=== PATIENT | male | born 1940 | race Caucasian/White ===

== ENCOUNTER 2019-04-29 21:20 | Emergency (ER) | payer OTHER, MEDICARE, SELFPAY ==
[2019-04-29] VITALS (7 sets, daily range): BP systolic 116–152; BP diastolic 62–80; PULSE 55–97; RESP 16–24; TEMP 36.6; O2SAT 93–97; BMI 26.4
--- NOTE | 2019-04-29 21:48 | ED_ITS ---
Entered by Eveline Ivy, acting as scribe for Giulia Jo Apr 29, 2019 21:20 HPI - SOB/Dyspnea General: Chief Complaint: Shortness of Breath/Dyspnea Stated Complaint: difficulty breathing Time Seen by Provider: 04/29/19 21:48 Source: patient Mode of arrival: ambulatory History of Present Illness: HPI Narrative: 78 y/o male presents to the ED with complaint of SOB. Pt states he has hx of bronchitis and he thinks he has it again. He was COPD and states he was on home O2 up until about a year ago. His states he is probably going to need to have it again. Yesterday he noticed his sputum was yellow and he has chest discomfort from coughing. MD elicited complaint: shortness of breath Pertinent past history: COPD Onset (ago): day(s) Timing: progressively worsening Severity: similar to previous episodes Known history of: COPD Associated symptoms: Reports cough; Deny abdominal pain, diaphoresis, dizziness, extremity pain, fever(s), nausea, palpitations, polydipsia, syncope or vomiting Review of Systems General: Reports: other (negative unless marked) Const: Denies: fever, chills, body aches, fatigue, malaise or diaphoresis Eyes: Denies: change in vision or blurry vision ENMT: Denies: throat pain, painful swallowing, hoarseness, ear pain, ear discharge, Change in hearing or nasal discharge Card: Denies: palpitations, irregular heart rhythm, syncope or pre-syncope GI: Denies: abdominal pain, nausea, vomiting, vomiting blood, coffee grounds in vomit, diarrhea, constipation, cramping, blood in stool or black tarry stool : Denies: flank pain, difficulty urinating, painful urination, urinary frequency, urinary urgency, decreased urine ouput, urinary incontinence or blood in urine Musc: Denies: neck pain, back pain, extremity pain, extremity swelling, joint pain, joint swelling, joint warmth or joint stiffness Skin/Breast: Denies: rash, skin tenderness or yellow skin Neuro: Denies: headache, numbness in extremities, weakness in extremities, changes in sensation, lack of coordination, difficulty walking, dizziness, vertigo or confusion Endo: Denies: excessive thirst, tired all the time, cold intolerance, excessive sweating, flushing or hot flashes Fito/Lymph: Denies: easy bruising, easy bleeding, petechiae or enlarged lymph nodes All/Imm: Denies: hives, throat swelling, tongue swelling, facial swelling or acute wheezing PFSH ED PFSH: Social History (Updated 04/21/19 @ 13:56 by SHAKILA Mcginnis) Smoking and tobacco status: former smoker Quit status (tobacco): has quit using tobacco Year quit tobacco: 1986 - 2PPD x 37 Years Second hand smoke exposure: No Alcohol intake: never Lives independently: Yes Household members: spouse Marital status: service: Yes Current occupational status: retired History of recent travel: No Current gender identity: Male Physical Exam Const: COMMON NORMALS: no apparent distress, oriented x3, no limitations, healthy appearing and well nourished EXAM LIMITATIONS: no altered mental status GENERAL APPEARANCE: cooperative, well kempt and well developed ORIENTATION/CONSCIOUSNESS: Yes awake HENMT: COMMON NORMALS: normocephalic, head/scalp atraumatic, hearing grossly normal bilaterally, external ears normal, EAC's normal, external nose normal and moist oral mucous membranes HEAD & SCALP: normal to inspection, normocephalic and atraumatic FACE & SINUS: normal facial exam and face symmetric NOSE: external nose normal and nares normal EXTERNAL EAR: Yes external ears normal EXTERNAL AUDITORY CANAL: EAC's normal MOUTH: oral and palatal mucosa normal and tongue normal Eye: COMMON NORMALS: PERRL, EOMs intact bilaterally, conjunctivae normal and no scleral icterus GENERAL EYE: normal appearance of both eyes and normal li ght reflex CONJUNCTIVA: Yes conjunctivae normal SCLERA: sclerae normal CORNEA: Yes corneas normal PUPIL: Yes PERRL DIRECT OPHTHALMOSCOPY: Yes normal light reflex Neck/C-Spine: COMMON NORMALS: full ROM, no lymphadenopathy, supple, no meningeal signs and no JVD GENERAL: Yes normal visual inspection and Yes trachea midline CERVICAL SPINE: Yes cervical ROM normal Chest: COMMONS NORMALS: inspection of chest normal and palpation of chest normal Resp: EFFORT & INSPECTION: Yes able to speak in complete sentences AUSCULTATION: no crackles, no rales, rhonchi and no wheezes Cardio: COMMON NORMALS: no JVD, regular rate, regular rhythm, S1 normal heart sound, S2 normal heart sound, no gallops, no clicks, no murmurs and no rub JUGULAR VENOUS DISTENTION: no JVD RATE: regular rate RHYTHM: regular rhythm HEART SOUNDS: S1 normal and S2 normal GI: COMMON NORMALS: soft to palpation, non-tender, no hepatosplenomegaly and no masses INSPECTION: Yes normal to inspection PALPATION: Yes soft and Yes no hepatosplenomegaly : COMMON NORMALS: Yes no CVA tenderness BLADDER/KIDNEY EXAM: Yes no CVA tenderness Back/Pelvis: COMMON NORMALS: no CVA tenderness, thoracic and lumbar spine normal to inspection, no thoracic nor lumbar tenderness and thoraco-lumbar ROM normal Extremity: COMMON NORMALS: normal to inspection, full ROM, normal capillary refill, no joint enlargement, no clubbing, cyanosis or edema and no calf tenderness Neuro: COMMON NORMALS: oriented x3, CN's II-XII intact bilaterally, moves all extremities, no focal motor deficits and no sensory deficits noted MENINGEAL SIGNS: Yes no meningeal signs Psych: COMMON NORMALS: mental status grossly normal, thought process normal, cooperative, affect normal, speech normal and activity/motor behavior normal APPEARANCE: Yes well kempt SPEECH: Yes normal speech THOUGHT PROCESS: normal thought process Skin: COMMON NORMALS: no rashes or lesions noted, skin turgor normal, no jaundice, no petechiae and no mottling GENERAL SKIN EXAM: no rashes or lesions noted and turgor normal Course Vital Signs: Vital signs: Vital Signs Temperature 97.8 F 04/29/19 21:26 Pulse Rate 62 04/30/19 00:36 Respiratory Rate 18 04/30/19 00:36 Blood Pressure 152/80 04/30/19 00:36 Pulse Oximetry 98 04/30/19 00:36 MDM - SOB/Dyspnea MDM Narrative: Medical decision making narrative: The patient does not demonstrate any sign of respiratory distress. His chest x-ray reveals a right lower lobe infiltrate. He has no chest pain. His EKG and cardiac markers are unremarkable. His cough productive of yellow sputum. I believe all the symptoms are consistent with pneumonia. I will go and discharge him home with a plan to follow-up with his doctor or return here if needed. The patient was initially going to be discharged with Levaquin but with his borderline renal function he was discharged with Omnicef and doxycycline. The patient agrees to follow-up with his doctor regarding his renal function but he did receive 2 L normal saline here and was able to urinate. He was given instructions to keep himself hydrated at home and he understands this. He agrees to return should his symptoms change or worsen. Lab Data: Attestation: I reviewed the patient's lab results. Labs: Lab Results 04/29/19 04/29/19 04/29/19 Range/Units 22:00 22:00 22:00 WBC 5.7 (4.0-10.0) 10^3/ uL RBC 4.39 (4.1-5.3) 10^6/u L Hgb 13.5 (11.7-16.6) g/dL Hct 40.6 L (42.0-52.0) % MCV 92.5 (80-94) fL MCH 30.8 (28.0-34.0) pg MCHC 33.3 (30.0-36.0) g/dL RDW 12.8 (12.1-15.1) % Plt Count 164 (130-400) 10^3/c mm MPV 10.8 H (7.4-10.4) fL Neut % (Auto) 52.6 % Lymph % (Auto) 31.0 % [place] % (Auto) 8.0 % Eos % (Auto) 7.5 % Baso % (Auto) 0.7 % Neut # (Auto) 3.0 (1.8-7.7) 10^3/u L Lymph # (Auto) 1.8 (0.8-4.8) 10^3/u L [place] # (Auto) 0.5 (0.2-0.9) 10^3/u L Eos # (Auto) 0.4 (0.0-0.8) 10^3/u L Baso # (Auto) 0.0 (0.0-0.1) 10^3/u L Nucleated RBC % (a uto) 0 % Nucleated RBCs # 0.0 /100WBC Specimen Type Sample Site ABG pH (7.35-7.45) ABG pCO2 (35-45) mmHg ABG pO2 (80.0-100.0) mmH g ABG HCO3 (22-26) mmol/L ABG Base Excess (-2.0-2.0) mmol/ L Catracho Test Hematocrit (42-52) % O2 Delivery Device Diamond Driller Helper ID Sodium 142 (136-145) mmol/L Potassium 3.9 (3.5-5.1) mmol/L Chloride 105 (98-107) mmol/L Carbon Dioxide 23 (22-29) mmol/L Anion Gap 17.9 (5-19) BUN 29 H (8-23) mg/dL Creatinine 1.7 H (0.7-1.2) mg/dL Glucose 121 H (65-115) mg/dL Lactic Acid (0.5-2.2) mmol/L Calcium 9.1 (8.5-10.5) mg/dL Magnesium 2.1 (1.7-2.3) mg/dL Total Bilirubin 0.3 (0.15-1.2) mg/dL AST 19 (0-40) U/L ALT 14 (0-41) U/L Alkaline Phosphata se 55 (40-130) IU/L Troponin T Baselin e 11 (0-15) ng/mL NT-Pro-B Natriuret Pep 322 (0-450) pg/mL Total Protein 6.6 (6.6-8.7) g/dL Albumin 4.0 (3.5-5.2) g/dL Globulin 2.6 (1.3-4.6) g/dL Influenza Type A A g (Negative) POC Influenza B Ag (Negative) 04/29/19 04/29/19 04/29/19 Range/Units 22:00 22:20 22:36 WBC (4.0-10.0) 10^3/ uL RBC (4.1-5.3) 10^6/u L Hgb (11.7-16.6) g/dL Hct (42.0-52.0) % MCV (80-94) fL MCH (28.0-34.0) pg MCHC (30.0-36.0) g/dL RDW (12.1-15.1) % Plt Count (130-400) 10^3/c mm MPV (7.4-10.4) fL Neut % (Auto) % Lymph % (Auto) % [place] % (Auto) % Eos % (Auto) % Baso % (Auto) % Neut # (Auto) (1.8-7.7) 10^3/u L Lymph # (Auto) (0.8-4.8) 10^3/u L [place] # (Auto) (0.2-0.9) 10^3/u L Eos # (Auto) (0.0-0.8) 10^3/u L Baso # (Auto) (0.0-0.1) 10^3/u L Nucleated RBC % (a uto) % Nucleated RBCs # /100WBC Specimen Type Arterial Sample Site Brachial, right ABG pH 7.43 (7.35-7.45) ABG pCO2 41.4 (35-45) mmHg ABG pO2 75.3 L (80.0-100.0) mmH g ABG HCO3 27.3 H (22-26) mmol/L ABG Base Excess 2.6 H (-2.0-2.0) mmol/ L Catracho Test Pos Hematocrit 42.3 (42-52) % O2 Delivery Device Room air Diamond Driller Helper ID [email or web address] Sodium (136-145) mmol/L Potassium (3.5-5.1) mmol/L Chloride (98-107) mmol/L Carbon Dioxide (22-29) mmol/L Anion Gap (5-19) BUN (8-23) mg/dL Creatinine (0.7-1.2) mg/dL Glucose (65-115) mg/dL Lactic Acid 1.9 (0.5-2.2) mmol/L Calcium (8.5-10.5) mg/dL Magnesium (1.7-2.3) mg/dL Total Bilirubin (0.15-1.2) mg/dL AST (0-40) U/L ALT (0-41) U/L Alkaline Phosphata se (40-130) IU/L Troponin T Baselin e (0-15) ng/mL NT-Pro-B Natriuret Pep (0-450) pg/mL Total Protein (6.6-8.7) g/dL Albumin (3.5-5.2) g/dL Globulin (1.3-4.6) g/dL Influenza Type A A g Negative (Negative) POC Influenza B Ag Negative (Negative) Imaging Data^: CXR: My impression: Right lower lobe infiltrate. EKG Data^: EKG 1: Attestation: I personally reviewed and interpreted this EKG as follows: EKG Interpretation Date: 04/29/19 EKG interpretation time: 23:01 Interpretation: Sinus bradycardia 53 beats a minute, interventricular conduction delay, nonspecific ST-T wave changes, similar to previous. Discharge Plan Discharge Patient Disposition: Home, Self-Care Clinical Impression: Pneumonia Qualifiers: Pneumonia type: due to unspecified organism Laterality: right Lung location: lower lobe of lung Qualified Code(s): J18.9 - Pneumonia, unspecified organism Condition: Stable Prescriptions: New prednisone 10 mg tablets,dose pack See Rx Instructions .ROUTE .COMPLEX Qty: 21 RF: 0 Levaquin 750 mg tablet 750 mg PO DAILY 7 Days RF: 0 albuterol sulfate 90 mcg/actuation HFA aerosol inhaler 2 inh INHALATION Q4H PRN (Reason: shortness of breath or wheezing) Qty: 6.7 RF: 0 doxycycline hyclate 100 mg capsule 100 mg PO BID 10 Days Qty: 20 RF: 0 cefdinir 300 mg capsule 300 mg PO Q12H 10 Days Qty: 20 RF: 0 No Action Eliquis 2.5 mg tablet 2.5 mg PO BID RF: 0 simvastatin [Zocor] 10 mg tablet 5 mg PO ONCE RF: 0 latanoprost 0.005 % drops 1 drop ophthalmic (eye) ONCE RF: 0 brimonidine 0.2 % drops 1 drop ophthalmic (eye) BID RF: 0 ketoconazole 1 % shampoo 1 applic TOPICAL Q3D RF: 0 citalopram 40 mg tablet 20 mg PO ONCE RF: 0 meloxicam 15 mg tablet 15 mg PO ONCE RF: 0 fluoride (sodium) 1.1 % cream 1 applic DENTAL ONCE RF: 0 fluticasone propionate [Flonase Allergy Relief] 50 mcg/actuation spray,suspension 2 spray INTRANASAL BID Qty: 54.6 RF: 3 albuterol sulfate [ProAir HFA] 90 mcg/actuation HFA aerosol inhaler 2 puff INHALATION Q6H PRN (Reason: shortness of breath or wheezing) Qty: 18 RF: 3 Stiolto Respimat 2.5-2.5 mcg/actuation mist 2 puff INHALATION DAILY Qty: 4 RF: 3 Discharge Orders: Discharge Order (Routine); Ordered 04/29/19 Ordered By: Giulia Jo Referrals: Javi Aguilera MD [Primary Care Provider] - Federica Vieira, RESIDENTIAL GAS HEAT TECHNICIAN-C [Family Provider] - 1-3 days Discharge Diet: Advance as tolerated Discharge Activity: Increase activity as tolerated Patient Instructions: Pneumonia (ED) Activity Restrictions/Additional Instructions: Please return to the ER immediately for any of the signs or symptoms listed on your discharge instruction sheets, worsening/changing of your symptoms, you are not getting better as quickly as expected, or for ANY other cause or concerns. Discharge Date/Time: 04/30/19 00:37 Coding Level of Care Code ED Sider Mechanic for Chg Fwd Exam Comprehensive The documentation recorded by the Biju sevilla Ashley, accurately reflects the service I personally performed and the decisions made by Deysi wilkinson Eli N Apr 29, 2019 21:20
--- NOTE | 2019-04-29 21:59 | XR_ITS ---
WS: [id number] XR chest 1V portable [id number] REASON FOR EXAM: cough FINDINGS: Today's exam was compared to December 29, 2018. There is again noted emphysematous changes w ith interstitial thickening in the lower lung crouch with subsegmental atelectasis in the right lung base. There is no definite pneumonia seen. There is no congestive heart failure, mass effect, or pleural effusion. The hilum and apices are normal. 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
--- NOTE | 2019-04-29 22:00 | ECG_ITS ---
Measurements Intervals [place] Rate: 53 P: 76 ND: 186 QRS: 86 QRSD: 145 T: 61 QT: 470 QTc: 442 SINUS BRADYCARDIA INTRAVENTRICULAR CONDUCTION DELAY [130+ ms QRS DURATION] Compared to ECG 12/29/2018 18:31:56 Intraventricular conduction delay now present Sinus rhythm no longer present Right bundle-branch block no longer present Electronically Signed On 04-30-2019 19:03:20 GASOLINE TRUCK OPERATOR by Juarez Bashir M.D. [email or web address]
[2019-04-29 22:18] LABS: Basophils % 0.7 %; Eosinophils # 0.4 10^3/uL (0.0-0.8); Eosinophils % 7.5 %; Hematocrit 40.6 % (42.0-52.0); Hemoglobin 13.5 g/dL (11.7-16.6); Lymphocytes # 1.8 10^3/uL (0.8-4.8); Mean Corpuscular HGB Conc 33.3 g/dL (30.0-36.0); Mean Corpuscular Hemoglobin 30.8 pg (28.0-34.0); Mean Corpuscular Volume 92.5 fL (80-94); Mean Platelet Volume 10.8 fL (7.4-10.4); Monocytes # 0.5 10^3/uL (0.2-0.9); Neutrophils % 52.6 %; Nucleated Red Blood Cells % 0 %; Platelet Count 164 10^3/cmm (130-400); Red Blood Count 4.39 10^6/uL (4.1-5.3); Red Cell Distribution Width 12.8 % (12.1-15.1); White Blood Count 5.7 10^3/uL (4.0-10.0)
[2019-04-29 22:36] LABS: Troponin(5th) Baseline 11 ng/mL (0-15)
[2019-04-29 22:43] LABS: Lactic Sepsis W/Reflex 1.9 mmol/L (0.5-2.2)
[2019-04-29] MEDS: ondansetron 2 mg/ML SDV 2 mL 4 MG IVP (22:44)
[2019-04-29] MEDS: sodium chloride 0.9% 1,000 ML 100 ML IV (22:44)
[2019-04-29 22:45] LABS: Alanine Aminotransferase 14 U/L (0-41); Alkaline Phosphatase 55 IU/L (40-130); Anion Gap 17.9 (5-19); Aspartate Amino Transferase 19 U/L (0-40); Blood Urea Nitrogen 29 mg/dL (8-23); Calcium 9.1 mg/dL (8.5-10.5); Carbon Dioxide 23 mmol/L (22-29); Chloride 105 mmol/L (98-107); Globulin 2.6 g/dL (1.3-4.6); Glucose 121 mg/dL (65-115); Magnesium 2.1 mg/dL (1.7-2.3); NT Pro B Type Natriuretic Pept 322 pg/mL (0-450); Potassium 3.9 mmol/L (3.5-5.1); Sodium 142 mmol/L (136-145); Total Bilirubin 0.3 mg/dL (0.15-1.2); Total Protein 6.6 g/dL (6.6-8.7)
[2019-04-29 22:47] LABS: ABG PCO2 41.4 mmHg (35-45); ABG PH Result 7.43 (7.35-7.45); Arterial Blood Gas Hematocrit 42.3 % (42-52); Base Excess ABG 2.6 mmol/L (-2.0-2.0); Blood Gas Allen Test Pos; Blood Gas Sample Site Brachial, right; Blood Gas Sample Type Arterial; HCO3 ABG 27.3 mmol/L (22-26); Oxygen Device ROOM AIR; PO2 ABG 75.3 mmHg (80.0-100.0)
[2019-04-29 23:05] LABS: Influenza A by IFA Negative (Negative); Influenza B by IFA Negative (Negative)
[2019-04-29] MEDS: levoFLOXacin 750 mg Tablet PO (23:49)
[2019-04-29] MEDS: predniSONE 20 mg Tablet 60 MG PO (23:49)
[2019-04-29] MEDS: albuterol 8 gm MDI 2 PUFF INHALATION (23:55)
[2019-04-29] MEDS: sodium chloride 0.9% 1,000 ML 999 ML IV (23:55)
[2019-04-30] VITALS: BP 152/80; PULSE 65; RESP 14
[2019-04-30 00:04] VITALS: PULSE 78
[2019-04-30 00:36] VITALS: BP 152/80; PULSE 62; RESP 18; O2SAT 98
== END 2019-04-30 00:37 | disposition home or self-care (01) ==
PROVIDERS: Emergency Provider Emergency Medicine; Family Provider Nurse Practitioner; PCP Internal Medicine
DX: J18.9 Pneumonia, unspecified organism (principal); J44.9 Chronic obstructive pulmonary disease, unspecified; Z87.891 Personal history of nicotine dependence; Z79.51 Long term (current) use of inhaled steroids
CPT/HCPCS: 36415; 36600; 71045; 80053; 82803; 83605; 83735; 83880; 84484; 85025; 87804; 93005; 94640; 96361; 96374; 96375; 99283; 99284; J2405; J2930; J3535; J7030; J7512

== ENCOUNTER 2019-05-07 12:46 | Outpatient (RCR) | payer OTHER, MEDICARE, SELFPAY | END 2019-05-09 23:59 | disposition home or self-care (01) | LOC: PULRHB 12:46 | PROVIDERS: Family Provider Nurse Practitioner; PCP Internal Medicine; Visit Provider Internal Medicine Critical Care Medicine | DX: J44.9 Chronic obstructive pulmonary disease, unspecified (principal) | CPT/HCPCS: 94618 ==

== ENCOUNTER 2019-05-10 06:00 | Outpatient (RCR) | payer OTHER, MEDICARE, SELFPAY | END 2019-06-09 23:59 | disposition home or self-care (01) | LOC: PULRHB 06:00 | PROVIDERS: Family Provider Nurse Practitioner; PCP Internal Medicine; Visit Provider Internal Medicine Critical Care Medicine | DX: J44.9 Chronic obstructive pulmonary disease, unspecified (principal) | CPT/HCPCS: G0424 ==

== ENCOUNTER 2019-07-05 20:50 | Emergency (ER) | payer OTHER, SELFPAY ==
[2019-07-05] VITALS (9 sets, daily range): BP systolic 96–164; BP diastolic 64–88; PULSE 81–96; RESP 15–25; TEMP 36.6; O2SAT 90–97; BMI 27.1
--- NOTE | 2019-07-05 20:58 | XR_ITS ---
WS: [id number] PORTABLE CHEST HISTORY: sob COMPARISON: 04/29/2019 Hyperexpanded lungs. Benign granuloma at the LEFT lung base. No pneumonia. The vasculature remains no rmal. No pleural effusion. Chronic appearing atelectatic changes at the lung bases. No pleural effusi on or pneumothorax. Cardiac size: Normal. Mediastinum/Aorta: Mild atherosclerosis aorta. Degenerative changes at the RIGHT shoulder. XR/XR chest 1V portable [id number] IMPRESSION: Chronic emphysema with no acute cardiopulmonary disease.
--- NOTE | 2019-07-05 20:58 | ECG_ITS ---
Measurements Intervals [place] Rate: 84 P: 82 CT: 168 QRS: 97 QRSD: 133 T: 26 QT: 391 QTc: 464 SINUS RHYTHM RIGHT BUNDLE BRANCH BLOCK [120+ ms QRS DURATION, UPRIGHT V1, 40+ ms S IN I/ I/aVL/V4/V5/V6] Compared to ECG 04/29/2019 23:01:01 Right bundle-branch block now present Sinus bradycardia no longer present Intraventricular conduction delay no longer present Electronically Signed On 07-06-2019 15:54:32 CDT by Padmaja Abdalla M.D. [id number]
--- NOTE | 2019-07-05 21:01 | PC.NURSE ---
Patient states that he has been having shortness of breath for about two months. Patient states the last four nights it has been really bad. Patient is audibly wheezing in ED. Patient states that he can't walk from one room to another without being out of breath. Patient states that he has been on the ZPACK medication.
--- NOTE | 2019-07-05 21:01 | W.ED.SOB ---
HPI - SOB/Dyspnea General: Chief Complaint: Shortness of Breath/Dyspnea Stated Complaint: SOB Time Seen by Provider: 07/05/19 20:57 Source: patient Mode of arrival: ambulatory Limitations: no limitations History of Present Illness: HPI Narrative: 78-year-old male has a history of COPD states has had difficulty breathing over the last 1 to 2 hours. Patient is quite short of breath and only able speak in 2-3 sentences he does have wheezing. He denies cough or fever. Denies any chest pain. MD elicited complaint: shortness of breath Pertinent past history: COPD Onset (ago): hour(s) Severity: moderate Exacerbating factors: nothing Relieving factors: nothing Known history of: COPD Associated symptoms: Deny abdominal pain, chest pain, fever(s), nausea or vomiting Review of Systems Const: Denies: fever, chills, body aches or change in appetite Eyes: Denies: blurry vision or eye discomfort ENMT: Denies: throat pain or dental pain Card: Denies: chest pain Resp: Reports: shortness of breath and wheezing GI: Denies: abdominal pain, nausea, vomiting or diarrhea : Denies: painful urination Musc: Denies: neck pain or back pain Skin/Breast: Denies: rash Neuro: Denies: headache Psych: Denies: depression Fito/Lymph: Denies: easy bruising All/Imm: Denies: hives PFSH ED PFSH: Medical History Anxiety disorder, unspecified Basal cell carcinoma of skin, unspecified COPD (chronic obstructive pulmonary disease) Dyspnea Hyperlipidemia, unspecified Leg fracture, right Major depressive disorder, recurrent, mild Pain in left shoulder Pain in unspecified hip Personal history of pulmonary embolism Vitamin deficiency, unspecified Surgical History H/O rotator cuff surgery Family History Father CAD (coronary artery disease) Mother CAD (coronary artery disease) Sister Cancer Lymphoma Social History Smoking and tobacco status: former smoker Quit status (tobacco): has quit using tobacco Year quit tobacco: 1986PD x 37 Years Second hand smoke exposure: No Alcohol intake: never Lives independently: Yes Household members: spouse Marital status: service: Yes Current occupational status: retired History of recent travel: No Current gender identity: Male Physical Exam Const: COMMON NORMALS: oriented x3 and healthy appearing GENERAL APPEARANCE: in distress HENMT: COMMON NORMALS: normocephalic and head/scalp atraumatic HEAD & SCALP: normocephalic and atraumatic Eye: COMMON NORMALS: PERRL and EOMs intact bilaterally PUPIL: Yes PERRL Neck/C-Spine: COMMON NORMALS: full ROM and supple Chest: COMMONS NORMALS: inspection of chest normal and palpation of chest normal Resp: EFFORT & INSPECTION: Yes tachypneic, Yes respiratory distress and Yes audible wheezes Cardio: COMMON NORMALS: regular rate, regular rhythm and no murmurs RATE: regular rate RHYTHM: regular rhythm GI: COMMON NORMALS: normal to inspection, nondistended, normoactive bowel sounds, soft to palpation, non-tender and no masses PALPATION: Yes soft Extremity: COMMON NORMALS: normal to inspection and full ROM Neuro: COMMON NORMALS: oriented x3, moves all extremities and no focal motor deficits Psych: COMMON NORMALS: mental status grossly normal, thought process normal and cooperative THOUGHT PROCESS: normal thought process Skin: COMMON NORMALS: no rashes or lesions noted and no wounds GENERAL SKIN EXAM: no rashes or lesions noted Course Vital Signs: Vital signs: Vital Signs Temperature 97.8 F 07/05/19 20:55 Pulse Rate 84 07/05/19 22:25 Respiratory Rate 16 07/05/19 22:25 Blood Pressure 164/88 07/05/19 22:25 Pulse Oximetry 95 07/05/19 22:25 MDM - SOB/Dyspnea MDM Narrative: Medical decision making narrative: Patient presents here with COPD exacerbation. He is much improved here after breathing treatment and has no wheezing at this time. Patient has had normal saturations while he is been here. He is to use his albuterol at home as needed. We will place him on 5 days of steroids. He is to follow-up with his PCP in 3 to 5 days and return if worsening. No signs of cardiac cause or pulmonary embolism. Lab Data: Labs: Lab Results 07/05/19 07/05/19 07/05/19 Range/Units 21:05 21:05 21:29 WBC 8.2 (4.0-10.0) 10^3/ uL RBC 4.89 (4.1-5.3) 10^6/u L Hgb 15.4 (11.7-16.6) g/dL Hct 46.5 (42.0-52.0) % MCV 95.1 H (80-94) fL MCH 31.5 (28.0-34.0) pg MCHC 33.1 (30.0-36.0) g/dL RDW 13.4 (12.1-15.1) % Plt Count 195 (130-400) 10^3/c mm MPV 10.1 (7.4-10.4) fL Neut % (Auto) 55.5 % Lymph % (Auto) 26.6 % [place] % (Auto) 8.3 % Eos % (Auto) 8.8 % Baso % (Auto) 0.6 % Neut # (Auto) 4.5 (1.8-7.7) 10^3/u L Lymph # (Auto) 2.2 (0.8-4.8) 10^3/u L [place] # (Auto) 0.7 (0.2-0.9) 10^3/u L Eos # (Auto) 0.7 (0.0-0.8) 10^3/u L Baso # (Auto) 0.1 (0.0-0.1) 10^3/u L Nucleated RBC % (a uto) 0 % Nucleated RBCs # 0.0 /100WBC Specimen Type Arterial Sample Site Radial, left ABG pH 7.44 (7.35-7.45) ABG pCO2 38.7 (35-45) mmHg ABG pO2 72.6 L (80.0-100.0) mmH g ABG HCO3 26.1 H (22-26) mmol/L ABG Base Excess 1.9 (-2.0-2.0) mmol/ L Catracho Test Pos Hematocrit 46.9 (42-52) % Hgb O2 Saturation 95.3 (95-100) % Carboxyhemoglobin 0.7 (0.4-20.1) %THgb Methemoglobin 0.8 (0.4-1.5) % Total Hemoglobin 15.3 (14-18) g/dL O2 Delivery Device Room air Audience Development Manager ID [email or web address] Sodium 144 (136-145) mmol/L Potassium 4.5 (3.5-5.1) mmol/L Chloride 104 (98-107) mmol/L Carbon Dioxide 26 (22-29) mmol/L Anion Gap 18.5 (5-19) BUN 23 (8-23) mg/dL Creatinine 1.5 H (0.7-1.2) mg/dL Glucose 88 (65-115) mg/dL Calculated Osmolal ity 294 (285-295) mOsm/k g Calcium 9.9 (8.5-10.5) mg/dL Total Bilirubin 0.4 (0.15-1.2) mg/dL AST 20 (0-40) U/L ALT 20 (0-41) U/L Alkaline Phosphata se 54 (40-130) IU/L NT-Pro-B Natriuret Pep 364 (0-450) pg/mL Total Protein 7.7 (6.6-8.7) g/dL Albumin 4.4 (3.5-5.2) g/dL Globulin 3.3 (1.3-4.6) g/dL Imaging Data^: CXR: Attestation: I personally reviewed and interpreted this imaging study as follows: My impression: no acute abnormality EKG Data^: EKG 1: Attestation: I personally reviewed and interpreted this EKG as follows: EKG Interpretation Date: 07/05/19 EKG interpretation time: 21:13 Interpretation: nsr hr [address] or t wave abnormalities qrs 133 qtc 432 Discharge Plan Discharge Patient Disposition: Home, Self-Care Clinical Impression: COPD (chronic obstructive pulmonary disease) Qualifiers: COPD type: chronic bronchitis Chronic bronchitis type: unspecified Qualified Code(s): J42 - Unspecified chronic bronchitis Condition: Stable Prescriptions: New prednisone 50 mg tablet 50 mg PO DAILY Qty: 5 RF: 0 No Action Eliquis 2.5 mg tablet 5 mg PO BID RF: 0 simvastatin [Zocor] 10 mg tablet 5 mg PO ONCE RF: 0 latanoprost 0.005 % drops 1 drop ophthalmic (eye) ONCE RF: 0 brimonidine 0.2 % drops 1 drop ophthalmic (eye) BID RF: 0 ketoconazole 1 % shampoo 1 applic TOPICAL Q3D RF: 0 citalopram 40 mg tablet 20 mg PO ONCE RF: 0 meloxicam 15 mg tablet 15 mg PO ONCE RF: 0 fluoride (sodium) 1.1 % cream 1 applic DENTAL ONCE RF: 0 fluticasone propionate [Flonase Allergy Relief] 50 mcg/actuation spray,suspension 2 spray INTRANASAL BID Qty: 54.6 RF: 3 Stiolto Respimat 2.5-2.5 mcg/actuation mist 2 puff INHALATION DAILY Qty: 4 RF: 3 albuterol sulfate [ProAir HFA] 90 mcg/actuation HFA aerosol inhaler 2 puff INHALATION Q6H PRN (Reason: shortness of breath or wheezing) Qty: 18 RF: 3 Discharge Orders: Discharge Order (Routine); Ordered 07/05/19 Ordered By: Renetta Medina Referrals: Javi Aguilera MD [Primary Care Provider] - 1-3 days Federica Vieira FNP-C [Family Provider] - Discharge Diet: Advance as tolerated Discharge Activity: Resume usual activity Patient Instructions: Chronic Obstructive Pulmonary Disease (ED) Coding Level of Care Code ED Coin Wrapping Machine Operator for Chg Fwd Exam Comprehensive
[2019-07-05 21:10] LABS: Basophils # 0.1 10^3/uL (0.0-0.1); Basophils % 0.6 %; Eosinophils # 0.7 10^3/uL (0.0-0.8); Eosinophils % 8.8 %; Hematocrit 46.5 % (42.0-52.0); Hemoglobin 15.4 g/dL (11.7-16.6); Lymphocytes # 2.2 10^3/uL (0.8-4.8); Lymphocytes % 26.6 %; Mean Corpuscular HGB Conc 33.1 g/dL (30.0-36.0); Mean Corpuscular Hemoglobin 31.5 pg (28.0-34.0); Mean Corpuscular Volume 95.1 fL (80-94); Mean Platelet Volume 10.1 fL (7.4-10.4); Monocytes # 0.7 10^3/uL (0.2-0.9); Monocytes % 8.3 %; Neutrophils # 4.5 10^3/uL (1.8-7.7); Neutrophils % 55.5 %; Nucleated Red Blood Cells % 0 %; Platelet Count 195 10^3/cmm (130-400); Red Blood Count 4.89 10^6/uL (4.1-5.3); Red Cell Distribution Width 13.4 % (12.1-15.1); White Blood Count 8.2 10^3/uL (4.0-10.0)
--- NOTE | 2019-07-05 21:19 | PC.NURSE ---
RT in room
[2019-07-05 21:40] LABS: ABG PCO2 38.7 mmHg (35-45); ABG PH Result 7.44 (7.35-7.45); Arterial Blood Gas Hematocrit 46.9 % (42-52); Base Excess ABG 1.9 mmol/L (-2.0-2.0); Blood Gas Allen Test Pos; Blood Gas Sample Site Radial, left; Blood Gas Sample Type Arterial; Carboxyhemoglobin 0.7 %THgb (0.4-20.1); HCO3 ABG 26.1 mmol/L (22-26); HGB O2 Sat 95.3 % (95-100); Methemoglobin 0.8 % (0.4-1.5); Oxygen Device ROOM AIR; PO2 ABG 72.6 mmHg (80.0-100.0); Total Hemoglobin 15.3 g/dL (14-18)
[2019-07-05 21:45] LABS: Alanine Aminotransferase 20 U/L (0-41); Albumin Level 4.4 g/dL (3.5-5.2); Alkaline Phosphatase 54 IU/L (40-130); Anion Gap 18.5 (5-19); Aspartate Amino Transferase 20 U/L (0-40); Blood Urea Nitrogen 23 mg/dL (8-23); Calcium 9.9 mg/dL (8.5-10.5); Carbon Dioxide 26 mmol/L (22-29); Chloride 104 mmol/L (98-107); Globulin 3.3 g/dL (1.3-4.6); Glucose 88 mg/dL (65-115); NT Pro B Type Natriuretic Pept 364 pg/mL (0-450); Osmolality Calculated 294 mOsm/kg (285-295); Potassium 4.5 mmol/L (3.5-5.1); Sodium 144 mmol/L (136-145); Total Bilirubin 0.4 mg/dL (0.15-1.2); Total Protein 7.7 g/dL (6.6-8.7)
[2019-07-05] MEDS: ipratropium-albuterol 3 mL Neb INHALATION (21:48)
== END 2019-07-05 22:35 | disposition home or self-care (01) ==
PROVIDERS: Emergency Provider Emergency Medicine; Family Provider Nurse Practitioner; PCP Internal Medicine
DX: J42 Unspecified chronic bronchitis (principal); Z79.01 Long term (current) use of anticoagulants; Z85.828 Personal history of other malignant neoplasm of skin; E78.5 Hyperlipidemia, unspecified; Z87.891 Personal history of nicotine dependence
CPT/HCPCS: 12345; 36600; 71045; 80053; 82805; 83880; 85025; 93005; 94640; 99282; 99283; 99284; J7611

== ENCOUNTER → 2020-04-19 14:02 | Outpatient (BNVA) | payer MEDICARE, OTHER, SELFPAY | PROVIDERS: PCP Internal Medicine; Visit Provider Internal Medicine | DX: G47.62 Sleep related leg cramps (principal); J44.1 Chronic obstructive pulmonary disease with (acute) exacerbation; Z79.899 Other long term (current) drug therapy | CPT/HCPCS: 80053; 83550; 84443; 85025 ==

== ENCOUNTER 2020-08-30 16:39 | Observation (INO) | payer OTHER, MEDICARE, SELFPAY ==
[2020-08-30] VITALS (10 sets, daily range): BP systolic 121–173; BP diastolic 54–89; PULSE 46–64; RESP 15–17; TEMP 36.6–36.7; O2SAT 94–98; BMI 27.2
--- NOTE | 2020-08-30 16:50 | ECG_ITS ---
[facility] Test Date: 2020-08-30 Pat Name: Rm Batista Department: Room: Gender: Male Radiological Metallurgist: : 1940 Requested By: Maik Walker Order Number: [id number] MD: ANNAMARIE BRYANT Measurements Intervals [place] Rate: 48 P: 11 WV: 180 QRS: 103 QRSD: 142 T: 46 QT: 467 QTc: 417 Interpretive Statements SINUS BRADYCARDIA MARKED RIGHT AXIS DEVIATION [QRS AXIS > 100] INTRAVENTRICULAR CONDUCTION DELAY [130+ ms QRS DURATION] Compared to ECG 07/05/2019 21:13:09 Right-axis deviation now present Intraventricular conduction delay now present Sinus rhythm no longer present Right bundle-branch block no longer present Electronically Signed On 08-30-2020 18:39:11 CDT by ANNAMARIE BRYANT [email or web address]
--- NOTE | 2020-08-30 17:11 | W.ED.DIZZY ---
Documented by User: Maik George DO 08/31/20 05:44 HPI - Dizziness General: Chief Complaint: Dizziness Stated Complaint: Dizziness Time Seen by Provider: 08/30/20 16:46 History of Present Illness: HPI Narrative: 79-year-old male presents emergency room complaining of intermittent dizziness. Soft and worse when he first stands up he said intermittently for the last couple of months last several days seem to gotten worse at times he will suddenly get very dizzy even when he is sitting like today when he was sitting in the car. He will have difficult time walking or standing exacerbates it if he sits and waits for all eventually will pass. When he had the episode today his checked his blood pressure reported via 90/40 range. He denied any chest pain he states he just does not feel right when he gets these episodes his vision gets blurry he never completely lost consciousness. No vomiting no diarrhea no hematochezia melena hematemesis or coffee-ground emesis. 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 MD elicited complaint: dizziness, lightheadedness and near syncope Onset (ago): month(s) (2) Timing: intermittent and episodic Severity: moderate Context: change in body position Exacerbating factors: change in body position and standing Associated symptoms: Reports weakness; Denies change in hearing, chest pain, chills, cough, diaphoresis, ear discharge, ear pressure, fevers/chills, headache(s), malaise, nausea, nasal congestion, palpitations, rash, short of breath, syncope, tinnitus or vomiting Associated neuro symptoms: Deny confusion, difficulty speaking, dysphagia, diplopia, extremity weakness, facial numbness, facial weakness, gait changes, numbness in extremities or visual changes Review of Systems Const: Denies: chills, malaise or diaphoresis ENMT: Denies: ear discharge, change in hearing, tinnitus or nasal congestion Card: Denies: chest pain, palpitations or syncope Resp: Denies: dyspnea, productive cough or non-productive cough GI: Denies: nausea, vomiting or dysphagia : Denies: flank pain, dysuria, urinary frequency or urinary urgency Skin/Breast: Denies: rash or pruritus Neuro: Denies: headache(s), numbness in extremities or confusion FORMERLY [facility], [facility]–1983 ED FORMERLY [facility], [facility]: Medical History (Updated 08/30/20 @ 21:22 by Juarez Worthington MD) Anxiety disorder, unspecified Basal cell carcinoma of skin, unspecified COPD (chronic obstructive pulmonary disease) Dyspnea Hyperlipidemia, unspecified Leg fracture, right Major depressive disorder, recurrent, mild Pain in left shoulder Pain in unspecified hip Personal history of pulmonary embolism Vitamin deficiency, unspecified Surgical History H/O rotator cuff surgery Family History Father CAD (coronary artery disease) Mother CAD (coronary artery disease) Sister Cancer Lymphoma Social History Smoking and tobacco status: former smoker Quit status (tobacco): has quit using tobacco Year quit tobacco: 1986 - 2PPD x 37 Years Second hand smoke exposure: No Alcohol intake: never Lives independently: Yes Household members: spouse Marital status: service: Yes Current occupational status: retired History of recent travel: No Current gender identity: Male Physical Exam Const: COMMON NORMALS: no acute distress GENERAL APPEARANCE: cooperative and comfortable ORIENTATION/CONSCIOUSNESS: Yes awake, Yes oriented to person, Yes oriented to place and Yes oriented to time HENMT: COMMON NORMALS: normocephalic, atraumatic, hearing grossly normal bilaterally, external ears normal, EAC's normal, TM's normal bilaterally, Normal nasal mucous membranes and turbinates present, moist oral mucous membranes and oropharynx normal HEAD & SCALP: normocephalic and atraumatic NOSE: Normal nasal mucous membranes and turbinates present EXTERNAL EAR: Yes external ears normal EXTERNAL AUDITORY CANAL: EAC's normal TYMPANIC MEMBRANE: TM's normal bilaterally Eye: COMMON NORMALS: Equal, round and reactive pupils present, EOMs intact bilaterally, conjunctivae normal and no scleral icterus CONJUNCTIVA: Yes conjunctivae normal PUPIL: Yes Equal, round and reactive pupils present Neck/C-Spine: COMMON NORMALS: no JVD Resp: COMMON NORMALS: normal respiratory effort, No retractions, No use of accessory muscles and clear to auscultation bilaterally AUSCULTATION: clear to auscultation bilaterally Cardio: COMMON NORMALS: no JVD, regular rate, regular rhythm and No murmurs present (Cardio) RATE: regular rate RHYTHM: regular rhythm GI: COMMON NORMALS: Soft to palpation and No hepatosplenomegaly present AUSCULTATION: Yes normoactive bowel sounds PALPATION: Yes Soft to palpation, No Tenderness to palpation present (GI), No Guarding due to palpation present (GI) and Yes No hepatosplenomegaly present Extremity: COMMON NORMALS: normal to inspection, capillary refill normal, no clubbing, cyanosis or edema, no calf tenderness and no pedal edema Neuro: SENSORIUM/ORIENTATION: Yes oriented to person, Yes oriented to place and Yes oriented to time Skin: COMMON NORMALS: no rashes or lesions noted GENERAL SKIN EXAM: no rashes or lesions noted Course Vital Signs: Vital signs: Vital Signs Temperature 97.8 F 08/30/20 23:39 Pulse Rate 43 L 08/31/20 03:54 Respiratory Rate 18 08/31/20 03:00 Blood Pressure 116/52 08/31/20 03:00 Pulse Oximetry 97 08/31/20 03:00 MDM - Dizziness MDM Narrative: Medical decision making narrative: Patient seen initially and work-up and started. Care turned over to Dr. Medina at change of shift see his notes for final diagnosis and disposition Lab Data: Labs: Lab Results 08/30/20 08/30/20 08/30/20 Range/Units 17:42 17:42 17:42 WBC 6.5 (4.0-10.0) 10^3/ uL RBC 4.55 (4.1-5.3) 10^6/u L Hgb 14.4 (11.7-16.6) g/dL Hct 43.6 (42.0-52.0) % MCV 95.8 H (80-94) fL MCH 31.6 (28.0-34.0) pg MCHC 33.0 (30.0-36.0) g/dL RDW 13.4 (12.1-15.1) % Plt Count 173 (130-400) 10^3/c mm MPV 10.2 (7.4-10.4) fL Neut % (Auto) 60.2 % Lymph % (Auto) 27.5 % Millard % (Auto) 9.2 % Eos % (Auto) 2.3 % Baso % (Auto) 0.5 % Neut # (Auto) 3.93 (1.8-7.7) 10^3/u L Lymph # (Auto) 1.8 (0.8-4.8) 10^3/u L Millard # (Auto) 0.6 (0.2-0.9) 10^3/u L Eos # (Auto) 0.2 (0.0-0.8) 10^3/u L Baso # (Auto) 0.0 (0.0-0.1) 10^3/u L Nucleated RBC % (a uto) 0 % Nucleated RBCs # 0.0 /100WBC Sodium 140 (136-145) mmol/L Potassium 4.5 (3.5-5.1) mmol/L Chloride 106 (98-107) mmol/L Carbon Dioxide 26 (22-29) mmol/L Anion Gap 12.5 (5-19) BUN 28 H (8-23) mg/dL Creatinine 1.3 H (0.7-1.2) mg/dL GFR Calculation Not Reportable Glucose 89 (65-115) mg/dL Calculated Osmolal ity 295 (285-295) mOsm/k g Calcium 8.4 L (8.5-10.5) mg/dL Magnesium (1.7-2.3) mg/dL Total Bilirubin 0.4 (0.15-1.2) mg/dL AST 19 (0-40) U/L ALT 16 (0-41) U/L Alkaline Phosphata se 57 (40-130) IU/L Troponin T Baselin e 10 (0-15) ng/L Troponin T 120 Min minnie (0-15) ng/L Delta Troponin T (0-10) ABS# Total Protein 6.1 L (6.6-8.7) g/dL Albumin 4.1 (3.5-5.2) g/dL Globulin 2.0 (1.3-4.6) g/dL TSH (0.27-4.20) uIU/ mL 08/30/20 08/30/20 08/30/20 Range/Units 19:58 19:58 19:58 WBC (4.0-10.0) 10^3/ uL RBC (4.1-5.3) 10^6/u L Hgb (11.7-16.6) g/dL Hct (42.0-52.0) % MCV (80-94) fL MCH (28.0-34.0) pg MCHC (30.0-36.0) g/dL RDW (12.1-15.1) % Plt Count (130-400) 10^3/c mm MPV (7.4-10.4) fL Neut % (Auto) % Lymph % (Auto) % Millard % (Auto) % Eos % (Auto) % Baso % (Auto) % Neut # (Auto) (1.8-7.7) 10^3/u L Lymph # (Auto) (0.8-4.8) 10^3/u L Millard # (Auto) (0.2-0.9) 10^3/u L Eos # (Auto) (0.0-0.8) 10^3/u L Baso # (Auto) (0.0-0.1) 10^3/u L Nucleated RBC % (a uto) % Nucleated RBCs # /100WBC Sodium (136-145) mmol/L Potassium (3.5-5.1) mmol/L Chloride (98-107) mmol/L Carbon Dioxide (22-29) mmol/L Anion Gap (5-19) BUN (8-23) mg/dL Creatinine (0.7-1.2) mg/dL GFR Calculation Glucose (65-115) mg/dL Calculated Osmolal ity (285-295) mOsm/k g Calcium (8.5-10.5) mg/dL Magnesium 2.1 (1.7-2.3) mg/dL Total Bilirubin (0.15-1.2) mg/dL AST (0-40) U/L ALT (0-41) U/L Alkaline Phosphata se (40-130) IU/L Troponin T Baselin e (0-15) ng/L Troponin T 120 Min minnie 9.11 (0-15) ng/L Delta Troponin T -0.89 L (0-10) ABS# Total Protein (6.6-8.7) g/dL Albumin (3.5-5.2) g/dL Globulin (1.3-4.6) g/dL TSH 1.96 (0.27-4.20) uIU/ mL Discharge Plan Discharge Patient Disposition: Admitted As Inpatient Admit Provider: Juarez Worthington Clinical Impression: Near syncope, Bradycardia Condition: Stable Coding Level of Care Code ED Ext Js Developer for Chg Fwd Exam Comprehensive Documented by User: Renetta Medina MD 08/30/20 21:21 HPI - Dizziness General: Chief Complaint: Dizziness Stated Complaint: Dizziness Time Seen by Provider: 08/30/20 16:46 FORMERLY [facility], [facility]–1983 ED PFSH: Medical History (Updated 08/30/20 @ 21:22 by Juarez Worthington MD) Anxiety disorder, unspecified Basal cell carcinoma of skin, unspecified COPD (chronic obstructive pulmonary disease) Dyspnea Hyperlipidemia, unspecified Leg fracture, right Major depressive disorder, recurrent, mild Pain in left shoulder Pain in unspecified hip Personal history of pulmonary embolism Vitamin deficiency, unspecified Surgical History H/O rotator cuff surgery Family History Father CAD (coronary artery disease) Mother CAD (coronary artery disease) Sister Cancer Lymphoma Social History Smoking and tobacco status: former smoker Quit status (tobacco): has quit using tobacco Year quit tobacco: 1986 - 2PPD x 37 Years Second hand smoke exposure: No Alcohol intake: never Lives independently: Yes Household members: spouse Marital status: service: Yes Current occupational status: retired History of recent travel: No Current gender identity: Male Course Vital Signs: Vital signs: Vital Signs Temperature 97.8 F 08/30/20 23:39 Pulse Rate 43 L 08/31/20 03:54 Respiratory Rate 18 08/31/20 03:00 Blood Pressure 116/52 08/31/20 03:00 Pulse Oximetry 97 08/31/20 03:00 MDM - Dizziness MDM Narrative: Medical decision making narrative: Patient presents here with near syncopal events and is found to be bradycardic here. His sinus bradycardia could be causing this. Patient's blood work here is all normal. Spoke to hospitalist will admit for observation for his bradycardia. Lab Data: Labs: Lab Results 08/30/20 08/30/20 08/30/20 Range/Units 17:42 17:42 17:42 WBC 6.5 (4.0-10.0) 10^3/ uL RBC 4.55 (4.1-5.3) 10^6/u L Hgb 14.4 (11.7-16.6) g/dL Hct 43.6 (42.0-52.0) % MCV 95.8 H (80-94) fL MCH 31.6 (28.0-34.0) pg MCHC 33.0 (30.0-36.0) g/dL RDW 13.4 (12.1-15.1) % Plt Count 173 (130-400) 10^3/c mm MPV 10.2 (7.4-10.4) fL Neut % (Auto) 60.2 % Lymph % (Auto) 27.5 % Millard % (Auto) 9.2 % Eos % (Auto) 2.3 % Baso % (Auto) 0.5 % Neut # (Auto) 3.93 (1.8-7.7) 10^3/u L Lymph # (Auto) 1.8 (0.8-4.8) 10^3/u L Millard # (Auto) 0.6 (0.2-0.9) 10^3/u L Eos # (Auto) 0.2 (0.0-0.8) 10^3/u L Baso # (Auto) 0.0 (0.0-0.1) 10^3/u L Nucleated RBC % (a uto) 0 % Nucleated RBCs # 0.0 /100WBC Sodium 140 (136-145) mmol/L Potassium 4.5 (3.5-5.1) mmol/L Chloride 106 (98-107) mmol/L Carbon Dioxide 26 (22-29) mmol/L Anion Gap 12.5 (5-19) BUN 28 H (8-23) mg/dL Creatinine 1.3 H (0.7-1.2) mg/dL GFR Calculation Not Reportable Glucose 89 (65-115) mg/dL Calculated Osmolal ity 295 (285-295) mOsm/k g Calcium 8.4 L (8.5-10.5) mg/dL Magnesium (1.7-2.3) mg/dL Total Bilirubin 0.4 (0.15-1.2) mg/dL AST 19 (0-40) U/L ALT 16 (0-41) U/L Alkaline Phosphata se 57 (40-130) IU/L Troponin T Baselin e 10 (0-15) ng/L Troponin T 120 Min minnie (0-15) ng/L Delta Troponin T (0-10) ABS# Total Protein 6.1 L (6.6-8.7) g/dL Albumin 4.1 (3.5-5.2) g/dL Globulin 2.0 (1.3-4.6) g/dL TSH (0.27-4.20) uIU/ mL 08/30/20 08/30/20 08/30/20 Range/Units 19:58 19:58 19:58 WBC (4.0-10.0) 10^3/ uL RBC (4.1-5.3) 10^6/u L Hgb (11.7-16.6) g/dL Hct (42.0-52.0) % MCV (80-94) fL MCH (28.0-34.0) pg MCHC (30.0-36.0) g/dL RDW (12.1-15.1) % Plt Count (130-400) 10^3/c mm MPV (7.4-10.4) fL Neut % (Auto) % Lymph % (Auto) % Millard % (Auto) % Eos % (Auto) % Baso % (Auto) % Neut # (Auto) (1.8-7.7) 10^3/u L Lymph # (Auto) (0.8-4.8) 10^3/u L Millard # (Auto) (0.2-0.9) 10^3/u L Eos # (Auto) (0.0-0.8) 10^3/u L Baso # (Auto) (0.0-0.1) 10^3/u L Nucleated RBC % (a uto) % Nucleated RBCs # /100WBC Sodium (136-145) mmol/L Potassium (3.5-5.1) mmol/L Chloride (98-107) mmol/L Carbon Dioxide (22-29) mmol/L Anion Gap (5-19) BUN (8-23) mg/dL Creatinine (0.7-1.2) mg/dL GFR Calculation Glucose (65-115) mg/dL Calculated Osmolal ity (285-295) mOsm/k g Calcium (8.5-10.5) mg/dL Magnesium 2.1 (1.7-2.3) mg/dL Total Bilirubin (0.15-1.2) mg/dL AST (0-40) U/L ALT (0-41) U/L Alkaline Phosphata se (40-130) IU/L Troponin T Baselin e (0-15) ng/L Troponin T 120 Min minnie 9.11 (0-15) ng/L Delta Troponin T -0.89 L (0-10) ABS# Total Protein (6.6-8.7) g/dL Albumin (3.5-5.2) g/dL Globulin (1.3-4.6) g/dL TSH 1.96 (0.27-4.20) uIU/ mL EKG Data^: EKG 1: Attestation: I personally reviewed and interpreted this EKG as follows: EKG interpretation date: 08/30/20 EKG interpretation time: 19:30 Interpretation: sinus tucker hr [address] or t wave abnormalities qrs 141 qtc 429 Discharge Plan Discharge Patient Disposition: Admitted As Inpatient Admit Provider: Juarez Worthington Clinical Impression: Near syncope, Bradycardia Condition: Stable Coding Level of Care Code ED Ext Js Developer for g Fwd Exam Comprehensive
--- NOTE | 2020-08-30 17:49 | CTR_ITS ---
PROCEDURE INFORMATION: Exam: CT Head Without Contrast Exam date and time: 08/30/2020 5:49 PM Age: 79 years old Clinical indication: Dizziness and visual disturbance; Additional info: Near syncope TECHNIQUE: Imaging protocol: Computed tomography of the head without contrast. Radiation optimization: All CT scans at this facility use at least one of these dose optimization techniques: automated exposure control; mA and/or kV adjustment per patient size (includes targeted exams where dose is matched to clinical indication); or iterative reconstruction. COMPARISON: [facility] for Foreign Body* [id number] 05/11/2016 1:23 PM RADIATION DOSE METRICS: Total DLP (mGy-cm): 967.34 FINDINGS: Brain: Moderate diffuse white matter disease likely reflecting chronic microvascular ischemic changes. Cerebral ventricles: No ventriculomegaly. Paranasal sinuses: Visualized sinuses are unremarkable. No fluid levels. Mastoid air cells: Visualized mastoid air cells are well aerated. Bones/joints: Unremarkable. No acute fracture. Soft tissues: Unremarkable. CT/CT head wo con* [id number] IMPRESSION: Negative for intracranial hemorrhage or mass effect Radiation Dose CTDIVOL = (mGy): DLP = 967.34 (mGy-cm)
[2020-08-30 17:50] LABS: Basophils % 0.5 %; Eosinophils # 0.2 10^3/uL (0.0-0.8); Eosinophils % 2.3 %; Hematocrit 43.6 % (42.0-52.0); Hemoglobin 14.4 g/dL (11.7-16.6); Lymphocytes # 1.8 10^3/uL (0.8-4.8); Lymphocytes % 27.5 %; Mean Corpuscular Hemoglobin 31.6 pg (28.0-34.0); Mean Corpuscular Volume 95.8 fL (80-94); Mean Platelet Volume 10.2 fL (7.4-10.4); Monocytes # 0.6 10^3/uL (0.2-0.9); Monocytes % 9.2 %; Neutrophils # 3.93 10^3/uL (1.8-7.7); Neutrophils % 60.2 %; Nucleated Red Blood Cells % 0 %; Platelet Count 173 10^3/cmm (130-400); Red Blood Count 4.55 10^6/uL (4.1-5.3); Red Cell Distribution Width 13.4 % (12.1-15.1); White Blood Count 6.5 10^3/uL (4.0-10.0)
[2020-08-30 18:45] LABS: Troponin(5th) Baseline 10 ng/L (0-15)
[2020-08-30 18:50] LABS: Alanine Aminotransferase 16 U/L (0-41); Albumin Level 4.1 g/dL (3.5-5.2); Alkaline Phosphatase 57 IU/L (40-130); Anion Gap 12.5 (5-19); Aspartate Amino Transferase 19 U/L (0-40); Blood Urea Nitrogen 28 mg/dL (8-23); Calcium 8.4 mg/dL (8.5-10.5); Carbon Dioxide 26 mmol/L (22-29); Chloride 106 mmol/L (98-107); Glucose 89 mg/dL (65-115); Osmolality Calculated 295 mOsm/kg (285-295); Potassium 4.5 mmol/L (3.5-5.1); Sodium 140 mmol/L (136-145); Total Bilirubin 0.4 mg/dL (0.15-1.2); Total Protein 6.1 g/dL (6.6-8.7)
--- NOTE | 2020-08-30 19:50 | ECG_ITS ---
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 Measurements Intervals [place] Rate: 45 P: -21 MO: 168 QRS: 100 QRSD: 141 T: 36 QT: 474 QTc: 413 Interpretive Statements SINUS BRADYCARDIA BORDERLINE RIGHT AXIS DEVIATION [QRS AXIS > 90] INTRAVENTRICULAR CONDUCTION DELAY [130+ ms QRS DURATION] Compared to ECG 08/30/2020 16:54:56 No significant changes Electronically Signed On 08-31-2020 20:08:08 CDT by Padmaja Abdalla M.D. [id number]
[2020-08-30 20:33] LABS: Troponin 5 2HR 9.11 ng/L (0-15)
--- NOTE | 2020-08-30 20:37 | PM.HP ---
Providers/Chief Complaint Admitting Physician: Juarez Worthington MD Primary Care Provider: Javi Aguilera MD Chief Complaint: Dizziness History of Present Illness Rm Batista is a 79 year old male who does carry history of bradycardia, presented today after a presyncopal event. Patient is stating that today he was shopping for a Omnigy when he suddenly started experiencing dizziness which he is describing as lightheadedness, he experienced diaphoresis however no chest pain, nausea or vomiting, he immediately sat down which resolved his symptoms. He has been experiencing dizziness for last few months, denies syncopal event or falls, no confusion spells. He does not take any AV wilberto blocking agent. Follows up with Dr. Gomez. He considers himself fairly active for his age but gets short of breath with mild activity, he can only walk up to 15-20 feet without getting short of breath these days. Diagnostics in the ER revealed first-degree sinus bradycardia AV block, incomplete right bundle branch block, QTC normal, no signs of ACS, I have requested TSH, patient was perfusing well systolic blood pressure 170, he was awake and alert, troponin with negative delta, head CT unremarkable, creatinine at baseline Review of Systems Const: Reports: body aches, fatigue and malaise Eyes: Denies: change in vision ENMT: Denies: throat pain Card: Reports: lightheadedness, pre-syncope and dyspnea on exertion; Denies: chest pain Resp: Reports: dyspnea GI: Denies: abdominal pain : Denies: flank pain Musc: Denies: neck pain Skin/Breast: Denies: rash Neuro: Denies: headache(s) Psych: Denies: anxiety Endo: Denies: polyuria Fito/Lymph: Denies: easy bruising All/Imm: Denies: urticaria Medications/Allergies Home Medications Medication Instructions Recorded Confirmed Last Taken Type fluoride (sodium) 1.1 % dental 1 applic DENTAL ONCE 03/09/19 04/19/20 07/05/19 History cream apixaban 2.5 mg tablet 5 mg PO BID 03/16/19 04/19/20 07/05/19 History brimonidine 0.2 % eye drops 1 drop OPHTHALMIC (EYE) BID ml 03/16/19 04/19/20 07/05/19 History ketoconazole 1 % shampoo 1 applic TOPICAL Q3D 03/16/19 04/19/20 07/05/19 History latanoprost 0.005 % eye drops 1 drop OPHTHALMIC (EYE) ONCE 03/16/19 04/19/20 07/05/19 History simvastatin 10 mg tablet 5 mg PO ONCE tab 03/16/19 04/19/20 07/05/19 History fluticasone propionate 50 2 spray INTRANASAL BID #54.6 ml 04/14/19 04/19/20 07/05/19 Rx mcg/actuation nasal spray,suspension albuterol sulfate 90 mcg/actuation 2 puff INHALATION Q6H PRN #18 gm 06/08/19 04/19/20 07/05/19 Rx aerosol inhaler prednisone 50 mg PO DAILY #5 tab 07/05/19 04/19/20 Unknown Rx ipratropium 0.5 mg-albuterol 3 mg 3 ml INHALATION Q6H PRN 90 Days 07/06/19 04/19/20 Unknown Rx (2.5 mg base)/3 mL nebulization #180 ml soln nebulizers #1 each 07/06/19 04/19/20 Unknown Rx fluticasone fur. 100 mcg-umeclid 1 inh INHALATION Q24H 90 Days #60 07/31/19 04/19/20 Unknown Rx 62.5 mcg-vilant 25 mcg each inhalat.powder cephalexin 500 mg capsule 500 mg PO BID 10 Days #20 cap 08/21/19 04/19/20 Unknown Rx meloxicam 15 mg tablet 15 mg PO DAILY #90 tab 11/06/19 04/19/20 Unknown Rx cholecalciferol (vitamin D3) 25 25 mcg PO DAILY 04/19/20 04/19/20 Unknown History mcg (1,000 unit) capsule finasteride 5 mg tablet 5 mg PO DAILY 04/19/20 04/19/20 Unknown History citalopram 20 mg tablet 20 mg PO DAILY #90 tab 05/24/20 Unknown Rx Allergies Allergy/AdvReac Type Severity Reaction Status Date / Time No Known Allergies Allergy Verified 04/19/20 11:17 PFSH Acute PFSH: Medical History (Updated 08/30/20 @ 21:22 by Juarez Worthington MD) Anxiety disorder, unspecified Basal cell carcinoma of skin, unspecified COPD (chronic obstructive pulmonary disease) Dyspnea Hyperlipidemia, unspecified Leg fracture, right Major depressive disorder, recurrent, mild Pain in left shoulder Pain in unspecified hip Personal history of pulmonary embolism Vitamin deficiency, unspecified Surgical History H/O rotator cuff surgery Family History Father CAD (coronary artery disease) Mother CAD (coronary artery disease) Sister Cancer Lymphoma Social History Smoking and tobacco status: former smoker Quit status (tobacco): has quit using tobacco Year quit tobacco: 1986 - 2PPD x 37 Years Second hand smoke exposure: No Alcohol intake: never Lives independently: Yes Household members: spouse Marital status: service: Yes Current occupational status: retired History of recent travel: No Current gender identity: Male Vitals/I&O/Wt Last Vital Signs Temp 98.0 F 08/30/20 16:45 Pulse 64 08/30/20 17:32 Resp 16 08/30/20 17:32 BP 134/75 08/30/20 17:32 Pulse Ox 97 08/30/20 17:32 Weight last 48 hrs Weight 86.183 kg Physical Exam Narrative: EXAM NARRATIVE: Elderly male pleasant and very cooperative during my evaluation at the bedside S1, S2 sinus bradycardia no murmur appreciated no signs of heart failure Abdomen soft nontender bowel sound present Lower extremity no edema gangrene ulcer Bilateral breath sounds diminished however no active wheezing or crackles EOMI, PERRLA No neurological deficits Patient is awake alert oriented x3 Appropriate mood and affect No joint swelling no cellulitis Data : 08/30/20 17:42 08/30/20 17:42 A&P Assessment and plan (1) Symptomatic bradycardia: Status: Acute (2) Near syncope: Status: Acute Additional A&P Information Symptomatic bradycardia EKG shows first-degree AV block incomplete right bundle branch block QTC normal No signs of ACS, requested TSH, no severe electrolyte abnormality His symptoms include presyncope, dizziness, shortness of breath Currently perfusing well systolic blood pressure 170 mmHg Monitor on telemetry floor Avoid AV wilberto blocking agent Consider cardiac consult in the morning Patient takes Eliquis for his previous history of PE Patient is asymptomatic at the time of my evaluation Repeat echo in the morning Chronic kidney disease without acute exacerbation Cardiac diet DVT prophylaxis not indicated Full code Attestations Medical Necessity Statement*: Anticipating discharge within 48 hours overnight monitoring needed for symptomatic bradycardia Time Spent in Patient Care: (>than 50% of time spent in counselling and/or direct pt care on unit). 35mins Coding Level of Care Code Acute [employer] for [employer] Brambila Diagnoses Symptomatic bradycardia R00.1 Near syncope R55
[2020-08-30 20:42] LABS: Troponin 5 2HR Delta -0.89 ABS# (0-10)
[2020-08-30 20:57] LABS: Magnesium 2.1 mg/dL (1.7-2.3)
[2020-08-30 21:08] LABS: Thyroid Stimulating Hormone 1.96 uIU/mL (0.27-4.20)
[2020-08-30] MEDS: atorvastatin 40 mg Tablet 10 MG PO (22:46)
--- NOTE | 2020-08-30 22:50 | PC.NURSE ---
Patient arrived to the floor from the ED after report was received via phone. Patient is alert and oriented. Patient educated to not get up without assistance due to c/o dizziness earlier. Patient educated on how to use call light and verbalized understanding. Patient has no complaints at this time. Will monitor.
--- NOTE | 2020-08-30 23:50 | ECG_ITS ---
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 Measurements Intervals [place] Rate: 52 P: 65 UT: 186 QRS: 101 QRSD: 145 T: 48 QT: 458 QTc: 427 Interpretive Statements SINUS BRADYCARDIA MARKED RIGHT AXIS DEVIATION [QRS AXIS > 100] RIGHT BUNDLE BRANCH BLOCK [120+ ms QRS DURATION, UPRIGHT V1, 40+ ms S IN I/aVL/V4/V5/V6] Compared to ECG 08/30/2020 19:30:04 Right bundle-branch block now present Intraventricular conduction delay no longer present Electronically Signed On 09-02-2020 14:27:19 CDT by Arianne Gomez M.D. [id number] f
[2020-08-31] VITALS (14 sets, daily range): BP systolic 106–136; BP diastolic 52–73; PULSE 43–71; RESP 13–19; TEMP 36.4–37.1; O2SAT 93–99
--- NOTE | 2020-08-31 03:20 | PC.NURSE ---
Patient had written list of home medications. Patient stated that not all of his home medications were on that list. He was able to list some verbally. He states there is a medication he takes to sleep, but he doesn't know what it is called. Pharmacy and/or PCP will need to be contacted in AM to get name of this medication.
--- NOTE | 2020-08-31 05:31 | PC.NURSE ---
Patient ambulated to bathroom with standby assist from nurse. Patient tolerated well and did not have any dizziness. Patient's oxygen saturation on continuous pulse ox throughout night has been 90s on room air.
--- NOTE | 2020-08-31 06:00 | USCV_ITS ---
Rm Batista Age: 79 Gender: M : 1940 Exam Date: 08/31/2020 06:12 Ordering Phys: Juarez Worthington MD Technologist: Ariela Galdamez Exam Location: [facility] [place] Indication: BRADYCARDIA BP: 116 / 52 HR: 42 Rhythm: Sinus Technical Quality: Technically difficult study MEASUREMENTS (Male / Female) Normal Values 2D ECHO LV Diastolic Diameter PLAX 4.7 cm 4.2 - 5.9 / 3.9 - 5.3 cm LV Systolic Diameter PLAX 2.9 cm IVS Diastolic Thickness 1.4 cm 0.6 - 1.0 / 0.6 - 0.9 cm IVS Systolic Thickness 2.1 cm LVPW Diastolic Thickness 1.6 cm 0.6 - 1.0 / 0.6 - 0.9 cm LVPW Systolic Thickness 1.7 cm RV Chamber Size 4.4 cm LVOT Diameter 2.0 cm LV Ejection Fraction 2D Teich 68.6 % LV Ejection Fraction MOD 2C 60.6 % LV Ejection Fraction 2C AL 59.9 % LA Diameter 2.4 cm LA Width 2.4 cm LA Height 4.6 cm RA Width 3.4 cm RA Height 4.0 cm Aorta at Sinotubular Diameter 2.7 cm M-MODE Aortic Annulus Diameter 2.9 cm LA Ao Ratio MM 0.9 MV E Point Septal Separation 0.9 cm DOPPLER AV Peak Velocity 111.0 cm/s LVOT Peak Velocity 107.0 cm/s AV Area Cont Eq vti 2.9 cm squared AV Area Cont Eq pk 3.1 cm squared MV E' Velocity 9.0 cm/s TR Peak Velocity 163.0 cm/s TR Peak Gradient 10.6 mmHg TV Peak E Velocity 182.3 cm/s Right Atrial Pressure 3.0 mmHg Pulmonary Artery Systolic Pressu 13.6 mmHg PV Peak Velocity 78.0 cm/s RV Acceleration Time 0.1 s RV Ejection Time 0.3 s RV AcT/ET 0.2 FINDINGS Left Ventricle Normal left ventricular cavity size. Grossly normal left ventricular systolic function. Left ventricular ejection fraction is estimated at 60 %. Although no diagnostic abnormality could be identified this possibility cannot be completely excluded based on the study. Abnormal septal motion consistent with conduction abnormality. Right Ventricle Normal right ventricular size and systolic function. RVSP could not be calculated due to incomplete tricuspid regurgitation velocity profile. Right Atrium Right atrial pressure estimated at 3 mmHg. Left Atrium Normal left atrial size. Mitral Valve Thickened mitral valve. No mitral valve stenosis. Trace mitral valve regurgitation. Aortic Valve Structurally normal trileaflet aortic valve. No aortic valve stenosis. Trace aortic valve regurgitation. Tricuspid Valve Structurally normal tricuspid valve. Pulmonic Valve Pulmonic valve not well visualized. Pericardium No pericardial effusion. Aorta Normal-sized inferior vena cava with normal respiratory variation. CONCLUSIONS 1. This is a technically difficult study. 2. Normal left ventricular cavity size. Grossly normal left ventricular systolic function. Left ventricular ejection fraction is estimated at 60 %. Although no diagnostic abnormality could be identified this possibility cannot be completely excluded based on the study. Abnormal septal motion consistent with conduction abnormality. 3. Normal right ventricular size and systolic function. 4. No significant change when compared to echocardiogram dated 02/27/2019. Arianne Gomez MD (Electronically Signed) Final Date: 31 August 2020 14:27 S
[2020-08-31] MEDS: brimonidine 0.2% Op Soln 5 mL Btl 1 DROP EYE-BOTH ×2 (08:20→16:34)
[2020-08-31] MEDS: apixaban 5 mg Tablet PO ×2 (08:20→17:52)
--- NOTE | 2020-08-31 09:56 | PC.CHAP ---
Pastoral Care Encounter/Spiritual Assessment Type of Contact [] Declined senior systems software engineer visit [] Patient/Family/Request visit [] Outpatient visit [] Follow-up visit [] Physician referral [] Code/Alert [x] Routine visit [] Staff referral [] Actively dying [] Patient sleeping [] Family support [] [] Out of room [] Palliative care [] [] Receiving care in room [] Pre-surgical visit [] Trauma [] Long length of stay [] ICU visit [] Other: Relational/Emotional Strength [] Patient feels connected with others/family/visitors/staff [] Distress [] Loneliness/isolation [] Abandonment Spirituality of Patient [] Person of Olya [] Attends Orthodox of their Olya [] Believes in Prayer [] Reads Bible or Taoism materials [] There are Spiritual issues to be addressed Consultant Education Interventions [] Prayer [] Active listening [] Non-anxious presence [] Spiritual/emotional support [] Crisis/trauma care [] Spiritual counseling [] Bereavement support [] Provided bereavement packet [] Provided Bible/devotional materials [] Provided toy/stuffed animal, coloring book to patient or family member [] Provided Communion [] Anointing/[place] [] Salvation [x] Completed spiritual assessment [] Other: Impact on Illness or Injury [] Angry [] Fearful [] Anxious [] Often cries [] Exhaustion [] Unable to work [] Unable to attend presybeterian [] Unable to walk/stand [] Unable to read [] Unable to drive [] Unable to eat/drink [] Unable to sleep [] Unable to be with family [] Patient intubated [] Other: Summary patient feeling much better... didn't want prayer.. of another olya Time spent with patient 5 min
--- NOTE | 2020-08-31 10:55 | PM.PN ---
Subjective Subjective: Interval history: Patient was seen and examined this morning, currently he denies any similar episode. Denies any chest pain, nausea or vomiting, dizziness. Vitals/I&O/Wt Last Vital Signs Temp 98.7 F 08/31/20 08:00 Pulse 51 L 08/31/20 10:30 Resp 16 08/31/20 10:30 BP 130/70 08/31/20 09:32 Pulse Ox 96 08/31/20 10:32 08/30/20 08/31/20 08/31/20 22:59 06:59 14:59 Intake Total 100 / 100 200 / 200 Balance 100 / 100 200 / 200 Weight last 48 hrs Weight 86.183 kg Physical Exam Const: COMMON NORMALS: patient oriented x3 HENMT: COMMON NORMALS: normocephalic and atraumatic HEAD & SCALP: normocephalic and atraumatic Chest: CHEST: Yes Symmetrical chest wall rise Resp: COMMON NORMALS: clear to auscultation bilaterally EFFORT & INSPECTION: Yes symmetric chest movement AUSCULTATION: clear to auscultation bilaterally Cardio: COMMON NORMALS: regular rate, regular rhythm, S1 normal heart sound present, S2 normal heart sound present, No gallops present (Cardio), No murmurs present (Cardio), No rub (Cardio) and Peripheral pulses 2+ throughout RATE: regular rate RHYTHM: regular rhythm HEART SOUNDS: S1 normal heart sound present and S2 normal heart sound present PERIPHERAL PULSES: Peripheral pulses 2+ throughout GI: COMMON NORMALS: Normal to inspection, nondistended, normoactive bowel sounds present, Soft to palpation, non-tender, No hepatosplenomegaly present and no masses AUSCULTATION: Yes normoactive bowel sounds PALPATION: Yes Soft to palpation and Yes No hepatosplenomegaly present RECTAL EXAM: Yes deferred Extremity: COMMON NORMALS: no clubbing, cyanosis or edema and no pedal edema Neuro: COMMON NORMALS: patient oriented x3 Data : 08/30/20 17:42 08/30/20 17:42 A&P Assessment and plan (1) Symptomatic bradycardia: Chronic sinus bradycardia: TSH : 1.96 Troponin trend is normal EKG: Sinus bradycardia with right bundle branch block. 2D echo:Normal left ventricular cavity size. Grossly normal left ventricular systolic function. Left ventricular ejection fraction is estimated at 60 %. Abnormal septal motion consistent with conduction abnormality. Normal right ventricular size and systolic function. Telemetry: Sinus bradycardia: Lowest recorded heart rate 46. Current plan is to continue to monitor patient on telemetry, and possible event monitor as an outpatient. Cardiology follow-up as an outpatient. Status: Acute (2) Near syncope: Near syncope likely secondary to symptomatic bradycardia.Patient denies any vertigo. Orthostatic vital signs have been negative. No similar event in the hospital. Status: Acute (3) COPD (chronic obstructive pulmonary disease): Status: Acute Qualifiers: COPD type: chronic bronchitis Chronic bronchitis type: unspecified Qualified Code(s): J42 - Unspecified chronic bronchitis (4) CKD (chronic kidney disease) stage 3, GFR 30-59 ml/min: Status: Acute (5) Personal history of pulmonary embolism: Status: Acute Additional A&P Information Symptomatic bradycardia EKG shows first-degree AV block incomplete right bundle branch block QTC normal No signs of ACS, requested TSH, no severe electrolyte abnormality His symptoms include presyncope, dizziness, shortness of breath Currently perfusing well systolic blood pressure 170 mmHg Monitor on telemetry floor Avoid AV wilberto blocking agent Consider cardiac consult in the morning Patient takes Eliquis for his previous history of PE Patient is asymptomatic at the time of my evaluation Repeat echo in the morning Chronic kidney disease without acute exacerbation Cardiac diet DVT prophylaxis not indicated Full code Attestations Medical Necessity Statement*: Patient needs to be in hospital for management of severe symptomatic bradycardia. Coding Level of Care Code Acute System Validation Engineer for Cheyenne Brambila Diagnoses Symptomatic bradycardia R00.1 Near syncope R55 COPD (chronic obstructive pulmonary disease) J42 COPD type: chronic bronchitis Chronic bronchitis type: unspecified CKD (chronic kidney disease) stage 3, GFR 30-59 ml/min N18.30 Personal history of pulmonary embolism Z86.711
[2020-08-31] MEDS: citalopram 20 mg Tablet PO (18:18)
[2020-08-31] MEDS: fluticasone nasal spray 16gm Btl 2 SPRAY INTRANASAL (18:18)
[2020-08-31] MEDS: mirtazapine 30 mg Tablet 15 MG PO (20:07)
--- NOTE | 2020-08-31 23:56 | PC.NURSE ---
Patient is currently laying in bed with eyes closed. Will monitor.
--- NOTE | 2020-09-01 02:05 | PC.NURSE ---
Patient in currently resting with eyes closed. Will monitor.
[2020-09-01 03:56] VITALS: BP 105/62; PULSE 49; RESP 17; O2SAT 95
[2020-09-01 04:16] VITALS: PULSE 43
--- NOTE | 2020-09-01 04:18 | PC.NURSE ---
Patient has no complaints at this time. Will monitor.
[2020-09-01 07:42] VITALS: PULSE 60; RESP 18; O2SAT 95
[2020-09-01] MEDS: finasteride 5 mg Tablet PO (08:19)
[2020-09-01] MEDS: cholecalciferol (vitamin D3) 1,000 unit Tablet 1000 UNIT PO (08:19)
[2020-09-01] MEDS: fluticasone nasal spray 16gm Btl 2 SPRAY INTRANASAL (08:20)
[2020-09-01] MEDS: citalopram 20 mg Tablet PO (08:20)
[2020-09-01] MEDS: apixaban 5 mg Tablet PO (08:20)
[2020-09-01] MEDS: brimonidine 0.2% Op Soln 5 mL Btl 1 DROP EYE-BOTH (08:20)
[2020-09-01 08:22] VITALS: BP 132/68; PULSE 55; RESP 16; TEMP 36.7; O2SAT 96
--- NOTE | 2020-09-01 10:58 | P.DS_ITS ---
Discharge Providers Date of Admission: 08/30/20 20:06 Date of Discharge: September 01, 2020 Attending Provider at Admission: Juarez Worthington MD Attending Provider at Discharge: Tommie Womack MD Primary Care Provider: Javi Aguilera MD Diagnoses at Discharge Discharge Diagnosis (1) Symptomatic bradycardia: Status: Chronic (2) Near syncope: Status: Resolved (3) COPD (chronic obstructive pulmonary disease): Status: Chronic Qualifiers: COPD type: chronic bronchitis Chronic bronchitis type: unspecified Qualified Code(s): J42 - Unspecified chronic bronchitis (4) CKD (chronic kidney disease) stage 3, GFR 30-59 ml/min: Status: Chronic (5) Personal history of pulmonary embolism: Status: Chronic Reason for Visit Reason for Visit: Dizziness Hospital Course Hospital Course 79-year-old male with past medical history of COPD, chronic bradycardia, PE on eliquis , basal cell carcinoma of the skin,presented after a presyncopal event.Patient is stating that today he was shopping for a [employer] grill when he suddenly started experiencing dizziness which he is describing as lightheadedness, he experienced diaphoresis however no chest pain, nausea or vomiting, he immediately sat down which resolved his symptoms.He is having such similar presentation for the last couple of months but this time it was more severe. Upon arrival in the ER he was found to for above-mentioned complaint, EKG ; sinus bradycardia with incomplete right bundle branch block, troponin trends were negative without any significant delta, orthostatic vital signs were negative, CT head without contrast failed to show any acute intracranial pathology, TSH was normal, no major electrolyte abnormalities, he has baseline CKD stage III, serum creatinine was at its baseline.2D echo done during the hospital stay: Normal left ventricular cavity size. Grossly normal left ventricular systolic function. Left ventricular ejection fraction is estimated at 60 %.Abnormal septal motion consistent with conduction abnormality. Normal right ventricular size and systolic function. No significant change when compared to echocardiogram dated. Trace mitral valve regurgitation.Trace aortic valve regurgitation.Structurally normal tricuspid valve. Patient was kept on telemetry; continue to be in sinus bradycardia.No similar event during the hospital stay. patient was discharged on 2 weeks event monitor, patient will also follow cardiology as an outpatient. Physical Exam Const: COMMON NORMALS: patient oriented x3 HENMT: COMMON NORMALS: normocephalic and atraumatic HEAD & SCALP: normocephalic and atraumatic Chest: CHEST: Yes Symmetrical chest wall rise Resp: COMMON NORMALS: clear to auscultation bilaterally EFFORT & INSPECTION: Yes symmetric chest movement AUSCULTATION: clear to auscultation bilaterally Cardio: COMMON NORMALS: regular rate, regular rhythm, S1 normal heart sound present, S2 normal heart sound present, No gallops present (Cardio), No murmurs present (Cardio), No rub (Cardio) and Peripheral pulses 2+ throughout RATE: regular rate RHYTHM: regular rhythm HEART SOUNDS: S1 normal heart sound present and S2 normal heart sound present PERIPHERAL PULSES: Peripheral pulses 2+ throughout GI: COMMON NORMALS: Normal to inspection, nondistended, normoactive bowel sounds present, Soft to palpation, non-tender, No hepatosplenomegaly present and no masses AUSCULTATION: Yes normoactive bowel sounds PALPATION: Yes Soft to palpation and Yes No hepatosplenomegaly present RECTAL EXAM: Yes deferred Extremity: COMMON NORMALS: no clubbing, cyanosis or edema and no pedal edema Neuro: COMMON NORMALS: patient oriented x3 Discharge Data Data Completed and Pending: Completed Studies During Hospitalization Category Date Time Status CT head wo con* 7 0450 Stat Cat Scan 08/30/20 17:49 Completed CV echo complete* [id number] Routine Ultrasound 08/31/20 06:00 Completed Vitals: Last Vital Signs Temp 98.0 F 09/01/20 08:22 Pulse 55 L 09/01/20 08:22 Resp 16 09/01/20 08:22 BP 132/68 09/01/20 08:22 Pulse Ox 96 09/01/20 08:22 Discharge Plan Discharge Patient Disposition: Home Condition: Stable Prescriptions: Continued Eliquis 2.5 mg tablet 2.5 mg PO BID RF: 0 simvastatin [Zocor] 10 mg tablet 5 mg PO DAILY RF: 0 latanoprost 0.005 % drops 1 drop ophthalmic (eye) DAILY RF: 0 brimonidine 0.2 % drops 1 drop ophthalmic (eye) BID RF: 0 ketoconazole 1 % shampoo 1 applic TOPICAL Q3D RF: 0 (DME) Altera Nebulizer System Misc See Rx Instructions .ROUTE .MEDSUPPLY Qty: 1 RF: 0 finasteride 5 mg tablet 5 mg PO DAILY RF: 0 cholecalciferol (vitamin D3) 25 mcg (1,000 unit) capsule 25 mcg PO DAILY RF: 0 fluticasone propionate [Flonase Allergy Relief] 50 mcg/actuation spray, suspension 2 spray INTRANASAL BID Qty: 54.6 RF: 3 albuterol sulfate [ProAir HFA] 90 mcg/actuation HFA aerosol inhaler 2 puff INHALATION Q6H PRN (Reason: shortness of breath or wheezing) Qty: 18 RF: 3 ipratropium-albuterol 0.5 mg-3 mg(2.5 mg base)/3 mL solution for nebulization 3 ml INHALATION Q6H PRN (Reason: wheezing) 90 Days Qty: 180 RF: 3 Trelegy Ellipta 100-62.5-25 mcg blister with device 1 inh INHALATION Q24H 90 Days Qty: 60 RF: 3 meloxicam 15 mg tablet 15 mg PO DAILY Qty: 90 RF: 3 citalopram 20 mg tablet 20 mg PO DAILY Qty: 90 RF: 3 mirtazapine 30 mg Tablet 15 mg PO BEDTIME RF: 0 Discharge Orders: Discharge Order (Routine); Ordered 09/01/20 Ordered By: Tommie Womack Other Ambulatory Orders: [place] cardiac event monitor (Routine) Timeframe: 2 Weeks Facility: [facility] - Location: Cardiac Diagnostic Laboratory Ordered By: Tommie Womack Referrals: Javi Aguilera MD [Primary Care Provider] - 09/29/20 10:30 am (You have a hospital followup with Dr. Aguilera at [facility] on September 29 at 10:30am) Arianne Gomez MD [Physician] - 09/27/20 1:00 pm (You have a cardiology followup with Dr. Gomez at [facility] September 27 at 1:00pm) Discharge Diet: Regular Discharge Activity: Resume usual activity Patient Instructions: Syncope, Bradycardia (DC), Dizziness (GEN), Opioid Safety Activity Restrictions/Additional Instructions: You have an appointment at [facility] on September 06 at 1:00pm to be fitted with an Event Monitor. Thank you Discharge Attestations Time Spent in Discharge Care*: less than 30 min Specific Discharge Activities: educating patient, educating and/or supporting family/caregiver, discussing with pcp/other providers, discussing with bilingual patient support caseworker/social workers/dc planners, documenting/other paperwork and evaluating patient/reviewing data Status at Discharge: Cognitive status at discharge: cognitively intact , Behavioral status at discharge: cooperative , Functional status at discharge: independent ambulation Overall status at discharge: patient is back to baseline Quality Metrics Clinical Quality Measures During this hospital stay, did patient experience: None Coding Level of Care Code Acute g FW DC note Exam Detailed Diagnoses Symptomatic bradycardia R00.1 Near syncope R55 COPD (chronic obstructive pulmonary disease) J42 COPD type: chronic bronchitis Chronic bronchitis type: unspecified CKD (chronic kidney disease) stage 3, GFR 30-59 ml/min N18.30 Personal history of pulmonary embolism Z86.165
[2020-09-01 11:22] VITALS: BP 132/68; PULSE 55; RESP 16; TEMP 36.7; O2SAT 96
--- NOTE | 2020-09-01 12:00 | PC.RESP ---
PULMONARY REHAB INFORMATION SENT TO PATIENT.
== END 2020-09-01 11:45 | disposition home or self-care (01) ==
LOC: ER 19:19 → CSU 20:20
PROVIDERS: Family Medicine; Admitting Provider Internal Medicine; Emergency Provider Emergency Medicine; PCP Internal Medicine; Visit Provider Internal Medicine
DX: R00.1 Bradycardia, unspecified (principal); R55 Syncope and collapse; N18.30 Chronic kidney disease, stage 3 unspecified; Z86.711 Personal history of pulmonary embolism; Z79.01 Long term (current) use of anticoagulants; F41.9 Anxiety disorder, unspecified; J44.9 Chronic obstructive pulmonary disease, unspecified; E78.5 Hyperlipidemia, unspecified; Z82.49 Family history of ischemic heart disease and other diseases of the circulatory system; Z87.891 Personal history of nicotine dependence
CPT/HCPCS: 70450; 80053; 83735; 84443; 84484; 85025; 93005; 93306; 99285; G0378

== ENCOUNTER 2020-12-03 15:34 | Emergency (ER) | payer OTHER, MEDICARE, SELFPAY ==
[2020-12-03 15:43] VITALS: BP 149/76; PULSE 60; RESP 18; TEMP 36.4; O2SAT 96; BMI 27.2
--- NOTE | 2020-12-03 15:51 | XRR_ITS ---
PROCEDURE INFORMATION: Exam: XR Left Finger(s) Exam date and time: 12/03/2020 3:51 PM Age: 80 years old Clinical indication: Injury or trauma; Other: Cut 2nd finger; Laceration; Left; Index finger; Additional info: Injury/index TECHNIQUE: Imaging protocol: XR Left fingers. Views: Minimum 2 views. COMPARISON: No relevant prior studies available. FINDINGS: Bones/joints: 1 mm density in the soft tissues of the distal phalanx on the palmar aspect which may represent a small foreign body. Soft tissues: Soft tissue edema of the distal 2nd finger. No acute fracture. XR/XR finger LT min 2V [id number] IMPRESSION: No acute fracture. Density measuring 1 mm in the soft tissues of the distal phalanx on the palmar aspect which may represent a small foreign body.
--- NOTE | 2020-12-03 18:10 | W.ED.WOUNDLC ---
HPI - Wound/Laceration General: Chief Complaint: Wound/Laceration Stated Complaint: lac to L index finger - thinks maybe glass there Time Seen by Provider: 12/03/20 17:57 History of Present Illness: HPI narrative: Patient cut left index finger today while changing a light bulb. Patient is on blood thinners. Dressing was applied and bleeding controlled. Onset (ago): hour(s) Extremity Location: Left: hand Place: home Patient tetanus UTD: Yes Context: accidental Associated symptoms: Reports no associated symptoms; Denies chills or fever(s) Review of Systems Const: Denies: fever(s) or chills Musc: Denies: extremity pain Skin/Breast: Reports: other (Laceration left index finger from cutting on a light bulb today) PFSH ED PFSH: Medical History Anxiety disorder, unspecified Basal cell carcinoma of skin, unspecified Bradycardia CKD (chronic kidney disease) stage 3, GFR 30-59 ml/min COPD (chronic obstructive pulmonary disease) Dyspnea Hyperlipidemia, unspecified Leg fracture, right Major depressive disorder, recurrent, mild Near syncope Pain in left shoulder Pain in unspecified hip Personal history of pulmonary embolism PVC (premature ventricular contraction) Symptomatic bradycardia Vitamin deficiency, unspecified Surgical History H/O rotator cuff surgery Family History Father CAD (coronary artery disease) Mother CAD (coronary artery disease) Sister Cancer Lymphoma Social History Quit status (tobacco): has quit using tobacco Year quit tobacco: 1986 - PD x 37 Years Second hand smoke exposure: No Alcohol intake: never Lives independently: Yes Household members: spouse Marital status: service: Yes Current occupational status: retired History of recent travel: No Current gender identity: Male Physical Exam Const: COMMON NORMALS: no acute distress GENERAL APPEARANCE: cooperative Extremity: OTHER: Full range of motion of left index finger Psych: COMMON NORMALS: mental status grossly normal Skin: OTHER: Skin adhesive applied to 1.5 cm laceration left index finger there was no bleeding. Procedures Laceration Laceration 1: Site: hand Side (If applicable): left Size (cm): 1.5 Description: linear Depth: simple, single layer Skin layer closed with: other (Skin adhesive) Course Vital Signs: Vital signs: Vital Signs Temperature 97.5 F L 12/03/20 15:43 Pulse Rate 68 12/03/20 18:16 Respiratory Rate 18 12/03/20 18:16 Blood Pressure 138/72 12/03/20 18:16 Pulse Oximetry 97 12/03/20 18:16 MDM - Wound/Laceration MDM Narrative: Medical decision making narrative: Lidocaine was not used so there should not be a charge for that. Discharge Plan Discharge Patient Disposition: Home Clinical Impression: Laceration Condition: Stable Prescriptions: No Action Eliquis 2.5 mg tablet 2.5 mg PO BID RF: 0 simvastatin [Zocor] 10 mg tablet 5 mg PO DAILY RF: 0 latanoprost 0.005 % drops 1 drop ophthalmic (eye) DAILY RF: 0 brimonidine 0.2 % drops 1 drop ophthalmic (eye) BID RF: 0 ketoconazole 1 % shampoo 1 applic TOPICAL Q3D RF: 0 (DME) Altera Nebulizer System Misc See Rx Instructions .ROUTE .MEDSUPPLY Qty: 1 RF: 0 finasteride 5 mg tablet 5 mg PO DAILY RF: 0 cholecalciferol (vitamin D3) 25 mcg (1,000 unit) capsule 25 mcg PO DAILY RF: 0 albuterol sulfate [ProAir HFA] 90 mcg/actuation HFA aerosol inhaler 2 puff INHALATION Q6H PRN (Reason: shortness of breath or wheezing) Qty: 18 RF: 3 ipratropium-albuterol 0.5 mg-3 mg(2.5 mg base)/3 mL solution for nebulization 3 ml INHALATION Q6H PRN (Reason: wheezing) 90 Days Qty: 180 RF: 3 meloxicam 15 mg tablet 15 mg PO DAILY Qty: 90 RF: 3 citalopram 20 mg tablet 20 mg PO DAILY Qty: 90 RF: 3 Trelegy Ellipta 100-62.5-25 mcg blister with device 1 inh INHALATION Q24H 90 Days Qty: 60 RF: 3 mirtazapine 30 mg Tablet 15 mg PO BEDTIME RF: 0 Discharge Orders: Discharge ED (Routine); Ordered 12/03/20 Ordered By: Steve Lorenz Referrals: Javi Aguilera MD [Primary Care Provider] - Discharge Diet: Usual diet Discharge Activity: Resume usual activity Patient Instructions: Skin Adhesive Care (ED) Activity Restrictions/Additional Instructions: Keep laceration wrapped for 2 days. Understand that there might be glass come out that wound at some point in time but most likely not. Watch for signs and symptoms of infection. Follow-up your primary care provider if necessary. 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
[2020-12-03 18:16] VITALS: BP 138/72; PULSE 68; RESP 18; O2SAT 97
== END 2020-12-03 18:22 | disposition home or self-care (01) ==
PROVIDERS: Emergency Provider Nurse Practitioner Family; PCP Internal Medicine
DX: S61.211A Laceration without foreign body of left index finger without damage to nail, initial encounter (principal); Z79.01 Long term (current) use of anticoagulants; N18.30 Chronic kidney disease, stage 3 unspecified; J44.9 Chronic obstructive pulmonary disease, unspecified; E78.5 Hyperlipidemia, unspecified; Z86.711 Personal history of pulmonary embolism; Z87.891 Personal history of nicotine dependence; W25.XXXA Contact with sharp glass, initial encounter
CPT/HCPCS: 12001; 73140; 99282

== ENCOUNTER 2021-04-06 12:32 | Emergency (ER) | payer MEDICARE, OTHER, SELFPAY ==
[2021-04-06 12:40] VITALS: BP 119/61; PULSE 68; RESP 16; TEMP 36.9; O2SAT 95; BMI 26.5
--- NOTE | 2021-04-06 12:45 | XRR_ITS ---
PROCEDURE INFORMATION: Exam: XR Chest Exam date and time: 04/06/2021 12:45 PM Age: 80 years old Clinical indication: Pain. Chest pain. Angina pectoris. TECHNIQUE: Imaging protocol: XR of the chest. Views: 1 view. COMPARISON: CR XR chest 1V portable [id number] 07/05/2019 9:31 PM FINDINGS: Lungs: Calcified granuloma at the left base. Mild scarring at the left base. There are hazy opacities within the peripheral aspect of the mid and lower right chest suspicious for pneumonia (including COVID 19 pneumonia). Pleural spaces: No pleural effusion. No pneumothorax. Heart/Mediastinum: The cardiac silhouette is unchanged. No gross evidence of pneumomediastinum. Bones/joints: No gross fracture. XR/XR chest 1V portable [id number] IMPRESSION: There are hazy opacities within the peripheral aspect of the mid and lower right chest suspicious for pneumonia (including COVID 19 pneumonia).
[2021-04-06 17:27] LABS: Basophils % 0.4 %; Eosinophils # 0.2 10^3/uL (0.0-0.8); Eosinophils % 2.9 %; Hematocrit 44.7 % (42.0-52.0); Hemoglobin 14.8 g/dL (11.7-16.6); Lymphocytes % 11.9 %; Mean Corpuscular HGB Conc 33.1 g/dL (30.0-36.0); Mean Corpuscular Hemoglobin 31.8 pg (28.0-34.0); Mean Corpuscular Volume 96.1 fl (80-94); Mean Platelet Volume 9.9 fL (7.4-10.4); Monocytes # 0.8 10^3/uL (0.2-0.9); Monocytes % 9.4 %; Neutrophils # 6.27 10^3/uL (1.8-7.7); Neutrophils % 74.9 %; Nucleated Red Blood Cells % 0 %; Platelet Count 174 10^3/cmm (130-400); Red Blood Count 4.65 10^6/uL (4.1-5.3); Red Cell Distribution Width 13.1 % (12.1-15.1); White Blood Count 8.4 10^3/uL (4.0-10.0)
[2021-04-06 17:53] LABS: Alanine Aminotransferase 16 U/L (0-41); Albumin Level 3.9 g/dL (3.5-5.2); Alkaline Phosphatase 62 IU/L (40-130); Anion Gap 19.1 (5-19); Aspartate Amino Transferase 17 U/L (0-40); Blood Urea Nitrogen 20 mg/dL (8-23); Calcium 8.9 mg/dL (8.5-10.5); Carbon Dioxide 19 mmol/L (22-29); Chloride 98 mmol/L (98-107); Globulin 2.2 g/dL (1.3-4.6); Glucose 102 mg/dL (65-115); Osmolality Calculated 277 mOsm/kg (285-295); Potassium 4.1 mmol/L (3.5-5.1); Sodium 132 mmol/L (136-145); Total Bilirubin 0.9 mg/dL (0.15-1.2); Total Protein 6.1 g/dL (6.6-8.7); Troponin(5th) Baseline 12 ng/L (0-15)
--- NOTE | 2021-04-06 18:25 | ED_ITS ---
HPI - COVID General: Chief Complaint: COVID symptoms Stated Complaint: how hr, low o2 Time Seen by Provider: 04/06/21 18:25 Triage information: No fever, cough or shortness of breath . Exposure to COVID + person last 14 days History of Present Illness: 80-year-old male patient comes in today for complaints of shortness of breath, body aches, and headache for the last 3 days. Patient was seen at the medical office in [facility] this morning and they noted that his pulse oxygen seemed low and his heart rate was low. Patient has a history of COPD. Patient recently had a bout of pharyngitis which she was on prednisone for. Patient appears mildly unwell but not toxic. Patient appears in no pain. COVID 19 common symptoms: positive chills, dyspnea, body aches and headache(s) COVID Results: SARS-CoV-2 (PCR) Pending 04/06/21 11:22 04/06/21 Coronavirus Type 229E (PCR) Pending 04/06/21 11:22 04/06/21 Review of Systems Const: Reports: chills and body aches Resp: Reports: dyspnea Neuro: Reports: headache(s) PFS ED PFSH: Medical History Anxiety disorder, unspecified Basal cell carcinoma of skin, unspecified Bradycardia CKD (chronic kidney disease) stage 3, GFR 30-59 ml/min COPD (chronic obstructive pulmonary disease) Dyspnea Hoarseness Hyperlipidemia, unspecified Leg fracture, right Major depressive disorder, recurrent, mild Near syncope Pain in left shoulder Pain in unspecified hip Personal history of pulmonary embolism PVC (premature ventricular contraction) Symptomatic bradycardia Vitamin deficiency, unspecified Surgical History H/O rotator cuff surgery Family History Father CAD (coronary artery disease) Mother CAD (coronary artery disease) Sister Cancer Lymphoma Social History Smoking and tobacco status: former smoker Quit status (tobacco): has quit using tobacco Year quit tobacco: 1986 - PD x 37 Years Second hand smoke exposure: No Alcohol intake: never Lives independently: Yes Household members: spouse Marital status: service: Yes Current occupational status: retired History of recent travel: No Current gender identity: Male Physical Exam Const: COMMON NORMALS: alert HENMT: NOSE: Nasal discharge present THROAT: posterior oropharynx normal Neck/C-Spine: COMMON NORMALS: full ROM and no meningeal signs Resp: COMMON NORMALS: normal respiratory effort AUSCULTATION: diminished lung sounds Cardio: COMMON NORMALS: regular rate and regular rhythm RATE: regular rate RHYTHM: regular rhythm Extremity: COMMON NORMALS: normal to inspection Neuro: SENSORIUM/ORIENTATION: Yes alert MENINGEAL SIGNS: Yes no meningeal signs Skin: COMMON NORMALS: no rashes or lesions noted GENERAL SKIN EXAM: no rashes or lesions noted Course Vital Signs: Vital signs: Vital Signs Temperature 98.5 F 04/06/21 12:40 Pulse Rate 68 04/06/21 12:40 Respiratory Rate 16 04/06/21 12:40 Blood Pressure 119/61 04/06/21 12:40 Pulse Oximetry 95 04/06/21 12:40 [facility] - COVID Medical Decision Making 80-year-old male patient comes in today for complaints of body aches, cough, headache, and shortness of breath. Patient reports symptoms for the last 3 days. On exam patient has decreased lung sounds. Skin is warm and dry. Vital signs are normal. Differential diagnosis includes viral syndrome, COVID-19, pneumonia. Chest x-ray noted some patchy infiltrate suggestive of COVID-19 pneumonia. Pulse oxygen was normal. Reviewed exam with patient with recommendations for treatment with dexamethasone for his shortness of breath and cough. I encourage plenty of fluids and use of Tylenol for aches and pains and fever. Recommended follow-up with primary care for further instruction. Recommend return to the ER for worsening symptoms or new concerns. I reviewed this patient with Dr. Gurrola who agreed with plan. Lab Data : 04/06/21 16:55 04/06/21 16:55 Radiology Impressions Chest X-Ray 04/06/21 12:45 IMPRESSION: There are hazy opacities within the peripheral aspect of the mid and lower right chest suspicious for pneumonia (including COVID 19 pneumonia). Laboratory Results WBC 8.4 10^3/uL (4.0-10.0) 04/06/21 16:55 RBC 4.65 10^6/uL (4.1-5.3) 04/06/21 16:55 Hgb 14.8 g/dL (11.7-16.6) 04/06/21 16:55 Hct 44.7 % (42.0-52.0) 04/06/21 16:55 MCV 96.1 fl (80-94) H 04/06/21 16:55 MCH 31.8 pg (28.0-34.0) 04/06/21 16:55 MCHC 33.1 g/dL (30.0-36.0) 04/06/21 16:55 RDW 13.1 % (12.1-15.1) 04/06/21 16:55 Plt Count 174 10^3/cmm (130-400) 04/06/21 16:55 MPV 9.9 fL (7.4-10.4) 04/06/21 16:55 Neut % (Auto) 74.9 % 04/06/21 16:55 Lymph % (Auto) 11.9 % 04/06/21 16:55 [place] % (Auto) 9.4 % 04/06/21 16:55 Eos % (Auto) 2.9 % 04/06/21 16:55 Baso % (Auto) 0.4 % 04/06/21 16:55 Neut # (Auto) 6.27 10^3/uL (1.8-7.7) 04/06/21 16:55 Lymph # (Auto) 1.0 10^3/uL (0.8-4.8) 04/06/21 16:55 [place] # (Auto) 0.8 10^3/uL (0.2-0.9) 04/06/21 16:55 Eos # (Auto) 0.2 10^3/uL (0.0-0.8) 04/06/21 16:55 Baso # (Auto) 0.0 10^3/uL (0.0-0.1) 04/06/21 16:55 Nucleated RBC % (auto) 0 % 04/06/21 16:55 Nucleated RBCs # 0.0 /100WBC 04/06/21 16:55 Sodium 132 mmol/L (136-145) L 04/06/21 16:55 Potassium 4.1 mmol/L (3.5-5.1) 04/06/21 16:55 Chloride 98 mmol/L (98-107) 04/06/21 16:55 Carbon Dioxide 19 mmol/L (22-29) L 04/06/21 16:55 Anion Gap 19.1 (5-19) H 04/06/21 16:55 BUN 20 mg/dL (8-23) 04/06/21 16:55 Creatinine 1.2 mg/dL (0.7-1.2) 04/06/21 16:55 GFR Calculation Not Reportable 04/06/21 16:55 Glucose 102 mg/dL (65-115) 04/06/21 16:55 Calculated Osmolality 277 mOsm/kg (285-295) L 04/06/21 16:55 Calcium 8.9 mg/dL (8.5-10.5) 04/06/21 16:55 Total Bilirubin 0.9 mg/dL (0.15-1.2) 04/06/21 16:55 AST 17 U/L (0-40) 04/06/21 16:55 ALT 16 U/L (0-41) 04/06/21 16:55 Alkaline Phosphatase 62 IU/L (40-130) 04/06/21 16:55 Troponin T Baseline 12 ng/L (0-15) 04/06/21 16:55 Total Protein 6.1 g/dL (6.6-8.7) L 04/06/21 16:55 Albumin 3.9 g/dL (3.5-5.2) 04/06/21 16:55 Globulin 2.2 g/dL (1.3-4.6) 04/06/21 16:55 SARS-CoV-2 (PCR) Pending 04/06/21 11:22 04/06/21 Coronavirus Type 229E (PCR) Pending 04/06/21 11:22 04/06/21 Discharge Plan Discharge Patient Disposition: Home Clinical Impression: Pneumonia due to 2019-nCoV Condition: Stable Prescriptions: New dexamethasone 4 mg tablet 4 mg PO BID Qty: 14 0RF Discontinued prednisone 10 mg tablet See Rx Instructions .Route .COMPLEX Qty: 1 0RF Rx Instructions: Begin at 40 mg daily and reduce by 10 every three days till gone Dispense QS; No Action Eliquis 2.5 mg tablet 2.5 mg PO BID 0RF Rx Instructions: Half in am half in pm simvastatin [Zocor] 10 mg tablet 5 mg PO DAILY 0RF latanoprost 0.005 % drops 1 drop ophthalmic (eye) DAILY 0RF Rx Instructions: (both eyes) brimonidine 0.2 % drops 1 drop ophthalmic (eye) BID 0RF Rx Instructions: Right Eye ketoconazole 1 % shampoo 1 applic TOPICAL Q3D 0RF (DME) Altera Nebulizer System Misc See Rx Instructions .ROUTE .MEDSUPPLY Qty: 1 0RF Rx Instructions: As directed citalopram 20 mg tablet 20 mg PO DAILY Qty: 90 3RF finasteride 5 mg tablet 5 mg PO DAILY 0RF cholecalciferol (vitamin D3) 25 mcg (1,000 unit) capsule 25 mcg PO DAILY 0RF albuterol sulfate [ProAir HFA] 90 mcg/actuation HFA aerosol inhaler 2 puff INHALATION Q6H PRN (Reason: shortness of breath or wheezing) Qty: 18 3RF ipratropium-albuterol 0.5 mg-3 mg(2.5 mg base)/3 mL solution for nebulization 3 ml INHALATION Q6H PRN (Reason: wheezing) 90 Days Qty: 180 3RF Trelegy Ellipta 100-62.5-25 mcg blister with device 1 inh INHALATION Q24H 90 Days Qty: 60 3RF meloxicam 15 mg tablet 15 mg PO DAILY Qty: 90 3RF mirtazapine 30 mg Tablet 15 mg PO BEDTIME 0RF Discharge Orders: Discharge ED (Routine); Ordered 04/06/21 Ordered By: Kingsley Benavides Referrals: Javi Aguilera MD [Primary Care Provider] - Discharge Diet: Usual diet Discharge Activity: Increase activity as tolerated Patient Instructions: Viral Pneumonia (ED) Activity Restrictions/Additional Instructions: Continue with routine care. Use dexamethasone 1 tablet twice a day for the next 7 days. Drink plenty of water with medication. Continue with inhaler as needed for shortness of breath or wheezing. Follow-up with primary care as needed. Return to ER for worsening symptoms. Coding Level of Care Code ED Rn Private Duty for Chg Fwd History Problem Focused Exam Expanded Problem Focused Medical Decision Making Moderate Complexity Time Spent (min) 30
--- NOTE | 2021-04-06 18:45 | ECG_ITS ---
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 Measurements Intervals [place] Rate: 64 P: 71 ID: [id number] QRS: 96 QRSD: 146 T: 7 QT: 428 QTc: 444 Interpretive Statements SINUS RHYTHM BORDERLINE RIGHT AXIS DEVIATION [QRS AXIS > 90] INTRAVENTRICULAR CONDUCTION DELAY [130+ ms QRS DURATION] Compared to ECG 08/31/2020 00:05:19 Intraventricular conduction delay now present Sinus bradycardia no longer present Right bundle-branch block no longer present Electronically Signed On 04-06-2021 22:08:02 [employer] LOC[employer] by Arianne Gomez M.D. [id number]
[2021-04-06] MEDS: dexamethasone 4 mg Tablet 8 MG PO (18:54)
[2021-04-06] MEDS: acetaminophen 500 mg Tablet 1000 MG PO (18:57)
== END 2021-04-06 18:59 | disposition home or self-care (01) ==
PROVIDERS: Physician Assistant; Emergency Provider Nurse Practitioner Family; PCP Internal Medicine
DX: U07.1 COVID-19 (principal); J12.82 Pneumonia due to coronavirus disease 2019; Z79.01 Long term (current) use of anticoagulants; N18.30 Chronic kidney disease, stage 3 unspecified; J44.9 Chronic obstructive pulmonary disease, unspecified; E78.5 Hyperlipidemia, unspecified; Z87.891 Personal history of nicotine dependence
CPT/HCPCS: 71045; 80053; 84484; 85025; 87635; 93005; 99283; J8540

== ENCOUNTER 2021-04-18 10:52 | Emergency (ER) | payer OTHER, MEDICARE, SELFPAY ==
[2021-04-18] VITALS (10 sets, daily range): BP systolic 116–130; BP diastolic 56–74; PULSE 62–88; RESP 17–24; TEMP 36.6–37; O2SAT 87–98; BMI 25.8
--- NOTE | 2021-04-18 11:25 | XR_ITS ---
WS: [id number] PORTABLE CHEST HISTORY: dyspnea COMPARISON: 04/06/2021 Hyperexpanded lungs with changes of emphysema. Mild reticular thickening at the lung bases. Mild prog ression since the prior study. No pleural effusion or pneumothorax. Cardiac size: Normal. Mediastinum/Aorta: Mild atherosclerosis aorta. No osseous abnormality seen. XR/XR chest 1V portable [id number] IMPRESSION: 1. Chronic emphysema. 2. Mild increase in the reticular opacification at the lung bases. May be due to developing pneumonitis. 3. No effusion or pneumothorax.
--- NOTE | 2021-04-18 11:28 | CT_ITS ---
WS: [id number] CT CHEST ANGIOGRAPHY WITH REFORMATS HISTORY: Short of breath, sternal pain. TECHNIQUE: Contiguous axial images are obtained through the chest during arterial injection of intrav enous contrast. Images are reconstructed to evaluate the pulmonary arteries. MIP imaging also reviewe d. All CT scans at [facility] use at least one of these dose optimization techniques: automat ed exposure control; mA and/or kV adjustment per patient size (includes targeted exams where dose is matched to clinical indication); or iterative reconstruction. CONTRAST: Visipaque 320; 95 mL IV. DLP: 637.67 mGy.cm COMPARISON: Chest CT 04/24/2005 Good opacification of the pulmonary arteries. Centrally there is no pulmonary embolism. Beginning in the lobar branches there is significant occlusive pulmonary emboli. Extensive emboli extend into the segmental branches distally predominantly in the lower lobes. Occlusive emboli in the upper lobes sri aterally. Normal size pulmonary artery. Thoracic aorta is normal caliber. There is enlargement of the RIGHT heart chambers and mild RIGHT heart strain. No pericardial or pleural effusion. Chronic emphysematous changes are present bilaterally. There are bulla and blebs present are dominant in the upper lung crouch. Areas of increasing consolidation and a wedge-shaped manner in the RIGHT l ower lobe probably due to infarcts from the emboli. There are additional smaller areas of interstitia l thickening in the periphery. Small amount of fluid along the superior RIGHT major fissure. Mediasti nal and hilar reactive lymphadenopathy. Lymph nodes measure up to 12 mm in diameter. No adrenal mass. Visualized upper abdomen is negative. Increase in thoracic kyphosis. Mild anterior w edging of T3 and T4. CT/CT angio chest PE protcl [id number] IMPRESSION: 1. Extensive bilateral pulmonary emboli. Emboli begin within the lobar branche s. Occlusive and nonocclusive emboli into the upper and lower lobe pulmonary ar teries. 2. RIGHT lower lobe airspace disease probably due to infarcts from the emboli. 3. Mild RIGHT heart strain. 4. Nasogastric emphysema. 5. Mild reactive lymphadenopathy. Notified Krys Parker MD at 04/18/2021 1:22 PM.
[2021-04-18] MEDS: dexamethasone 10 mg/mL INJ 6 MG IVP (11:45)
[2021-04-18] MEDS: sodium chloride 0.9% 1,000 ML 999 ML IV (11:45)
--- NOTE | 2021-04-18 11:47 | W.ED.GENADLT ---
HPI - General Adult General: Chief complaint: Seizure Stated complaint: SOB, Weakness Time Seen by Provider: 04/18/21 11:22 History of Present Illness: Patient is a 80-year-old male with a history of COPD, prior VTE not on AC presenting emergency room evaluation on for dyspnea and cough. At that point, patient had a negative Covid test. Since then, patient has report persistence of productive cough, increasing fatigue and generalized weakness. Patient tells me that earlier today he was walking with his and he nearly passed out. Patient went to see his primary care provider and was noted to have an oxygen in the 80% on room air. Patient was then told to go to the emergency room. On arrival, patient denies any nausea/vomiting, diarrhea, melena hematochezia. Patient reports significant abdominal bloating and flatus. Denies any active chest pain but reports significant shortness of breath and chills. Patient has a hx of PE in the past and was previously anticoagulated up until 2 months ago. Onset: 2 weeks ago Duration:ongoing Location:home Severity:severe Associated symptoms: Reports dyspnea and malaise; Deny chest pain, nausea, rash, palpitations or vomiting Review of Systems Const: Reports: chills, body aches, fatigue, malaise and other (+generalized weakness); Denies: fever(s) Eyes: Denies: change in vision ENMT: Denies: mouth pain Card: Denies: chest pain or palpitations Resp: Reports: dyspnea and other (productive cough) GI: Denies: abdominal pain, nausea, vomiting or diarrhea : Denies: dysuria Musc: Denies: extremity pain Skin/Breast: Denies: rash or new lesions Neuro: Denies: weakness in extremities Psych: Reports: other (Normal mood) Fito/Lymph: Denies: easy bruising PFS ED PFSH: Medical History Anxiety disorder, unspecified Basal cell carcinoma of skin, unspecified Bradycardia CKD (chronic kidney disease) stage 3, GFR 30-59 ml/min COPD (chronic obstructive pulmonary disease) Dyspnea Hoarseness Hyperlipidemia, unspecified Leg fracture, right Major depressive disorder, recurrent, mild Near syncope Pain in left shoulder Pain in unspecified hip Personal history of pulmonary embolism PVC (premature ventricular contraction) Symptomatic bradycardia Vitamin deficiency, unspecified Surgical History H/O rotator cuff surgery Family History Father CAD (coronary artery disease) Mother CAD (coronary artery disease) Sister Cancer Lymphoma Social History Smoking and tobacco status: former smoker Quit status (tobacco): has quit using tobacco Year quit tobacco: 1986 - 2PPD x 37 Years Second hand smoke exposure: No Alcohol intake: never Lives independently: Yes Household members: spouse Marital status: service: Yes Current occupational status: retired History of recent travel: No Current gender identity: Male Physical Exam Const: COMMON NORMALS: alert HENMT: COMMON NORMALS: atraumatic HEAD & SCALP: atraumatic MOUTH: moist mucous membranes not abnormal Eye: COMMON NORMALS: EOMs intact bilaterally and conjunctivae normal CONJUNCTIVA: Yes conjunctivae normal Neck/C-Spine: COMMON NORMALS: full ROM and supple Resp: OTHER: +Coarse breath sounds b/l Cardio: COMMON NORMALS: regular rate RATE: regular rate GI: COMMON NORMALS: Soft to palpation and non-tender PALPATION: Yes Soft to palpation Extremity: COMMON NORMALS: full ROM Neuro: SENSORIUM/ORIENTATION: Yes alert MOTOR EXAM: No Abnormal motor strength present and Other motor observations present (no focal motor deficits) Psych: COMMON NORMALS: speech normal SPEECH: Yes normal speech MOOD & AFFECT: Yes euthymic mood Course Vital Signs: Vital signs: Vital Signs Temperature 97.8 F 04/18/21 20:06 Pulse Rate 88 04/18/21 21:50 Respiratory Rate 18 04/18/21 21:50 Blood Pressure 116/64 04/18/21 21:50 Pulse Oximetry 96 04/18/21 21:50 MDM - General Adult Medical Decision Making 80-year-old male with history of COPD, prior VTE not on AC presented to emergency room with 2 weeks worsening dyspnea, active cough, and generalized weakness. On arrival, patient was noted to be satting at 85% on room air that improved to 95% on 6 L. Patient has coarse breath sounds in the lung crouch bilaterally. CTA showed multiple pulmonary emboli with lung infarction. Patient received Lovenox. Continue to be satting at 92 to 94% on 6 L of oxygen. Patient will be admitted to the hospital hypoxic respiratory failure and multiple pulmonary embolisms. COVID negative. Disposition: admission Lab Data : 04/18/21 11:45 04/18/21 12:36 Radiology Impressions Chest X-Ray 04/18/21 11:25 IMPRESSION: 1. Chronic emphysema. 2. Mild increase in the reticular opacification at the lung bases. May be due to developing pneumonitis. 3. No effusion or pneumothorax. Chest CTA 04/18/21 11:28 IMPRESSION: 1. Extensive bilateral pulmonary emboli. Emboli begin within the lobar branches. Occlusive and nonocclusive emboli into the upper and lower lobe pulmonary arteries. 2. RIGHT lower lobe airspace disease probably due to infarcts from the emboli. 3. Mild RIGHT heart strain. 4. Nasogastric emphysema. 5. Mild reactive lymphadenopathy. Notified Krys Parker MD at 04/18/2021 1:22 PM. Laboratory Results WBC 9.9 10^3/uL (4.0-10.0) 04/18/21 11:45 RBC 4.67 10^6/uL (4.1-5.3) 04/18/21 11:45 Hgb 14.6 g/dL (11.7-16.6) 04/18/21 11:45 Hct 43.8 % (42.0-52.0) 04/18/21 11:45 MCV 93.8 fl (80-94) 04/18/21 11:45 MCH 31.3 pg (28.0-34.0) 04/18/21 11:45 MCHC 33.3 g/dL (30.0-36.0) 04/18/21 11:45 RDW 13.3 % (12.1-15.1) 04/18/21 11:45 Plt Count 200 10^3/cmm (130-400) 04/18/21 11:45 MPV 9.8 fL (7.4-10.4) 04/18/21 11:45 Neut % (Auto) 81.1 % 04/18/21 11:45 Lymph % (Auto) 7.2 % 04/18/21 11:45 [place] % (Auto) 9.6 % 04/18/21 11:45 Eos % (Auto) 1.5 % 04/18/21 11:45 Baso % (Auto) 0.2 % 04/18/21 11:45 Neut # (Auto) 8.03 10^3/uL (1.8-7.7) H 04/18/21 11:45 Lymph # (Auto) 0.7 10^3/uL (0.8-4.8) L 04/18/21 11:45 [place] # (Auto) 1.0 10^3/uL (0.2-0.9) H 04/18/21 11:45 Eos # (Auto) 0.2 10^3/uL (0.0-0.8) 04/18/21 11:45 Baso # (Auto) 0.0 10^3/uL (0.0-0.1) 04/18/21 11:45 Nucleated RBC % (auto) 0 % 04/18/21 11:45 Nucleated RBCs # 0.0 /100WBC 04/18/21 11:45 Specimen Type Arterial 04/18/21 11:51 Sample Site Radial, left 04/18/21 11:51 ABG pH 7.52 (7.35-7.45) H 04/18/21 11:51 ABG pCO2 31.1 mmHg (35-45) L 04/18/21 11:51 ABG pO2 86.8 mmHg (80.0-100.0) 04/18/21 11:51 ABG HCO3 25.2 mmol/L (22-26) 04/18/21 11:51 ABG O2 Saturation 98.2 04/18/21 11:51 ABG Base Excess 2.9 mmol/L (-2.0-2.0) H 04/18/21 11:51 [place] Test Pos 04/18/21 11:51 A-a O2 Gradient 22.5 mmHg (5-10) H 04/18/21 11:51 Hematocrit 42.9 % (42-52) 04/18/21 11:51 Hgb O2 Saturation 96.4 % (95-100) 04/18/21 11:51 Carboxyhemoglobin 1.2 %THgb (0.4-20.1) 04/18/21 11:51 Methemoglobin 0.7 % (0.4-1.5) 04/18/21 11:51 Total Hemoglobin 14.0 g/dL (14-18) 04/18/21 11:51 Sodium 135.0 mmol/L (131-143) 04/18/21 11:51 Potassium 4.0 mmol/L (3.5-5.0) 04/18/21 11:51 Glucose 94.0 mg/dL (70-115) 04/18/21 11:51 Ionized Calcium 1.1 mmol/L (1.1-1.4) 04/18/21 11:51 O2 Delivery Device Nc 04/18/21 11:51 O2 Liters/Min 5.5 % 04/18/21 11:51 FiO2 42.0 % 04/18/21 11:51 Decorative Cutting Machine Tender ID [place] 04/18/21 11:51 Sodium 130 mmol/L (136-145) L 04/18/21 12:36 Potassium 4.7 mmol/L (3.5-5.1) 04/18/21 12:36 Chloride 102 mmol/L (98-107) 04/18/21 12:36 Carbon Dioxide 15 mmol/L (22-29) L 04/18/21 12:36 Anion Gap 17.7 (5-19) 04/18/21 12:36 BUN 20 mg/dL (8-23) 04/18/21 12:36 Creatinine 1.0 mg/dL (0.7-1.2) 04/18/21 12:36 GFR Calculation Not Reportable 04/18/21 12:36 Glucose 95 mg/dL (65-115) 04/18/21 12:36 Calculated Osmolality 272 mOsm/kg (285-295) L 04/18/21 12:36 Calcium 8.4 mg/dL (8.5-10.5) L 04/18/21 12:36 Magnesium 1.8 mg/dL (1.7-2.3) 04/18/21 12:36 Troponin T Baseline 19 ng/L (0-15) H 04/18/21 12:36 Troponin T 120 Minute 17.40 ng/L (0-15) H 04/18/21 13:36 Delta Troponin T -1.60 ABS# (0-10) L 04/18/21 13:36 Troponin T Hi Sens 6Hr 15.96 ng/L (0-15) H 04/18/21 17:36 Troponin T Hi Sens 6Hr Delta -3.04 ng/L (0-12) L 04/18/21 17:36 C-Reactive Protein 149.5 mg/L (0.0-4.9) H 04/18/21 12:36 NT-Pro-B Natriuret Pep 365 pg/mL (0-450) 04/18/21 12:36 Procalcitonin 0.13 ng/mL (0-0.5) 04/18/21 12:36 Coronavirus 229E (PCR) Not detected (NOT DETECT) 04/18/21 11:45 SARS-CoV-2 (PCR) Not detected (NOT DETECT) 04/18/21 11:45 Imaging Data Other Imaging: Radiologist's impression: [address] [address] [address] Scan Report Signed Patient: Rm Batista Unit #: [id number] : 1940 Age/Sex: 80 / M ADM Date: 04/18/21 Loc: ER Room/Bed: Attending Dr: Ordering Provider/Ordering MD: Krys Parker MD Date of Service: 04/18/21 Procedure(s): CT angio chest PE protcl [id number] Accession Number(s): [id number] Report Number: [id number] WS: [id number] CT CHEST ANGIOGRAPHY WITH REFORMATS HISTORY: Short of breath, sternal pain. TECHNIQUE: Contiguous axial images are obtained through the chest during arterial injection of intravenous contrast. Images are reconstructed to evaluate the pulmonary arteries. MIP imaging also reviewed.? All CT scans at [facility] use at least one of these dose optimization techniques: automated exposure control; mA and/or kV adjustment per patient size (includes targeted exams where dose is matched to clinical indication); or iterative reconstruction. CONTRAST: Visipaque 320; 95 mL IV. DLP: 637.67 mGy.cm COMPARISON: Chest CT 04/24/2005 Good opacification of the pulmonary arteries. Centrally there is no pulmonary embolism. Beginning in the lobar branches there is significant occlusive pulmonary emboli. Extensive emboli extend into the segmental branches distally predominantly in the lower lobes. Occlusive emboli in the upper lobes bilaterally. Normal size pulmonary artery. Thoracic aorta is normal caliber. There is enlargement of the RIGHT heart chambers and mild RIGHT heart strain. No pericardial or pleural effusion. Chronic emphysematous changes are present bilaterally. There are bulla and blebs present are dominant in the upper lung crouch. Areas of increasing consolidation and a wedge-shaped manner in the RIGHT lower lobe probably due to infarcts from the emboli. There are additional smaller areas of interstitial thickening in the periphery. Small amount of fluid along the superior RIGHT major fissure. Mediastinal and hilar reactive lymphadenopathy. Lymph nodes measure up to 12 mm in diameter. No adrenal mass. Visualized upper abdomen is negative. Increase in thoracic kyphosis. Mild anterior wedging of T3 and T4. CT/CT angio chest PE protcl [id number] IMPRESSION: ? 1.? Extensive bilateral pulmonary emboli. Emboli begin within the lobar branches. Occlusive and nonocclusive emboli into the upper and lower lobe pulmonary arteries. 2.? RIGHT lower lobe airspace disease probably due to infarcts from the emboli. 3.? Mild RIGHT heart strain. 4.? Nasogastric emphysema. 5.? Mild reactive lymphadenopathy. ? Notified Krys Parker MD at 04/18/2021 1:22 PM. ? Dictated By: Liza Schmidt DO Signed By: Liza Schmidt DO Signed Date/Time: 04/18/21 1323 DD/ [address] [address] XRay Report Signed Patient: Rm Batista Unit #: [id number] : 1940 Age/Sex: 80 / M ADM Date: 04/18/21 Loc: ER Room/Bed: Attending Dr: Ordering Provider/Ordering MD: Krys Parker MD Date of Service: 04/18/21 Procedure(s): XR chest 1V portable [id number] Accession Number(s): [id number] Report Number: [id number] WS: [id number] PORTABLE CHEST HISTORY: dyspnea COMPARISON: 04/06/2021 Hyperexpanded lungs with changes of emphysema. Mild reticular thickening at the lung bases. Mild progression since the prior study. No pleural effusion or pneumothorax. Cardiac size: Normal. Mediastinum/Aorta: Mild atherosclerosis aorta. No osseous abnormality seen. XR/XR chest 1V portable [id number] IMPRESSION: ? 1.? Chronic emphysema. 2.? Mild increase in the reticular opacification at the lung bases. May be due to developing pneumonitis. 3.? No effusion or pneumothorax. ? ? ? Dictated By: Liza Schmidt DO Signed By: Liza Schmidt DO Signed Date/Time: 04/18/21 1148 DD/ 1146 Discharge Plan Discharge Patient Disposition: Admitted As Inpatient Clinical Impression: Acute dyspnea, Generalized weakness, Cough, Acute respiratory failure with hypoxemia, Pulmonary emboli Condition: Stable Coding Level of Care Code ED Manager Critical Care for Chg Fwd Exam Comprehensive
[2021-04-18] MEDS: ipratropium-albuterol 3 mL Neb INHALATION ×3 (11:53→11:59)
[2021-04-18 12:01] LABS: Basophils % 0.2 %; Eosinophils # 0.2 10^3/uL (0.0-0.8); Eosinophils % 1.5 %; Hematocrit 43.8 % (42.0-52.0); Hemoglobin 14.6 g/dL (11.7-16.6); Lymphocytes # 0.7 10^3/uL (0.8-4.8); Lymphocytes % 7.2 %; Mean Corpuscular HGB Conc 33.3 g/dL (30.0-36.0); Mean Corpuscular Hemoglobin 31.3 pg (28.0-34.0); Mean Corpuscular Volume 93.8 fl (80-94); Mean Platelet Volume 9.8 fL (7.4-10.4); Monocytes % 9.6 %; Neutrophils # 8.03 10^3/uL (1.8-7.7); Neutrophils % 81.1 %; Nucleated Red Blood Cells % 0 %; Platelet Count 200 10^3/cmm (130-400); Red Blood Count 4.67 10^6/uL (4.1-5.3); Red Cell Distribution Width 13.3 % (12.1-15.1); White Blood Count 9.9 10^3/uL (4.0-10.0)
[2021-04-18 12:03] LABS: ABG PCO2 31.1 mmHg (35-45); ABG PH Result 7.52 (7.35-7.45); Alveolar-Arterial Oxygen Gradi 22.5 mmHg (5-10); Arterial Blood Gas Hematocrit 42.9 % (42-52); Base Excess ABG 2.9 mmol/L (-2.0-2.0); Blood Gas Allen Test Pos; Blood Gas LPM 5.5 %; Blood Gas Operator Identificat MONRO; Blood Gas Sample Site Radial, left; Blood Gas Sample Type Arterial; Carboxyhemoglobin 1.2 %THgb (0.4-20.1); HCO3 ABG 25.2 mmol/L (22-26); HGB O2 Sat 96.4 % (95-100); Ionized Calcium Level - ABG 1.1 mmol/L (1.1-1.4); Methemoglobin 0.7 % (0.4-1.5); Oxygen Device NC; Oxygen Saturation ABG 98.2; PO2 ABG 86.8 mmHg (80.0-100.0)
[2021-04-18] MEDS: iodixanol 320 mg/mL 100mL Btl IV (13:05)
[2021-04-18 13:20] LABS: Troponin(5th) Baseline 19 ng/L (0-15)
--- NOTE | 2021-04-18 13:25 | ECG_ITS ---
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 Measurements Intervals [place] Rate: 70 P: 75 TX: 154 QRS: 95 QRSD: 144 T: 52 QT: 413 QTc: 448 Interpretive Statements SINUS RHYTHM WITH MARKED SINUS ARRHYTHMIA BORDERLINE RIGHT AXIS DEVIATION [QRS AXIS > 90] INTRAVENTRICULAR CONDUCTION DELAY [130+ ms QRS DURATION] Compared to ECG 04/06/2021 18:45:04 No significant changes Electronically Signed On 04-18-2021 20:55:30 FIELD PIPE LINES SUPERVISOR by Vimal Wright M.D. [id number]
[2021-04-18 13:27] LABS: NT Pro B Type Natriuretic Pept 365 pg/mL (0-450); Procalcitonin 0.13 ng/mL (0-0.5)
[2021-04-18] MEDS: enoxaparin 80 mg/0.8 mL Syringe SUBCUT (13:28)
[2021-04-18 13:38] LABS: Blood Urea Nitrogen 20 mg/dL (8-23); C Reactive Protein 149.5 mg/L (0.0-4.9); Calcium 8.4 mg/dL (8.5-10.5); Carbon Dioxide 15 mmol/L (22-29); Chloride 102 mmol/L (98-107); Glucose 95 mg/dL (65-115); Magnesium 1.8 mg/dL (1.7-2.3); Osmolality Calculated 272 mOsm/kg (285-295); Sodium 130 mmol/L (136-145)
[2021-04-18 13:45] LABS: Anion Gap 17.7 (5-19); Potassium 4.7 mmol/L (3.5-5.1)
[2021-04-18 13:46] LABS: Adenovirus Not Detected (NOT DETECT); Chlamydia Pneumoniae Not Detected (NOT DETECT); Coronavirus 229E,HKU1,NL63,OC4 Not Detected (NOT DETECT); Human Metapneumovirus Not Detected (NOT DETECT); Human Rhinovirus/Enterovirus Not Detected (NOT DETECT); Influenza A Not Detected (NOT DETECT); Influenza A H1 Not Detected (NOT DETECT); Influenza A H1-2009 Not Detected (NOT DETECT); Influenza A H3 Not Detected (NOT DETECT); Influenza B Not Detected (NOT DETECT); Mycoplasma Pneumoniae Not Detected (NOT DETECT); Parainfluenza Virus Type 1 Not Detected (NOT DETECT); Parainfluenza Virus Type 2 Not Detected (NOT DETECT); Parainfluenza Virus Type 3 Not Detected (NOT DETECT); Parainfluenza Virus Type 4 Not Detected (NOT DETECT); Respiratory Syncytial Virus A Not Detected (NOT DETECT); Respiratory Syncytial Virus B Not Detected (NOT DETECT); SARS-COV-2 Not Detected (NOT DETECT)
--- NOTE | 2021-04-18 14:05 | PC.PHAR ---
Addendum entered by Cristina Velez 04/18/21 14:10: [facility] flomax [facility]-pt states not taking Original Note: pt and pts verified the pts medications-notes are made in the pharmacy comments
--- NOTE | 2021-04-18 16:58 | P.HP_ITS ---
Providers/Chief Complaint Admitting Physician: Javi Aguilera MD Primary Care Provider: Javi Aguilera MD Chief Complaint: SOB, Weakness History of Present Illness Rm Batista is a 80 year old male who presented the emergency department with increasing shortness of breath and hypoxemia. He has history of DVT with pulmonary embolus very distantly after a fall and injury. He is noted to have a pretty significant pulmonary embolus in the emergency department today. He says he feels better on the oxygen and is satting 96% on couple liters of oxygen in the ED. Review of Systems Narrative: He is in no distress when I see him today. He has no specific complaints. Now, but he did have quite a bit of shortness of breath and on minimal exertion. He denies fever chills nausea or vomiting. He denies any bleeding. He denies melena. He admits to some cough. He admits to some pleuri tic chest pain. Medications/Allergies Home Medications Medication Instructions Recorded Confirmed Last Taken Type brimonidine 0.2 % eye drops 1 drop OPHTHALMIC (EYE) BID ml 03/16/19 04/18/21 04/18/21 History ketoconazole 1 % shampoo 1 applic TOPICAL .UP TO TWICE A 03/16/19 04/18/21 08/30/20 History WEEK latanoprost 0.005 % eye drops 1 drop OPHTHALMIC (EYE) BEDTIME 03/16/19 04/18/21 04/17/21 History simvastatin 10 mg tablet (Zocor) 5 mg PO QAM tab 03/16/19 04/18/21 04/17/21 History albuterol sulfate 90 mcg/actuation 2 puff INHALATION Q6H PRN #18 gm 06/08/19 04/18/21 07/05/19 Rx aerosol inhaler (ProAir HFA) ipratropium 0.5 mg-albuterol 3 mg 3 ml INHALATION Q6H PRN 90 Days 07/06/19 04/18/21 Unknown Rx (2.5 mg base)/3 mL nebulization #180 ml soln nebulizers (Altera Nebulizer #1 each 07/06/19 04/18/21 Unknown Rx System) finasteride 5 mg tablet 5 mg PO QAM 04/19/20 04/18/21 04/17/21 History mirtazapine 30 mg tablet 15 mg PO BEDTIME 08/31/20 04/18/21 08/30/20 History budesonide 160 mcg-glycopyr 9 2 inh INHALATION BID 04/18/21 04/18/21 Unknown History mcg-formot 4.8 mcg/actuation HFA inhaler (Breztri Aerosphere) cholecalciferol (vitamin D3) 50 50 mcg PO DAILY 04/18/21 04/18/21 04/17/21 History mcg (2,000 unit) tablet (Vitamin D3) citalopram 20 mg tablet 20 mg PO QAM 04/18/21 04/18/21 04/17/21 History dexamethasone 4 mg tablet 4 mg PO BID 04/18/21 04/18/21 04/14/21 History fluticasone fur. 100 mcg-umeclid 1 inh INHALATION Q24H 04/18/21 04/18/21 Unknown History 62.5 mcg-vilant 25 mcg inhalat.powder (Trelegy Ellipta) meloxicam 15 mg tablet 15 mg PO QAM 04/18/21 04/18/21 04/17/21 History prazosin 2 mg capsule 2 mg PO BEDTIME 04/18/21 04/18/21 Unknown History Allergies Allergy/AdvReac Type Severity Reaction Status Date / Time No Known Allergies Allergy Verified 04/18/21 14:05 PFSH Acute PFSH: Medical History Anxiety disorder, unspecified Basal cell carcinoma of skin, unspecified Bradycardia CKD (chronic kidney disease) stage 3, GFR 30-59 ml/min COPD (chronic obstructive pulmonary disease) Dyspnea Hoarseness Hyperlipidemia, unspecified Leg fracture, right Major depressive disorder, recurrent, mild Near syncope Pain in left shoulder Pain in unspecified hip Personal history of pulmonary embolism PVC (premature ventricular contraction) Symptomatic bradycardia Vitamin deficiency, unspecified Surgical History H/O rotator cuff surgery Family History Father CAD (coronary artery disease) Mother CAD (coronary artery disease) Sister Cancer Lymphoma Social History Smoking and tobacco status: former smoker Quit status (tobacco): has quit using tobacco Year quit tobacco: 1986 - 2PPD x 37 Years Second hand smoke exposure: No Alcohol intake: never Lives independently: Yes Household members: spouse Marital status: service: Yes Current occupational status: retired History of recent travel: No Current gender identity: Male Vitals/I&O/Wt Last Vital Signs Temp 98.6 F 04/18/21 14:58 Pulse 70 04/18/21 14:58 Resp 24 H 04/18/21 14:58 BP 124/70 04/18/21 14:58 Pulse Ox 94 04/18/21 14:58 Weight last 48 hrs Weight 180 lb Physical Exam Const: COMMON NORMALS: no acute distress, average body habitus, patient oriented x3, no limitations, healthy appearing, alert and well nourished HENMT: COMMON NORMALS: normocephalic, atraumatic, hearing grossly normal bilaterally, external ears normal, EAC's normal, TM's normal bilaterally, Normal external nose present, Normal nasal mucous membranes and turbinates present, moist oral mucous membranes, oropharynx normal, dentition normal and gingiva normal Eye: COMMON NORMALS: Equal, round and reactive pupils present, EOMs intact bilaterally, conjunctivae normal, no scleral icterus, no papilledema, normal visual crouch by confrontation and fundi normal bilaterally Neck/C-Spine: COMMON NORMALS: full ROM, no lymphadenopathy, supple, no meningeal signs, no JVD, Thyroid normal and No carotid bruits Lymph: LYMPHATIC: no lymphadenopathy noted Chest: COMMONS NORMALS: normal inspection of the chest, normal palpation of entire chest wall, normal inspection of the breasts and normal palpation of the breasts Resp: COMMON NORMALS: normal respiratory effort; negative for clear to auscultation bilaterally EFFORT & INSPECTION: Yes able to speak in complete sentences, No abnormal respiratory pattern, No tachypneic and Yes audible wheezes AUSCULTATION: not clear to auscultation bilaterally and bronchovesicular breath sounds Cardio: COMMON NORMALS: no JVD, regular rate, regular rhythm, S1 normal heart sound present, S2 normal heart sound present, No gallops present (Cardio), No clicks present (Cardio), No murmurs present (Cardio), No rub (Cardio) and P eripheral pulses 2+ throughout GI: COMMON NORMALS: Normal to inspection, nondistended, normoactive bowel sounds present, Soft to palpation, non-tender, No hepatosplenomegaly present, no masses and no bruits Back/Pelvis: COMMON NORMALS: no CVA tenderness, thoracic and lumbar spine normal to inspection, no thoracic nor lumbar tenderness, thoraco-lumbar ROM normal and straight leg raise negative bilaterally Extremity: COMMON NORMALS: normal to inspection, full ROM, capillary refill normal, no joint enlargement, no clubbing, cyanosis or edema, no calf tenderness and no pedal edema Neuro: COMMON NORMALS: patient oriented x3, CN's II-XII intact bilaterally, moves all extremities, no focal motor deficits, no sensory deficits noted, deep tendon reflexes 2+ bilaterally and gait normal SENSORIUM/ORIENTATION: Yes alert, Yes oriented to person, Yes oriented to place and Yes oriented to time Psych: COMMON NORMALS: mental status grossly normal, Normal thought process present, cooperative, normal affect, speech normal, activity/motor behavior normal, denies hallucinations, denies homicidal ideation and denies suicidal ideation Skin: COMMON NORMALS: no rashes or lesions noted, no wounds, turgor normal, no jaundice, no petechiae and no mottling Data : 04/18/21 11:45 04/18/21 12:36 CTA Chest: I personally reviewed and interpreted this imaging study as follows: (Report and review reveal significant pulmonary emboli.) A&P Assessment and plan (1) Pulmonary emboli: We will treat with Lovenox overnight. If stable tomorrow, we will transition to p.o. therapy tomorrow. We will maintain his oxygen level with a nasal cannula. Status: Acute (2) Acute respiratory failure with hypoxemia: Status: Acute Attestations Medical Necessity Statement*: Given his hypoxemic respiratory failure, and pulmonary emboli expect him to spend more than 2 midnights here in the hospital. Time Spent in Patient Care: 16 - 35 minutes Coding Level of Care Code Acute Application Technician for Cheyenne Brambila Diagnoses Pulmonary emboli I26.99 Acute respiratory failure with hypoxemia J96.01
--- NOTE | 2021-04-18 17:25 | ECG_ITS ---
[facility] Test Date: 2021-04-18 Pat Name: Rm Batista Department: Room: Gender: Male Property Insurance Inspector: : 1940 Requested By: Krys Parker Order Number: [id number] Buzz MD: Vimal Wright M.D. Measurements Intervals [place] Rate: 66 P: 61 AR: 164 QRS: 86 QRSD: 149 T: 4 QT: 444 QTc: 466 Interpretive Statements SINUS RHYTHM INTRAVENTRICULAR CONDUCTION DELAY [130+ ms QRS DURATION] Compared to ECG 04/18/2021 11:23:12 Sinus arrhythmia no longer present Electronically Signed On 04-18-2021 20:55:20 FACULTY CRIMINAL JUSTICE by Vimal Wright M.D. [id number]
--- NOTE | 2021-04-18 17:33 | PM.HP ---
Providers/Chief Complaint Admitting Physician: Javi Aguilera MD Primary Care Provider: Javi Aguilera MD Chief Complaint: SOB, Weakness History of Present Illness Rm Batista is a 80 year old male Medications/Allergies Home Medications Medication Instructions Recorded Confirmed Last Taken Type brimonidine 0.2 % eye drops 1 drop OPHTHALMIC (EYE) BID ml 03/16/19 04/18/21 04/18/21 History ketoconazole 1 % shampoo 1 applic TOPICAL .UP TO TWICE A 03/16/19 04/18/21 08/30/20 History WEEK latanoprost 0.005 % eye drops 1 drop OPHTHALMIC (EYE) BEDTIME 03/16/19 04/18/21 04/17/21 History simvastatin 10 mg tablet (Zocor) 5 mg PO QAM tab 03/16/19 04/18/21 04/17/21 History albuterol sulfate 90 mcg/actuation 2 puff INHALATION Q6H PRN #18 gm 06/08/19 04/18/21 07/05/19 Rx aerosol inhaler (ProAir HFA) ipratropium 0.5 mg-albuterol 3 mg 3 ml INHALATION Q6H PRN 90 Days 07/06/19 04/18/21 Unknown Rx (2.5 mg base)/3 mL nebulization #180 ml soln nebulizers (Altera Nebulizer #1 each 07/06/19 04/18/21 Unknown Rx System) finasteride 5 mg tablet 5 mg PO QAM 04/19/20 04/18/21 04/17/21 History mirtazapine 30 mg tablet 15 mg PO BEDTIME 08/31/20 04/18/21 08/30/20 History budesonide 160 mcg-glycopyr 9 2 inh INHALATION BID 04/18/21 04/18/21 Unknown History mcg-formot 4.8 mcg/actuation HFA inhaler (Breztri Aerosphere) cholecalciferol (vitamin D3) 50 50 mcg PO DAILY 04/18/21 04/18/21 04/17/21 History mcg (2,000 unit) tablet (Vitamin D3) citalopram 20 mg tablet 20 mg PO QAM 04/18/21 04/18/21 04/17/21 History dexamethasone 4 mg tablet 4 mg PO BID 04/18/21 04/18/21 04/14/21 History fluticasone fur. 100 mcg-umeclid 1 inh INHALATION Q24H 04/18/21 04/18/21 Unknown History 62.5 mcg-vilant 25 mcg inhalat.powder (Trelegy Ellipta) meloxicam 15 mg tablet 15 mg PO QAM 04/18/21 04/18/21 04/17/21 History prazosin 2 mg capsule 2 mg PO BEDTIME 04/18/21 04/18/21 Unknown History Allergies Allergy/AdvReac Type Severity Reaction Status Date / Time No Known Allergies Allergy Verified 04/18/21 14:05 PFSH Acute PFSH: Medical History Anxiety disorder, unspecified Basal cell carcinoma of skin, unspecified Bradycardia CKD (chronic kidney disease) stage 3, GFR 30-59 ml/min COPD (chronic obstructive pulmonary disease) Dyspnea Hoarseness Hyperlipidemia, unspecified Leg fracture, right Major depressive disorder, recurrent, mild Near syncope Pain in left shoulder Pain in unspecified hip Personal history of pulmonary embolism PVC (premature ventricular contraction) Symptomatic bradycardia Vitamin deficiency, unspecified Surgical History H/O rotator cuff surgery Family History Father CAD (coronary artery disease) Mother CAD (coronary artery disease) Sister Cancer Lymphoma Social History Smoking and tobacco status: former smoker Quit status (tobacco): has quit using tobacco Year quit tobacco: 1986 - PD x 37 Years Second hand smoke exposure: No Alcohol intake: never Lives independently: Yes Household members: spouse Marital status: service: Yes Current occupational status: retired History of recent travel: No Current gender identity: Male Vitals/I&O/Wt Last Vital Signs Temp 98.6 F 04/18/21 14:58 Pulse 70 04/18/21 14:58 Resp 24 H 04/18/21 14:58 BP 124/70 04/18/21 14:58 Pulse Ox 94 04/18/21 14:58 Weight last 48 hrs Weight 180 lb Data : 04/18/21 11:45 04/18/21 12:36 Coding Level of Care Code Acute Electrician Helper Powerhouse for Cheyenne Brambila
[2021-04-18 18:28] LABS: Troponin 5 6HR 15.96 ng/L (0-15)
[2021-04-18 18:30] LABS: Troponin 5 6HR Delta -3.04 ng/L (0-12)
[2021-04-18] MEDS: lactated ringers 1,000 ML 100 ML IV (18:40)
[2021-04-18] MEDS: brimonidine 0.2% Op Soln 5 mL Btl 1 DROP EYE-BOTH (22:04)
[2021-04-18] MEDS: atorvastatin 40 mg Tablet 20 MG PO (22:04)
[2021-04-18] MEDS: mirtazapine 15 mg Tablet PO (22:05)
[2021-04-18] MEDS: latanoprost 0.005% Op Soln 2.5 mL Btl 1 DROP EYE-BOTH (22:05)
--- NOTE | 2021-04-19 11:40 | P.TS_ITS ---
Transfer Summary Providers Date of Admission: 04/18/2021 Date of Discharge/Transfer: 04/18/21 Attending Provider at Admission: Dr. Aguilera Attending Provider at Transfer: Dr. Parker Primary Care Provider: Javi Aguilera MD Transfer Plans: Anticipated date of transfer: 04/18/21 . Receiving Facility: [facility] . Receiving Provider: Dr. Philip . Diagnoses at Discharge Discharge Diagnosis (1) Pulmonary emboli: Status: Acute (2) Acute respiratory failure with hypoxemia: Status: Acute Reason for Visit Reason for Visit SOB, Weakness Brief History: Patient presented to shortness of breath, found to have multiple PEs. Covid negative. Hospital Course Hospital Course Patient received Lovenox and oxygen. Stable while observed in the ED. Patient was transferred for multiple segmental PEs and potential need for invasive intervention. TS Data Studies Completed and Pending Completed Studies During Hospitalization Category Date Time Status CTA chest [CT angio chest PE protcl 92285] Urgent Cat Scan 04/18/21 11:28 Completed XR chest 1V portable [id number] Urgent Exams 04/18/21 11:25 Completed Laboratory Last Values WBC 9.9 10^3/uL (4.0-10.0) 04/18/21 11:45 RBC 4.67 10^6/uL (4.1-5.3) 04/18/21 11:45 Hgb 14.6 g/dL (11.7-16.6) 04/18/21 11:45 Hct 43.8 % (42.0-52.0) 04/18/21 11:45 MCV 93.8 fl (80-94) 04/18/21 11:45 MCH 31.3 pg (28.0-34.0) 04/18/21 11:45 MCHC 33.3 g/dL (30.0-36.0) 04/18/21 11:45 RDW 13.3 % (12.1-15.1) 04/18/21 11:45 Plt Count 200 10^3/cmm (130-400) 04/18/21 11:45 MPV 9.8 fL (7.4-10.4) 04/18/21 11:45 Neut % (Auto) 81.1 % 04/18/21 11:45 Lymph % (Auto) 7.2 % 04/18/21 11:45 [facility] % (Auto) 9.6 % 04/18/21 11:45 Eos % (Auto) 1.5 % 04/18/21 11:45 Baso % (Auto) 0.2 % 04/18/21 11:45 Neut # (Auto) 8.03 10^3/uL (1.8-7.7) H 04/18/21 11:45 Lymph # (Auto) 0.7 10^3/uL (0.8-4.8) L 04/18/21 11:45 [facility] [place] # (Auto) 1.0 10^3/uL (0.2-0.9) H 04/18/21 11:45 Eos # (Auto) 0.2 10^3/uL (0.0-0.8) 04/18/21 11:45 Baso # (Auto) 0.0 10^3/uL (0.0-0.1) 04/18/21 11:45 Nucleated RBC % (auto) 0 % 04/18/21 11:45 Nucleated RBCs # 0.0 /100WBC 04/18/21 11:45 Specimen Type Arterial 04/18/21 11:51 Sample Site Radial, left 04/18/21 11:51 ABG pH 7.52 (7.35-7.45) H 04/18/21 11:51 ABG pCO2 31.1 mmHg (35-45) L 04/18/21 11:51 ABG pO2 86.8 mmHg (80.0-100.0) 04/18/21 11:51 ABG HCO3 25.2 mmol/L (22-26) 04/18/21 11:51 ABG O2 Saturation 98.2 04/18/21 11:51 ABG Base Excess 2.9 mmol/L (-2.0-2.0) H 04/18/21 11:51 [place] Test Pos 04/18/21 11:51 A-a O2 Gradient 22.5 mmHg (5-10) H 04/18/21 11:51 Hematocrit 42.9 % (42-52) 04/18/21 11:51 Hgb O2 Saturation 96.4 % (95-100) 04/18/21 11:51 Carboxyhemoglobin 1.2 %THgb (0.4-20.1) 04/18/21 11:51 Methemoglobin 0.7 % (0.4-1.5) 04/18/21 11:51 Total Hemoglobin 14.0 g/dL (14-18) 04/18/21 11:51 Sodium 135.0 mmol/L (131-143) 04/18/21 11:51 Potassium 4.0 mmol/L (3.5-5.0) 04/18/21 11:51 Glucose 94.0 mg/dL (70-115) 04/18/21 11:51 Ionized Calcium 1.1 mmol/L (1.1-1.4) 04/18/21 11:51 O2 Delivery Device Nc 04/18/21 11:51 O2 Liters/Min 5.5 % 04/18/21 11:51 FiO2 42.0 % 04/18/21 11:51 Inspector Structural Bonding ID [place] 04/18/21 11:51 Sodium 130 mmol/L (136-145) L 04/18/21 12:36 Potassium 4.7 mmol/L (3.5-5.1) 04/18/21 12:36 Chloride 102 mmol/L (98-107) 04/18/21 12:36 Carbon Dioxide 15 mmol/L (22-29) L 04/18/21 12:36 Anion Gap 17.7 (5-19) 04/18/21 12:36 BUN 20 mg/dL (8-23) 04/18/21 12:36 Creatinine 1.0 mg/dL (0.7-1.2) 04/18/21 12:36 GFR Calculation Not Reportable 04/18/21 12:36 Glucose 95 mg/dL (65-115) 04/18/21 12:36 Calculated Osmolality 272 mOsm/kg (285-295) L 04/18/21 12:36 Calcium 8.4 mg/dL (8.5-10.5) L 04/18/21 12:36 Magnesium 1.8 mg/dL (1.7-2.3) 04/18/21 12:36 Troponin T Baseline 19 ng/L (0-15) H 04/18/21 12:36 Troponin T 120 Minute 17.40 ng/L (0-15) H 04/18/21 13:36 Delta Troponin T -1.60 ABS# (0-10) L 04/18/21 13:36 Troponin T Hi Sens 6Hr 15.96 ng/L (0-15) H 04/18/21 17:36 Troponin T Hi Sens 6Hr Delta -3.04 ng/L (0-12) L 04/18/21 17:36 C-Reactive Protein 149.5 mg/L (0.0-4.9) H 04/18/21 12:36 NT-Pro-B Natriuret Pep 365 pg/mL (0-450) 04/18/21 12:36 Procalcitonin 0.13 ng/mL (0-0.5) 04/18/21 12:36 Coronavirus 229E (PCR) Not detected (NOT DETECT) 04/18/21 11:45 SARS-CoV-2 (PCR) Not detected (NOT DETECT) 04/18/21 11:45 Radiology Impressions Chest X-Ray 04/18/21 11:25 IMPRESSION: 1. Chronic emphysema. 2. Mild increase in the reticular opacification at the lung bases. May be due to developing pneumonitis. 3. No effusion or pneumothorax. Chest CTA 04/18/21 11:28 IMPRESSION: 1. Extensive bilateral pulmonary emboli. Emboli begin within the lobar branches. Occlusive and nonocclusive emboli into the upper and lower lobe pulmonary arteries. 2. RIGHT lower lobe airspace disease probably due to infarcts from the emboli. 3. Mild RIGHT heart strain. 4. Nasogastric emphysema. 5. Mild reactive lymphadenopathy. Notified Krys Parker MD at 04/18/2021 1:22 PM. Recent Clincial Data Last Vital Signs Temp 97.8 F 04/18/21 20:06 Pulse 88 04/18/21 21:50 Resp 18 04/18/21 21:50 BP 116/64 04/18/21 21:50 Pulse Ox 96 04/18/21 21:50 Intake & Output/Weight 04/17/21 04/18/21 04/19/21 04/20/21 06:59 06:59 06:59 06:59 Intake Total 1000 / 1000 Balance 1000 / 1000 Weight 81.647 kg TS Medications Medications Discontinued Medications Albuterol Sulfate (Albuterol 8 Gm Mdi) 2 puff INHALATION Q6H.RESPIRATORY PRN PRN Reason: shortness of breath or wheezing Albuterol/Ipratropium (Ipratropium-Albuterol 3 Ml Neb) 3 ml INHALATION Q20M LULU Stop: 04/18/21 12:26 Last Admin: 04/18/21 11:59 Dose: 3 ml Documented by: Albuterol/Ipratropium (Ipratropium-Albuterol 3 Ml Neb) 3 ml INHALATION Q6H.RESPIRATORY PRN PRN Reason: wheezing Atorvastatin Calcium (Atorvastatin 40 Mg Tablet) 20 mg PO BEDTIME [facility] Last Admin: 04/18/21 22:04 Dose: 20 mg Documented by: Brimonidine Tartrate (Brimonidine 0.2% Op Soln 5 Ml Btl) 1 drop EYE-BOTH BID@0900,2100 [facility] Last Admin: 04/18/21 22:04 Dose: 1 drop Documented by: Citalopram Hydrobromide (Citalopram 20 Mg Tablet) 20 mg PO QAM [facility] Dexamethasone (Dexamethasone 10 Mg/Ml Inj) 6 mg IVP ONCE ONE Stop: 04/18/21 11:37 Last Admin: 04/18/21 11:45 Dose: 6 mg Documented by: Enoxaparin Sodium (Enoxaparin 80 Mg/0.8 Ml Syringe) 80 mg SUBCUT ONCE ONE Stop: 04/18/21 13:20 Last Admin: 04/18/21 13:28 Dose: 80 mg Documented by: Enoxaparin Sodium (Enoxaparin 80 Mg/0.8 Ml Syringe) 80 mg SUBCUT BID [facility] Enoxaparin Sodium (Enoxaparin 80 Mg/0.8 Ml Syringe) 80 mg SUBCUT Q12H [facility] Finasteride (Finasteride 5 Mg Tablet) 5 mg PO DAILY [facility] Sodium Chloride (Sodium Chloride 0.9%) 1,000 mls @ 999 mls/hr IV .Q1H1M ONE Stop: 04/18/21 12:25 Last Infusion: 04/18/21 21:29 Dose: Infused Documented by: Lactated Ringer's (Lactated Ringers) 1,000 mls @ 100 mls/hr IV .Q10H [facility] Last Admin: 04/18/21 18:40 Dose: 100 mls/hr Documented by: Iodixanol (Iodixanol 320 Mg/Ml 100ml Btl) 0 ml IV ONCE ONE Stop: 04/18/21 13:06 Last Admin: 04/18/21 13:05 Dose: 75 ml Documented by: Latanoprost (Latanoprost 0.005% Op Soln 2.5 Ml Btl) 1 drop EYE-BOTH BEDTIME LULU Last Admin: 04/18/21 22:05 Dose: 1 drop Documented by: Meloxicam (Meloxicam 7.5 Mg Tablet) 15 mg PO DAILY LULU Mirtazapine (Mirtazapine 15 Mg Tablet) 15 mg PO BEDTIME LULU Last Admin: 04/18/21 22:05 Dose: 15 mg Documented by: Morphine Sulfate (Morphine 4 Mg/Ml Sdv 1 Ml) 2 mg IVP Q4H PRN PRN Reason: SEVERE PAIN Non-Formulary Medication (Bibudyzlnn-Ldpafqgt-Qxxqsuwxne [Breztri Aerosphere]) 2 inh INHALATION BID LULU Non-Formulary Medication (Qonvoxbhfaz-Gjlsrrefs-Cttwoqhn [Trelegy Ellipta]) 1 inh INHALATION Q24H LULU Allergies No Known Allergies Allergy (Verified 04/18/21 14:05) Home Medications brimonidine 0.2 % eye drops 1 drop OPHTHALMIC (EYE) BID ml 03/16/19 [History Confirmed 04/18/21] ketoconazole 1 % shampoo 1 applic TOPICAL .UP TO TWICE A WEEK 03/16/19 [History Confirmed 04/18/21] latanoprost 0.005 % eye drops 1 drop OPHTHALMIC (EYE) BEDTIME 03/16/19 [History Confirmed 04/18/21] simvastatin 10 mg tablet (Zocor) 5 mg PO QAM tab 03/16/19 [History Confirmed 04/18/21] albuterol sulfate 90 mcg/actuation aerosol inhaler (ProAir HFA) 2 puff INHALATION Q6H PRN #18 gm 06/08/19 [Rx Confirmed 04/18/21] ipratropium 0.5 mg-albuterol 3 mg (2.5 mg base)/3 mL nebulization soln 3 ml INHALATION Q6H PRN 90 Days #180 ml 07/06/19 [Rx Confirmed 04/18/21] nebulizers (Altera Nebulizer System) #1 each 07/06/19 [Rx Confirmed 04/18/21] finasteride 5 mg tablet 5 mg PO QAM 04/19/20 [History Confirmed 04/18/21] mirtazapine 30 mg tablet 15 mg PO BEDTIME 08/31/20 [History Confirmed 04/18/21] budesonide 160 mcg-glycopyr 9 mcg-formot 4.8 mcg/actuation HFA inhaler (Breztri Aerosphere) 2 inh INHALATION BID 04/18/21 [History Confirmed 04/18/21] cholecalciferol (vitamin D3) 50 mcg (2,000 unit) tablet (Vitamin D3) 50 mcg PO DAILY 04/18/21 [History Confirmed 04/18/21] citalopram 20 mg tablet 20 mg PO QAM 04/18/21 [History Confirmed 04/18/21] dexamethasone 4 mg tablet 4 mg PO BID 04/18/21 [History Confirmed 04/18/21] fluticasone fur. 100 mcg-umeclid 62.5 mcg-vilant 25 mcg inhalat.powder (Trelegy Ellipta) 1 inh INHALATION Q24H 04/18/21 [History Confirmed 04/18/21] meloxicam 15 mg tablet 15 mg PO QAM 04/18/21 [History Confirmed 04/18/21] prazosin 2 mg capsule 2 mg PO BEDTIME 04/18/21 [History Confirmed 04/18/21] Discharge Plan Discharge Patient Disposition: [facility] Clinical Impression: Acute dyspnea, Generalized weakness, Cough, Acute respiratory failure with hypoxemia, Pulmonary emboli Condition: Stable Discharge Orders: Transfer Out of Facility (Order); Ordered 04/19/21 Ordered By: Krys Parker Referrals: Javi Aguilera MD [Primary Care Provider] - Transfer Attestations Time Spent in Transfer Care: greater than 30 min Status at Transfer: Cognitive status at transfer: cognitively intact ; Behavioral status at transfer: cooperative ; Quality Metrics Clinical Quality Measures [ Venous Thromboembolism (present on admission) { Contraindication to Overlap Therapy: Further opinion sought; VTE Discharge Education: Education about anticoagulant therapy/Care Notes given, Education about treatment options/disease process, Medication side effects education;}] Coding Level of Care Code Acute Inventory Control/Shipping Receiving for Cheyenne Brambila Diagnoses Pulmonary emboli I26.99 Acute respiratory failure with hypoxemia J96.01
== END 2021-04-18 22:12 | disposition short-term general hospital (02) ==
LOC: ER 17:46 → ER IP 21:07
PROVIDERS: Emergency Provider Emergency Medicine; PCP Internal Medicine
DX: J96.01 Acute respiratory failure with hypoxia (principal); I26.99 Other pulmonary embolism without acute cor pulmonale; R53.1 Weakness; N18.30 Chronic kidney disease, stage 3 unspecified; E78.5 Hyperlipidemia, unspecified; Z87.891 Personal history of nicotine dependence; Z20.822 Contact with and (suspected) exposure to COVID-19
CPT/HCPCS: 36600; 71045; 71275; 80048; 80051; 82330; 82805; 83735; 83880; 84145; 84484; 85025; 86140; 87635; 93005; 94640; 96361; 96372; 96374; 99285; J1100; J1650; J7030; Q9967

== ENCOUNTER → 2021-05-10 10:30 | Outpatient (BNVA) | payer OTHER, MEDICARE, SELFPAY | PROVIDERS: PCP Internal Medicine; Visit Provider Internal Medicine Pulmonary Disease | DX: Z09 Encounter for follow-up examination after completed treatment for conditions other than malignant neoplasm (principal); I26.99 Other pulmonary embolism without acute cor pulmonale; N18.30 Chronic kidney disease, stage 3 unspecified; J44.9 Chronic obstructive pulmonary disease, unspecified; Z87.891 Personal history of nicotine dependence | CPT/HCPCS: 99204 ==

== ENCOUNTER 2021-06-16 09:23 | Outpatient (CLI) | payer MEDICARE, OTHER, SELFPAY ==
--- NOTE | 2021-06-16 10:00 | USCV_ITS ---
Rm Batista Age: 80 Gender: M : 1940 Exam Date: 06/16/2021 09:56 Ordering Phys: Jameson Bullock MD Technologist: Anne Marie Sheppard Exam Location: [facility] [place] Indication: sob and dizzy BP: / HR: 53 Rhythm: Sinus Technical Quality: Adequate MEASUREMENTS (Male / Female) Normal Values 2D ECHO LV Diastolic Diameter PLAX 4.4 cm 4.2 - 5.9 / 3.9 - 5.3 cm LV Systolic Diameter PLAX 3.1 cm LV Chamber Size 3.3 cm IVS Diastolic Thickness 1.1 cm 0.6 - 1.0 / 0.6 - 0.9 cm IVS Systolic Thickness 1.6 cm LVPW Diastolic Thickness 1.4 cm 0.6 - 1.0 / 0.6 - 0.9 cm LVPW Systolic Thickness 1.7 cm RV Chamber Size 4.2 cm LVOT Diameter 2.0 cm LV Ejection Fraction 2D Teich 64.2 % LV Ejection Fraction MOD 2C 40.9 % LV Ejection Fraction 2C AL 43.2 % LA Diameter 2.4 cm LA Width 3.4 cm LA Height 4.6 cm RA Width 4.6 cm RA Height 4.6 cm Aorta at Sinotubular Diameter 3.0 cm M-MODE Aortic Annulus Diameter 3.9 cm LA Ao Ratio MM 0.7 MV E Point Septal Separation 0.4 cm DOPPLER AV Peak Velocity 174.7 cm/s LVOT Peak Velocity 98.0 cm/s AV Area Cont Eq vti 0.8 cm squared AV Area Cont Eq pk 1.8 cm squared MV Area PHT 3.7 cm squared Mitral E to A Ratio 1.0 MV E' Velocity 40.0 cm/s Mitral E to MV E' Ratio 6.7 Mitral E to LV E' Lateral Ratio 6.1 Mitral E to LV E' Septal Ratio 7.5 TV Peak E Velocity 57.0 cm/s PV Peak Velocity 71.0 cm/s RV Acceleration Time 0.2 s RV Ejection Time 0.4 s RV AcT/ET 0.5 FINDINGS Left Ventricle Normal left ventricular size and systolic function, EF 64%.mild left ventricular hypertrophy. No regional wall motion abnormalities. Right Ventricle The right ventricle is normal in size and function. Right Atrium The right atrium is normal in size. Left Atrium The left atrium is normal in size. Mitral Valve Thickened mitral valve. Trace mitral valve regurgitation. Aortic Valve Mild aortic valve regurgitation. Tricuspid Valve No gross abnormalities noted Pulmonic Valve Pulmonic valve not well visualized. Pericardium Normal pericardium without effusion. Aorta Normal ascending aorta dimension. CONCLUSIONS Normal left ventricular size and systolic function, EF 64%.mild left ventricular hypertrophy. No regional wall motion abnormalities. Thickened mitral valve. Trace mitral valve regurgitation. Mild aortic valve regurgitation. There is no pericardial effusion. Compared to the study from 08/31/2020, there may not be a significant change PA pressure could not be calculated Dr Padmaja Abdalla MD FAC (Electronically Signed) Final Date: 16 June 2021 17:56 S
== END 2021-06-16 09:24 | disposition home or self-care (01) ==
PROVIDERS: PCP Internal Medicine; Visit Provider Internal Medicine Pulmonary Disease
DX: R42 Dizziness and giddiness (principal); R06.02 Shortness of breath; I08.0 Rheumatic disorders of both mitral and aortic valves
CPT/HCPCS: 93306

== ENCOUNTER → 2021-07-18 09:45 | Outpatient (BNVA) | payer OTHER, SELFPAY | PROVIDERS: PCP Internal Medicine; Visit Provider Specialist | DX: R06.00 Dyspnea, unspecified (principal); R42 Dizziness and giddiness; I95.9 Hypotension, unspecified; G25.81 Restless legs syndrome; I26.99 Other pulmonary embolism without acute cor pulmonale; N18.30 Chronic kidney disease, stage 3 unspecified; J44.9 Chronic obstructive pulmonary disease, unspecified; Z79.01 Long term (current) use of anticoagulants | CPT/HCPCS: 99205 ==

== ENCOUNTER 2021-07-18 11:56 | Emergency (ER) | payer OTHER, MEDICARE, SELFPAY ==
--- NOTE | 2021-07-18 12:01 | W.ED.NAVMDI ---
HPI - Nausea/Vomiting/Diarrhea General: Chief complaint: Dizziness Stated complaint: n/v, sent from [facility] office Time Seen by Provider: 07/18/21 11:59 Source: patient Mode of arrival: ambulatory Limitations: no limitations History of Present Illness: 80-year-old male presents to the emergency room from the neurology clinic. He was sitting at the neurology clinic waiting for his appointment began to get lightheaded dizzy felt hot and sweaty nauseated Marita never had any chest pain never vomited but was very nauseous. He has not had episodes like this before on arrival he is noted to be extremely bradycardic in the mid upper 40s however states he is chronically been told he has a low heart rate he is not on any medications to slow his heart rate he is on Eliquis for previous DVTs. He has not had any recent shortness of breath cough cold fever sweats or chills. When asked him what he had gone to see Dr. Le for he was not certain. Otherwise he was quite astute with all of his history and describing his symptoms. According Dr. Le's note he was there for diplopia. He had been seen at [facility] and referred back to Dr. Le. Patient has a history of COPD DVT and congestive heart failure. He is usually on oxygen evidently he was trying to taper himself off the oxygen but now has been using 2 L/min on a regular basis. MD elicited complaint: nausea Onset (ago): minute(s) Associated nausea: Yes Associated abdominal pain: No Location of pain: None Exacerbating factors: none Relieving factors: none Associated symtoms: Reports fatigue, anorexia and nausea; Denies altered mental status, anxiety, bloating, change in vision, chest pain, cough, diaphoresis, decreased urine output, dizziness, dysuria, epistaxis, fecal incontinence, fevers/chills, headache(s), malaise, myalgias, numbness, palpitations, rash, short of breath, syncope, tenesmus, tinnitus or weakness Review of Systems Const: Reports: fatigue; Denies: fever(s), chills, body aches, change in appetite, malaise or diaphoresis Eyes: Denies: change in vision ENMT: Denies: tinnitus or epistaxis Card: Denies: chest pain, palpitations or syncope Resp: Denies: dyspnea, productive cough or non-productive cough GI: Reports: nausea; Denies: abdominal pain, vomiting, bloating or fecal incontinence : Denies: flank pain, difficulty urinating, dysuria, urinary frequency or urinary urgency Skin/Breast: Denies: rash or pruritus Neuro: Denies: headache(s) or dizziness Psych: Denies: anxiety PFSH ED PFSH: Medical History Anxiety disorder, unspecified Basal cell carcinoma of skin, unspecified Bradycardia CKD (chronic kidney disease) stage 3, GFR 30-59 ml/min COPD (chronic obstructive pulmonary disease) Dyspnea Hoarseness Hyperlipidemia, unspecified Leg fracture, right Major depressive disorder, recurrent, mild Near syncope Pain in left shoulder Pain in unspecified hip Personal history of pulmonary embolism PVC (premature ventricular contraction) Symptomatic bradycardia Vitamin deficiency, unspecified Surgical History H/O rotator cuff surgery Family History Father CAD (coronary artery disease) Mother CAD (coronary artery disease) Sister Cancer Lymphoma Social History Smoking and tobacco status: never smoked Quit status (tobacco): has quit using tobacco Year quit tobacco: 1986PD x 37 Years Second hand smoke exposure: No Alcohol intake: never Lives independently: Yes Household members: spouse Marital status: service: Yes Current occupational status: retired History of recent travel: No Current gender identity: Male Physical Exam Const: EXAM LIMITATIONS: no altered mental status GENERAL APPEARANCE: cooperative and comfortable ORIENTATION/CONSCIOUSNESS: Yes awake, Yes oriented to person, Yes oriented to place and Yes oriented to time HENMT: COMMON NORMALS: normocephalic, atraumatic and hearing grossly normal bilaterally HEAD & SCALP: normocephalic and atraumatic Neck/C-Spine: COMMON NORMALS: no JVD Resp: COMMON NORMALS: normal respiratory effort, No retractions, No use of accessory muscles and clear to auscultation bilaterally AUSCULTATION: clear to auscultation bilaterally Cardio: COMMON NORMALS: no JVD, regular rate, regular rhythm and No murmurs present (Cardio) RATE: regular rate RHYTHM: regular rhythm GI: COMMON NORMALS: Soft to palpation and No hepatosplenomegaly present AUSCULTATION: Yes normoactive bowel sounds PALPATION: Yes Soft to palpation, No Tenderness to palpation present (GI), No Guarding due to palpation present (GI) and Yes No hepatosplenomegaly present Extremity: COMMON NORMALS: normal to inspection, capillary refill normal, no clubbing, cyanosis or edema, no calf tenderness and no pedal edema Neuro: SENSORIUM/ORIENTATION: Yes oriented to person, Yes oriented to place and Yes oriented to time Skin: COMMON NORMALS: no rashes or lesions noted GENERAL SKIN EXAM: no rashes or lesions noted Course Vital Signs: Vital signs: Vital Signs Temperature 97.9 F 07/18/21 12:10 Pulse Rate 53 L 07/18/21 15:37 Respiratory Rate 20 H 07/18/21 15:37 Blood Pressure 145/68 07/18/21 15:37 Pulse Oximetry 100 07/18/21 15:37 MDM - Nausea/Vomiting/Diarrhea Medical Decision Making Patient is feeling better symptoms have improved we will discharge patient home otherwise having no other recurrence of symptoms follow-up with primary care doctor return if has further problems. Medical Records I reviewed the patient's medical records. Lab Data I reviewed the patient's lab results. : 07/18/21 12:10 07/18/21 12:10 Laboratory Results WBC 8.3 10^3/uL (4.0-10.0) 07/18/21 12:10 RBC 4.54 10^6/uL (4.1-5.3) 07/18/21 12:10 Hgb 14.4 g/dL (11.7-16.6) 07/18/21 12:10 Hct 43.2 % (42.0-52.0) 07/18/21 12:10 MCV 95.2 fl (80-94) H 07/18/21 12:10 MCH 31.7 pg (28.0-34.0) 07/18/21 12:10 MCHC 33.3 g/dL (30.0-36.0) 07/18/21 12:10 RDW 14.3 % (12.1-15.1) 07/18/21 12:10 Plt Count 192 10^3/cmm (130-400) 07/18/21 12:10 MPV 9.9 fL (7.4-10.4) 07/18/21 12:10 Neut % (Auto) 60.8 % 07/18/21 12:10 Lymph % (Auto) 24.1 % 07/18/21 12:10 Tompkins % (Auto) 8.9 % 07/18/21 12:10 Eos % (Auto) 5.3 % 07/18/21 12:10 Baso % (Auto) 0.5 % 07/18/21 12:10 Neut # (Auto) 5.04 10^3/uL (1.8-7.7) 07/18/21 12:10 Lymph # (Auto) 2.0 10^3/uL (0.8-4.8) 07/18/21 12:10 Tompkins # (Auto) 0.7 10^3/uL (0.2-0.9) 07/18/21 12:10 Eos # (Auto) 0.4 10^3/uL (0.0-0.8) 07/18/21 12:10 Baso # (Auto) 0.0 10^3/uL (0.0-0.1) 07/18/21 12:10 Nucleated RBC % (auto) 0 % 07/18/21 12:10 Nucleated RBCs # 0.0 /100WBC 07/18/21 12:10 Sodium 140 mmol/L (136-145) 07/18/21 12:10 Potassium 4.4 mmol/L (3.5-5.1) 07/18/21 12:10 Chloride 103 mmol/L (98-107) 07/18/21 12:10 Carbon Dioxide 26 mmol/L (22-29) 07/18/21 12:10 Anion Gap 15.4 (5-19) 07/18/21 12:10 BUN 27 mg/dL (8-23) H 07/18/21 12:10 Creatinine 1.5 mg/dL (0.7-1.2) H 07/18/21 12:10 GFR Calculation Not Reportable 07/18/21 12:10 Glucose 101 mg/dL (65-115) 07/18/21 12:10 Calculated Osmolality 295 mOsm/kg (285-295) 07/18/21 12:10 Calcium 9.1 mg/dL (8.5-10.5) 07/18/21 12:10 Total Bilirubin 0.4 mg/dL (0.15-1.2) 07/18/21 12:10 AST 16 U/L (0-40) 07/18/21 12:10 ALT 13 U/L (0-41) 07/18/21 12:10 Alkaline Phosphatase 57 IU/L (40-130) 07/18/21 12:10 Troponin T Baseline 12 ng/L (0-15) 07/18/21 12:10 Troponin T 120 Minute 12.94 ng/L (0-15) 07/18/21 13:55 Delta Troponin T 0.94 ABS# (0-10) 07/18/21 13:55 Total Protein 7.0 g/dL (6.6-8.7) 07/18/21 12:10 Albumin 4.2 g/dL (3.5-5.2) 07/18/21 12:10 Globulin 2.8 g/dL (1.3-4.6) 07/18/21 12:10 TSH 3.69 uIU/mL (0.27-4.20) 07/18/21 12:10 Discharge Plan Discharge Patient Disposition: Home Clinical Impression: Near syncope, Bradycardia Condition: Stable Prescriptions: No Action simvastatin [Zocor] 10 mg tablet 5 mg PO QAM 0RF latanoprost 0.005 % drops 1 drop ophthalmic (eye) BEDTIME 0RF Rx Instructions: (both eyes) brimonidine 0.2 % drops 1 drop ophthalmic (eye) BID 0RF Rx Instructions: Right Eye (DME) Altera Nebulizer System Misc See Rx Instructions .ROUTE .MEDSUPPLY Qty: 1 0RF Rx Instructions: As directed lidocaine 5 % cream 1 applic topical BID PRN (Reason: Rash) 0RF gabapentin 100 mg capsule 100 mg PO TID 0RF Xarelto 20 mg tablet 20 mg PO DAILY Qty: 90 3RF fluoride (sodium) 1.1 % paste 1 applic dental DAILY 0RF tamsulosin 0.4 mg capsule 0.4 mg PO DAILY 0RF finasteride 5 mg tablet 5 mg PO DAILY 0RF ropinirole 0.5 mg tablet 0.5 mg PO BID Qty: 60 5RF albuterol sulfate [ProAir HFA] 90 mcg/actuation HFA aerosol inhaler 2 puff INHALATION Q6H PRN (Reason: shortness of breath or wheezing) Qty: 18 3RF Breztri Aerosphere 160-9-4.8 mcg/actuation HFA aerosol inhaler 2 inh inhalation BID Qty: 10.7 0RF miscellaneous medical supply Kit See Rx Instructions miscellaneous .COMPLEX Qty: 1 0RF Rx Instructions: Portable oxygen concentrator mirtazapine 30 mg Tablet 15 mg PO BEDTIME 0RF prazosin 2 mg Capsule 2 mg PO BEDTIME 0RF cholecalciferol (vitamin D3) [Vitamin D3] 50 mcg (2,000 unit) Tablet 100 mcg PO DAILY 0RF meloxicam 15 mg tablet 15 mg PO QAM 0RF citalopram 20 mg tablet 20 mg PO DAILY 0RF Discharge Orders: Discharge ED (Routine); Ordered 07/18/21 Ordered By: Maik George Referrals: Javi Aguilera MD [Primary Care Provider] - Patient Instructions: Opioid Safety Activity Restrictions/Additional Instructions: telephonic nurse case manager will call to make arrangements for her to have a Holter monitor placed. Coding Level of Care Code ED Egg Processing Supervisor for Chg Fwd Exam Comprehensive
--- NOTE | 2021-07-18 12:03 | ECG_ITS ---
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 Measurements Intervals [place] Rate: 45 P: 63 [place]: 187 QRS: 87 QRSD: 153 T: 46 QT: 473 QTc: 411 Interpretive Statements SINUS BRADYCARDIA INTRAVENTRICULAR CONDUCTION DELAY [130+ ms QRS DURATION] Compared to ECG 04/18/2021 17:32:54 Sinus rhythm no longer present Electronically Signed On 07-18-2021 17:25:23 CDT by Vimal Wright M.D. [id number]
[2021-07-18 12:10] VITALS: BP 132/71; PULSE 47; RESP 16; TEMP 36.6; O2SAT 99; BMI 26.4
[2021-07-18 12:22] LABS: Basophils % 0.5 %; Eosinophils # 0.4 10^3/uL (0.0-0.8); Eosinophils % 5.3 %; Hematocrit 43.2 % (42.0-52.0); Hemoglobin 14.4 g/dL (11.7-16.6); Lymphocytes % 24.1 %; Mean Corpuscular HGB Conc 33.3 g/dL (30.0-36.0); Mean Corpuscular Hemoglobin 31.7 pg (28.0-34.0); Mean Corpuscular Volume 95.2 fl (80-94); Mean Platelet Volume 9.9 fL (7.4-10.4); Monocytes # 0.7 10^3/uL (0.2-0.9); Monocytes % 8.9 %; Neutrophils # 5.04 10^3/uL (1.8-7.7); Neutrophils % 60.8 %; Nucleated Red Blood Cells % 0 %; Platelet Count 192 10^3/cmm (130-400); Red Blood Count 4.54 10^6/uL (4.1-5.3); Red Cell Distribution Width 14.3 % (12.1-15.1); White Blood Count 8.3 10^3/uL (4.0-10.0)
[2021-07-18] MEDS: sodium chloride 0.9% 1,000 ML 999 ML IV (12:27)
[2021-07-18] MEDS: ondansetron 2 mg/ML SDV 2 mL 4 MG IVP (12:27)
[2021-07-18 12:52] LABS: Troponin(5th) Baseline 12 ng/L (0-15)
[2021-07-18 13:01] LABS: Alanine Aminotransferase 13 U/L (0-41); Albumin Level 4.2 g/dL (3.5-5.2); Alkaline Phosphatase 57 IU/L (40-130); Anion Gap 15.4 (5-19); Aspartate Amino Transferase 16 U/L (0-40); Blood Urea Nitrogen 27 mg/dL (8-23); Calcium 9.1 mg/dL (8.5-10.5); Carbon Dioxide 26 mmol/L (22-29); Chloride 103 mmol/L (98-107); Globulin 2.8 g/dL (1.3-4.6); Glucose 101 mg/dL (65-115); Osmolality Calculated 295 mOsm/kg (285-295); Potassium 4.4 mmol/L (3.5-5.1); Sodium 140 mmol/L (136-145); Thyroid Stimulating Hormone 3.69 uIU/mL (0.27-4.20); Total Bilirubin 0.4 mg/dL (0.15-1.2)
[2021-07-18 13:09] VITALS: BP 147/76; PULSE 49; RESP 13; O2SAT 99
--- NOTE | 2021-07-18 14:09 | ECG_ITS ---
[facility] Test Date: 2021-07-18 Pat Name: Rm Batista Department: Room: Gender: Male Lure Maker: : 1940 Requested By: Maik Walker Order Number: [id number] Buzz MD: Vimal Wright M.D. Measurements Intervals [place] Rate: 46 P: 53 DC: 186 QRS: 86 QRSD: 143 T: 40 QT: 485 QTc: 427 Interpretive Statements SINUS BRADYCARDIA INTRAVENTRICULAR CONDUCTION DELAY [130+ ms QRS DURATION] Compared to ECG 07/18/2021 12:03:15 No significant changes Electronically Signed On 07-18-2021 17:30:14 CDT by Vimal Wright M.D. [id number]
[2021-07-18 14:32] VITALS: BP 140/78; BP 148/77; BP 155/81; PULSE 48; PULSE 51; PULSE 52
[2021-07-18 14:46] LABS: Troponin 5 2HR 12.94 ng/L (0-15)
[2021-07-18 14:47] LABS: Troponin 5 2HR Delta 0.94 ABS# (0-10)
[2021-07-18 15:37] VITALS: BP 145/68; PULSE 53; RESP 20; O2SAT 100
--- NOTE | 2021-08-09 08:50 | DCPLANNER ---
late entry - renal case manager had message to schedule an out patient halter monitor for patient. utility sales and service manager made several attempts to reach patient concerning the follow up appointment. utility sales and service manager unable to reach patient and unable to leave a voicemail for patient.
== END 2021-07-18 15:39 | disposition home or self-care (01) ==
PROVIDERS: Emergency Provider Family Medicine; PCP Internal Medicine
DX: R55 Syncope and collapse (principal); Z87.891 Personal history of nicotine dependence; R00.1 Bradycardia, unspecified; Z79.01 Long term (current) use of anticoagulants
CPT/HCPCS: 80053; 84443; 84484; 85025; 93005; 96361; 96374; 99284; J2405; J7030

== ENCOUNTER 2021-08-02 13:47 | Outpatient (CLI) | payer OTHER, SELFPAY ==
--- NOTE | 2021-08-02 14:28 | PFTS_ITS ---
Date of Study:08/02/21 Date of Dictation: MECHANICS: Forced vital capacity (FVC) is normal. Forced expiratory volume in one second (FEV1) is normal. FEV1/FVC is reduced. FLOW VOLUME LOOP: Significant scooping. LUNG VOLUMES: Total lung capacity (TLC) is normal. Residual volume (RV) is normal. DIFFUSING CAPACITY FOR CARBON MONOXIDE: Moderately reduced. INTERPRETATION: The postbronchodilator spirometry is consistent with mild airflow obstruction. There is no significant postbronchodilator response. Lung volumes are normal. Gas exchange (DLCO) is moderately reduced. MTDD
== END 2021-08-02 13:48 | disposition home or self-care (01) ==
PROVIDERS: PCP Internal Medicine; Visit Provider Internal Medicine Pulmonary Disease
DX: J44.9 Chronic obstructive pulmonary disease, unspecified (principal); F17.210 Nicotine dependence, cigarettes, uncomplicated
CPT/HCPCS: 94060; 94618; 94726; 94729; J7611

== ENCOUNTER → 2021-11-15 09:10 | Outpatient (BNVA) | payer OTHER, SELFPAY | PROVIDERS: PCP Internal Medicine; Visit Provider Internal Medicine Pulmonary Disease | DX: J44.9 Chronic obstructive pulmonary disease, unspecified (principal); Z86.711 Personal history of pulmonary embolism; Z87.891 Personal history of nicotine dependence; Z79.01 Long term (current) use of anticoagulants | CPT/HCPCS: 99214 ==

== ENCOUNTER → 2022-01-16 10:28 | Outpatient (BNVA) | payer OTHER, SELFPAY | PROVIDERS: PCP Internal Medicine; Visit Provider Specialist | DX: R06.00 Dyspnea, unspecified (principal); I95.9 Hypotension, unspecified; R42 Dizziness and giddiness; R53.1 Weakness; M25.559 Pain in unspecified hip | CPT/HCPCS: 99214 ==

== ENCOUNTER 2022-03-18 14:22 | Observation (INO) | payer OTHER, SELFPAY ==
[2022-03-18] VITALS (20 sets, daily range): BP systolic 113–154; BP diastolic 50–79; PULSE 45–65; RESP 15–18; TEMP 36.4–36.9; O2SAT 90–100; BMI 27.1
--- NOTE | 2022-03-18 14:26 | ED_ITS ---
HPI - Extremity Injury (Upper) General: Chief Complaint: Trauma Stated Complaint: Crushed his armed with log spliter Time Seen by Provider: 03/18/22 14:25 History of Present Illness: Mr. Batista is an 81-year-old gentleman with history of CKD, hypertension, hyperlipidemia, COPD, history of PE presenting to the emergency department due to 2 right upper extremity injury. Patient is right- handed. He describes getting his arm caught between the buffer blocks and backside of a log casing splitter when it was resetting. The patient is on Xarelto. He has pain which is moderate to severe in intensity with some radiation towards the wrist. Worse with palpation and attempts at movement. No other specific changes in health, exacerbating, or alleviating factors identified. Onset (ago): minute(s) Handedness: right Place: home Severity: moderate Relieving factors: none Exacerbating factors: movement of extremity and other Context: crush Associated symptoms: Reports no associated symptoms Review of Systems General: Reports: 10 or more systems reviewed and unremarkable except in HPI and below PFSH ED PFSH: Medical History Anxiety disorder, unspecified Basal cell carcinoma of skin, unspecified Bradycardia CKD (chronic kidney disease) stage 3, GFR 30-59 ml/min COPD (chronic obstructive pulmonary disease) Dyspnea Hoarseness Hyperlipidemia, unspecified Laceration of forearm, complicated Leg fracture, right Major depressive disorder, recurrent, mild Near syncope Pain in left shoulder Pain in unspecified hip Personal history of pulmonary embolism PVC (premature ventricular contraction) Symptomatic bradycardia Vitamin deficiency, unspecified Surgical History H/O rotator cuff surgery Family History Father CAD (coronary artery disease) Mother CAD (coronary artery disease) Sister Cancer Lymphoma Social History Smoking and tobacco status: never smoked Quit status (tobacco): has quit using tobacco Year quit tobacco: 1986 - PD x 37 Years Second hand smoke exposure: No Alcohol intake: never Lives independently: Yes Household members: spouse Marital status: service: Yes Current occupational status: retired History of recent travel: No Current gender identity: Male Physical Exam Const: COMMON NORMALS: alert GENERAL APPEARANCE: cooperative, well developed, ill appearing and diaphoretic HENMT: COMMON NORMALS: normocephalic and atraumatic HEAD & SCALP: normo cephalic and atraumatic Eye: COMMON NORMALS: conjunctivae normal CONJUNCTIVA: Yes conjunctivae normal SCLERA: sclerae normal Neck/C-Spine: COMMON NORMALS: supple GENERAL: Yes trachea midline Resp: COMMON NORMALS: normal respiratory effort EFFORT & INSPECTION: Yes able to speak in complete sentences Cardio: COMMON NORMALS: regular rhythm RATE: bradycardic RHYTHM: regular rhythm GI: COMMON NORMALS: Soft to palpation PALPATION: Yes Soft to palpation and No Tenderness to palpation present (GI) Extremity: NARRATIVE EXTREMITY EXAM: Significant soft tissue injuries noted to the medial aspect of the right proximal forearm. There is no active bleeding noted aside from minimal oozing. Some evidence of contamination present. Significant distortion of muscle belly with exposed tendon structures, lacerated fascial layers, questionable tendon lacerations. Distal CMS is intact no limitation secondary to pain. GENERAL: Yes normal exam except as noted and No edema Neuro: COMMON NORMALS: moves all extremities SENSORIUM/ORIENTATION: Yes alert and No Orientation impaired Psych: COMMON NORMALS: mental status grossly normal and Normal thought process present THOUGHT PROCESS: Normal thought process present Course Vital Signs: Vital signs: Vital Signs Temperature 99.1 F 03/20/22 08:00 Pulse Rate 63 03/20/22 10:32 Respiratory Rate 18 03/20/22 12:27 Blood Pressure 111/70 03/20/22 08:00 Pulse Oximetry 93 03/20/22 10:32 Oxygen Delivery Me thod 03/20/22 08:27 Oxygen Flow Rate 2 03/20/22 04:00 MDM - Extremity Injury (Upper) Medical Decision Making 81-year-old male presenting with crush injury to the upper extremity. Large soft tissue defect with involvement layers of muscle belly, fascia, concern for ligamentous or tendinous injury as well as contamination. Patient is mildly diaphoretic and bradycardic likely secondary to vagal response. Labs with no leukocytosis, normal hemoglobin and platelet count. Metabolic panel with mildly elevated creatinine above baseline. No evidence of fracture on forearm or elbow x-ray. Patient tetanus updated, empiric antibiotics given, antiemetic and analgesia administered with need for repeat. Given the extensive nature of injury as well as possibility of contamination I believe that the patient requires washout and evaluation of deep structures including ligaments/tendons as well as nerve structures to low risk of significant morbidity and/or mortality. Discussed case with orthopedics who will consult on the patient. Wound irrigated extensively and dressed with wet-to-dry's. The results of ED evaluation were discussed with the patient including plan for admission due to requirement for level of care not available if discharged to prevent significant worsening/deterioration. Patient agreeable with plan. Discussed with hospitalist service who was agreeable to admit patient. Medical Records I reviewed the patient's medical records. Lab Data I reviewed the patient's lab results. 03/18/22 14:50 03/18/22 14:50 Radiology Impressions Elbow X-Ray 03/18/22 14:28 IMPRESSION: No acute osseous abnormalities. Forearm X-Ray 03/18/22 14:28 IMPRESSION: No acute osseous abnormalities. Renal Ultrasound 03/18/22 20:08 IMPRESSION: 1. The right and left kidneys are unremarkable. 2. Diffuse, mild wall thickening of the bladder. In the correct clinical setting, this may suggest cystitis. Recommend correlation with laboratory findings. Alternatively, this may be secondary to chronic outlet obstruction. 3. Incidental/nonacute findings are listed in the report. Laboratory Results WBC 7.3 10^3/uL (4.0-10.0) 03/18/22 14:50 RBC 4.01 10^6/uL (4.1-5.3) L 03/18/22 14:50 Hgb 12.7 g/dL (11.7-16.6) 03/18/22 14:50 Hct 38.0 % (42.0-52.0) L 03/18/22 14:50 MCV 94.8 fl (80-94) H 03/18/22 14:50 MCH 31.7 pg (28.0-34.0) 03/18/22 14:50 MCHC 33.4 g/dL (30.0-36.0) 03/18/22 14:50 RDW 13.0 % (12.1-15.1) 03/18/22 14:50 Plt Count 199 10^3/cmm (130-400) 03/18/22 14:50 MPV 11.0 fL (7.4-10.4) H 03/18/22 14:50 Neut % (Auto) 71.3 % 03/18/22 14:50 Lymph % (Auto) 18.7 % 03/18/22 14:50 Casey % (Auto) 7.6 % 03/18/22 14:50 Eos % (Auto) 1.7 % 03/18/22 14:50 Baso % (Auto) 0.4 % 03/18/22 14:50 Neut # (Auto) 5.18 10^3/uL (1.8-7.7) 03/18/22 14:50 Lymph # (Auto) 1.4 10^3/uL (0.8-4.8) 03/18/22 14:50 Casey # (Auto) 0.6 10^3/uL (0.2-0.9) 03/18/22 14:50 Eos # (Auto) 0.1 10^3/uL (0.0-0.8) 03/18/22 14:50 Baso # (Auto) 0.0 10^3/uL (0.0-0.1) 03/18/22 14:50 Nucleated RBC % (auto) 0 % 03/18/22 14:50 Nucleated RBCs # 0.0 /100WBC 03/18/22 14:50 PT 15.90 SECONDS (12.1-14.9) H 03/18/22 14:50 INR 1.24 (0.8-1.2) H 03/18/22 14:50 APTT 31.0 SECONDS (23.9-36.7) 03/18/22 14:50 Sodium 136 mmol/L (136-145) 03/18/22 14:50 Potassium 4.7 mmol/L (3.5-5.1) 03/18/22 14:50 Chloride 100 mmol/L (98-107) 03/18/22 14:50 Carbon Dioxide 25 mmol/L (22-29) 03/18/22 14:50 Anion Gap 15.7 (5-19) 03/18/22 14:50 BUN 25 mg/dL (8-23) H 03/18/22 14:50 Creatinine 1.9 mg/dL (0.7-1.2) H 03/18/22 14:50 GFR Calculation Not Reportable 03/18/22 14:50 Glucose 109 mg/dL (65-115) 03/18/22 14:50 Calculated Osmolality 287 mOsm/kg (285-295) 03/18/22 14:50 Calcium 9.6 mg/dL (8.5-10.5) 03/18/22 14:50 Creatine Kinase 172 U/L (39-308) 03/18/22 14:50 Blood Type A Negative 03/18/22 14:50 Rho(D) Type Negative 03/18/22 14:50 Antibody Screen Negative 03/18/22 14:50 Discharge Plan Discharge Patient Disposition: Placed in Observation Admit Provider: Miles Mckinney Clinical Impression: Arm laceration Discharge Diet: Cardiac Discharge Activity: Resume usual activity and Increase activity as tolerated Coding Level of Care Code ED Chief Service Dispatcher for Cheyenne Brambila
--- NOTE | 2022-03-18 14:28 | XRR_ITS ---
PROCEDURE INFORMATION: Exam: XR Right Elbow Exam date and time: 03/18/2022 2:34 PM Age: 81 years old Clinical indication: Injury or trauma; Other: Crushed arm in wood spliter; Crushing and laceration; Elbow; Right TECHNIQUE: Imaging protocol: Radiologic exam of the Right elbow. Views: 1 or 2 views. COMPARISON: No relevant prior studies available. FINDINGS: Bones/joints: Osseous structures are intact. Negative for fracture. Soft tissues: Laceration/wound noted along the anterior forearm. No radiopaque foreign body. XR/XR elbow RT 2V [id number] IMPRESSION: No acute osseous abnormalities.
--- NOTE | 2022-03-18 14:28 | XRR_ITS ---
PROCEDURE INFORMATION: Exam: XR Right Forearm Exam date and time: 03/18/2022 2:34 PM Age: 81 years old Clinical indication: Injury or trauma; Other: Crushed in wood spliter; Crushing and laceration; Arm, lower and elbow; Right; Elbow and arm, lower TECHNIQUE: Imaging protocol: Radiologic exam of the Right forearm. Views: 2 views. COMPARISON: No relevant prior studies available. FINDINGS: Bones/joints: Osseous structures are intact. Negative for fracture. Soft tissues: Laceration/wound along the anterior forearm. No radiopaque foreign body. XR/XR forearm RT 2V [id number] IMPRESSION: No acute osseous abnormalities.
[2022-03-18] MEDS: fentaNYL 50 mcg/mL INJ 2mL IVP ×3 (14:47→16:46)
[2022-03-18] MEDS: ceFAZolin 2,000 MG in sodium chloride 0.9% (plus) 50 ML 100 MG IV (14:49)
[2022-03-18] MEDS: tetanus-dipt-pertussis 0.5 mL SDV IM (14:49)
[2022-03-18 15:15] LABS: Basophils % 0.4 %; Eosinophils # 0.1 10^3/uL (0.0-0.8); Eosinophils % 1.7 %; Hemoglobin 12.7 g/dL (11.7-16.6); Lymphocytes # 1.4 10^3/uL (0.8-4.8); Lymphocytes % 18.7 %; Mean Corpuscular HGB Conc 33.4 g/dL (30.0-36.0); Mean Corpuscular Hemoglobin 31.7 pg (28.0-34.0); Mean Corpuscular Volume 94.8 fl (80-94); Monocytes # 0.6 10^3/uL (0.2-0.9); Monocytes % 7.6 %; Neutrophils # 5.18 10^3/uL (1.8-7.7); Neutrophils % 71.3 %; Nucleated Red Blood Cells % 0 %; Platelet Count 199 10^3/cmm (130-400); Red Blood Count 4.01 10^6/uL (4.1-5.3); White Blood Count 7.3 10^3/uL (4.0-10.0)
[2022-03-18] MEDS: ondansetron 2 mg/ML SDV 2 mL 4 MG IVP (15:23)
[2022-03-18] MEDS: morphine 4 mg/mL SDV 1 mL IVP (15:23)
--- NOTE | 2022-03-18 15:24 | PM.CONSULT ---
Providers/Reason For Consult Consulting Physician/Specialty*: Miles Mckinney DO/orthopedic surgery Reason for Consult*: Complex right volar forearm laceration with exposed muscle belly and tendons Requesting Physician: Dr. Osorio Primary Care Provider: Javi Aguilera MD History of Present Illness History of Present Illness Mr. Batista is an 81-year-old gentleman with history of CKD, hypertension, hyperlipidemia, COPD, history of PE presenting to the emergency department due to right upper extremity injury.? Patient is right-handed.? 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 Patient has a complex volar forearm laceration. He was brought into the emergency department for evaluation. X-rays performed and were negative. Given the complexity of the laceration with exposed muscle bellies orthopedic surgery team was consulted for evaluation. Patient is on a blood thinner at baseline no pulsatile bleeding. On my evaluation wet-to-dry dressing applied and left on and in place. Patient denies any fevers chills chest pain or shortness of breath. Review of Systems General: Reports: 10 or more systems reviewed and unremarkable except in HPI and below Medications/Allergies Home Medications Medication Instructions Recorded Confirmed Last Taken Type brimonidine 0.2 % eye drops 1 drop ophthalmic (eye) BID 03/16/19 01/16/22 04/18/21 History latanoprost 0.005 % eye drops 1 drop ophthalmic (eye) BEDTIME 03/16/19 01/16/22 04/17/21 History simvastatin 10 mg tablet (Zocor) 5 mg PO QAM 03/16/19 01/16/22 04/17/21 History albuterol sulfate 90 mcg/actuation 2 puff inhalation Q6H PRN 06/08/19 01/16/22 07/05/19 Rx aerosol inhaler (ProAir HFA) shortness of breath or wheezing #18 grams nebulizers (Altera Nebulizer #1 ea 07/06/19 01/16/22 Unknown Rx System) mirtazapine 30 mg tablet 15 mg PO BEDTIME 08/31/20 01/16/22 08/30/20 History cholecalciferol (vitamin D3) 50 100 mcg PO DAILY 04/18/21 01/16/22 04/17/21 History mcg (2,000 unit) tablet (Vitamin D3) meloxicam 15 mg tablet 15 mg PO QAM 04/18/21 01/16/22 04/17/21 History prazosin 2 mg capsule 2 mg PO BEDTIME 04/18/21 01/16/22 Unknown History budesonide 160 mcg-glycopyr 9 2 inh inhalation BID #10.7 grams 04/25/21 01/16/22 Unknown Rx mcg-formot 4.8 mcg/actuation HFA inhaler (Breztri Aerosphere) rivaroxaban 20 mg tablet (Xarelto) 20 mg PO DAILY #90 tabs 05/09/21 01/16/22 Unknown Rx miscellaneous medical supply See Rx Instructions miscellaneous 05/12/21 01/16/22 Unknown Rx .COMPLEX #1 ea gabapentin 100 mg capsule 100 mg PO TID 06/12/21 01/16/22 Unknown History lidocaine 5 % topical cream 1 applic topical BID PRN Rash 06/12/21 01/16/22 Unknown History citalopram 20 mg tablet 20 mg PO DAILY 07/18/21 01/16/22 Unknown History finasteride 5 mg tablet 5 mg PO DAILY 07/18/21 01/16/22 Unknown History fluoride (sodium) 1.1 % dental 1 applic dental DAILY 07/18/21 01/16/22 Unknown History paste ropinirole 0.5 mg tablet 0.5 mg PO BID #60 tabs 07/18/21 01/16/22 Unknown Rx tamsulosin 0.4 mg capsule 0.4 mg PO DAILY 07/18/21 01/16/22 Unknown History Allergies Allergy/AdvReac Type Severity Reaction Status Date / Time No Known Allergies Allergy Verified 03/18/22 14:32 PFSH Acute PFSH: Medical History (Updated 03/18/22 @ 16:18 by Miles Mckinney DO) Anxiety disorder, unspecified Basal cell carcinoma of skin, unspecified Bradycardia CKD (chronic kidney disease) stage 3, GFR 30-59 ml/min COPD (chronic obstructive pulmonary disease) Dyspnea Hoarseness Hyperlipidemia, unspecified Laceration of forearm, complicated Leg fracture, right Major depressive disorder, recurrent, mild Near syncope Pain in left shoulder Pain in unspecified hip Personal history of pulmonary embolism PVC (premature ventricular contraction) Symptomatic bradycardia Vitamin deficiency, unspecified Surgical History H/O rotator cuff surgery Family History Father CAD (coronary artery disease) Mother CAD (coronary artery disease) Sister Cancer Lymphoma Social History Smoking and tobacco status: never smoked Quit status (tobacco): has quit using tobacco Year quit tobacco: 1986 - 2PPD x 37 Years Second hand smoke exposure: No Alcohol intake: never Lives independently: Yes Household members: spouse Marital status: service: Yes Current occupational status: retired History of recent travel: No Current gender identity: Male Vitals/I&O/Wt Last Vital Signs Temp 98.5 F 03/18/22 14:30 Pulse 47 L 03/18/22 14:32 Resp 15 03/18/22 15:23 BP 122/55 03/18/22 14:32 Pulse Ox 96 03/18/22 15:23 O2 Del Method 03/18/22 14:32 Weight last 48 hrs Weight 185 lb Physical Exam Narrative: Constitutional?patient alert oriented and pain controlled HEENT-normocephalic/atraumatic Respiratory?no acute respiratory distress, no retractions Cardio?distal pulses are palpable MSK?examination of the right upper extremity demonstrates wet-to-dry dressing on in place previous imaging shows a complex volar laceration over the volar and ulnar aspect of the proximal forearm. Exposed muscle bellies appreciated with hematoma clot. No pulsatile bleeding per emergency department physician. Wet-to-dry dressing on in place. Examination of patient's sensation demonstrates the median nerve sensations intact to light touch as well as the radial nerve sensations intact light touch. He has sensation intact to the small and ring finger however there is a small focal area at the palm of his hand on the ulnar aspect that he states has decreased sensation he has normal sensation over the dorsal cutaneous branch of the ulnar nerve as well as of the distal wrist. Patient is able to make an A-OK sign as well as extend thumb consistent with AIN and PIN intact. Able to wiggle fingers and make a fist. He does have pain with wrist range of motion and slight weakness secondary to pain. When isolating his FDP and FDS tendons these appear to be intact to all 4 fingers including the FPL to the thumb. Radial pulse 2+. Patient is able to spread fingers and cross fingers. Data 03/18/22 14:50 03/18/22 14:50 Xray Ortho: My impression: X-rays of the elbow and forearm multiple views reviewed in person interpreted by myself demonstrating no acute fracture dislocation there does appear to be a large volar soft tissue disruption consistent with a complex volar forearm laceration. A&P Assessment and plan (1) Laceration of forearm, complicated: Plan Patient presents as a pleasant 81-year-old gentleman is alert oriented he is right-hand dominant hand sustained a complex volar forearm laceration from the proximal volar forearm and ulnar aspect. Exposed muscle belly noted. Patient was seen evaluated in the emergency department. Orthopedics was consulted for evaluation and recommendations. Patient's been placed in a wet-to-dry dressing this was left on in place previous images were visualized exposed muscle belly appreciated this is also in close proximity to the ulnar nerve. Patient on examination does appear to have all flexor tendons intact I suspect at this level likely more muscle belly involvement. We will explore the ulnar nerve for evaluation we will have neural tube/conduits available for possible repair if needed. This point time given the complexity of this laceration as well as exposed muscle belly and need for nerve exploration, and prevent increased risk of infection would recommend formal OR for right forearm irrigation debridement with wound exploration possible nerve and tendon repair. Detailed out the risk benefits complication alternatives surgical nonsurgical treatment options. Risk of surgery include but not limited to make it better, make it worse, infection, wound dehiscence/complications, injury to nerves or vessels, injury to tendons. Understanding these risks with surgery he agrees to proceed with surgical intervention. All questions answered at this time. He will be admitted by the hospitalist team postoperatively with plan for 24 hours of IV antibiotics. Patient last ate at 9 AM this morning and as result confirmed with anesthesia we will plan for OR today 5 PM. All questions answered at this time. Patient agrees to proceed with surgical intervention. N.p.o. Hold anticoagulation Pain control Nonweightbearing right upper extremity Wet-to-dry dressing on in place X-ray imaging reviewed no acute fracture dislocation appears to be soft tissue only involvement Plan for OR for right forearm irrigation and debridement with wound exploration possible tendon and nerve repair Patient will be admitted to the floor postoperatively with plan for at least 24 hours of IV antibiotics, further recommendations to follow postoperatively. Coding Level of Care Code Acute Video Arcade Manager for Cheyenne Brambila Diagnoses Laceration of forearm, complicated S51.819A Time Spent (min) 50
[2022-03-18 15:50] LABS: INR 1.24 (0.8-1.2)
[2022-03-18 15:58] LABS: Anion Gap 15.7 (5-19); Blood Urea Nitrogen 25 mg/dL (8-23); Calcium 9.6 mg/dL (8.5-10.5); Carbon Dioxide 25 mmol/L (22-29); Chloride 100 mmol/L (98-107); Glucose 109 mg/dL (65-115); Osmolality Calculated 287 mOsm/kg (285-295); Potassium 4.7 mmol/L (3.5-5.1); Sodium 136 mmol/L (136-145)
[2022-03-18] MEDS: acetaminophen 1,000 MG/100 ML PIGGYBACK 400 MG IV (16:31)
[2022-03-18] MEDS: ketorolac 30 mg/mL INJ IVP (16:31)
[2022-03-18] MEDS: sodium chloride 0.9% 1,000 ML 30 ML IV (16:40)
--- NOTE | 2022-03-18 17:37 | ANES.PREANE2 ---
Pre-Anesthetic Assessment Height/Weight: Height 1.78 m Weight 83.915 kg Temp Pulse Resp BP Pulse Ox O2 Del Method 98.3 F 52 L 16 115/74 97 03/18/22 16:10 03/18/22 16:10 03/18/22 16:46 03/18/22 16:10 03/18/22 16:46 03/18/22 16:10 Preop Diagnosis: Complex right forearm laceration involving muscle belly Operation Date: 03/18/22 17:10 Proposed Procedures p Debridement Upper Extremity And Irrigation(Right) - Miles Hank, DO Familial anesthetic complications: none Was Beta Essence taken within 24 hours: N/A Was Clonidine taken within 24 hours: N/A Social No alcohol and No tobacco Exam alert and oriented x 3 [place] [employer]way Submandibular: within normal limits Cervical ROM: within normal limits Mallampati: Class II Dentition: full Pulmonary Asthma and Chronic Obstructive Pulmonary Disease (Occ home O2 use) CV/HEM Arrythmia, Coronary Artery Disease and Hypertension CONCLUSIONS ?Normal left ventricular size and systolic function, EF 64%.mild ?left ventricular hypertrophy. No regional wall motion ?abnormalities. ?Thickened mitral valve. Trace mitral valve regurgitation. ?Mild aortic valve regurgitation. ?There is no pericardial effusion. ?Compared to the study from 08/31/2020, there may not be a ?significant change ?PA pressure could not be calculated ?Dr Padmaja Abdalla MD [facility] ?(Electronically Signed) ?Final Date:? ? ? 16 June 2021 Chronic Renal Insufficiency Metabolic Hyperlipidemia [facility] Osteoarthritis/DJD and Weakness Anesthetic Plan ASA status: 3E Anesthesia: General Medications/Allergies Home Medications Medication Instructions Recorded Confirmed Last Taken Type brimonidine 0.2 % eye drops 1 drop ophthalmic (eye) BID 03/16/19 01/16/22 04/18/21 History latanoprost 0.005 % eye drops 1 drop ophthalmic (eye) BEDTIME 03/16/19 01/16/22 04/17/21 History simvastatin 10 mg tablet (Zocor) 5 mg PO QAM 03/16/19 01/16/22 04/17/21 History albuterol sulfate 90 mcg/actuation 2 puff inhalation Q6H PRN 06/08/19 01/16/22 07/05/19 Rx aerosol inhaler (ProAir HFA) shortness of breath or wheezing #18 grams nebulizers (Altera Nebulizer #1 ea 07/06/19 01/16/22 Unknown Rx System) mirtazapine 30 mg tablet 15 mg PO BEDTIME 08/31/20 01/16/22 08/30/20 History cholecalciferol (vitamin D3) 50 100 mcg PO DAILY 04/18/21 01/16/22 04/17/21 History mcg (2,000 unit) tablet (Vitamin D3) meloxicam 15 mg tablet 15 mg PO QAM 04/18/21 01/16/22 04/17/21 History prazosin 2 mg capsule 2 mg PO BEDTIME 04/18/21 01/16/22 Unknown History budesonide 160 mcg-glycopyr 9 2 inh inhalation BID #10.7 grams 04/25/21 01/16/22 Unknown Rx mcg-formot 4.8 mcg/actuation HFA inhaler (BuzzElement) rivaroxaban 20 mg tablet (Xarelto) 20 mg PO DAILY #90 tabs 05/09/21 01/16/22 Unknown Rx miscellaneous medical supply See Rx Instructions miscellaneous 05/12/21 01/16/22 Unknown Rx .COMPLEX #1 ea gabapentin 100 mg capsule 100 mg PO TID 06/12/21 01/16/22 Unknown History lidocaine 5 % topical cream 1 applic topical BID PRN Rash 06/12/21 01/16/22 Unknown History citalopram 20 mg tablet 20 mg PO DAILY 07/18/21 01/16/22 Unknown History finasteride 5 mg tablet 5 mg PO DAILY 07/18/21 01/16/22 Unknown History fluoride (sodium) 1.1 % dental 1 applic dental DAILY 07/18/21 01/16/22 Unknown History paste ropinirole 0.5 mg tablet 0.5 mg PO BID #60 tabs 07/18/21 01/16/22 Unknown Rx tamsulosin 0.4 mg capsule 0.4 mg PO DAILY 07/18/21 01/16/22 Unknown History Allergies Allergy/AdvReac Type Severity Reaction Status Date / Time No Known Allergies Allergy Verified 03/18/22 14:32 Current Medications Generic Name Dose Route Start Last Admin Trade Name Freq PRN Reason Stop Dose Admin Fentanyl 50 mcg 03/18/22 16:38 03/18/22 16:46 Fentanyl 50 Mcg/Ml Inj 2ml IVP 50 mcg ONCE PRN Administration Preop Pain Sodium Chloride 1,000 mls @ 30 mls/hr 03/18/22 16:45 03/18/22 16:40 Sodium Chloride 0.9% IV 03/19/22 16:44 30 mls/hr .Q24H LULU Administration PFSH Anesthesia Medical History (Updated 03/18/22 @ 16:18 by Miles Mckinney DO) Anxiety disorder, unspecified Basal cell carcinoma of skin, unspecified Bradycardia CKD (chronic kidney disease) stage 3, GFR 30-59 ml/min COPD (chronic obstructive pulmonary disease) Dyspnea Hoarseness Hyperlipidemia, unspecified Laceration of forearm, complicated Leg fracture, right Major depressive disorder, recurrent, mild Near syncope Pain in left shoulder Pain in unspecified hip Personal history of pulmonary embolism PVC (premature ventricular contraction) Symptomatic bradycardia Vitamin deficiency, unspecified Surgical History H/O rotator cuff surgery Family History Father CAD (coronary artery disease) Mother CAD (coronary artery disease) Sister Cancer Lymphoma Social History Smoking and tobacco status: never smoked Quit status (tobacco): has quit using tobacco Year quit tobacco: 1986 - 2PPD x 37 Years Second hand smoke exposure: No Alcohol intake: never Lives independently: Yes Household members: spouse Marital status: service: Yes Current occupational status: retired History of recent travel: No Current gender identity: Male Data Anesthesia 03/18/22 14:50 03/18/22 14:50 Short CBC 03/18/22 Range/Units 14:50 WBC 7.3 (4.0-10.0) 10^3/uL Hgb 12.7 (11.7-16.6) g/dL Hct 38.0 L (42.0-52.0) % MCV 94.8 H (80-94) fl Plt Count 199 (130-400) 10^3/cmm Neut % (Auto) 71.3 % Neut # (Auto) 5.18 (1.8-7.7) 10^3/uL BMP 03/18/22 14:50 Sodium 136 Potassium 4.7 Chloride 100 Carbon Dioxide 25 BUN 25 H Creatinine 1.9 H Glucose 109 Calcium 9.6 Blood Bank 03/18/22 14:50 Blood Type A Negative Rho(D) Type Negative Antibody Screen Negative Coags 03/18/22 14:50 PT 15.90 H INR 1.24 H APTT 31.0 Cardiac Studies: Echocardiogram 06/16/21 Echocardiogram Ultrasound 08/31/20 Cardiac Event Monitor 09/06/20
--- NOTE | 2022-03-18 17:37 | SUR.OPER ---
[id number]
--- NOTE | 2022-03-18 19:00 | P.OP_ITS ---
Brief Operative Note Date of procedure: 03/18/22 Pre-op diagnosis: Complex right volar forearm laceration with exposed muscle b chuck Post-op diagnosis: same Procedure Done: Right volar forearm laceration irrigation and debridement and wound exploration (14 cm x 14 cm x 4 cm) Right ulnar nerve neurolysis Right common flexor pronator muscle belly repair with fascial repair Surgeon: Miles Mckinney Estimated blood loss (mL): 15 Complications: None Post-op Plan: Patient taken to PACU in stable condition. Patient recovering well. Volar splint on in place dressings clean dry and intact. Patient is able to wiggle fingers. Patient will be admitted to the floor by hospitalist team. Patient received appropriate postoperative pain medication as well as 24 hours of IV antibiotics. Elevation and ice as needed. Follow-up with me in the office in 2 weeks Condition: stable Disposition: floor Coding Level of Care Code Acute Grocery Store Associate for Cheyenne Brambila
--- NOTE | 2022-03-18 19:02 | PM.PACU ---
PACU note Narrative: Patient taken to PACU in stable condition recovering well. Slightly confused postoperatively secondary anesthesia. Patient is able to wiggle fingers. Fingertips are warm well-perfused brisk capillary refill less than 2 seconds. Unable to assess detailed motor and sensory secondary to patient's mentation. Exam: awake (Confused secondary anesthesia) Disposition: admitted
--- NOTE | 2022-03-18 19:03 | PM.OP ---
Operative Report Date of procedure: March 18, 2022 Pre-op diagnosis: Preop Diagnosis Complex right forearm laceration involving muscle belly Post-op diagnosis: Same Procedure done: Right volar forearm laceration irrigation and debridement and wound exploration (14 cm x 14 cm x 4 cm) Right ulnar nerve neurolysis Right common flexor pronator muscle belly repair with fascial repair Surgeon: Miles Mckinney DO Estimated blood loss: 15 mL 55 minutes IV fluids: 900 mL Complications: None Findings: See operative report narrative Condition: stable Disposition: floor Brief History: Patient is a pleasant 81-year-old gentleman who got his right forearm smashed on the reload of a log splitter. This blunt force trauma created a complex laceration at the proximal volar and medial aspect of the proximal forearm. Given the complex knee laceration was seen evaluate emergency department tetanus up-to-date received antibiotics orthopedics was consulted for evaluation. Internal medicine to admit patient. On evaluation. Patient has only slight paresthesias on the ulnar side of the palm noted to match his radial/ulnar and median nerves intact. Does have sensation normal to the dorsal cutaneous branch of the ulnar nerve. Given the proximity concern for possible ulnar nerve injury. At this proximal level exposed muscle belly however no tenderness portion of the common flexor noted. Severe violation of fascia is appreciated. This point time given the complexity of the laceration recommended taken back to the OR for emergent irrigation debridement exploration and repair of any underlying damage structures. Patient attends a risk benefits complication alternatives surgical nonsurgical treatment options. Understanding his risk he agrees to proceed with surgical intervention. All questions answered. Procedure: Patient seen evaluated in the preoperative holding area. Consent was reviewed and signed with patient. Correct extremity marked. Patient was then seen evaluated by anesthesia once cleared for surgery was taken back to the operative suite. He underwent anesthesia per the anesthesia department. Once patient was appropriately anesthetized a nonsterile tourniquet was then applied to the right upper extremity. Patient's right upper extremity was then prepped and draped in sterile orthopedic fashion. Patient had just received antibiotics emergency department and received appropriate preoperative antibiotics. Final timeout performed. Esmarch tourniquet was used exsanguinate the right upper extremity Tourniquet was insufflated to 250 mmHg. At this point in time the wound was inspected. Patient had a large distally based U-shaped flap of sheared skin avulsion from proximal to ulnar distal. This had slight subcutaneous fat however was fairly thin in nature and concern for possible devitalization but plan was to use this for at the very least a biologic skin dressing over the fascia and muscle bellies. Immediately I performed a irrigation and debridement and evaluation of the wound bed. The wound bed extent was 14 cm x 14 cm x 4 cm. Wound bed was thoroughly irrigated with cystoscopy tubing gravity flow and 9 L of normal saline. Once this was completed I then performed a evaluation of the wound bed which overall had minimal gross contamination. The wound was then debrided of skin subcutaneous tissue muscle belly and fascia of all devitalized tissue with a rongeur and sharp scalpel incision. Once this was debrided I then explored patient's neurovascular structures. This point time the muscle bellies of the common flexor pronator mass was severely disrupted with still some muscle bellies intact the fascia was complexly torn. At this point I carried my dissection and identified the ulnar neurovascular bundle nerve distally and tracked this proximally through the wound it was identified that the ulnar nerve was completely intact with no laceration as result no nerve repair was performed. However I did completely dissect the nerve distally past Domingo's ligament and performed a neurolysis. Given the complex of the laceration as well as because not caught more trauma I did not extend this flap of the cubital tunnel in order to preserve as much blood supply as possible. Next identified the median nerve which was intact as well as the radial artery. This point no deep structures needed repaired. There was significant amount of flexor pronator muscle bellies that I did thoroughly locking stitch to help assess and reapproximate these muscle bellies however given this level difficul for a full repair and reapproximation. Next tourniquet was deflated hemostasis satisfactory. Wound bed finally irrigated once more. I then reapproximated the volar fascia there is much as possible however given the complexity and attenuated fascial tissue was difficult to perform a full repair. I then reapproximated the tissue in layered fashion with deep 0 Vicryl as well as 2-0 Vicryl and then interrupted nylon sutures for the skin flap. I then applied Xeroform over the incision 4 x 4's ABD Curlex and a splint to protect from shearing of the soft tissues. Patient was then awakened from anesthesia and taken to PACU in stable condition Disposition: Patient taken PACU in stable condition recovering well. Will be admitted to the floor by the hospitalist team will receive 24-hour IV antibiotics and will be discharged on p.o. antibiotics as well as pain medication. We will keep him nonweightbearing with the splint on in place just to help avoid any shear stress for soft of the skin incision/complex laceration repair. We will see him back in the office in 2 weeks. Patient understands agrees with current plan. All questions answered.
--- NOTE | 2022-03-18 19:08 | P.HP_ITS ---
Providers/Chief Complaint Admitting Physician: Miles Mckinney DO Primary Care Provider: Javi Aguilera MD Chief Complaint: Crushed his armed with log spliter History of Present Illness Pleasant 81-year-old gentleman presents to the ER after injury with a log splitter. In ER he is found to have complex volar forearm laceration. No osseous anomalies on x-ray. He is evaluated for exploration and repair by orthopedic team. He is up-to-date on tetanus. He otherwise has been at baseline health recently. He has a history of COPD, uses oxygen at night and sometimes as needed during the day. He uses a rescue inhaler as needed. He states that on flat ground he is able to walk different distances depending on the day, but recently has been doing better as he did not feel tired while he was splitting logs. States he may walk about 80 feet unassisted to the mailbox. He does get tired on an incline and wears out quickly. He denies having any more cough than usual currently. Denies any chest pain or pressure. He is chronically on anticoagulation with history of PE. In ER he is also noted to have sinus bradycardia 40s-50s. Discussing with him he states this is not new. Previous EKG noted sinus tachycardia heart rate in the 40s. He is not on wilberto blocking medications. TSH previously normal. Electrolytes are okay. Review of Systems Const: Denies: fever(s), chills, body aches or malaise Eyes: Denies: change in vision, eye discomfort or eye redness ENMT: Denies: throat pain, oral sores or ear or mastoid pain Card: Reports: dyspnea on exertion; Denies: chest pain, palpitations, irregular heart rhythm, edema, swelling of feet/ankles, lightheadedness, syncope, pre-syncope or orthopnea Resp: Denies: dyspnea, productive cough, change in phlegm color or hemoptysis GI: Denies: abdominal pain, nausea, vomiting, diarrhea, constipation, hematochezia or melena : Denies: flank pain, difficulty urinating, urinary frequency or hematuria Musc: Denies: back pain, joint swelling or joint redness Skin/Breast: Denies: rash or new lesions Neuro: Denies: headache(s), numbness in extremities, weakness in extremities, dizziness, confusion or seizure-like activity Endo: Denies: polyuria or polydipsia Fito/Lymph: Denies: easy bleeding or tender lymph nodes All/Imm: Denies: urticaria or tongue swelling Medications/Allergies Home Medications Medication Instructions Recorded Confirmed Last Taken Type brimonidine 0.2 % eye drops 1 drop ophthalmic (eye) BID 03/16/19 01/16/22 04/18/21 History latanoprost 0.005 % eye drops 1 drop ophthalmic (eye) BEDTIME 03/16/19 01/16/22 04/17/21 History simvastatin 10 mg tablet (Zocor) 5 mg PO QAM 03/16/19 01/16/22 04/17/21 History albuterol sulfate 90 mcg/actuation 2 puff inhalation Q6H PRN 06/08/19 01/16/22 07/05/19 Rx aerosol inhaler (ProAir HFA) shortness of breath or wheezing #18 grams nebulizers (Altera Nebulizer #1 ea 07/06/19 01/16/22 Unknown Rx System) mirtazapine 30 mg tablet 15 mg PO BEDTIME 08/31/20 01/16/22 08/30/20 History cholecalciferol (vitamin D3) 50 100 mcg PO DAILY 04/18/21 01/16/22 04/17/21 History mcg (2,000 unit) tablet (Vitamin D3) meloxicam 15 mg tablet 15 mg PO QAM 04/18/21 01/16/22 04/17/21 History prazosin 2 mg capsule 2 mg PO BEDTIME 04/18/21 01/16/22 Unknown History budesonide 160 mcg-glycopyr 9 2 inh inhalation BID #10.7 grams 04/25/21 01/16/22 Unknown Rx mcg-formot 4.8 mcg/actuation HFA inhaler (Breztri Aerosphere) rivaroxaban 20 mg tablet (Xarelto) 20 mg PO DAILY #90 tabs 05/09/21 01/16/22 Unknown Rx miscellaneous medical supply See Rx Instructions miscellaneous 05/12/21 01/16/22 Unknown Rx .COMPLEX #1 ea gabapentin 100 mg capsule 100 mg PO TID 06/12/21 01/16/22 Unknown History lidocaine 5 % topical cream 1 applic topical BID PRN Rash 06/12/21 01/16/22 Unknown History citalopram 20 mg tablet 20 mg PO DAILY 07/18/21 01/16/22 Unknown History finasteride 5 mg tablet 5 mg PO DAILY 07/18/21 01/16/22 Unknown History fluoride (sodium) 1.1 % dental 1 applic dental DAILY 07/18/21 01/16/22 Unknown History paste ropinirole 0.5 mg tablet 0.5 mg PO BID #60 tabs 07/18/21 01/16/22 Unknown Rx tamsulosin 0.4 mg capsule 0.4 mg PO DAILY 07/18/21 01/16/22 Unknown History Allergies Allergy/AdvReac Type Severity Reaction Status Date / Time No Known Allergies Allergy Verified 03/18/22 14:32 PFSH Acute PFSH: Medical History (Updated 03/18/22 @ 19:35 by Boaz Holm MD) Anxiety disorder, unspecified Basal cell carcinoma of skin, unspecified Bradycardia CKD (chronic kidney disease) stage 3, GFR 30-59 ml/min COPD (chronic obstructive pulmonary disease) Dyspnea Hoarseness Hyperlipidemia, unspecified Laceration of forearm, complicated Leg fracture, right Major depressive disorder, recurrent, mild Near syncope Pain in left shoulder Pain in unspecified hip Personal history of pulmonary embolism PVC (premature ventricular contraction) Symptomatic bradycardia Vitamin deficiency, unspecified Surgical History H/O rotator cuff surgery Family History Father CAD (coronary artery disease) Mother CAD (coronary artery disease) Sister Cancer Lymphoma Social History Smoking and tobacco status: never smoked Quit status (tobacco): has quit using tobacco Year quit tobacco: 1986 - 2PPD x 37 Years Second hand smoke exposure: No Alcohol intake: never Lives independently: Yes Household members: spouse Marital status: service: Yes Current occupational status: retired History of recent travel: No Current gender identity: Male Vitals/I&O/Wt Last Vital Signs Temp 97.5 F L 03/18/22 18:52 Pulse 60 03/18/22 19:02 Resp 16 03/18/22 19:02 BP 132/64 03/18/22 19:02 Pulse Ox 92 03/18/22 19:02 O2 Del Method 03/18/22 19:02 O2 Flow Rate 6 03/18/22 18:52 03/18/22 03/18/22 03/18/22 06:59 14:59 22:59 Intake Total 260 / 260 Output Total Balance 245 / 245 Weight last 48 hrs Weight 83.915 kg Physical Exam Narrative: Accompanied by his . Const: COMMON NORMALS: patient oriented x3 and alert GENERAL APPEARANCE: cooperative ORIENTATION/CONSCIOUSNESS: Yes awake HENMT: COMMON NORMALS: oropharynx normal Neck/C-Spine: COMMON NORMALS: no JVD Resp: COMMON NORMALS: normal respiratory effort and clear to auscultation bilaterally AUSCULTATION: clear to auscultation bilaterally Cardio: COMMON NORMALS: no JVD, regular rhythm, S1 normal heart sound present, S2 normal heart sound present and No murmurs present (Cardio) RHYTHM: regular rhythm HEART SOUNDS: S1 normal heart sound present and S2 normal heart sound present GI: COMMON NORMALS: Normal to inspection, nondistended, normoactive bowel sounds present, Soft to palpation and non-tender PALPATION: Yes Soft to palpation Extremity: COMMON NORMALS: no joint enlargement and no pedal edema OTHER: Right upper extremity antalgic positioning, forearm dressing. Neuro: COMMON NORMALS: patient oriented x3 and moves all extremities SENSORIUM/ORIENTATION: Yes alert Skin: COMMON NORMALS: no rashes or lesions noted GENERAL SKIN EXAM: no r ashes or lesions noted Data 03/18/22 14:50 03/18/22 14:50 A&P Assessment and plan (1) Laceration of forearm, complicated: At baseline he has COPD with oxygen dependence at night, as needed during the day. As well as noted some bradycardia into 40s-50s which is not new. Both these conditions appear at baseline. Does have remote history of PE and has be en on anticoagulation with Xarelto. Follow-up blood counts due to increased risk of bleeding. He denies any chest pain or pressure without any other indication of recent PE or DVT. No signs of heart failure. Otherwise appears has been at baseline state of health. Noted ERNESTINE. With the above conditions and risks of perioperative respiratory problems, worsening bradycardia, discussed with anesthesia. No acute optimization would be beneficial prior to cautiously proceeding with surgery so as to avoid further complications. Blood loss while on anticoagulation, and other vascular, nerve, muscle tension injury, prolonged recovery, infection, etc. Requested baseline EKG. Postoperatively monitor respiratory condition, heart rate, blood counts, renal function and urine output. Check and follow CK. IV antibiotics per orthopedic request at least 24 hours. 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 On baseline oxygen at night, as needed during the day. Denies any worsened recent cough or dyspnea or sputum production. He does state that one of the inhalers that he used to use makes him cough up more phlegm. He is not sure which one it is. Not currently in exacerbation. Requested for his medication to be confirmed. We will add duonebs scheduled as needed. Qualifiers: COPD type: chronic bronchitis Chronic bronchitis type: unspecified Qualified Code(s): J42 - Unspecified chronic bronchitis (3) Bradycardia: Cardiac monitoring. Chronic. Avoid wilberto blockers or agents that may slow he art rate. Previously TSH and electrolytes have been WNL. (4) Acute kidney injury superimposed on CKD: Stop and avoid NSAIDs. He does have BPH as well. We will check kidney ultrasound. Assess urine studies. Check and follow CK. (5) BPH (benign prostatic hyperplasia): Resume medications once confirmed. (6) Personal history of pulmonary embolism: Hold Xarelto for surgery. Plan Requested home medications to be confirmed. Please review and reorder once available. Additional medical problems include Glaucoma: Resume eyedrops once medications confirmed. CKD Anxiety and depression HLD History of PVCs Other medical problems. Attestations Medical Necessity Statement*: Admission of over 2 midnights anticipated for management of of complicated right forearm laceration in a gentleman on anticoagulation with history of PE, ERNESTINE on CKD, COPD partially dependent on oxygen, sinus bradycardia. Coding Level of Care Code Acute Instrument Repair Supervisor for [facility] Diagnoses Laceration of forearm, complicated S51.819A COPD (chronic obstructive pulmonary disease) J42 COPD type: chronic bronchitis Chronic bronchitis type: unspecified Bradycardia R00.1 Acute kidney injury superimposed on CKD N17.9; N18.9 BPH (benign prostatic hyperplasia) N40.0 Personal history of pulmonary embolism Z86.711
--- NOTE | 2022-03-18 19:17 | PM.PACU ---
PACU note Narrative: Pt alert to person, place, and time Exam: awake and vital signs stable Disposition: admitted
--- NOTE | 2022-03-18 20:08 | USR_ITS ---
PROCEDURE INFORMATION: Exam: US Retroperitoneal; Complete; Kidneys and Bladder Exam date and time: 03/18/2022 10:28 PM Age: 81 years old Clinical indication: Abnormal findings; Abnormal lab test; Abnormal kidney function lab tests; ; Additional info: Pankaj TECHNIQUE: Imaging protocol: Real-time ultrasound of the retroperitoneum with image documentation. Complete exam focused on the kidneys and bladder. COMPARISON: CT angio chest PE protcl [id number] 04/18/2021 1:05 PM FINDINGS: Right kidney: The right kidney is unremarkable. The right kidney measures 9.8 cm in length with a cortical thickness of 1.0 cm. No hydronephrosis or nephrolithiasis. No cystic or solid renal masses. Left kidney: The left kidney is unremarkable. The left kidney measures 10.2 cm in length with a cortical thickness of 1.3 cm. No hydronephrosis or nephrolithiasis. No cystic or solid renal masses. Urinary bladder: Diffuse, mild wall thickening of the bladder. Prostate: The prostate gland is mildly enlarged. Nonspecific parenchymal calcifications in the prostate gland. US/US renal BI* [id number] IMPRESSION: 1. The right and left kidneys are unremarkable. 2. Diffuse, mild wall thickening of the bladder. In the correct clinical setting, this may suggest cystitis. Recommend correlation with laboratory findings. Alternatively, this may be secondary to chronic outlet obstruction. 3. Incidental/nonacute findings are listed in the report.
[2022-03-18 20:10] LABS: Creatine Phosphokinase 172 U/L (39-308)
[2022-03-18] MEDS: piperacillin-tazobactam 3.375 GM in sodium chloride 0.9% (plus) 50 ML IV (20:25)
[2022-03-18] MEDS: TRAMadol 50 mg Tablet PO (20:34)
[2022-03-19] VITALS (17 sets, daily range): BP systolic 97–151; BP diastolic 52–80; PULSE 50–88; RESP 15–20; TEMP 36.6–37.3; O2SAT 91–98
[2022-03-19] MEDS: oxyCODONE 5 mg IR Tab/Cap PO ×4 (00:26→17:03)
[2022-03-19] MEDS: ceFAZolin 2,000 MG in sodium chloride 0.9% (plus) 50 ML 100 MG IV ×3 (00:29→15:44)
[2022-03-19] MEDS: piperacillin-tazobactam 3.375 GM in sodium chloride 0.9% (plus) 50 ML IV ×3 (04:30→21:08)
[2022-03-19 05:24] LABS: Basophils % 0.6 %; Eosinophils # 0.1 10^3/uL (0.0-0.8); Eosinophils % 1.8 %; Hematocrit 36.5 % (42.0-52.0); Hemoglobin 12.1 g/dL (11.7-16.6); Lymphocytes # 1.8 10^3/uL (0.8-4.8); Lymphocytes % 25.1 %; Mean Corpuscular HGB Conc 33.2 g/dL (30.0-36.0); Mean Corpuscular Hemoglobin 31.8 pg (28.0-34.0); Mean Corpuscular Volume 96.1 fl (80-94); Mean Platelet Volume 10.7 fL (7.4-10.4); Monocytes # 0.8 10^3/uL (0.2-0.9); Monocytes % 10.6 %; Neutrophils # 4.37 10^3/uL (1.8-7.7); Neutrophils % 61.8 %; Nucleated Red Blood Cells % 0 %; Platelet Count 171 10^3/cmm (130-400); Red Cell Distribution Width 13.2 % (12.1-15.1); White Blood Count 7.1 10^3/uL (4.0-10.0)
[2022-03-19 06:00] LABS: Alanine Aminotransferase 9 U/L (0-41); Albumin Level 3.7 g/dL (3.5-5.2); Alkaline Phosphatase 49 U/L (40-130); Anion Gap 13.6 (5-19); Aspartate Amino Transferase 23 U/L (0-40); Blood Urea Nitrogen 25 mg/dL (8-23); Calcium 8.6 mg/dL (8.5-10.5); Carbon Dioxide 25 mmol/L (22-29); Chloride 104 mmol/L (98-107); Globulin 2.2 g/dL (1.3-4.6); Glucose 91 mg/dL (65-115); Osmolality Calculated 290 mOsm/kg (285-295); Potassium 4.6 mmol/L (3.5-5.1); Sodium 138 mmol/L (136-145); Total Bilirubin 0.4 mg/dL (0.15-1.2); Total Protein 5.9 g/dL (6.6-8.7)
[2022-03-19 06:02] LABS: Creatine Phosphokinase 788 U/L (39-308)
--- NOTE | 2022-03-19 06:09 | PC.NURSE ---
Dr Ruby contacted regarding critical CK of 129
[2022-03-19] MEDS: enoxaparin 30 mg/0.3 mL Syringe SUBCUT (06:22)
--- NOTE | 2022-03-19 07:04 | PC.NURSE ---
Patient reports he has not urinated since noon yesterday and states I haven't been drinking a lot of water. Patient bladder scanned and retaining 333ml. Attempted to urinate into urinal but couldn't. Attempted to get up to bathroom but couldn't urinate. States I feel like it's going to happen soon though. Patient has only had 480ml in over shift, and has not been on IV fluids. Dayshift nurse notified as well as Dr Ruby.
[2022-03-19 07:15] LABS: Chol HDL Ratio 2.54 mg/dL (1.0-5.00); Cholesterol 155 mg/dL (0-200); HDL Cholesterol 61 mg/dL (60-100); Iron 101 ug/dL (59-158); LDL Cholesterol Calculated 78 mg/dL (50-129); Percent Saturation 36.4 % (20-50); Total Iron Binding Capacity 277 mcg/dl; Triglycerides 79 mg/dL (0-150); Unsaturated Iron Binding 176 ug/dL (112-347); VLDL Cholestrol Calculation 16 mg/dL (0-30)
[2022-03-19 07:30] LABS: Vitamin B12 287 pg/mL (232-1245)
[2022-03-19 07:31] LABS: Folate Level 10.4 ng/mL (4.5-32.2)
[2022-03-19] MEDS: finasteride 5 mg Tablet PO (08:11)
[2022-03-19] MEDS: docusate sodium 100 mg Capsule PO ×2 (08:11→17:03)
[2022-03-19] MEDS: ropinirole 0.25 mg Tablet 0.5 MG PO ×2 (08:11→17:03)
[2022-03-19] MEDS: citalopram 20 mg Tablet PO (08:11)
[2022-03-19] MEDS: sodium chloride 0.9% 1,000 ML 75 ML IV ×2 (08:13→17:10)
[2022-03-19] MEDS: budesonide 0.5 mg/2 mL Neb INHALATION ×2 (08:14→19:51)
[2022-03-19] MEDS: ipratropium-albuterol 3 mL Neb INHALATION ×3 (08:14→19:50)
--- NOTE | 2022-03-19 08:19 | PC.PHAR ---
Addendum entered by Cristina Velez 03/19/22 09:03: [facility] xarelto 10mg po daily pts states pt is taking 20mg daily-pts [facility] med list has ropinirole 2mg po bid pts states 0.5mg bid-pts states the pt takes gabapentin 100mg hs medication not on pts [facility] med list Original Note: pt states him and his takes care of his medications-pts states the pt takes the medications entered waiting for [facility] med list to be faxed
--- NOTE | 2022-03-19 12:35 | P.PN_ITS ---
Subjective Subjective: Patient seen and examined this morning recovering well. Postop day 1. no issues overnight. Complains of mild pain but controlled with medications. Dressing on in place clean dry and intact. Patient eating breakfast comfortably. Internal medicine on board as primary. Vitals/I&O/Wt Last Vital Signs Temp 98.3 F 03/19/22 11:27 Pulse 62 03/19/22 11:27 Resp 18 03/19/22 11:27 BP 102/56 03/19/22 11:27 Pulse Ox 91 03/19/22 11:27 O2 Del Method 03/19/22 11:27 O2 Flow Rate 2 03/19/22 07:47 03/18/22 03/19/22 03/19/22 22:59 06:59 14:59 Intake Total 840 / 840 210 / 1050 400 / 400 Output Total Balance 825 / 825 210 / 1035 400 / 400 Weight last 48 hrs Weight 198 lb 1 oz Weight 189 lb 2 oz Weight 185 lb Physical Exam Narrative: Examination of the right upper extremity demonstrates volar splint on in place splint is clean dry and intact. Patient sensation tact light touch the radial/ulnar/median nerve distribution patient's prior decrease sensation over the ulnar aspect of the palm is resolved he has full feeling. Brisk capillary refill less than 2 seconds. Compartments soft and compressible. He is able to wiggle his fingers as well as perform AIN/PIN/radial/ulnar/median nerve function. Is able to make a fist and extend his fingers but has discomfort with finger extension. Data 03/19/22 04:44 03/19/22 04:44 A&P Assessment and plan (1) Laceration of forearm, complicated: (2) Arm laceration: Plan Splint on in place Patient should be nonweightbearing to right upper extremity Keep dressing on in place until follow-up Encourage elbow range of motion as tolerated, May come out of a sling as needed Postoperative IV antibiotics for infection prophylaxis Internal medicine is primary A.m. labs reviewed?hemoglobin stable PT/OT Orthopedics will continue to monitor Attestations Medical Necessity Statement*: Ongoing care complex laceration right volar forearm Coding Level of Care Code Acute Architectural Project Manager for [facility] Diagnoses Laceration of forearm, complicated S51.819A Arm laceration S41.119A Time Spent (min) 25
--- NOTE | 2022-03-19 13:25 | PM.PN ---
Subjective Subjective: Hospital course, labs appreciated. On examination sitting comfortably in bed. He is able to move his fingers but complaining of mild soreness. Denies any nausea, vomiting, headache. States he does not drink much usually because he is afraid he will have to get up again and again to urinate. Vitals/I&O/Wt Last Vital Signs Temp 98.3 F 03/19/22 11:27 Pulse 62 03/19/22 11:27 Resp 18 03/19/22 12:45 BP 102/56 03/19/22 11:27 Pulse Ox 91 03/19/22 11:27 O2 Del Method 03/19/22 11:27 O2 Flow Rate 2 03/19/22 07:47 03/18/22 03/19/22 03/19/22 22:59 06:59 14:59 Intake Total 840 / 840 210 / 1050 640 / 640 Output Total 15 / 15 Balance 825 / 825 210 / 1035 640 / 640 Weight last 48 hrs Weight 89.84 kg Weight 85.786 kg Weight 83.915 kg Physical Exam Narrative: Accompanied by his . Const: COMMON NORMALS: patient oriented x3 and alert GENERAL APPEARANCE: cooperative ORIENTATION/CONSCIOUSNESS: Yes awake HENMT: COMMON NORMALS: oropharynx normal Neck/C-Spine: COMMON NORMALS: no JVD Resp: COMMON NORMALS: normal respiratory effort and clear to auscultation bilaterally AUSCULTATION: clear to auscultation bilaterally Cardio: COMMON NORMALS: no JVD, regular rhythm, S1 normal heart sound present, S2 normal heart sound present and No murmurs present (Cardio) RHYTHM: regular rhythm HEART SOUNDS: S1 normal heart sound present and S2 normal heart sound present GI: COMMON NORMALS: Normal to inspection, nondistended, normoactive bowel sounds present, Soft to palpation and non-tender PALPATION: Yes Soft to palpation Extremity: COMMON NORMALS: no joint enlargement and no pedal edema OTHER: Right upper extremity antalgic positioning, forearm dressing. Neuro: COMMON NORMALS: patient oriented x3 and moves all extremities SENSORIUM/ORIENTATION: Yes alert Skin: COMMON NORMALS: no rashes or lesions noted GENERAL SKIN EXAM: no rashes or lesions noted Data 03/19/22 04:44 03/19/22 04:44 A&P Assessment and plan (1) Laceration of forearm, complicated: Post surgical surgical laceration irrigation and debridement and wound exploration day 1. Appreciate surgical comanagement. Continue with anticoagulation, physical therapy, antibiotics as per surgical team. Continue to monitor. PT/OT evaluation. (2) COPD (chronic obstructive pulmonary disease): No acute exacerbation. DuoNebs as needed. Supplementation keeping saturation over 90%. 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 On baseline oxygen at night, as needed during the day. Denies any worsened recent cough or dyspnea or sputum production. He does state that one of the inhalers that he used to use makes him cough up more phlegm. He is not sure which one it is. Qualifiers: COPD type: chronic bronchitis Chronic bronchitis type: unspecified Qualified Code(s): J42 - Unspecified chronic bronchitis (3) Bradycardia: Cardiac monitoring. Chronic. Avoid wilberto blockers or agents that may slow heart rate. Previously TSH and electrolytes have been WNL. (4) Acute kidney injury superimposed on CKD: Baseline creatinine around 1.5-1.7. Currently 2. Stop and avoid NSAIDs. He does have BPH as well. Renal ultrasound appreciated. CPK elevated. Start on gentle IV hydration with normal saline at 75 cc/h while monitoring for fluid overload. Strict input output charting. (5) BPH (benign prostatic hyperplasia): Resume medications once confirmed. (6) Personal history of pulmonary embolism: Restart Xarelto once okay with surgeon. (7) Rhabdomyolysis: Plan Requested home medications to be confirmed. Please review and reorder once available. Additional medical problems include Glaucoma: Resume eyedrops once medications confirmed. CKD Anxiety and depression HLD History of PVCs Other medical problems. Attestations Medical Necessity Statement*: Requires further hospitalization for management of ERNESTINE and CKD, rhabdomyolysis in a patient with laceration of forearm requiring surgical exploration Time Spent in Patient Care: Greater than 35 minutes Coding Level of Care Code Acute Sales Store Checker for [facility] Diagnoses Laceration of forearm, complicated S51.819A COPD (chronic obstructive pulmonary disease) J42 COPD type: chronic bronchitis Chronic bronchitis type: unspecified Bradycardia R00.1 Acute kidney injury superimposed on CKD N17.9; N18.9 BPH (benign prostatic hyperplasia) N40.0 Personal history of pulmonary embolism Z86.711 Rhabdomyolysis M62.82
[2022-03-19] MEDS: TRAMadol 50 mg Tablet PO ×2 (14:59→21:08)
[2022-03-19] MEDS: mirtazapine 15 mg Tablet PO (21:08)
[2022-03-19] MEDS: prazosin 1 mg Capsule 2 MG PO (21:08)
[2022-03-19] MEDS: gabapentin 100 mg Capsule PO (21:08)
[2022-03-20] VITALS (7 sets, daily range): BP systolic 111–112; BP diastolic 54–70; PULSE 63–76; RESP 14–18; TEMP 37.2–37.3; O2SAT 93–97
[2022-03-20] MEDS: oxyCODONE 5 mg IR Tab/Cap PO ×3 (02:50→12:27)
[2022-03-20] MEDS: piperacillin-tazobactam 3.375 GM in sodium chloride 0.9% (plus) 50 ML IV (03:36)
[2022-03-20 05:50] LABS: Basophils % 0.5 %; Eosinophils # 0.1 10^3/uL (0.0-0.8); Eosinophils % 1.8 %; Hematocrit 33.6 % (42.0-52.0); Hemoglobin 10.8 g/dL (11.7-16.6); Lymphocytes # 1.5 10^3/uL (0.8-4.8); Lymphocytes % 22.9 %; Mean Corpuscular HGB Conc 32.1 g/dL (30.0-36.0); Mean Corpuscular Hemoglobin 31.9 pg (28.0-34.0); Mean Corpuscular Volume 99.1 fl (80-94); Mean Platelet Volume 10.4 fL (7.4-10.4); Monocytes # 0.7 10^3/uL (0.2-0.9); Monocytes % 10.8 %; Neutrophils # 4.22 10^3/uL (1.8-7.7); Neutrophils % 63.5 %; Nucleated Red Blood Cells % 0 %; Platelet Count 141 10^3/cmm (130-400); Red Blood Count 3.39 10^6/uL (4.1-5.3); Red Cell Distribution Width 13.6 % (12.1-15.1); White Blood Count 6.6 10^3/uL (4.0-10.0)
[2022-03-20] MEDS: enoxaparin 30 mg/0.3 mL Syringe SUBCUT (06:27)
[2022-03-20 06:36] LABS: Alanine Aminotransferase 7 U/L (0-41); Albumin Level 3.6 g/dL (3.5-5.2); Alkaline Phosphatase 47 U/L (40-130); Anion Gap 14.4 (5-19); Aspartate Amino Transferase 38 U/L (0-40); Blood Urea Nitrogen 23 mg/dL (8-23); Calcium 8.4 mg/dL (8.5-10.5); Carbon Dioxide 22 mmol/L (22-29); Chloride 104 mmol/L (98-107); Glucose 94 mg/dL (65-115); Osmolality Calculated 285 mOsm/kg (285-295); Potassium 4.4 mmol/L (3.5-5.1); Sodium 136 mmol/L (136-145); Total Bilirubin 0.4 mg/dL (0.15-1.2); Total Protein 5.6 g/dL (6.6-8.7)
[2022-03-20 07:30] LABS: Creatine Phosphokinase 1570 U/L (39-308)
[2022-03-20] MEDS: ropinirole 0.25 mg Tablet 0.5 MG PO (07:40)
[2022-03-20] MEDS: finasteride 5 mg Tablet PO (07:41)
[2022-03-20] MEDS: docusate sodium 100 mg Capsule PO (07:41)
[2022-03-20] MEDS: citalopram 20 mg Tablet PO (07:41)
[2022-03-20] MEDS: sodium chloride 0.9% 1,000 ML 75 ML IV (07:42)
--- NOTE | 2022-03-20 08:27 | P.DS_ITS ---
Discharge Providers Date of Admission: 03/18/22 17:21 Date of Discharge: March 20, 2022 Attending Provider at Admission: Miles Mckinney DO Attending Provider at Discharge: Behzad Kirkland MD Primary Care Provider: Javi Aguilera MD Diagnoses at Discharge Discharge Diagnosis (1) Laceration of forearm, complicated: Status: Acute (2) Arm laceration: Status: Acute Reason for Visit Reason for Visit: Crushed his armed with log spliter Brief History: Pleasant 81-year-old gentleman presents to the ER after injury with a log splitter.? In ER he is found to have complex volar forearm laceration.? No osseous anomalies on x-ray.? He is evaluated for exploration and repair by orthopedic team.? He is up-to-date on tetanus. He otherwise has been at baseline health recently.? He has a history of COPD, uses oxygen at night and sometimes as needed during the day.? He uses a rescue inhaler as needed.? He states that on flat ground he is able to walk different distances depending on the day, but recently has been doing better as he did not feel tired while he was splitting logs.? States he may walk about 80 feet unassisted to the mailbox.? He does get tired on an incline and wears out quickly.? He denies having any more cough than usual currently.? Denies any chest pain or pressure. He is chronically on anticoagulation with history of PE. In ER he is also noted to have sinus bradycardia 40s-50s.? Discussing with him he states this is not new.? Previous EKG noted sinus bradycardia heart rate in the 40s.? He is not on wilberto blocking medications.? TSH previously normal.? Electrolytes are okay. Hospital Course Hospital Course Patient was initially admitted under surgery and underwent right volar forearm laceration irrigation and debridement and wound exploration along with right ulnar nerve neurolysis and right common flexor pronator muscle belly repair with fascial repair. Hospitalist service was asked for admission postoperatively because of medical management. Patient was kept in the hospital for perioperative antibiotics. Postoperatively he was found to be in mild ERNESTINE for which she required IV fluids and he tolerated well. Patient's hospital stay was otherwise unremarkable. Patient did have rhabdomyolysis which is most likely secondary to postoperative nature. Patient is been discharged in medically stable condition advised to drink at least 2 to 2.5 L of liquids daily. He is advised to follow-up with primary care provider within next 1 week for repeat CMP and with orthopedics in the next 2 weeks Physical Exam Narrative: Accompanied by his . Const: COMMON NORMALS: patient oriented x3 and alert GENERAL APPEARANCE: cooperative ORIENTATION/CONSCIOUSNESS: Yes awake HENMT: COMMON NORMALS: oropharynx normal Neck/C-Spine: COMMON NORMALS: no JVD Resp: COMMON NORMALS: normal respiratory effort and clear to auscultation bilaterally AUSCULTATION: clear to auscultation bilaterally Cardio: COMMON NORMALS: no JVD, regular rhythm, S1 normal heart sound present, S2 normal heart sound present and No murmurs present (Cardio) RHYTHM: regular rhythm HEART SOUNDS: S1 normal heart sound present and S2 normal heart sound present GI: COMMON NORMALS: Normal to inspection, nondistended, normoactive bowel sounds present, Soft to palpation and non-tender PALPATION: Yes Soft to palpation Extremity: COMMON NORMALS: no joint enlargement and no pedal edema OTHER: Right upper extremity antalgic positioning, forearm dressing. Neuro: COMMON NORMALS: patient oriented x3 and moves all extremities SENSORIUM/ORIENTATION: Yes alert Skin: COMMON NORMALS: no rashes or lesions noted GENERAL SKIN EXAM: no rashes or lesions noted Discharge Data Studies Completed and Pending Completed Studies During Hospitalization Category Date Time Status XR elbow RT 2V [id number] Stat Exams 03/18/22 14:28 Completed XR forearm RT 2V [id number] Stat Exams 03/18/22 14:28 Completed US renal BI* [id number] Routine Ultrasound 03/18/22 20:08 Completed Pending at discharge Category Date Time Status Complete Blood Count w/Auto AM LABS Lab 03/21/22 04:00 Ordered Creatine Phosphokinase AM LABS Lab 03/21/22 04:00 Ordered Urinalysis Routine Lab 03/19/22 06:39 Ordered Urine Creatinine Routine Lab 03/18/22 20:08 Ordered Urine Random Sodium Routine Lab 03/18/22 20:08 Ordered Radiology Impressions Elbow X-Ray 03/18/22 14:28 IMPRESSION: No acute osseous abnormalities. Forearm X-Ray 03/18/22 14:28 IMPRESSION: No acute osseous abnormalities. Renal Ultrasound 03/18/22 20:08 IMPRESSION: 1. The right and left kidneys are unremarkable. 2. Diffuse, mild wall thickening of the bladder. In the correct clinical setting, this may suggest cystitis. Recommend correlation with laboratory findings. Alternatively, this may be secondary to chronic outlet obstruction. 3. Incidental/nonacute findings are listed in the report. Laboratory Results WBC 6.6 10^3/uL (4.0-10.0) 03/20/22 05:21 RBC 3.39 10^6/uL (4.1-5.3) L 03/20/22 05:21 Hgb 10.8 g/dL (11.7-16.6) L 03/20/22 05:21 Hct 33.6 % (42.0-52.0) L 03/20/22 05:21 MCV 99.1 fl (80-94) H 03/20/22 05:21 MCH 31.9 pg (28.0-34.0) 03/20/22 05:21 MCHC 32.1 g/dL (30.0-36.0) 03/20/22 05:21 RDW 13.6 % (12.1-15.1) 03/20/22 05:21 Plt Count 141 10^3/cmm (130-400) 03/20/22 05:21 MPV 10.4 fL (7.4-10.4) 03/20/22 05:21 Neut % (Auto) 63.5 % 03/20/22 05:21 Lymph % (Auto) 22.9 % 03/20/22 05:21 [place] % (Auto) 10.8 % 03/20/22 05:21 Eos % (Auto) 1.8 % 03/20/22 05:21 Baso % (Auto) 0.5 % 03/20/22 05:21 Neut # (Auto) 4.22 10^3/uL (1.8-7.7) 03/20/22 05:21 Lymph # (Auto) 1.5 10^3/uL (0.8-4.8) 03/20/22 05:21 [place] # (Auto) 0.7 10^3/uL (0.2-0.9) 03/20/22 05:21 Eos # (Auto) 0.1 10^3/uL (0.0-0.8) 03/20/22 05:21 Baso # (Auto) 0.0 10^3/uL (0.0-0.1) 03/20/22 05:21 Nucleated RBC % (auto) 0 % 03/20/22 05:21 Nucleated RBCs # 0.0 /100WBC 03/20/22 05:21 PT 15.90 SECONDS (12.1-14.9) H 03/18/22 14:50 INR 1.24 (0.8-1.2) H 03/18/22 14:50 APTT 31.0 SECONDS (23.9-36.7) 03/18/22 14:50 Sodium 136 mmol/L (136-145) 03/20/22 05:21 Potassium 4.4 mmol/L (3.5-5.1) 03/20/22 05:21 Chloride 104 mmol/L (98-107) 03/20/22 05:21 Carbon Dioxide 22 mmol/L (22-29) 03/20/22 05:21 Anion Gap 14.4 (5-19) 03/20/22 05:21 BUN 23 mg/dL (8-23) 03/20/22 05:21 Creatinine 1.9 mg/dL (0.7-1.2) H 03/20/22 05:21 GFR Calculation Not Reportable 03/20/22 05:21 Glucose 94 mg/dL (65-115) 03/20/22 05:21 Calculated Osmolality 285 mOsm/kg (285-295) 03/20/22 05:21 Calcium 8.4 mg/dL (8.5-10.5) L 03/20/22 05:21 Iron 101 ug/dL (59-158) 03/19/22 04:44 TIBC 277 mcg/dl 03/19/22 04:44 % Saturation 36.4 % (20-50) 03/19/22 04:44 Unsat Iron Binding 176 ug/dL (112-347) 03/19/22 04:44 Total Bilirubin 0.4 mg/dL (0.15-1.2) 03/20/22 05:21 AST 38 U/L (0-40) 03/20/22 05:21 ALT 7 U/L (0-41) 03/20/22 05:21 Alkaline Phosphatase 47 U/L (40-130) 03/20/22 05:21 Creatine Kinase 1570 U/L (39-308) H* 03/20/22 05:21 Total Protein 5.6 g/dL (6.6-8.7) L 03/20/22 05:21 Albumin 3.6 g/dL (3.5-5.2) 03/20/22 05:21 Globulin 2.0 g/dL (1.3-4.6) 03/20/22 05:21 Triglycerides 79 mg/dL (0-150) 03/19/22 04:44 Cholesterol 155 mg/dL (0-200) 03/19/22 04:44 LDL Cholesterol, Calc 78 mg/dL (50-129) 03/19/22 04:44 Total VLDL Cholesterol 16 mg/dL (0-30) 03/19/22 04:44 HDL Cholesterol 61 mg/dL (60-100) 03/19/22 04:44 Cholesterol/HDL Ratio 2.54 mg/dL (1.0-5.00) 03/19/22 04:44 Vitamin B12 287 pg/mL (232-1245) 03/19/22 04:44 Folate 10.4 ng/mL (4.5-32.2) 03/19/22 04:44 Blood Type A Negative 03/18/22 14:50 Rho(D) Type Negative 03/18/22 14:50 Antibody Screen Negative 03/18/22 14:50 Vitals Last Vital Signs Temp 98.9 F 03/20/22 04:00 Pulse 63 03/20/22 04:00 Resp 18 03/20/22 07:38 BP 112/54 03/20/22 04:00 Pulse Ox 93 03/20/22 04:00 O2 Del Method 03/20/22 04:00 O2 Flow Rate 2 03/20/22 04:00 Discharge Plan Discharge Patient Disposition: Home Condition: Stable Prescriptions: New hydrocodone-acetaminophen 5-325 mg tablet 1 tab PO Q6H PRN (Reason: pain) 5 Days Qty: 20 0RF Bactrim 400-80 mg tablet 1 tab PO BID 10 Days Qty: 20 0RF Continued simvastatin [Zocor] 10 mg tablet 5 mg PO QPM latanoprost 0.005 % drops 1 drop ophthalmic (eye) QPM Rx Instructions: (both eyes) brimonidine 0.2 % drops 1 drop ophthalmic (eye) BID Rx Instructions: both eyes (DME) Altera Nebulizer System Misc See Rx Instructions .ROUTE .MEDSUPPLY Qty: 1 0RF Rx Instructions: As directed gabapentin 100 mg capsule 100 mg PO BEDTIME Xarelto 20 mg tablet 20 mg PO DAILY Qty: 90 3RF fluoride (sodium) 1.1 % paste 1 applic dental DAILY tamsulosin 0.4 mg capsule 0.4 mg PO QPM finasteride 5 mg tablet 5 mg PO DAILY ropinirole 0.5 mg tablet 0.5 mg PO BID Qty: 60 5RF albuterol sulfate [ProAir HFA] 90 mcg/actuation HFA aerosol inhaler 2 puff INHALATION Q6H PRN (Reason: shortness of breath or wheezing) Qty: 18 3RF Breztri Aerosphere 160-9-4.8 mcg/actuation HFA aerosol inhaler 2 inh inhalation BID Qty: 10.7 0RF miscellaneous medical supply Kit See Rx Instructions miscellaneous .COMPLEX Qty: 1 0RF Rx Instructions: Portable oxygen concentrator mirtazapine 30 mg Tablet 15 mg PO BEDTIME prazosin 2 mg Capsule 2 mg PO BEDTIME cholecalciferol (vitamin D3) [Vitamin D3] 50 mcg (2,000 unit) Tablet 2,000 unit PO QAM meloxicam 15 mg tablet 15 mg PO QAM citalopram 20 mg tablet 20 mg PO DAILY albuterol sulfate 2.5 mg /3 mL (0.083 %) Solution For Nebulization 2.5 mg INHALATION QID PRN (Reason: Shortness Of Breath) lidocaine 5 % Ointment 1 applic TOPICAL BID PRN (Reason: Pain) Discharge Orders: Discharge Order (Routine); Ordered 03/20/22 Ordered By: Behzad Kirkland Referrals: Javi Aguilera MD [Primary Care Provider] - 03/27/22 1:40 pm Miles Mckinney DO [Physician] - 04/05/22 8:00 am Discharge Diet: Cardiac Discharge Activity: Resume usual activity and Increase activity as tolerated Patient Instructions: Sulfamethoxazole/Trimethoprim (By mouth), Hydroco done/Acetaminophen (By mouth), Debridement (GEN), Opioid Safety Activity Restrictions/Additional Instructions: Orthopedic discharge instructions: Leave dressings on in place clean dry and intact Elevation and ice as needed Encourage elbow as well as finger and wrist range of motion is much as tolerated Keep splint on in place until follow-up Take antibiotics as prescribed Take pain medication as prescribed Follow-up with Dr. Mckinney in the office in 2 weeks May utilize sling for comfort Please follow-up with a primary care provider within next 1 week for repeat BMP. Please follow-up with orthopedic surgeon within next 2 weeks. Please do not change dressing or bedrest until then. Please drink up to 2 L of water daily. Discharge Attestations Time Spent in Discharge Care*: greater than 30 min Specific Discharge Activities: educating patient, discussing with field nurse case manager/social workers/dc planners, documenting/other paperwork and evaluating patient/reviewing data Status at Discharge: Cognitive status at discharge: cognitively intact , Behavioral status at discharge: cooperative , Functional status at discharge: independent ambulation , Overall status at discharge: patient is progressing back to baseline Quality Metrics Clinical Quality Measures [ No reported AMI, CVA or VTE this stay] Coding Level of Care Code Acute [facility] DC note Exam Comprehensive Diagnoses Laceration of forearm, complicated S51.819A Arm laceration S41.119A
--- NOTE | 2022-03-20 12:11 | PM.PN ---
Subjective Subjective: Patient seen and examined eating lunch. Patient comfortable at bedside. Dressings on in place clean dry and intact. Patient and ready for discharge. No issues overnight. Pain controlled. Vitals/I&O/Wt Last Vital Signs Temp 99.1 F 03/20/22 08:00 Pulse 63 03/20/22 10:32 Resp 18 03/20/22 10:32 BP 111/70 03/20/22 08:00 Pulse Ox 93 03/20/22 10:32 O2 Del Method 03/20/22 08:27 O2 Flow Rate 2 03/20/22 04:00 03/19/22 03/20/22 03/20/22 22:59 06:59 14:59 Intake Total 1771.25 / 2411.25 2004.583 / 4415.833 410 / 410 Output Total 175 / 175 1200 / 1375 Balance 1596.25 / 2236.25 804.583 / 3040.833 410 / 410 Weight last 48 hrs Weight 203 lb 3.2 oz Weight 198 lb 1 oz Weight 189 lb 2 oz Weight 185 lb Physical Exam Narrative: Examination right upper extremity demonstrates patient is able to wiggle fingers, dressings are clean dry and intact with a volar splint in place. Fingertips warm well perfused. Sensation tact light touch distally at the radial/ulnar/median nerve distribution. Data 03/20/22 05:21 03/20/22 05:21 A&P Assessment and plan (1) Laceration of forearm, complicated: Plan Keep dressing on in place until follow-up Range of motion as tolerated to the right upper extremity Nonweightbearing to the right upper extremity arm until follow-up Postoperative antibiotics Postoperative pain medication Patient stable for discharge from orthopedic standpoint. No further orthopedic surgical invention required at this time. Orthopedic surgery team will sign off patient at this time follow peripherally. Any questions pertaining patient's care feel contact myself. Appreciate allow me to partake in the care of this patient. We will follow-up with me in the office in 2 weeks. Patient and understand agree with current plan. All questions answered. Appropriate discharge structure as well as pain medication and antibiotics are in the chart. Attestations Medical Necessity Statement*: Ongoing care complicated right forearm laceration Coding Level of Care Code Acute [employer]ipe [employer] Maintenance for Cheyenne Brambila Diagnoses Laceration of forearm, complicated S51.819A Time Spent (min) 30
== END 2022-03-20 12:57 | disposition home or self-care (01) ==
LOC: ER 16:14 → OR 16:23 → MEDSURG 17:22
PROVIDERS: Internal Medicine; Admitting Provider Student in an Organized Health Care Education/Training Program; Emergency Provider Emergency Medicine; PCP Internal Medicine; Visit Provider Student in an Organized Health Care Education/Training Program
PROC: (CPT 13121; principal; 2022-03-18 17:00)
DX: S41.111A Laceration without foreign body of right upper arm, initial encounter (principal); S51.811A Laceration without foreign body of right forearm, initial encounter; W31.9XXA Contact with unspecified machinery, initial encounter; Z99.81 Dependence on supplemental oxygen; Z86.711 Personal history of pulmonary embolism; Z79.01 Long term (current) use of anticoagulants; J42 Unspecified chronic bronchitis; R00.1 Bradycardia, unspecified; N17.9 Acute kidney failure, unspecified; I12.9 Hypertensive chronic kidney disease with stage 1 through stage 4 chronic kidney disease, or unspecified chronic kidney disease; N18.9 Chronic kidney disease, unspecified; N40.0 Benign prostatic hyperplasia without lower urinary tract symptoms; M62.82 Rhabdomyolysis; F41.9 Anxiety disorder, unspecified; H40.9 Unspecified glaucoma; F32.A Depression, unspecified; I25.10 Atherosclerotic heart disease of native coronary artery without angina pectoris; E78.5 Hyperlipidemia, unspecified; Z23 Encounter for immunization
CPT/HCPCS: 13121; 13122; 36415; 73070; 73090; 76770; 80048; 80053; 80061; 82550; 82607; 82746; 83540; 83550; 85025; 85610; 85730; 86850; 86900; 90471; 90715; 94640; 94664; 96365; 96366; 96367; 96372; 96375; 96376; 97161; 97165; 97535; 99285; G0378; J0131; J0690; J1650; J1885; J2270; J2405; J2543; J2704; J3010; J7030; J7626

== ENCOUNTER → 2022-04-05 07:28 | Outpatient (BNVA) | payer OTHER, SELFPAY | PROVIDERS: PCP Internal Medicine; Visit Provider Student in an Organized Health Care Education/Training Program | DX: Z98.890 Other specified postprocedural states (principal); S51.811A Laceration without foreign body of right forearm, initial encounter; X58.XXXA Exposure to other specified factors, initial encounter | CPT/HCPCS: 99024 ==

== ENCOUNTER 2022-04-19 06:00 | Outpatient (RCR) | payer OTHER, SELFPAY | END 2022-05-08 23:59 | disposition home or self-care (01) | LOC: SOT 06:00 | PROVIDERS: PCP Internal Medicine; Visit Provider Student in an Organized Health Care Education/Training Program | DX: S51.811D Laceration without foreign body of right forearm, subsequent encounter (principal); X58.XXXD Exposure to other specified factors, subsequent encounter | CPT/HCPCS: 97035; 97110; 97140; 97166 ==

== ENCOUNTER 2022-05-09 06:00 | Outpatient (RCR) | payer OTHER, SELFPAY | END 2022-06-06 23:59 | disposition home or self-care (01) | LOC: SOT 06:00 | PROVIDERS: PCP Internal Medicine; Visit Provider Student in an Organized Health Care Education/Training Program | DX: S51.811A Laceration without foreign body of right forearm, initial encounter (principal); X58.XXXA Exposure to other specified factors, initial encounter; Y93.9 Activity, unspecified; Y92.9 Unspecified place or not applicable; Y99.9 Unspecified external cause status | CPT/HCPCS: 97110; 97140 ==

== ENCOUNTER → 2022-05-17 07:12 | Outpatient (BNVA) | payer OTHER, SELFPAY | PROVIDERS: PCP Internal Medicine; Visit Provider Student in an Organized Health Care Education/Training Program | DX: S51.811A Laceration without foreign body of right forearm, initial encounter (principal); Z98.890 Other specified postprocedural states; X58.XXXA Exposure to other specified factors, initial encounter | CPT/HCPCS: 99213 ==

== ENCOUNTER → 2022-08-07 09:57 | Outpatient (BNVA) | payer MEDICARE, OTHER, SELFPAY | PROVIDERS: PCP Internal Medicine; Visit Provider Nurse Practitioner Family | DX: Z11.52 Encounter for screening for COVID-19 (principal); J98.8 Other specified respiratory disorders; R05.9 Cough, unspecified; J44.1 Chronic obstructive pulmonary disease with (acute) exacerbation; R22.2 Localized swelling, mass and lump, trunk | CPT/HCPCS: 87400; 87426 ==

== ENCOUNTER → 2022-08-07 10:38 | Outpatient (BNVA) | payer MEDICARE, OTHER, SELFPAY | PROVIDERS: PCP Internal Medicine; Visit Provider Nurse Practitioner Family | DX: Z11.52 Encounter for screening for COVID-19 (principal); J98.8 Other specified respiratory disorders; R05.9 Cough, unspecified | CPT/HCPCS: 71046; 87400; 87426 ==

== ENCOUNTER 2022-12-09 09:08 | Emergency (ER) | payer OTHER, SELFPAY ==
[2022-12-09] VITALS (26 sets, daily range): BP systolic 86–106; BP diastolic 45–56; PULSE 39–63; RESP 14–25; TEMP 36.5; O2SAT 95–100
--- NOTE | 2022-12-09 09:17 | XRR_ITS ---
PROCEDURE INFORMATION: Exam: XR Chest Exam date and time: 12/09/2022 9:48 AM Age: 82 years old Clinical indication: Shortness of breath; Additional info: SOB TECHNIQUE: Imaging protocol: Radiologic exam of the chest. Views: 1 view. COMPARISON: CR XR chest 2V* [id number] 08/07/2022 10:49 AM FINDINGS: Lungs: Pulmonary scarring again noted. No significant airspace consolidation concerning for pneumonia. Pleural spaces: No pneumothorax. No pleural effusion. Heart/Mediastinum: The cardiomediastinal silhouette is within normal limits. Bones/joints: Unremarkable. XR/XR chest 1V portable [id number] IMPRESSION: 1. Pulmonary scarring again noted. 2. No significant airspace consolidation concerning for pneumonia.
--- NOTE | 2022-12-09 09:24 | W.ED.SOB ---
HPI - SOB/Dyspnea General: Chief Complaint: Shortness of Breath/Dyspnea Stated Complaint: cough, sob, copd Time Seen by Provider: 12/09/22 09:10 Source: patient Mode of arrival: ambulatory Limitations: no limitations History of Present Illness: HPI Narrative: Patient is 82-year-old male who presents to the ED with increased cough, shortness of breath, and weakness. Patient states this has been occurring for the past couple of months and has progressively gotten worse. Patient states that he was out of state recently and was diagnosed with COVID back in October 2022. Reports that he has not improved since. Also states that he has had a 40 pound weight loss since October 2022. States he is unable to eat and has no appetite at this time. Denies any chest pain, fevers or chills. MD elicited complaint: shortness of breath, cough and pain with inspiration Pertinent past history: COPD Onset (ago): month(s) (2) Context: recent illness Severity: moderate Relieving factors: nothing Known history of: COPD Associated symptoms: Deny abdominal pain, chest pain, fever(s), nausea, palpitations or vomiting Review of Systems Const: Denies: fever(s) or chills Eyes: Denies: change in vision ENMT: Denies: throat pain or uvular edema Card: Denies: chest pain or palpitations Resp: Reports: dyspnea, non-productive cough, wheezing and pain on inspiration GI: Denies: abdominal pain, nausea or vomiting : Denies: difficulty urinating Musc: Denies: neck pain or back pain Skin/Breast: Denies: erythema PFSH ED PFSH: Medical History Anxiety disorder, unspecified Basal cell carcinoma of skin, unspecified Bradycardia CKD (chronic kidney disease) stage 3, GFR 30-59 ml/min COPD (chronic obstructive pulmonary disease) Dyspnea Hoarseness Hyperlipidemia, unspecified Laceration of forearm, complicated Leg fracture, right Major depressive disorder, recurrent, mild Near syncope Pain in left shoulder Pain in unspecified hip Personal history of pulmonary embolism PVC (premature ventricular contraction) Symptomatic bradycardia Vitamin deficiency, unspecified Surgical History H/O rotator cuff surgery Family History Father CAD (coronary artery disease) Mother CAD (coronary artery disease) Sister Cancer Lymphoma Social History Smoking and tobacco status: never smoked Quit status (tobacco): has quit using tobacco Year quit tobacco: 1986 - 2PPD x 37 Years Second hand smoke exposure: No Alcohol intake: never Substance/Drug Use: never Lives independently: Yes Household members: spouse Marital status: service: Yes Current occupational status: retired Do you think of yourself as: Straight/Heterosexual Current gender identity: Male Physical Exam Const: COMMON NORMALS: patient oriented x3 and healthy appearing GENERAL APPEARANCE: cooperative NUTRITIONAL APPEARANCE: thin HENMT: COMMON NORMALS: normocephalic HEAD & SCALP: normocephalic MOUTH: Normal oral and palatal mucosa present THROAT: no uvular edema Eye: COMMON NORMALS: Equal, round and reactive pupils present and EOMs intact bilaterally PUPIL: Yes Equal, round and reactive pupils present Neck/C-Spine: COMMON NORMALS: full ROM, no lymphadenopathy and no JVD Lymph: LYMPHATIC: no lymphadenopathy noted Chest: CHEST: Yes Symmetrical chest wall rise Resp: COMMON NORMALS: clear to auscultation bilaterally EFFORT & INSPECTION: Yes symmetric chest movement AUSCULTATION: clear to auscultation bilaterally Cardio: COMMON NORMALS: no JVD, S1 normal heart sound present and No murmurs present (Cardio) HEART SOUNDS: S1 normal heart sound present GI: COMMON NORMALS: Normal to inspection, nondistended, normoactive bowel sounds present : COMMON NORMALS: Yes no CVA tenderness BLADDER/KIDNEY EXAM: Yes no CVA tenderness Back/Pelvis: COMMON NORMALS: no CVA tenderness Extremity: COMMON NORMALS: normal to inspection Neuro: COMMON NORMALS: patient oriented x3 Skin: COMMON NORMALS: no rashes or lesions noted GENERAL SKIN EXAM: no rashes or lesions noted Course Vital Signs: Vital signs: Vital Signs Temperature 97.7 F 12/09/22 09:13 Pulse Rate 54 L 12/09/22 11:30 Respiratory Rate 14 12/09/22 11:30 Blood Pressure 106/54 12/09/22 11:30 Pulse Oximetry 98 12/09/22 11:30 Oxygen Delivery Me thod Room Air 12/09/22 11:15 MDM - SOB/Dyspnea Medical Decision Making 82-year-old male presented here with shortness of breath likely COPD exacerbation CT scan showed no signs of masses or pneumonia he feels improved after fluids and breathing treatment steroids we will place him on prednisone he is to follow-up with PCP and return if worsening. Medical Records I reviewed the patient's medical records. Lab Data I reviewed the patient's lab results. 12/09/22 09:28 12/09/22 09:28 Labs/Radiology: Radiology Impressions Chest X-Ray 12/09/22 09:17 IMPRESSION: 1. Pulmonary scarring again noted. 2. No significant airspace consolidation concerning for pneumonia. Chest CT 12/09/22 10:09 IMPRESSION: 1. No suspicious mass identified. 2. Emphysematous disease with fibrotic changes. Laboratory Results WBC 6.04 10^3/uL (3.29-11.43) 12/09/22 09:28 RBC 4.01 10^6/uL (3.85-5.65) 12/09/22 09:28 Hgb 12.70 g/dL (11.27-16.99) 12/09/22 09:28 Hct 38.6 % (37-53) 12/09/22 09:28 MCV 96.3 fl (82-101) 12/09/22 09:28 MCH 31.7 pg (27-33) 12/09/22 09:28 MCHC 32.9 g/dL (30-55) 12/09/22 09:28 RDW 13.8 % (12.1-15.1) 12/09/22 09:28 Plt Count 158 10^3/cmm (157-399) 12/09/22 09:28 MPV 9.9 fL (7.4-10.4) 12/09/22 09:28 Neut % (Auto) 60.3 % 12/09/22 09:28 Lymph % (Auto) 18.2 % 12/09/22 09:28 [place] % (Auto) 8.8 % 12/09/22 09:28 Eos % (Auto) 11.8 % 12/09/22 09:28 Baso % (Auto) 0.7 % 12/09/22 09:28 Neut # (Auto) 3.65 10^3/uL (1.8-7.7) 12/09/22 09:28 Lymph # (Auto) 1.1 10^3/uL (0.8-4.8) 12/09/22 09:28 [place] # (Auto) 0.5 10^3/uL (0.2-0.9) 12/09/22 09:28 Eos # (Auto) 0.7 10^3/uL (0.0-0.8) 12/09/22 09:28 Baso # (Auto) 0.0 10^3/uL (0.0-0.1) 12/09/22 09:28 Nucleated RBC % (auto) 0 % 12/09/22 09:28 Nucleated RBCs # 0.0 /100WBC 12/09/22 09:28 Specimen Type Arterial 12/09/22 09:39 Sample Site Brachial, left 12/09/22 09:39 ABG pH 7.37 (7.35-7.45) 12/09/22 09:39 ABG pCO2 36.9 mmHg (35-45) 12/09/22 09:39 ABG pO2 76.1 mmHg (80.0-100.0) L 12/09/22 09:39 ABG HCO3 21.5 mmol/L (22-26) L 12/09/22 09:39 ABG Base Excess -3.3 mmol/L (-2.0-2.0) L 12/09/22 09:39 [place] Test Pos 12/09/22 09:39 Hematocrit 39.6 % (42-52) L 12/09/22 09:39 Hgb O2 Saturation 94.8 % (95-100) L 12/09/22 09:39 Carboxyhemoglobin 0.9 %THgb (0.4-20.1) 12/09/22 09:39 Methemoglobin 0.4 % (0.4-1.5) 12/09/22 09:39 Total Hemoglobin 12.9 g/dL (14-18) L 12/09/22 09:39 O2 Delivery Device Room air 12/09/22 09:39 FiO2 21.0 % 12/09/22 09:39 Debarker Operator ID Cak 12/09/22 09:39 Sodium 134 mmol/L (136-145) L 12/09/22 09:28 Potassium 4.2 mmol/L (3.5-5.1) 12/09/22 09:28 Chloride 102 mmol/L (98-107) 12/09/22 09:28 Carbon Dioxide 21 mmol/L (22-29) L 12/09/22 09:28 Anion Gap 15.2 (5-19) 12/09/22 09:28 BUN 20 mg/dL (8-23) 12/09/22 09:28 Creatinine 1.5 mg/dL (0.7-1.2) H 12/09/22 09:28 GFR Calculation Not Reportable 12/09/22 09:28 Glucose 83 mg/dL (65-115) 12/09/22 09:28 Calculated Osmolality 280 mOsm/kg (285-295) L 12/09/22 09:28 Lactic Acid 2.8 mmol/L (0.5-2.2) H 12/09/22 09:28 Calcium 8.8 mg/dL (8.5-10.5) 12/09/22 09:28 Magnesium 1.8 mg/dL (1.7-2.3) 12/09/22 09:28 Total Bilirubin 0.5 mg/dL (0.15-1.2) 12/09/22 09:28 AST 25 U/L (0-40) 12/09/22 09:28 ALT 20 U/L (0-41) 12/09/22 09:28 Alkaline Phosphatase 51 U/L (40-130) 12/09/22 09:28 NT-Pro-B Natriuret Pep 1847 pg/mL (0-450) H 12/09/22 09:28 Total Protein 5.9 g/dL (6.6-8.7) L 12/09/22 09:28 Albumin 3.8 g/dL (3.5-5.2) 12/09/22 09:28 Globulin 2.1 g/dL (1.3-4.6) 12/09/22 09:28 Influenza Type A Ag negative (Negative) 12/09/22 09:48 Influenza Type B Ag negative (Negative) 12/09/22 09:48 SARS-CoV-2 Ag (Rapid) negative (Negative) 12/09/22 09:48 All radiology interpretation(s) finalized by discharge EKG Data EKG 1: I personally reviewed and interpreted this EKG as follows: EKG Interpretation Date: 12/09/22 EKG interpretation time: 10:03 Interpretation: sinus tucker hr [address] or t wave abnormalities qrs 147 qtc 523 Discharge Plan Discharge Patient Disposition: Home Clinical Impression: Acute exacerbation of chronic obstructive airways disease Condition: Stable Prescriptions: New prednisone 50 mg tablet 50 mg PO DAILY Qty: 5 0RF No Action simvastatin [Zocor] 10 mg tablet 5 mg PO QPM latanoprost 0.005 % drops 1 drop ophthalmic (eye) QPM Rx Instructions: (both eyes) brimonidine 0.2 % drops 1 drop ophthalmic (eye) BID Rx Instructions: both eyes (DME) Altera Nebulizer System Misc See Rx Instructions .ROUTE .MEDSUPPLY Qty: 1 0RF Rx Instructions: As directed gabapentin 100 mg capsule 100 mg PO BEDTIME fluoride (sodium) 1.1 % paste 1 applic dental DAILY tamsulosin 0.4 mg capsule 0.4 mg PO QPM finasteride 5 mg tablet 5 mg PO DAILY mirtazapine 30 mg tablet 15 mg PO .hs PRN (Reason: mood) albuterol sulfate [ProAir HFA] 90 mcg/actuation HFA aerosol inhaler 2 puff INHALATION Q6H PRN (Reason: shortness of breath or wheezing) Qty: 18 3RF Breztri Aerosphere 160-9-4.8 mcg/actuation HFA aerosol inhaler 2 inh inhalation BID Qty: 10.7 0RF miscellaneous medical supply Kit See Rx Instructions miscellaneous .COMPLEX Qty: 1 0RF Rx Instructions: Portable oxygen concentrator meloxicam 15 mg tablet 15 mg PO QAM citalopram 40 mg Tablet 20 mg PO DAILY ropinirole 4 mg Tablet 4 mg PO BID Vitamin D3 50 mcg (2,000 unit) Tablet 50 mcg PO DAILY albuterol sulfate 2.5 mg /3 mL (0.083 %) Solution For Nebulization 2.5 mg INHALATION QID PRN (Reason: Shortness Of Breath) lidocaine 5 % Ointment 1 applic TOPICAL BID PRN (Reason: Pain) Discharge Orders: Discharge ED (Routine); Ordered 12/09/22 Ordered By: Renetta Medina Referrals: Pilar Lake MD [Primary Care Provider] - Discharge Diet: Advance as tolerated Discharge Activity: Resume usual activity Patient Instructions: COPD (Chronic Obstructive Pulmonary Disease) (ED) Coding Level of Care Code ED Real Estate Developer for Cheyenne Brambila
[2022-12-09] MEDS: ipratropium-albuterol 3 mL Neb INHALATION (09:27)
[2022-12-09] MEDS: albuterol 2.5 mg/3 mL Neb INHALATION (09:27)
[2022-12-09] MEDS: methylPREDNISolone sod succ 125 MG in water for injection-sterile 2 ML 24 MG IVP (09:46)
[2022-12-09] MEDS: sodium chloride 0.9% 1,000 ML 999 ML IV ×2 (09:46→10:05)
[2022-12-09 09:50] LABS: Basophils % 0.7 %; Eosinophils # 0.7 10^3/uL (0.0-0.8); Eosinophils % 11.8 %; Hematocrit 38.6 % (37-53); Lymphocytes # 1.1 10^3/uL (0.8-4.8); Lymphocytes % 18.2 %; Mean Corpuscular HGB Conc 32.9 g/dL (30-55); Mean Corpuscular Hemoglobin 31.7 pg (27-33); Mean Corpuscular Volume 96.3 fl (82-101); Mean Platelet Volume 9.9 fL (7.4-10.4); Monocytes # 0.5 10^3/uL (0.2-0.9); Monocytes % 8.8 %; Neutrophils # 3.65 10^3/uL (1.8-7.7); Neutrophils % 60.3 %; Nucleated Red Blood Cells % 0 %; Platelet Count 158 10^3/cmm (157-399); Red Blood Count 4.01 10^6/uL (3.85-5.65); Red Cell Distribution Width 13.8 % (12.1-15.1); White Blood Count 6.04 10^3/uL (3.29-11.43)
[2022-12-09 09:50] LABS: ABG PCO2 36.9 mmHg (35-45); ABG PH Result 7.37 (7.35-7.45); Arterial Blood Gas Hematocrit 39.6 % (42-52); Base Excess ABG -3.3 mmol/L (-2.0-2.0); Blood Gas Allen Test Pos; Blood Gas Operator Identificat CAK; Blood Gas Sample Site Brachial, left; Blood Gas Sample Type Arterial; Carboxyhemoglobin 0.9 %THgb (0.4-20.1); HCO3 ABG 21.5 mmol/L (22-26); HGB O2 Sat 94.8 % (95-100); Methemoglobin 0.4 % (0.4-1.5); Oxygen Device ROOM AIR; PO2 ABG 76.1 mmHg (80.0-100.0); Total Hemoglobin 12.9 g/dL (14-18)
--- NOTE | 2022-12-09 10:03 | ECG_ITS ---
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 Measurements Intervals [place] Rate: 46 P: 90 ID: [id number] QRS: 96 QRSD: 147 T: -64 QT: 564 QTc: 496 Interpretive Statements SINUS BRADYCARDIA RIGHT BUNDLE BRANCH BLOCK [120+ ms QRS DURATION, UPRIGHT V1, 40+ ms S IN I/aVL/V4/V5/V6] MODERATE T-WAVE ABNORMALITY, CONSIDER INFERIOR ISCHEMIA [-0.1+ mV T-WAVE IN II/aVF] PROLONGED QT INTERVAL Compared to ECG 07/18/2021 13:54:26 Right bundle-branch block now present T-wave abnormality now present Possible ischemia now present Prolonged QT interval now present Intraventricular conduction delay no longer present Electronically Signed On 12-09-2022 11:08:54 CDT by Vimal Wright M.D. [id number]
--- NOTE | 2022-12-09 10:09 | CTR_ITS ---
PROCEDURE INFORMATION: Exam: CT Chest With Contrast; Diagnostic Exam date and time: 12/09/2022 10:44 AM Age: 82 years old Clinical indication: Cough and shortness of breath; Additional info: Mass TECHNIQUE: Imaging protocol: Diagnostic computed tomography of the chest with contrast. Radiation optimization: All CT scans at this facility use at least one of these dose optimization techniques: automated exposure control; mA and/or kV adjustment per patient size (includes targeted exams where dose is matched to clinical indication); or iterative reconstruction. Contrast material: OMNI 350; Contrast volume: 100 ml; Contrast route: INTRAVENOUS (IV); REPORTING DATA: Count of CT and Cardiac NM exams in prior 12 months: This patient has received 0 known CTs and 0 known cardiac nuclear medicine studies in the 12 months prior to the current study. COMPARISON: CT angio chest PE protcl [id number] 04/18/2021 1:05 PM RADIATION DOSE METRICS: Total DLP (mGy-cm): 355.31 FINDINGS: Lungs: Emphysematous disease. Calcified granuloma in the lateral basal segment of the left lower lobe unchanged from prior exam. Right apical pulmonary scarring again noted similar to prior exam. Mild peripheral pulmonary fibrotic changes again noted similar to prior exam. Pleural spaces: Benign-appearing oval-shaped 5 mm nodule in the anterior left oblique fissure (axial series 5, image 43). Heart: The heart is within normal limits for size. There is no evidence of pericardial abnormality. Coronary arteries: Coronary artery calcifications noted. Lymph nodes: Unremarkable. No enlarged lymph nodes. Vasculature: Unremarkable. No aortic aneurysm. Bones/joints: Unremarkable. No acute fracture. Soft tissues: Unremarkable. CT/CT chest w con* [id number] IMPRESSION: 1. No suspicious mass identified. 2. Emphysematous disease with fibrotic changes.
[2022-12-09 10:10] LABS: Lactic Sepsis W/Reflex 2.8 mmol/L (0.5-2.2)
[2022-12-09 10:19] LABS: Alanine Aminotransferase 20 U/L (0-41); Albumin Level 3.8 g/dL (3.5-5.2); Alkaline Phosphatase 51 U/L (40-130); Aspartate Amino Transferase 25 U/L (0-40); Blood Urea Nitrogen 20 mg/dL (8-23); Calcium 8.8 mg/dL (8.5-10.5); Carbon Dioxide 21 mmol/L (22-29); Chloride 102 mmol/L (98-107); Globulin 2.1 g/dL (1.3-4.6); Glucose 83 mg/dL (65-115); NT Pro B Type Natriuretic Pept 1847 pg/mL (0-450); Osmolality Calculated 280 mOsm/kg (285-295); Sodium 134 mmol/L (136-145); Total Bilirubin 0.5 mg/dL (0.15-1.2); Total Protein 5.9 g/dL (6.6-8.7)
[2022-12-09 10:27] LABS: Anion Gap 15.2 (5-19); Potassium 4.2 mmol/L (3.5-5.1)
[2022-12-09 10:42] LABS: Magnesium 1.8 mg/dL (1.7-2.3)
[2022-12-09] MEDS: iohexol 350 mg/mL 500 mL Btl (per mL) IV (10:49)
[2022-12-09 10:57] LABS: Reflex Lactate Order REFLEX LACTIC ORDERD
[2022-12-09 10:59] LABS: Influenza A by IFA negative (Negative); Influenza B by IFA negative (Negative); SARS Covid-2 Antigen negative (Negative)
== END 2022-12-09 12:00 | disposition home or self-care (01) ==
PROVIDERS: Emergency Provider Emergency Medicine; PCP Family Medicine
DX: J44.1 Chronic obstructive pulmonary disease with (acute) exacerbation (principal); Z20.822 Contact with and (suspected) exposure to COVID-19; Z87.891 Personal history of nicotine dependence; N18.30 Chronic kidney disease, stage 3 unspecified; E78.5 Hyperlipidemia, unspecified
CPT/HCPCS: 36415; 36600; 71045; 71260; 80053; 82805; 83605; 83735; 83880; 85025; 87040; 87426; 87804; 93005; 94640; 96361; 96374; 99285; J2930; J7030; J7613; Q9967

== ENCOUNTER 2022-12-14 12:28 | Observation (INO) | payer OTHER, SELFPAY ==
[2022-12-14] VITALS (13 sets, daily range): BP systolic 125–165; BP diastolic 69–92; PULSE 47–71; RESP 16–26; TEMP 35.9–36.7; O2SAT 97–100; BMI 23.2
--- NOTE | 2022-12-14 12:58 | XR_ITS ---
WS: [id number] EXAMINATION: XR chest 1V portable [id number] REASON FOR EXAM: shortness of breath, hypoxia COMPARISON: 12/09/2022 ORDER DATE: 12/14/2022 12:58 PM FINDINGS: There are scattered perihilar granulomatous calcifications. There are chronically increased perihilar /basilar bronchovascular and interstitial thickening with hyperinflation. The cardiac and mediastin al outlines are unremarkable. There are no pleural effusions. There are no discrete noncalcified pulm onary nodules. Chronic degenerative spine changes are present. IMPRESSION: DIFFUSE PULMONARY CHANGES OF COPD. NO ACUTE PULMONARY CHANGE.
--- NOTE | 2022-12-14 13:02 | W.ED.SOB ---
HPI - SOB/Dyspnea General: Chief Complaint: Shortness of Breath/Dyspnea Stated Complaint: low o2 Time Seen by Provider: 12/14/22 12:32 History of Present Illness: HPI Narrative: This 82-year-old male with a history of COPD presents to the ER with shortness of breath that has been going on for weeks now. Review of records shows that he was seen here on 12/09 with acute COPD exacerbation. He was discharged home following breathing treatments and steroids. He checked his oxygen saturation this morning and it was in the mid 80s on room air. So the [place] nurse advised him to come in for evaluation. Patient went to [facility] clinic and at the clinic his oxygen saturation was in the mid 70s. So they placed him on 3 L of oxygen which brought up his oxygen saturation. They advised him to come to the ER for your further evaluation. Patient has no fever, nausea, vomiting or chest pain. He has cough that is productive of whitish phlegm. Patient uses 3 L oxygen at night but does not use it during the day. Associated symptoms: Deny chest pain or lightheadedness Review of Systems Const: Denies: chills, body aches or change in appetite Eyes: Denies: change in vision or eye discharge ENMT: Denies: throat pain, dental pain or nasal discharge Card: Denies: chest pain or lightheadedness Resp: Reports: dyspnea, productive cough and wheezing : Denies: dysuria Musc: Denies: neck pain or back pain Neuro: Denies: headache(s) or weakness in extremities Psych: Denies: depression Fito/Lymph: Denies: easy bruising All/Imm: Denies: urticaria, tongue swelling or facial swelling [facility] ED PFSH: Medical History Anxiety disorder, unspecified Basal cell carcinoma of skin, unspecified Bradycardia CKD (chronic kidney disease) stage 3, GFR 30-59 ml/min COPD (chronic obstructive pulmonary disease) Dyspnea Hoarseness Hyperlipidemia, unspecified Laceration of forearm, complicated Leg fracture, right Major depressive disorder, recurrent, mild Near syncope Pain in left shoulder Pain in unspecified hip Personal history of pulmonary embolism PVC (premature ventricular contraction) Symptomatic bradycardia Vitamin deficiency, unspecified Surgical History H/O rotator cuff surgery Family History Father CAD (coronary artery disease) Mother CAD (coronary artery disease) Sister Cancer Lymphoma Social History Smoking and tobacco status: never smoked Quit status (tobacco): has quit using tobacco Year quit tobacco: 1986 - 2PPD x 37 Years Second hand smoke exposure: No Alcohol intake: never Substance/Drug Use: never Lives independently: Yes Household members: spouse Marital status: service: Yes Current occupational status: retired Do you think of yourself as: Straight/Heterosexual Current gender identity: Male Physical Exam Const: COMMON NORMALS: no acute distress, patient oriented x3, no limitations and alert HENMT: COMMON NORMALS: normocephalic HEAD & SCALP: normocephalic Eye: COMMON NORMALS: EOMs intact bilaterally Neck/C-Spine: COMMON NORMALS: full ROM and supple Chest: COMMONS NORMALS: normal inspection of the chest Resp: OTHER: Mild tachypnea. Bilateral expiratory wheeze. Diminished breath sounds at the bases. Cardio: COMMON NORMALS: regular rhythm and No murmurs present (Cardio) RATE: bradycardic (chronic) RHYTHM: regular rhythm GI: COMMON NORMALS: Normal to inspection, nondistended, normoactive bowel sounds present and non-tender : COMMON NORMALS: Yes no CVA tenderness BLADDER/KIDNEY EXAM: Yes no CVA tenderness Back/Pelvis: COMMON NORMALS: no CVA tenderness and no thoracic nor lumbar tenderness Extremity: GENERAL: Yes normal exam except as noted Neuro: COMMON NORMALS: patient oriented x3 and no focal motor deficits SENSORIUM/ORIENTATION: Yes alert Psych: COMMON NORMALS: mental status grossly normal and cooperative Course Consultations: Consultation #1: Case discussed with Dr. Javier who accepted patient for observation. Vital Signs: Vital signs: Vital Signs Temperature 98.1 F 12/14/22 20:00 Pulse Rate 60 12/14/22 20:03 Respiratory Rate 16 12/14/22 20:03 Blood Pressure 149/78 12/14/22 20:00 Pulse Oximetry 97 12/14/22 20:03 Oxygen Delivery Me thod Nasal Cannula 12/14/22 20:03 Oxygen Flow Rate 3 12/14/22 20:03 MDM - SOB/Dyspnea Medical Decision Making Medical decision making: Patient presents with progressively worsening shortness of breath and hypoxia on room air. He was seen here about 5 days ago and treated for COPD exacerbation. Currently he is on 2 L of oxygen to maintain his oxygen saturation. Given that he is requiring supplemental oxygen, he will be admitted for further evaluation and management. Case discussed with Dr. Javier who accepted patient for observation placement. Lab Data 12/14/22 13:25 12/14/22 13:25 Labs/Radiology: Laboratory Results WBC 8.80 10^3/uL (3.29-11.43) 12/14/22 13:25 RBC 4.27 10^6/uL (3.85-5.65) 12/14/22 13:25 Hgb 13.70 g/dL (11.27-16.99) 12/14/22 13:25 Hct 40.1 % (37-53) 12/14/22 13:25 MCV 93.9 fl (82-101) 12/14/22 13:25 MCH 32.1 pg (27-33) 12/14/22 13:25 MCHC 34.2 g/dL (30-55) 12/14/22 13:25 RDW 13.6 % (12.1-15.1) 12/14/22 13:25 Plt Count 201 10^3/cmm (157-399) 12/14/22 13:25 MPV 9.7 fL (7.4-10.4) 12/14/22 13:25 Neut % (Auto) 65.1 % 12/14/22 13:25 Lymph % (Auto) 24.9 % 12/14/22 13:25 Bowie % (Auto) 8.8 % 12/14/22 13:25 Eos % (Auto) 0.7 % 12/14/22 13:25 Baso % (Auto) 0.2 % 12/14/22 13:25 Neut # (Auto) 5.73 10^3/uL (1.8-7.7) 12/14/22 13:25 Lymph # (Auto) 2.2 10^3/uL (0.8-4.8) 12/14/22 13:25 Bowie # (Auto) 0.8 10^3/uL (0.2-0.9) 12/14/22 13:25 Eos # (Auto) 0.1 10^3/uL (0.0-0.8) 12/14/22 13:25 Baso # (Auto) 0.0 10^3/uL (0.0-0.1) 12/14/22 13:25 Nucleated RBC % (auto) 0 % 12/14/22 13:25 Nucleated RBCs # 0.0 /100WBC 12/14/22 13:25 Specimen Type Arterial 12/14/22 13:00 Sample Site Radial, right 12/14/22 13:00 ABG pH 7.42 (7.35-7.45) 12/14/22 13:00 ABG pCO2 43.4 mmHg (35-45) 12/14/22 13:00 ABG pO2 112.0 mmHg (80.0-100.0) H 12/14/22 13:00 ABG HCO3 28.4 mmol/L (22-26) H 12/14/22 13:00 ABG Base Excess 3.4 mmol/L (-2.0-2.0) H 12/14/22 13:00 Catracho Test Pos 12/14/22 13:00 Hematocrit 42.7 % (42-52) 12/14/22 13:00 Hgb O2 Saturation 98.1 % (95-100) 12/14/22 13:00 Carboxyhemoglobin 0.8 %THgb (0.4-20.1) 12/14/22 13:00 Methemoglobin 0.3 % (0.4-1.5) L 12/14/22 13:00 Total Hemoglobin 13.9 g/dL (14-18) L 12/14/22 13:00 O2 Delivery Device Nc 12/14/22 13:00 O2 Liters/Min 3.0 % 12/14/22 13:00 FiO2 32.0 % 12/14/22 13:00 Hotel Maintenance Engineer ID Christina 12/14/22 13:00 Sodium 136 mmol/L (136-145) 12/14/22 13:25 Potassium 4.0 mmol/L (3.5-5.1) 12/14/22 13:25 Chloride 97 mmol/L (98-107) L 12/14/22 13:25 Carbon Dioxide 30 mmol/L (22-29) H 12/14/22 13:25 Anion Gap 13.0 (5-19) 12/14/22 13:25 BUN 27 mg/dL (8-23) H 12/14/22 13:25 Creatinine 1.4 mg/dL (0.7-1.2) H 12/14/22 13:25 GFR Calculation Not Reportable 12/14/22 13:25 Glucose 93 mg/dL (65-115) 12/14/22 13:25 Calculated Osmolality 287 mOsm/kg (285-295) 12/14/22 13:25 Calcium 9.1 mg/dL (8.5-10.5) 12/14/22 13:25 Total Bilirubin 0.4 mg/dL (0.15-1.2) 12/14/22 13:25 AST 17 U/L (0-40) 12/14/22 13:25 ALT 41 U/L (0-41) 12/14/22 13:25 Alkaline Phosphatase 47 U/L (40-130) 12/14/22 13:25 Total Protein 6.0 g/dL (6.6-8.7) L 12/14/22 13:25 Albumin 3.9 g/dL (3.5-5.2) 12/14/22 13:25 Globulin 2.1 g/dL (1.3-4.6) 12/14/22 13:25 All radiology interpretation(s) finalized by discharge Discharge Plan Discharge Patient Disposition: Placed in Observation Admit Provider: Ada Javier Clinical Impression: Acute exacerbation of chronic obstructive airways disease, Hypoxia Coding Level of Care Code ED Stem Assembler for Cheyenne Brambila
[2022-12-14 13:14] LABS: ABG PCO2 43.4 mmHg (35-45); ABG PH Result 7.42 (7.35-7.45); Arterial Blood Gas Hematocrit 42.7 % (42-52); Base Excess ABG 3.4 mmol/L (-2.0-2.0); Blood Gas Allen Test Pos; Blood Gas Operator Identificat MONRO; Blood Gas Sample Site Radial, right; Blood Gas Sample Type Arterial; Carboxyhemoglobin 0.8 %THgb (0.4-20.1); HCO3 ABG 28.4 mmol/L (22-26); HGB O2 Sat 98.1 % (95-100); Methemoglobin 0.3 % (0.4-1.5); Oxygen Device NC; Total Hemoglobin 13.9 g/dL (14-18)
[2022-12-14] MEDS: ipratropium-albuterol 3 mL Neb INHALATION ×2 (13:16→20:00)
[2022-12-14] MEDS: methylPREDNISolone sod succ 125 MG in water for injection-sterile 2 ML 24 MG IVP (13:25)
[2022-12-14 13:30] LABS: Basophils % 0.2 %; Eosinophils # 0.1 10^3/uL (0.0-0.8); Eosinophils % 0.7 %; Hematocrit 40.1 % (37-53); Lymphocytes # 2.2 10^3/uL (0.8-4.8); Lymphocytes % 24.9 %; Mean Corpuscular HGB Conc 34.2 g/dL (30-55); Mean Corpuscular Hemoglobin 32.1 pg (27-33); Mean Corpuscular Volume 93.9 fl (82-101); Mean Platelet Volume 9.7 fL (7.4-10.4); Monocytes # 0.8 10^3/uL (0.2-0.9); Monocytes % 8.8 %; Neutrophils # 5.73 10^3/uL (1.8-7.7); Neutrophils % 65.1 %; Nucleated Red Blood Cells % 0 %; Platelet Count 201 10^3/cmm (157-399); Red Blood Count 4.27 10^6/uL (3.85-5.65); Red Cell Distribution Width 13.6 % (12.1-15.1)
--- NOTE | 2022-12-14 13:32 | PC.NURSE ---
cardiac monitoring placed on patient, hooked to telemetry
[2022-12-14 13:54] LABS: Alanine Aminotransferase 41 U/L (0-41); Albumin Level 3.9 g/dL (3.5-5.2); Alkaline Phosphatase 47 U/L (40-130); Aspartate Amino Transferase 17 U/L (0-40); Blood Urea Nitrogen 27 mg/dL (8-23); Calcium 9.1 mg/dL (8.5-10.5); Carbon Dioxide 30 mmol/L (22-29); Chloride 97 mmol/L (98-107); Globulin 2.1 g/dL (1.3-4.6); Glucose 93 mg/dL (65-115); Osmolality Calculated 287 mOsm/kg (285-295); Sodium 136 mmol/L (136-145); Total Bilirubin 0.4 mg/dL (0.15-1.2)
--- NOTE | 2022-12-14 16:36 | P.HP_ITS ---
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 He presented to the hospital with chief complaints of hypoxia.? Patient was recently at the ER on December 09, 2022 when he had come in with shortness of breath.? He was diagnosed with acute on chronic COPD exacerbation CT chest with contrast ruled out PE.? He received a prescription for prednisone 50 daily and was discharged.? He visited with his primary care provider as he still did not feel like he was back to baseline and requested a refill for steroids.? He was noted to have oxygen saturation of 74 to 88% and was sent to the emergency room.? ABG here was reassuring 7.42/43. 4/112/20 8.4 however given his low oxygen saturation and active wheezing he is being admitted for acute on chronic COPD exacerbation Review of Systems General: Reports: 10 or more systems reviewed and unremarkable except in HPI and below Const: Denies: fever(s), chills or body aches Eyes: Denies: change in vision, blurry vision or photophobia ENMT: Reports: hoarseness; Denies: throat pain, enlarged tonsils, odynophagia or nasal congestion Card: Denies: chest pain, palpitations, irregular heart rhythm, edema, swe lling of feet/ankles, lightheadedness, pre-syncope, dyspnea on exertion or orthopnea Resp: Denies: dyspnea, productive cough, non-productive cough, wheezing, stridor, pain on inspiration, change in phlegm color, hemoptysis or chest congestion GI: Denies: abdominal pain, nausea, vomiting, hematemesis, coffee ground emesis, dysphagia, heartburn, diarrhea, constipation, GI cramping, change in stool character, hematochezia or melena : Denies: flank pain, dysuria, urinary frequency, urinary urgency, urinary hesitancy or hematuria Musc: Denies: neck pain, back pain, extremity pain, joint swelling, joint warmth or deformity Neuro: Denies: headache(s), numbness in extremities, weakness in extremities, sensory changes, difficulty walking, frequent falls, dizziness, vertigo, behavioral changes, Slurred speech present or seizure-like activity Psych: Denies: anxiety, depression, suicidal ideation or homicidal ideation Endo: Denies: polyuria, polydipsia, tired all the time, cold intolerance or hot flashes Fito/Lymph: Denies: easy bruising or easy bleeding Medications/Allergies Home Medications Medication Instructions Recorded Confirmed Last Taken Type brimonidine 0.2 % eye drops 1 drop ophthalmic (eye) BID 03/16/19 12/14/22 12/14/22 History latanoprost 0.005 % eye drops 1 drop ophthalmic (eye) QPM 03/16/19 12/14/22 12/13/22 History simvastatin 10 mg tablet (Zocor) 5 mg PO QPM 03/16/19 12/14/22 12/13/22 History albuterol sulfate 90 mcg/actuation 2 puff inhalation Q6H PRN 06/08/19 12/14/22 07/05/19 Rx aerosol inhaler (ProAir HFA) shortness of breath or wheezing #18 grams nebulizers ([employer] Nebulizer #1 ea 07/06/19 12/14/22 Unknown Rx System) meloxicam 15 mg tablet 15 mg PO QAM 04/18/21 12/14/22 12/14/22 History budesonide 160 mcg-glycopyr 9 2 inh inhalation BID #10.7 grams 04/25/21 12/14/22 Unknown Rx mcg-formot 4.8 mcg/actuation HFA inhaler ([employer] Aerosphere) gabapentin 100 mg capsule 100 mg PO BEDTIME 06/12/21 12/14/22 12/13/22 History finasteride 5 mg tablet 5 mg PO DAILY 07/18/21 12/14/22 12/14/22 History fluoride (sodium) 1.1 % dental 1 applic dental DAILY 07/18/21 12/14/22 12/14/22 History paste tamsulosin 0.4 mg capsule 0.4 mg PO QPM 07/18/21 12/14/22 12/13/22 History albuterol sulfate 2.5 mg/3 mL 2.5 mg inhalation QID PRN 03/19/22 12/14/22 Unknown History (0.083 %) solution for nebulization Shortness Of Breath lidocaine 5 % topical ointment 1 applic topical BID PRN Pain 03/19/22 12/14/22 Unknown History mirtazapine 30 mg tablet 15 mg PO QPM PRN mood 08/07/22 12/14/22 12/08/22 History cholecalciferol (vitamin D3) 50 50 mcg PO DAILY 12/09/22 12/14/22 12/14/22 History mcg (2,000 unit) tablet (Vitamin D3) citalopram 40 mg tablet 20 mg PO DAILY 12/09/22 12/14/22 12/14/22 History ropinirole 4 mg tablet 4 mg PO BID 12/09/22 12/14/22 12/14/22 History azithromycin 500 mg tablet 500 mg PO DAILY 3 days #3 tabs 12/15/22 Unknown Rx benzonatate 100 mg capsule 100 mg PO TID PRN Cough 15 days 12/15/22 Unknown Rx #30 caps pantoprazole 40 mg tablet,delayed 40 mg PO DAILY #30 tabs 12/15/22 Unknown Rx release (Protonix) prednisone 20 mg tablet See Taper PO DAILY 11 days #60 tabs 12/15/22 Unknown Rx Allergies Allergy/AdvReac Type Severity Reaction Status Date / Time No Known Allergies Allergy Verified 12/14/22 12:38 PFSH Acute PFSH: Medical History Anxiety disorder, unspecified Basal cell carcinoma of skin, unspecified Bradycardia CKD (chronic kidney disease) stage 3, GFR 30-59 ml/min COPD (chronic obstructive pulmonary disease) Dyspnea Hoarseness Hyperlipidemia, unspecified Laceration of forearm, complicated Leg fracture, right Major depressive disorder, recurrent, mild Near syncope Pain in left shoulder Pain in unspecified hip Personal history of pulmonary embolism PVC (premature ventricular contraction) Symptomatic bradycardia Vitamin deficiency, unspecified Surgical History H/O rotator cuff surgery Family History Father CAD (coronary artery disease) Mother CAD (coronary artery disease) Sister Cancer Lymphoma Social History Smoking and tobacco status: never smoked Quit status (tobacco): has quit using tobacco Year quit tobacco: 1987 - 2PPD x 37 Years Second hand smoke exposure: No Alcohol intake: never Substance/Drug Use: never Lives independently: Yes Household members: spouse Marital status: service: Yes Current occupational status: retired Do you think of yourself as: Straight/Heterosexual Current gender identity: Male Vitals/I&O/Wt Last Vital Signs Temp 96.7 F L 12/14/22 12:37 Pulse 58 L 12/14/22 15:30 Resp 23 H 12/14/22 15:30 BP 125/75 12/14/22 15:30 Pulse Ox 100 12/14/22 15:30 O2 Del Method Nasal Cannula 12/14/22 15:30 O2 Flow Rate 2 12/14/22 15:30 12/14/22 12/14/22 12/14/22 06:59 14:59 22:59 Intake Total 2 / 2 Balance 2 / 2 Weight last 48 hrs Weight 73.482 kg Physical Exam Narrative: General: No acute distress, AO x3 HEENT: PERRLA, pupils bilaterally equal and reactive, pallors not present Chest: wheezing to auscultation left lower lobe CVS: S1-S2 regular, no murmurs, no tachycardia, no gallops, no rubs Abdomen: Soft, nontender, no organomegaly, bowel sounds present Neuro: No focal deficits, no facial deformity, AO x3, power 5/5 in all limbs Data 12/15/22 04:30 12/15/22 04:30 Other data: Ordering Provider/Ordering MD: Renetta Medina MD Date of Service: 12/09/22 Procedure(s): CT chest w con* [id number] Accession Number(s): [id number] Report Number: [id number] PROCEDURE INFORMATION: Exam: CT Chest With Contrast; Diagnostic Exam date and time: 12/09/2022 10:44 AM Age: 82 years old Clinical indication: Cough and shortness of breath; Additional info: Mass TECHNIQUE: Imaging protocol: Diagnostic computed tomography of the chest with contrast. Radiation optimization: All CT scans at this facility use at least one of these dose optimization techniques: automated exposure control; mA and/or kV adjustment per patient size (includes targeted exams where dose is matched to clinical indication); or iterative reconstruction. Contrast material: OMNI 350; Contrast volume: 100 ml; Contrast route: INTRAVENOUS (IV);? REPORTING DATA: Count of CT and Cardiac NM exams in prior 12 months: This patient has received 0 known CTs and 0 known cardiac nuclear medicine studies in the 12 months prior to the current study. COMPARISON: CT angio chest PE protcl [id number] 04/18/2021 1:05 PM RADIATION DOSE METRICS: Total DLP (mGy-cm): 355.31 FINDINGS: Lungs: Emphysematous disease. Calcified granuloma in the lateral basal segment of the left lower lobe unchanged from prior exam. Right apical pulmonary scarring again noted similar to prior exam. Mild peripheral pulmonary fibrotic changes again noted similar to prior exam. Pleural spaces: Benign-appearing oval-shaped 5 mm nodule in the anterior left oblique fissure (axial series 5, image 43). Heart: The heart is within normal limits for size. There is no evidence of pericardial abnormality.? Coronary arteries: Coronary artery calcifications noted. Lymph nodes: Unremarkable. No enlarged lymph nodes. Vasculature: Unremarkable. No aortic aneurysm.? Bones/joints: Unremarkable. No acute fracture. Soft tissues: Unremarkable. CT/CT chest w con* [id number] IMPRESSION: 1. ? No suspicious mass identified. 2. ? Emphysematous disease with fibrotic changes. ? A&P Assessment and plan (1) Acute exacerbation of chronic obstructive airways disease: Acute on chronic COPD exacerbation appears to be the likely diagnosis. Check respiratory viral panel Chest x-ray without any gross consolidation dexamethasone 6mg IVP daily duoneb q6h, budesonide q12h scheduled nebulization Patient reports that bouts of cough appear to be triggering his dyspnea. Add Tessalon Perles as a cough suppressant. Recent CT chest with contrast on December 09, 2022 without evidence of PE. Will screen with D-dimer today. Given past history of D-dimer is elevated more than what is age-appropriate will likely need another CTA. Patient has a history of recurrent PE, however it appears he was taken off of anticoagulation (lifelong anticoagulation recommended previously per pulmonary ) as he had significant spontaneous bruising. Supplemental oxygen to keep saturation greater than 90% (2) Hypoxia: Likely as a result of acute on chronic COPD exacerbation Management as above Attestations Medical Necessity Statement*: Anticipate less than 2 midnight stay for acute on chronic COPD exacerbation Coding Level of Care Code Acute Code for Chg Fwd Moderate MDM includes number and complexity of problems actively addressed during encounter, amount and/or complexity of data reviewed/ordered and described risk of complication, morbidity or mortality of management as documented Diagnoses Acute exacerbation of chronic obstructive airways disease J44.1 Hypoxia R09.02
--- NOTE | 2022-12-14 17:04 | PC.NURSE ---
Patient moved to [place] at 1700.
[2022-12-14 17:23] LABS: D Dimer 0.81 ug/mLFEU (0-0.59)
[2022-12-14] MEDS: enoxaparin 40 mg/0.4 mL Syringe SUBCUT (17:44)
[2022-12-14] MEDS: atorvastatin 40 mg Tablet 20 MG PO (17:46)
[2022-12-14] MEDS: tamsulosin 0.4 mg Capsule PO (17:46)
[2022-12-14] MEDS: ropinirole 2 mg Tablet 4 MG PO (17:46)
[2022-12-14] MEDS: flu vacc pf 2023-24 (6 mos+) 60 MCG IM (17:47)
[2022-12-14] MEDS: dexamethasone 4 mg/mL INJ 6 MG IVP (17:49)
[2022-12-14] MEDS: budesonide 0.5 mg/2 mL Neb INHALATION (19:59)
[2022-12-14] MEDS: gabapentin 100 mg Capsule PO (21:26)
[2022-12-15] VITALS (7 sets, daily range): BP systolic 132–167; BP diastolic 64–86; PULSE 55–83; RESP 16–18; TEMP 36.2–36.7; O2SAT 91–100
[2022-12-15 01:58] LABS: Adenovirus Not Detected (NOT DETECT); Chlamydia Pneumoniae Not Detected (NOT DETECT); Coronavirus 229E,HKU1,NL63,OC4 Not Detected (NOT DETECT); Human Metapneumovirus Not Detected (NOT DETECT); Human Rhinovirus/Enterovirus Not Detected (NOT DETECT); Influenza A Not Detected (NOT DETECT); Influenza A H1 Not Detected (NOT DETECT); Influenza A H1-2009 Not Detected (NOT DETECT); Influenza A H3 Not Detected (NOT DETECT); Influenza B Not Detected (NOT DETECT); Mycoplasma Pneumoniae Not Detected (NOT DETECT); Parainfluenza Virus Type 1 Not Detected (NOT DETECT); Parainfluenza Virus Type 2 Not Detected (NOT DETECT); Parainfluenza Virus Type 3 Not Detected (NOT DETECT); Parainfluenza Virus Type 4 Not Detected (NOT DETECT); Respiratory Syncytial Virus A Not Detected (NOT DETECT); Respiratory Syncytial Virus B Not Detected (NOT DETECT); SARS-COV-2 Not Detected (NOT DETECT)
[2022-12-15 05:28] LABS: Lymphocytes # 0.8 10^3/uL (0.8-4.8); Lymphocytes % 10.2 %; Mean Corpuscular HGB Conc 34.1 g/dL (30-55); Mean Corpuscular Hemoglobin 31.7 pg (27-33); Mean Corpuscular Volume 92.8 fl (82-101); Mean Platelet Volume 10.4 fL (7.4-10.4); Monocytes # 0.3 10^3/uL (0.2-0.9); Monocytes % 3.8 %; Neutrophils # 6.69 10^3/uL (1.8-7.7); Neutrophils % 85.6 %; Nucleated Red Blood Cells % 0 %; Platelet Count 193 10^3/cmm (157-399); Red Blood Count 4.42 10^6/uL (3.85-5.65); Red Cell Distribution Width 13.2 % (12.1-15.1); White Blood Count 7.82 10^3/uL (3.29-11.43)
[2022-12-15 05:53] LABS: Alanine Aminotransferase 35 U/L (0-41); Albumin Level 3.6 g/dL (3.5-5.2); Alkaline Phosphatase 47 U/L (40-130); Anion Gap 12.8 (5-19); Aspartate Amino Transferase 13 U/L (0-40); Blood Urea Nitrogen 26 mg/dL (8-23); Calcium 8.8 mg/dL (8.5-10.5); Carbon Dioxide 27 mmol/L (22-29); Chloride 98 mmol/L (98-107); Globulin 2.2 g/dL (1.3-4.6); Glucose 113 mg/dL (65-115); Magnesium 2.2 mg/dL (1.7-2.3); Osmolality Calculated 282 mOsm/kg (285-295); Potassium 4.8 mmol/L (3.5-5.1); Sodium 133 mmol/L (136-145); Total Bilirubin 0.5 mg/dL (0.15-1.2); Total Protein 5.8 g/dL (6.6-8.7)
[2022-12-15] MEDS: budesonide 0.5 mg/2 mL Neb INHALATION (08:11)
[2022-12-15] MEDS: ipratropium-albuterol 3 mL Neb INHALATION ×2 (08:12→14:37)
[2022-12-15] MEDS: ropinirole 2 mg Tablet 4 MG PO (08:29)
[2022-12-15] MEDS: finasteride 5 mg Tablet PO (08:29)
[2022-12-15] MEDS: citalopram 20 mg Tablet PO (08:29)
--- NOTE | 2022-12-15 14:19 | P.DS_ITS ---
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 He presented to the hospital with chief complaints of hypoxia. Patient was recently at the ER on December 09, 2022 when he had come in with shortness of breath. He was diagnosed with acute on chronic COPD exacerbation CT chest with contrast ruled out PE. He received a prescription for prednisone 50 daily and was discharged. He visited with his primary care provider as he still did not feel like he was back to baseline and requested a refill for steroids. He was noted to have oxygen saturation of 74 to 88% and was sent to the emergency room. ABG here was reassuring 7.42/43. 4/112/20 8.4 however given his low oxygen saturation he was admitted in view of acute on chronic COPD exacerbation and observed for a day. He had wheezing on auscultation. He was treated with scheduled nebulization, IV steroids and feels much improved today. He has been on room air since this morning. Typically patient wears 2 to 3 L of oxygen at home but admits that he has more recently been needing some supplemental oxygen on exertion. He has not had a follow-up with pulmonology in over a year. We will discharge him today on a longer steroid taper and recommend follow-up with pulmonology in the upcoming weeks for repeat PFTs and assess for any worse gustabo COPD. He denied any chest pain, EKG did not have any acute ST-T wave changes therefore cardiac etiology was less likely. Since he had a recent CTA which was negative for PE and recovered quickly, a CTA was not repeated this admission due to low suspicion of PE. Home oxygen evaluation was perfromed prior to discharge Physical Exam Narrative: General: No acute distress, AO x3 HEENT: PERRLA, pupils bilaterally equal and reactive, pallors not present Chest: Normal vesicular breath sounds, no added sounds, equal good air entry bilaterally CVS: S1-S2 regular, no murmurs, no tachycardia, no gallops, no rubs Abdomen: Soft, nontender, no organomegaly, bowel sounds present Neuro: No focal deficits, no facial deformity, AO x3, power 5/5 in all limbs Discharge Data Studies Completed and Pending Completed Studies During Hospitalization Category Date Time Status XR chest 1V portable [id number] Stat Exams 12/14/22 12:58 Completed [facility] [address] [place] [address] XRay Report Signed Patient: Rm Batista Unit #: [id number] : 1940 Age/Sex: 82 / M ADM Date: 12/14/22 Loc: ER Room/Bed: Attending Dr: Ordering Provider/Ordering MD: Vinay Thomson MD Date of Service: 12/14/22 Procedure(s): XR chest 1V portable [id number] Accession Number(s): [id number] Report Number: [id number] WS: [id number] EXAMINATION: XR chest 1V portable [id number] REASON FOR EXAM: shortness of breath, hypoxia COMPARISON: 12/09/2022 ORDER DATE:? 12/14/2022 12:58 PM FINDINGS: There are scattered perihilar granulomatous calcifications. There are chronically increased perihilar /basilar bronchovascular and interstitial thickening with hyperinflation.? The cardiac and mediastinal outlines are unre markable. There are no pleural effusions. There are no discrete noncalcified pulmonary nodules. Chronic degenerative spine changes are present. IMPRESSION: DIFFUSE PULMONARY CHANGES OF COPD. NO ACUTE PULMONARY CHANGE. Laboratory Results WBC 7.82 10^3/uL (3.29-11.43) 12/15/22 04:30 RBC 4.42 10^6/uL (3.85-5.65) 12/15/22 04:30 Hgb 14.00 g/dL (11.27-16.99) 12/15/22 04:30 Hct 41.0 % (37-53) 12/15/22 04:30 MCV 92.8 fl (82-101) 12/15/22 04:30 MCH 31.7 pg (27-33) 12/15/22 04:30 MCHC 34.1 g/dL (30-55) 12/15/22 04:30 RDW 13.2 % (12.1-15.1) 12/15/22 04:30 Plt Count 193 10^3/cmm (157-399) 12/15/22 04:30 MPV 10.4 fL (7.4-10.4) 12/15/22 04:30 Neut % (Auto) 85.6 % 12/15/22 04:30 Lymph % (Auto) 10.2 % 12/15/22 04:30 Hendricks % (Auto) 3.8 % 12/15/22 04:30 Eos % (Auto) 0.0 % 12/15/22 04:30 Baso % (Auto) 0.0 % 12/15/22 04:30 Neut # (Auto) 6.69 10^3/uL (1.8-7.7) 12/15/22 04:30 Lymph # (Auto) 0.8 10^3/uL (0.8-4.8) 12/15/22 04:30 Hendricks # (Auto) 0.3 10^3/uL (0.2-0.9) 12/15/22 04:30 Eos # (Auto) 0.0 10^3/uL (0.0-0.8) 12/15/22 04:30 Baso # (Auto) 0.0 10^3/uL (0.0-0.1) 12/15/22 04:30 Nucleated RBC % (auto) 0 % 12/15/22 04:30 Nucleated RBCs # 0.0 /100WBC 12/15/22 04:30 D-Dimer 0.81 ug/mLFEU (0-0.59) H 12/14/22 16:25 Specimen Type Arterial 12/14/22 13:00 Sample Site Radial, right 12/14/22 13:00 ABG pH 7.42 (7.35-7.45) 12/14/22 13:00 ABG pCO2 43.4 mmHg (35-45) 12/14/22 13:00 ABG pO2 112.0 mmHg (80.0-100.0) H 12/14/22 13:00 ABG HCO3 28.4 mmol/L (22-26) H 12/14/22 13:00 ABG Base Excess 3.4 mmol/L (-2.0-2.0) H 12/14/22 13:00 Catracho Test Pos 12/14/22 13:00 Hematocrit 42.7 % (42-52) 12/14/22 13:00 Hgb O2 Saturation 98.1 % (95-100) 12/14/22 13:00 Carboxyhemoglobin 0.8 %THgb (0.4-20.1) 12/14/22 13:00 Methemoglobin 0.3 % (0.4-1.5) L 12/14/22 13:00 Total Hemoglobin 13.9 g/dL (14-18) L 12/14/22 13:00 O2 Delivery Device Nc 12/14/22 13:00 O2 Liters/Min 3.0 % 12/14/22 13:00 FiO2 32.0 % 12/14/22 13:00 Conveyor Weigher Operator ID Christina 12/14/22 13:00 Sodium 133 mmol/L (136-145) L 12/15/22 04:30 Potassium 4.8 mmol/L (3.5-5.1) 12/15/22 04:30 Chloride 98 mmol/L (98-107) 12/15/22 04:30 Carbon Dioxide 27 mmol/L (22-29) 12/15/22 04:30 Anion Gap 12.8 (5-19) 12/15/22 04:30 BUN 26 mg/dL (8-23) H 12/15/22 04:30 Creatinine 1.4 mg/dL (0.7-1.2) H 12/15/22 04:30 GFR Calculation Not Reportable 12/15/22 04:30 Glucose 113 mg/dL (65-115) 12/15/22 04:30 Calculated Osmolality 282 mOsm/kg (285-295) L 12/15/22 04:30 Calcium 8.8 mg/dL (8.5-10.5) 12/15/22 04:30 Magnesium 2.2 mg/dL (1.7-2.3) 12/15/22 04:30 Total Bilirubin 0.5 mg/dL (0.15-1.2) 12/15/22 04:30 AST 13 U/L (0-40) 12/15/22 04:30 ALT 35 U/L (0-41) 12/15/22 04:30 Alkaline Phosphatase 47 U/L (40-130) 12/15/22 04:30 Total Protein 5.8 g/dL (6.6-8.7) L 12/15/22 04:30 Albumin 3.6 g/dL (3.5-5.2) 12/15/22 04:30 Globulin 2.2 g/dL (1.3-4.6) 12/15/22 04:30 Nasal Influ A H1 2009 PCR Not detected (NOT DETECT) 12/14/22 21:30 Adenovirus (PCR) Not detected (NOT DETECT) 12/14/22 21:30 C. pneumoniae DNA (PCR) Not detected (NOT DETECT) 12/14/22 21:30 Coronavirus 229E (PCR) Not detected (NOT DETECT) 12/14/22 21:30 Human Metapneumovir PCR Not detected (NOT DETECT) 12/14/22 21:30 Influenza A (H1) PCR Not detected (NOT DETECT) 12/14/22 21:30 Influenza A (H3) PCR Not detected (NOT DETECT) 12/14/22 21:30 Influenza Type A (PCR) Not detected (NOT DETECT) 12/14/22 21:30 Influenza Type B (PCR) Not detected (NOT DETECT) 12/14/22 21:30 M. pneumoniae (PCR) Not detected (NOT DETECT) 12/14/22 21:30 Parainfluenza 1 (PCR) Not detected (NOT DETECT) 12/14/22 21:30 Parainfluenza 2 (PCR) Not detected (NOT DETECT) 12/14/22 21:30 Parainfluenza 3 (PCR) Not detected (NOT DETECT) 12/14/22 21:30 Parainfluenza 4 (PCR) Not detected (NOT DETECT) 12/14/22 21:30 RSV Type A (PCR) Not detected (NOT DETECT) 12/14/22 21:30 RSV Type B (PCR) Not detected (NOT DETECT) 12/14/22 21:30 Entero/Rhino (PCR) Not detected (NOT DETECT) 12/14/22 21:30 SARS-CoV-2 (PCR) Not detected (NOT DETECT) 12/14/22 21:30 Vitals Last Vital Signs Temp 97.1 F L 12/15/22 12:00 Pulse 59 L 12/15/22 12:00 Resp 17 12/15/22 12:00 BP 137/75 12/15/22 12:00 Pulse Ox 95 12/15/22 12:00 O2 Del Method Room Air 12/15/22 08:12 O2 Flow Rate 3 12/15/22 08:12 Discharge Plan Discharge Patient Disposition: Home Condition: Stable Prescriptions: New benzonatate 100 mg Capsule 100 mg PO TID PRN (Reason: Cough) 15 Days Qty: 30 0RF prednisone 20 mg tablet See Taper PO DAILY 11 Days Qty: 60 0RF Taper: predniSONE 60-10 60 mg Daily for 2 Days and 0 Hour 50 mg Daily for 2 Days and 0 Hour 40 mg Daily for 2 Days and 0 Hour 30 mg Daily for 2 Days and 0 Hour 20 mg Daily for 2 Days and 0 Hour 10 mg Daily for 2 Days and 0 Hour azithromycin 500 mg tablet 500 mg PO DAILY 3 Days Qty: 3 0RF Protonix 40 mg tablet,delayed release (DR/EC) 40 mg PO DAILY Qty: 30 0RF Continued simvastatin [Zocor] 10 mg tablet 5 mg PO QPM latanoprost 0.005 % drops 1 drop ophthalmic (eye) QPM Rx Instructions: (both eyes) brimonidine 0.2 % drops 1 drop ophthalmic (eye) BID Rx Instructions: both eyes (DME) Altera Nebulizer System Misc See Rx Instructions .ROUTE .MEDSUPPLY Qty: 1 0RF Rx Instructions: As directed gabapentin 100 mg capsule 100 mg PO BEDTIME fluoride (sodium) 1.1 % paste 1 applic dental DAILY tamsulosin 0.4 mg capsule 0.4 mg PO QPM finasteride 5 mg tablet 5 mg PO DAILY mirtazapine 30 mg tablet 15 mg PO QPM PRN (Reason: mood) albuterol sulfate [ProAir HFA] 90 mcg/actuation HFA aerosol inhaler 2 puff INHALATION Q6H PRN (Reason: shortness of breath or wheezing) Qty: 18 3RF Breztri Aerosphere 160-9-4.8 mcg/actuation HFA aerosol inhaler 2 inh inhalation BID Qty: 10.7 0RF meloxicam 15 mg tablet 15 mg PO QAM citalopram 40 mg Tablet 20 mg PO DAILY ropinirole 4 mg Tablet 4 mg PO BID cholecalciferol (vitamin D3) [Vitamin D3] 50 mcg (2,000 unit) Tablet 50 mcg PO DAILY albuterol sulfate 2.5 mg /3 mL (0.083 %) Solution For Nebulization 2.5 mg INHALATION QID PRN (Reason: Shortness Of Breath) lidocaine 5 % Ointment 1 applic TOPICAL BID PRN (Reason: Pain) Discharge Orders: Discharge Order (Routine); Ordered 12/15/22 Ordered By: Ada Javier Referrals: Pilar Lake MD [Primary Care Provider] - 7-10 days Datar,Jameson Liriano MD [Physician] - 1 month (worsening COPD) Discharge Diet: Usual diet Discharge Activity: Resume usual activity and Increase activity as tolerated Patient Instructions: Opioid Safety Discharge Attestations Time Spent in Discharge Care*: greater than 30 min Status at Discharge: Cognitive status at discharge: cognitively intact , Behavioral status at discharge: cooperative , Quality Metrics Clinical Quality Measures [ No reported AMI, CVA or VTE this stay] Coding Level of Care Code Acute Code for Chg Fwd Diagnoses
== END 2022-12-15 15:07 | disposition home or self-care (01) ==
LOC: ER 15:25 → MEDSURG 16:04
PROVIDERS: Admitting Provider Student in an Organized Health Care Education/Training Program; Emergency Provider Family Medicine; PCP Family Medicine; Visit Provider Student in an Organized Health Care Education/Training Program
DX: J44.1 Chronic obstructive pulmonary disease with (acute) exacerbation (principal); R09.02 Hypoxemia; I12.9 Hypertensive chronic kidney disease with stage 1 through stage 4 chronic kidney disease, or unspecified chronic kidney disease; N18.30 Chronic kidney disease, stage 3 unspecified; E78.5 Hyperlipidemia, unspecified; Z86.711 Personal history of pulmonary embolism; Z23 Encounter for immunization
CPT/HCPCS: 36415; 36600; 71045; 80053; 82805; 83735; 85025; 85378; 87486; 87581; 87633; 90471; 90686; 94640; 94760; 96372; 96374; 96375; 99285; G0378; J1100; J1650; J2930; J7626

== ENCOUNTER → 2023-01-25 10:30 | Outpatient (BNVA) | payer OTHER, SELFPAY | PROVIDERS: PCP Family Medicine; Visit Provider Internal Medicine Pulmonary Disease | DX: J44.9 Chronic obstructive pulmonary disease, unspecified (principal); J90 Pleural effusion, not elsewhere classified; R40.0 Somnolence; Z87.891 Personal history of nicotine dependence; Z79.01 Long term (current) use of anticoagulants; I26.99 Other pulmonary embolism without acute cor pulmonale; R63.4 Abnormal weight loss; Z68.22 Body mass index [BMI] 22.0-22.9, adult | CPT/HCPCS: 99214 ==

== ENCOUNTER 2023-02-06 10:51 | Outpatient (CLI) | payer OTHER, SELFPAY ==
[2023-02-06] MEDS: iohexol 350 mg/mL 500 mL Btl (per mL) PO (12:08)
--- NOTE | 2023-02-06 12:30 | CT_ITS ---
WS: [id number] CT ABDOMEN AND PELVIS NONCONTRAST HISTORY: unintentional weight loss TECHNIQUE: Imaging performed through the abdomen and pelvis. Coronal and sagittal reformats are submi tted. All CT scans at [facility] use at least one of these dose optimization techniques: auto mated exposure control; mA and/or kV adjustment per patient size (includes targeted exams where dose is matched to clinical indication); or iterative reconstruction. DLP: 310.85 mGy.cm COMPARISON: None available. Lower thorax: Chronic emphysematous changes at the lung bases. Benign granuloma LEFT subpleural. Bry y changes of honeycombing suspected. Liver: Normal size liver. No mass or bile duct dilatation. Gallbladder: Slightly contracted. No adjacent inflammation. Pancreas: Normal size and attenuation. Normal pancreatic duct. No pancreatitis or mass. Spleen: Normal. Adrenal glands: Normal. No mass. Right kidney: Normal size kidney with no mass or hydronephrosis. Left kidney: Normal size kidney with no mass or hydronephrosis. Aorta: Mild atherosclerosis abdominal aorta with no aneurysm. No free fluid, intraperitoneal air or significant lymphadenopathy. GI tract: Stomach is nondistended. There is mild diffuse wall thickening but this is probably due to under distention. No small bowel obstruction. Moderate diffuse constipation. The appendix is normal. Abdominal wall: Negative. No hernia. Pelvis: No free fluid or adenopathy. Urinary bladder is nondistended. There is mild wall thickening w hich is probably related to under distention. No mass identified on this unenhanced CT. Osseous structures: Unremarkable. IMPRESSION: 1. No ascites or adenopathy. 2. Mild diffuse constipation but no GI tract obstruction. 3. There is mild bladder wall thickening which may be due to under distention. No discrete mass iden tified on this unenhanced exam. 4. Moderate atherosclerosis aorta.
== END 2023-02-06 10:52 | disposition home or self-care (01) ==
LOC: RAD 10:51
PROVIDERS: PCP Family Medicine; Visit Provider Internal Medicine Pulmonary Disease
DX: R63.4 Abnormal weight loss (principal); K59.00 Constipation, unspecified; I70.0 Atherosclerosis of aorta
CPT/HCPCS: 74176; Q9967

== ENCOUNTER 2023-02-06 15:00 | Outpatient (CLI) | payer OTHER, SELFPAY | END 2023-02-06 15:01 | disposition home or self-care (01) | LOC: SLEEP 02-07 16:22 | PROVIDERS: PCP Family Medicine; Visit Provider Internal Medicine Pulmonary Disease | DX: R09.02 Hypoxemia (principal) | CPT/HCPCS: 94762 ==

== ENCOUNTER 2023-02-19 12:36 | Outpatient (CLI) | payer OTHER, SELFPAY ==
[2023-02-19 13:01] VITALS: PULSE 50; RESP 18; O2SAT 99
[2023-02-19 13:05] VITALS: PULSE 51
[2023-02-19] MEDS: albuterol 2.5 mg/3 mL Neb INHALATION (13:06)
== END 2023-02-19 12:37 | disposition home or self-care (01) ==
LOC: RT 12:36
PROVIDERS: PCP Family Medicine; Visit Provider Internal Medicine Pulmonary Disease
DX: R06.02 Shortness of breath (principal); J98.4 Other disorders of lung; Z87.891 Personal history of nicotine dependence
CPT/HCPCS: 94060; 94618; 94726; 94729; J7613

== ENCOUNTER → 2023-03-29 10:20 | Outpatient (BNVA) | payer OTHER, SELFPAY | PROVIDERS: PCP Family Medicine; Visit Provider Internal Medicine Pulmonary Disease | DX: J44.9 Chronic obstructive pulmonary disease, unspecified (principal); I26.99 Other pulmonary embolism without acute cor pulmonale; R63.4 Abnormal weight loss; Z86.16 Personal history of COVID-19; Z87.891 Personal history of nicotine dependence; R40.0 Somnolence; Z68.23 Body mass index [BMI] 23.0-23.9, adult | CPT/HCPCS: 99214 ==

== ENCOUNTER 2023-07-13 23:54 | Emergency (ER) | payer OTHER, SELFPAY ==
[2023-07-14 00:08] VITALS: BP 111/62; PULSE 48; RESP 17; TEMP 36.4; O2SAT 97; BMI 22.6
[2023-07-14 01:02] LABS: Basophils % 0.5 %; Eosinophils # 0.2 10^3/uL (0.0-0.8); Eosinophils % 3.3 %; Hematocrit 38.8 % (37-53); Lymphocytes # 1.7 10^3/uL (0.8-4.8); Lymphocytes % 30.2 %; Mean Corpuscular HGB Conc 33.2 g/dL (30-55); Mean Corpuscular Hemoglobin 31.3 pg (27-33); Mean Corpuscular Volume 94.2 fl (82-101); Mean Platelet Volume 9.7 fL (7.4-10.4); Monocytes # 0.5 10^3/uL (0.2-0.9); Monocytes % 8.4 %; Neutrophils # 3.14 10^3/uL (1.8-7.7); Neutrophils % 57.4 %; Nucleated Red Blood Cells % 0 %; Platelet Count 168 10^3/cmm (157-399); Red Blood Count 4.12 10^6/uL (3.85-5.65); Red Cell Distribution Width 13.2 % (12.1-15.1); White Blood Count 5.47 10^3/uL (3.29-11.43)
--- NOTE | 2023-07-14 01:11 | XRR_ITS ---
PROCEDURE INFORMATION: Exam: XR Chest Exam date and time: 07/14/2023 1:38 AM Age: 82 years old Clinical indication: Chest pressure; Patient HX: C/O chest pain; Additional info: Chest and left arm pain TECHNIQUE: Imaging protocol: Radiologic exam of the chest. Views: 1 view. COMPARISON: CR XR chest 1V portable [id number] 12/14/2022 1:10 PM FINDINGS: Lungs: No pulmonary venous distension. Hyperinflated lungs with basilar reticular opacities appears stable from prior. No acute superimposed airspace disease. Pleural spaces: No pleural effusion. No pneumothorax. Heart/Mediastinum: Stable mild cardiomegaly. Bones/joints: Age appropriate. XR/XR chest 1V portable [id number] IMPRESSION: Stable borderline cardiomegaly. Stable hyperinflated lungs with basilar scarring. No acute superimposed heart failure or airspace disease.
[2023-07-14 01:13] VITALS: BP 120/69; PULSE 45; RESP 18; O2SAT 99
[2023-07-14 01:13] LABS: INR 0.93 (0.8-1.2)
[2023-07-14 01:14] LABS: Partial Thromboplastin Time 31.5 SECONDS (23.9-36.7)
[2023-07-14 01:17] LABS: Alanine Aminotransferase 14 U/L (0-41); Albumin Level 3.8 g/dL (3.5-5.2); Alkaline Phosphatase 49 U/L (40-130); Anion Gap 14.8 (5-19); Aspartate Amino Transferase 18 U/L (0-40); Blood Urea Nitrogen 27 mg/dL (8-23); Calcium 9.3 mg/dL (8.5-10.5); Carbon Dioxide 24 mmol/L (22-29); Chloride 104 mmol/L (98-107); Creatinine Clr Calc Pharmacy 39.5886; Globulin 2.1 g/dL (1.3-4.6); Glucose 112 mg/dL (65-115); NT Pro B Type Natriuretic Pept 565 pg/mL (0-450); Osmolality Calculated 292 mOsm/kg (285-295); Potassium 4.8 mmol/L (3.5-5.1); Sodium 138 mmol/L (136-145); Total Bilirubin 0.3 mg/dL (0.15-1.2); Total Protein 5.9 g/dL (6.6-8.7)
[2023-07-14 01:19] LABS: Troponin(5th) Baseline 14 ng/L (0-15)
--- NOTE | 2023-07-14 02:13 | ECG_ITS ---
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 Measurements Intervals [place] Rate: 45 P: 78 [place]: 187 QRS: 97 QRSD: 148 T: 70 QT: 474 QTc: 413 Interpretive Statements SINUS BRADYCARDIA RIGHT BUNDLE BRANCH BLOCK [120+ ms QRS DURATION, UPRIGHT V1, 40+ ms S IN I/aVL/V4/V5/V6] Compared to ECG 12/09/2022 10:03:10 T-wave abnormality no longer present Possible ischemia no longer present Prolonged QT interval no longer present Electronically Signed On 07-14-2023 12:40:48 CDT by Vimal Wright M.D. [id number]
--- NOTE | 2023-07-14 02:26 | ED_ITS ---
HPI - General Adult 2 General: Chief complaint: General Medical Stated complaint: left Arm and shoulder pain Time Seen by Provider: 07/14/23 00:50 History of Present Illness: 82-year-old male with no history of marilou nary disease. He presents with left upper arm, left upper back and left shoulder pain along with left upper chest pain. He notes it has been there for about a week. Seems to be worse tonight. No injury noted. Some pain with arm movement. No shortness of breath. No nausea or vomiting. Associated symptoms: Deny confusion, dyspnea, headache(s), nausea, rash, palpitations or vomiting Review of Systems 2 Const: Denies: fever(s), chills or body aches Eyes: Reports: other (Lost vision to left eye 1 week ago for 5 minutes. Resolved now.) Card: Denies: palpitations Resp: Denies: dyspnea, productive cough, non-productive cough or wheezing GI: Denies: abdominal pain, nausea, vomiting, diarrhea or hematochezia Skin/Breast: Denies: rash Neuro: Denies: headache(s), weakness in extremities, dizziness or confusion PFSH ED 2 PFSH: Medical History Laceration of forearm, complicated Hoarseness PVC (premature ventricular contraction) CKD (chronic kidney disease) stage 3, GFR 30-59 ml/min Symptomatic bradycardia Bradycardia Near syncope Anxiety disorder, unspecified Basal cell carcinoma of skin, unspecified Hyperlipidemia, unspecified Major depressive disorder, recurrent, mild Pain in left shoulder Pain in unspecified hip Personal history of pulmonary embolism Vitamin deficiency, unspecified Dyspnea COPD (chronic obstructive pulmonary disease) Leg fracture, right Surgical History H/O rotator cuff surgery Family History Father CAD (coronary artery disease) Mother CAD (coronary artery disease) Sister Cancer Lymphoma Social History Smoking and tobacco/nicotine status: former use of tobacco/nicotine Quit status (tobacco/nicotine): has quit using Year quit tobacco: 1986 - PD x 37 Years Second hand smoke exposure: No Alcohol intake: never Substance/Drug Use: never Lives independently: Yes Household members: spouse Marital status: service: Yes Current occupational status: retired Do you think of yourself as: Straight/Heterosexual Current gender identity: Male Physical Exam 2 Const: COMMON NORMALS: no acute distress GENERAL APPEARANCE: cooperative; not ill appearing and not frail appearing HENMT: COMMON NORMALS: normocephalic, atraumatic and Normal external nose present HEAD & SCALP: normocephalic and atraumatic FACE & SINUS: normal facial exam and face symmetric NOSE: Normal external nose present Eye: COMMON NORMALS: Equal, round and reactive pupils present and EOMs intact bilaterally PUPIL: Yes Equal, round and reactive pupils present Neck/C-Spine: GENERAL: Yes trachea midline Chest: CHEST: Yes Symmetrical chest wall rise Resp: COMMON NORMALS: normal respiratory effort, No retractions, No use of accessory muscles and clear to auscultation bilaterally AUSCULTATION: clear to auscultation bilaterally Cardio: COMMON NORMALS: regular rate and regular rhythm RATE: regular rate RHYTHM: regular rhythm GI: COMMON NORMALS: Normal to inspection, nondistended, normoactive bowel sounds present Extremity: COMMON NORMALS: no pedal edema NARRATIVE EXTREMITY EXAM: Exam of the left upper extremity reveals tenderness over the medial scapular border, mid trapezius, and rotator cuff footprint. Empty can and liftoff tests reproduce pain. Neuro: LALO COMA SCALE: document GCS findings Buford coma scale eye opening: Spontaneous Lalo coma scale verbal response: Orientated Lalo coma scale motor response: Obey commands Lalo coma scale total score: 15 S ENSORY EXAM: Yes extremities (intact) Psych: COMMON NORMALS: speech normal SPEECH: Yes normal speech Skin: COMMON NORMALS: no rashes or lesions noted GENERAL SKIN EXAM: no rashes or lesions noted Course 2 Vital Signs: Vital signs: Vital Signs Temperature 97.5 F L 07/14/23 00:08 Pulse Rate 45 L 07/14/23 01:13 Respiratory Rate 16 07/14/23 03:45 Blood Pressure 142/63 07/14/23 03:45 Pulse Oximetry 98 07/14/23 03:45 Oxygen Delivery Me thod Room Air 07/14/23 01:13 [facility] - General Adult Medical Decision Making Patient does have some reproducible tenderness to the periscapular area, rotator cuff footprint, and with rotator cuff testing. Chest x-ray shows stable COPD changes. CBC is normal. BMP shows a creatinine of 1.5. D-dimer is only 0.5. Troponin did not change at 2 hours. EKG shows no acute ST wave changes. He will be given a steroid taper for likely rotator cuff syndrome, and asked to follow-up as an outpatient. To return for any new or worsening symptoms. His concern was that the vision loss may have been related to this pain, but this is less likely given findings. Lab Data 07/14/23 00:56 07/14/23 00:34 Radiology Impressions Chest X-Ray 07/14/23 01:11 IMPRESSION: Stable borderline cardiomegaly. Stable hyperinflated lungs with basilar scarring. No acute superimposed heart failure or airspace disease. Laboratory Results WBC 5.47 10^3/uL (3.29-11.43) 07/14/23 00:56 RBC 4.12 10^6/uL (3.85-5.65) 07/14/23 00:56 Hgb 12.90 g/dL (11.27-16.99) 07/14/23 00:56 Hct 38.8 % (37-53) 07/14/23 00:56 MCV 94.2 fl (82-101) 07/14/23 00:56 MCH 31.3 pg (27-33) 07/14/23 00:56 MCHC 33.2 g/dL (30-55) 07/14/23 00:56 RDW 13.2 % (12.1-15.1) 07/14/23 00:56 Plt Count 168 10^3/cmm (157-399) 07/14/23 00:56 MPV 9.7 fL (7.4-10.4) 07/14/23 00:56 Neut % (Auto) 57.4 % 07/14/23 00:56 Lymph % (Auto) 30.2 % 07/14/23 00:56 Tift % (Auto) 8.4 % 07/14/23 00:56 Eos % (Auto) 3.3 % 07/14/23 00:56 Baso % (Auto) 0.5 % 07/14/23 00:56 Neut # (Auto) 3.14 10^3/uL (1.8-7.7) 07/14/23 00:56 Lymph # (Auto) 1.7 10^3/uL (0.8-4.8) 07/14/23 00:56 Tift # (Auto) 0.5 10^3/uL (0.2-0.9) 07/14/23 00:56 Eos # (Auto) 0.2 10^3/uL (0.0-0.8) 07/14/23 00:56 Baso # (Auto) 0.0 10^3/uL (0.0-0.1) 07/14/23 00:56 Nucleated RBC % (auto) 0 % 07/14/23 00:56 Nucleated RBCs # 0.0 /100WBC 07/14/23 00:56 PT 12.70 SECONDS (12.1-14.9) 07/14/23 00:56 INR 0.93 (0.8-1.2) 07/14/23 00:56 APTT 31.5 SECONDS (23.9-36.7) 07/14/23 00:56 D-Dimer 0.50 ug/mLFEU (0-0.59) 07/14/23 Unknown Sodium 138 mmol/L (136-145) 07/14/23 00:34 Potassium 4.8 mmol/L (3.5-5.1) 07/14/23 00:34 Chloride 104 mmol/L (98-107) 07/14/23 00:34 Carbon Dioxide 24 mmol/L (22-29) 07/14/23 00:34 Anion Gap 14.8 (5-19) 07/14/23 00:34 BUN 27 mg/dL (8-23) H 07/14/23 00:34 Creatinine 1.5 mg/dL (0.7-1.2) H 07/14/23 00:34 GFR Calculation Not Reportable 07/14/23 00:34 Glucose 112 mg/dL (65-115) 07/14/23 00:34 Calculated Osmolality 292 mOsm/kg (285-295) 07/14/23 00:34 Calcium 9.3 mg/dL (8.5-10.5) 07/14/23 00:34 Total Bilirubin 0.3 mg/dL (0.15-1.2) 07/14/23 00:34 AST 18 U/L (0-40) 05/05/24 00:34 ALT 14 U/L (0-41) 07/14/23 00:34 Alkaline Phosphatase 49 U/L (40-130) 07/14/23 00:34 Troponin T Baseline 14 ng/L (0-15) 07/14/23 00:56 Troponin T 120 Minute 12.61 ng/L (0-15) 07/14/23 02:47 Delta Troponin T -1.39 ABS# (0-10) L 07/14/23 02:47 NT-Pro-B Natriuret Pep 565 pg/mL (0-450) H 07/14/23 00:34 Total Protein 5.9 g/dL (6.6-8.7) L 07/14/23 00:34 Albumin 3.8 g/dL (3.5-5.2) 07/14/23 00:34 Globulin 2.1 g/dL (1.3-4.6) 07/14/23 00:34 All radiology interpretation(s) finalized by discharge Discharge Plan Discharge Patient Disposition: Home Clinical Impression: Acute pain of left shoulder Condition: Stable Prescriptions: New Medrol (Maximilian) 4 mg tablets,dose pack See Rx Instructions .ROUTE .COMPLEX Qty: 21 0RF Rx Instructions: orally per package directions No Action simvastatin [Zocor] 10 mg tablet 5 mg PO QPM latanoprost 0.005 % drops 1 drop ophthalmic (eye) QPM Rx Instructions: (both eyes) brimonidine 0.2 % drops 1 drop ophthalmic (eye) BID Rx Instructions: both eyes (DME) Altera Nebulizer System Misc See Rx Instructions .ROUTE .MEDSUPPLY Qty: 1 0RF Rx Instructions: As directed gabapentin 100 mg capsule 100 mg PO BEDTIME fluoride (sodium) 1.1 % paste 1 applic dental DAILY tamsulosin 0.4 mg capsule 0.4 mg PO QPM finasteride 5 mg tablet 5 mg PO DAILY mirtazapine 30 mg tablet 15 mg PO QPM PRN (Reason: mood) albuterol sulfate [ProAir HFA] 90 mcg/actuation HFA aerosol inhaler 2 puff INHALATION Q6H PRN (Reason: shortness of breath or wheezing) Qty: 18 3RF Breztri Aerosphere 160-9-4.8 mcg/actuation HFA aerosol inhaler 2 inh inhalation BID Qty: 10.7 0RF meloxicam 15 mg tablet 15 mg PO QAM citalopram 40 mg Tablet 20 mg PO DAILY ropinirole 4 mg Tablet 4 mg PO BID cholecalciferol (vitamin D3) [Vitamin D3] 50 mcg (2,000 unit) Tablet 50 mcg PO DAILY albuterol sulfate 2.5 mg /3 mL (0.083 %) Solution For Nebulization 2.5 mg INHALATION QID PRN (Reason: Shortness Of Breath) lidocaine 5 % Ointment 1 applic TOPICAL BID PRN (Reason: Pain) Discharge Orders: Discharge ED (Routine); Ordered 07/14/23 Ordered By: James Cunha Referrals: Pilar Lake MD [Primary Care Provider] - 1-3 days Patient Instructions: Shoulder Pain (ED), Opioid Safety, Pain Management Activity Restrictions/Additional Instructions: Medications as directed. Return for worsening symptoms despite treatment, shortness of breath, any other concerning symptoms. Coding Level of Care Code ED Sales Operations Assistant for Cheyenne Brambila
[2023-07-14 03:13] LABS: Troponin 5 2HR 12.61 ng/L (0-15)
[2023-07-14 03:14] LABS: Troponin 5 2HR Delta -1.39 ABS# (0-10)
[2023-07-14 03:45] VITALS: BP 142/63; RESP 16; O2SAT 98
== END 2023-07-14 03:46 | disposition home or self-care (01) ==
PROVIDERS: Nurse Practitioner Family; Emergency Provider Emergency Medicine; PCP Family Medicine
DX: M25.512 Pain in left shoulder (principal); Z87.891 Personal history of nicotine dependence; N18.30 Chronic kidney disease, stage 3 unspecified; E78.5 Hyperlipidemia, unspecified; J44.9 Chronic obstructive pulmonary disease, unspecified
CPT/HCPCS: 36415; 71045; 80053; 83880; 84484; 85025; 85378; 85610; 85730; 93005; 99285

== ENCOUNTER 2023-09-08 23:15 | Emergency (ER) | payer OTHER, SELFPAY ==
--- NOTE | 2023-09-08 23:18 | XRR_ITS ---
PROCEDURE INFORMATION: Exam: XR Chest Exam date and time: 09/08/2023 11:32 PM Age: 82 years old Clinical indication: Shortness of breath; Prior surgery; Surgery date: 6+ months; Surgery type: Rotator cuff; Patient HX: C/O SOB. History of copd. TECHNIQUE: Imaging protocol: Radiologic exam of the chest. Views: 1 view. COMPARISON: CR (CHEST, ) 07/14/2023 1:38 AM FINDINGS: Lungs: Mild COPD. No consolidation. A few minute calcified lung nodules are seen incidentally. Pleural spaces: Unremarkable. No pleural effusion. No pneumothorax. Heart/Mediastinum: Mild cardiomegaly. Bones/joints: Unremarkable. XR/XR chest 1V portable [id number] IMPRESSION: No acute findings.
--- NOTE | 2023-09-08 23:20 | PC.NURSE ---
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
--- NOTE | 2023-09-08 23:20 | ECG_ITS ---
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 Measurements Intervals [place] Rate: 74 P: 81 AR: 191 QRS: 96 QRSD: 142 T: 52 QT: 401 QTc: 447 Interpretive Statements SINUS RHYTHM RIGHT BUNDLE BRANCH BLOCK [120+ ms QRS DURATION, UPRIGHT V1, 40+ ms S IN I/aVL/V4/V5/V6] Compared to ECG 07/14/2023 00:04:38 Sinus bradycardia no longer present Electronically Signed On 09-10-2023 21:32:26 CDT by Padmaja Abdalla M.D. [id number]
[2023-09-08 23:25] VITALS: BP 167/84; PULSE 82; RESP 24; TEMP 36.7; O2SAT 93
--- NOTE | 2023-09-08 23:27 | ED_ITS ---
HPI - SOB/Dyspnea 2 General: Chief Complaint: Shortness of Breath/Dyspnea Stated Complaint: SOB Time Seen by Provider: 09/08/23 23:16 Source: patient Mode of arrival: ambulatory Limitations: no limitations History of Present Illness: HPI Narrative: 82-year-old male has a history of COPD h e is on 2 L oxygen at baseline at home. States over the last week he had increased shortness of breath with getting much worse tonight. He is wheezing here with tachypnea he states he feels like he just cannot get up breath he denies any chest pain denies any fever or increasing cough from his baseline Associated symptoms: Deny abdominal pain, chest pain, fever(s), nausea or vomiting Review of Systems 2 Const: Denies: fever(s), chills, body aches or change in appetite ENMT: Denies: throat pain or dental pain Card: Denies: chest pain Resp: Reports: dyspnea and wheezing GI: Denies: abdominal pain, nausea, vomiting or diarrhea Musc: Denies: neck pain or back pain Skin/Breast: Denies: rash Neuro: Denies: headache(s) PFSH ED 2 PFSH: Medical History Laceration of forearm, complicated Hoarseness PVC (premature ventricular contraction) CKD (chronic kidney disease) stage 3, GFR 30-59 ml/min Symptomatic bradycardia Bradycardia Near syncope Anxiety disorder, unspecified Basal cell carcinoma of skin, unspecified Hyperlipidemia, unspecified Major depressive disorder, recurrent, mild Pain in left shoulder Pain in unspecified hip Personal history of pulmonary embolism Vitamin deficiency, unspecified Dyspnea COPD (chronic obstructive pulmonary disease) Leg fracture, right Surgical History H/O rotator cuff surgery Family History Father CAD (coronary artery disease) Mother CAD (coronary artery disease) Sister Cancer Lymphoma Social History Smoking and tobacco/nicotine status: former use of tobacco/nicotine Quit status (tobacco/nicotine): has quit using Year quit tobacco: 1986 - PD x 37 Years Second hand smoke exposure: No Alcohol intake: never Substance/Drug Use: never Lives independently: Yes Household members: spouse Marital status: service: Yes Current occupational status: retired Do you think of yourself as: Straight/Heterosexual Current gender identity: Male Physical Exam 2 Const: COMMON NORMALS: patient oriented x3 HENMT: COMMON NORMALS: normocephalic and atraumatic HEAD & SCALP: n ormocephalic and atraumatic Eye: COMMON NORMALS: conjunctivae normal CONJUNCTIVA: Yes conjunctivae normal Neck/C-Spine: COMMON NORMALS: full ROM and supple Chest: COMMONS NORMALS: normal inspection of the chest Resp: COMMON NORMALS: No retractions and No use of accessory muscles EFFORT & INSPECTION: Yes tachypneic and Yes respiratory distress AUSCULTATION: w heezes Cardio: COMMON NORMALS: regular rate, regular rhythm and No murmurs present (Cardio) RATE: regular rate RHYTHM: regular rhythm Extremity: COMMON NORMALS: normal to inspection and full ROM Neuro: COMMON NORMALS: patient oriented x3, moves all extremities and no focal motor deficits Psych: COMMON NORMALS: mental status grossly normal, Normal thought process present and cooperative THOUGHT PROCESS: Normal thought process present Skin: COMMON NORMALS: no rashes or lesions noted and no wounds GENERAL SKIN EXAM: no rashes or lesions noted Course 2 Vital Signs: Vital signs: Vital Signs Temperature 98.1 F 09/08/23 23:25 Pulse Rate 53 L 09/09/23 01:00 Respiratory Rate 14 09/09/23 00:18 Blood Pressure 121/74 09/09/23 01:00 Pulse Oximetry 98 09/09/23 01:00 Oxygen Delivery Me thod Nasal Cannula 09/09/23 01:00 Oxygen Flow Rate 3 09/08/23 23:40 MDM - SOB/Dyspnea Medical Decision Making Patient presents for COPD exacerbation he feels much improved after breathing treatments and steroids he is wanting to go home his wheezing has improved greatly he is in no distress at this time pulse ox is at his baseline I feel he is stable for discharge we will prescribe him prednisone for him if he worsens he is to return he has no signs of pneumonia. Medical Records I reviewed the patient's medical records. Lab Data I reviewed the patient's lab results. 09/08/23 23:22 09/08/23 23:22 Labs/Radiology: Radiology Impressions Chest X-Ray 09/08/23 23:18 IMPRESSION: No acute findings. Laboratory Results WBC 7.41 10^3/uL (3.29-11.43) 09/08/23 23:22 RBC 4.27 10^6/uL (3.85-5.65) 09/08/23 23:22 Hgb 13.60 g/dL (11.27-16.99) 09/08/23 23:22 Hct 40.8 % (37-53) 09/08/23 23:22 MCV 95.6 fl (82-101) 09/08/23 23:22 MCH 31.9 pg (27-33) 09/08/23 23:22 MCHC 33.3 g/dL (30-55) 09/08/23 23:22 RDW 13.5 % (12.1-15.1) 09/08/23 23:22 Plt Count 176 10^3/cmm (157-399) 09/08/23 23:22 MPV 9.7 fL (7.4-10.4) 09/08/23 23:22 Neut % (Auto) 58.3 % 09/08/23 23:22 Lymph % (Auto) 28.5 % 09/08/23 23:22 [place] % (Auto) 8.2 % 09/08/23 23:22 Eos % (Auto) 4.2 % 09/08/23 23:22 Baso % (Auto) 0.5 % 09/08/23 23:22 Neut # (Auto) 4.32 10^3/uL (1.8-7.7) 09/08/23 23:22 Lymph # (Auto) 2.1 10^3/uL (0.8-4.8) 09/08/23 23:22 [place] # (Auto) 0.6 10^3/uL (0.2-0.9) 09/08/23 23:22 Eos # (Auto) 0.3 10^3/uL (0.0-0.8) 09/08/23 23:22 Baso # (Auto) 0.0 10^3/uL (0.0-0.1) 09/08/23 23:22 Nucleated RBC % (auto) 0 % 09/08/23 23:22 Nucleated RBCs # 0.0 /100WBC 09/08/23 23:22 Sodium 139 mmol/L (136-145) 09/08/23 23:22 Potassium 4.5 mmol/L (3.5-5.1) 09/08/23 23:22 Chloride 103 mmol/L (98-107) 09/08/23 23:22 Carbon Dioxide 27 mmol/L (22-29) 09/08/23 23:22 Anion Gap 13.5 (5-19) 09/08/23 23:22 BUN 30 mg/dL (8-23) H 09/08/23 23:22 Creatinine 1.5 mg/dL (0.7-1.2) H 09/08/23 23:22 GFR Calculation Not Reportable 09/08/23 23:22 Glucose 143 mg/dL (65-115) H 09/08/23 23:22 Calculated Osmolality 297 mOsm/kg (285-295) H 09/08/23 23:22 Calcium 8.9 mg/dL (8.5-10.5) 09/08/23 23:22 Total Bilirubin 0.4 mg/dL (0.15-1.2) 09/08/23 23:22 AST 25 U/L (0-40) 09/08/23 23:22 ALT 16 U/L (0-41) 09/08/23 23:22 Alkaline Phosphatase 54 U/L (40-130) 09/08/23 23:22 NT-Pro-B Natriuret Pep 899 pg/mL (0-450) H 09/08/23 23:22 Total Protein 6.6 g/dL (6.6-8.7) 09/08/23 23:22 Albumin 4.2 g/dL (3.5-5.2) 09/08/23 23:22 Globulin 2.4 g/dL (1.3-4.6) 09/08/23 23:22 All radiology interpretation(s) finalized by discharge EKG Data EKG 1: I personally reviewed and interpreted this EKG as follows: EKG Interpretation Date: 09/08/23 EKG interpretation time: 23:29 Interpretation: nsr hr [address] or t wave abnormalities qrs 103 qtc 439 Discharge Plan Discharge Patient Disposition: Home Clinical Impression: Acute exacerbation of chronic obstructive airways disease Condition: Stable Prescriptions: New prednisone 50 mg tablet 50 mg PO DAILY Qty: 5 0RF No Action simvastatin [Zocor] 10 mg tablet 5 mg PO QPM latanoprost 0.005 % drops 1 drop ophthalmic (eye) QPM Rx Instructions: (both eyes) brimonidine 0.2 % drops 1 drop ophthalmic (eye) BID Rx Instructions: both eyes (DME) Altera Nebulizer System Misc See Rx Instructions .ROUTE .MEDSUPPLY Qty: 1 0RF Rx Instructions: As directed gabapentin 100 mg capsule 100 mg PO BEDTIME fluoride (sodium) 1.1 % paste 1 applic dental DAILY tamsulosin 0.4 mg capsule 0.4 mg PO QPM finasteride 5 mg tablet 5 mg PO DAILY mirtazapine 30 mg tablet 15 mg PO QPM PRN (Reason: mood) albuterol sulfate [ProAir HFA] 90 mcg/actuation HFA aerosol inhaler 2 puff INHALATION Q6H PRN (Reason: shortness of breath or wheezing) Qty: 18 3RF Breztri Aerosphere 160-9-4.8 mcg/actuation HFA aerosol inhaler 2 inh inhalation BID Qty: 10.7 0RF meloxicam 15 mg tablet 15 mg PO QAM citalopram 40 mg Tablet 20 mg PO DAILY ropinirole 4 mg Tablet 4 mg PO BID cholecalciferol (vitamin D3) [Vitamin D3] 50 mcg (2,000 unit) Tablet 50 mcg PO DAILY albuterol sulfate 2.5 mg /3 mL (0.083 %) Solution For Nebulization 2.5 mg INHALATION QID PRN (Reason: Shortness Of Breath) lidocaine 5 % Ointment 1 applic TOPICAL BID PRN (Reason: Pain) Medrol (Maximilian) 4 mg tablets,dose pack See Rx Instructions .ROUTE .COMPLEX Qty: 21 0RF Rx Instructions: orally per package directions Discharge Orders: Discharge ED (Routine); Ordered 09/09/23 Ordered By: Renetta Medina Referrals: Pilar Lake MD [Primary Care Provider] - 4-7 days Discharge Diet: Advance as tolerated Discharge Activity: Resume usual activity Patient Instructions: COPD (Chronic Obstructive Pulmonary Disease) (ED) Coding Level of Care Code ED Assurance Senior Manager Insurance for Cheyenne Brambila
[2023-09-08 23:33] LABS: Basophils % 0.5 %; Eosinophils # 0.3 10^3/uL (0.0-0.8); Eosinophils % 4.2 %; Hematocrit 40.8 % (37-53); Lymphocytes # 2.1 10^3/uL (0.8-4.8); Lymphocytes % 28.5 %; Mean Corpuscular HGB Conc 33.3 g/dL (30-55); Mean Corpuscular Hemoglobin 31.9 pg (27-33); Mean Corpuscular Volume 95.6 fl (82-101); Mean Platelet Volume 9.7 fL (7.4-10.4); Monocytes # 0.6 10^3/uL (0.2-0.9); Monocytes % 8.2 %; Neutrophils # 4.32 10^3/uL (1.8-7.7); Neutrophils % 58.3 %; Nucleated Red Blood Cells % 0 %; Platelet Count 176 10^3/cmm (157-399); Red Blood Count 4.27 10^6/uL (3.85-5.65); Red Cell Distribution Width 13.5 % (12.1-15.1); White Blood Count 7.41 10^3/uL (3.29-11.43)
[2023-09-08] MEDS: methylPREDNISolone sod succ 125 mg/2 mL INJ IV (23:36)
[2023-09-08] MEDS: albuterol 2.5 mg/3 mL Neb 5 MG INHALATION (23:39)
[2023-09-08] MEDS: ipratropium-albuterol 3 mL Neb INHALATION (23:39)
[2023-09-08 23:40] VITALS: PULSE 63; RESP 26; O2SAT 98
[2023-09-08 23:51] VITALS: PULSE 60; RESP 19
[2023-09-09 00:02] LABS: Alanine Aminotransferase 16 U/L (0-41); Albumin Level 4.2 g/dL (3.5-5.2); Alkaline Phosphatase 54 U/L (40-130); Anion Gap 13.5 (5-19); Aspartate Amino Transferase 25 U/L (0-40); Blood Urea Nitrogen 30 mg/dL (8-23); Calcium 8.9 mg/dL (8.5-10.5); Carbon Dioxide 27 mmol/L (22-29); Chloride 103 mmol/L (98-107); Creatinine Clr Calc Pharmacy 39.5886; Globulin 2.4 g/dL (1.3-4.6); Glucose 143 mg/dL (65-115); NT Pro B Type Natriuretic Pept 899 pg/mL (0-450); Osmolality Calculated 297 mOsm/kg (285-295); Potassium 4.5 mmol/L (3.5-5.1); Sodium 139 mmol/L (136-145); Total Bilirubin 0.4 mg/dL (0.15-1.2); Total Protein 6.6 g/dL (6.6-8.7)
[2023-09-09 00:18] VITALS: BP 135/70; PULSE 56; RESP 14; O2SAT 99
[2023-09-09 01:00] VITALS: BP 121/74; PULSE 53; O2SAT 98
[2023-09-09 01:17] VITALS: BP 121/74; PULSE 53; RESP 14; O2SAT 98
== END 2023-09-09 01:07 | disposition home or self-care (01) ==
PROVIDERS: Emergency Provider Emergency Medicine; PCP Family Medicine
DX: J44.1 Chronic obstructive pulmonary disease with (acute) exacerbation (principal); Z87.891 Personal history of nicotine dependence; N18.30 Chronic kidney disease, stage 3 unspecified; E78.5 Hyperlipidemia, unspecified
CPT/HCPCS: 71045; 80053; 83880; 85025; 93005; 94640; 96374; 99285; J2919; J7613

== ENCOUNTER 2023-09-17 15:52 | Outpatient (CLI) | payer MEDICARE, SELFPAY ==
[2023-09-17 16:17] LABS: Erythrocyte Sedimentation Rate < 1 mm/hr (0-10)
== END 2023-09-17 15:53 | disposition home or self-care (01) ==
LOC: LAB 15:55
PROVIDERS: PCP Family Medicine; Visit Provider Student in an Organized Health Care Education/Training Program
DX: M31.6 Other giant cell arteritis (principal)
CPT/HCPCS: 36415; 85651

== ENCOUNTER → 2023-10-17 07:24 | Outpatient (BNVA) | payer MEDICARE, OTHER, SELFPAY | PROVIDERS: PCP Family Medicine; Visit Provider Podiatrist Foot & Ankle Surgery | DX: L60.3 Nail dystrophy (principal) | CPT/HCPCS: 99203 ==

== ENCOUNTER 2023-11-07 10:27 | Emergency (ER) | payer OTHER, SELFPAY ==
[2023-11-07 10:39] VITALS: BP 114/67; PULSE 61; RESP 18; TEMP 36.7; O2SAT 97
--- NOTE | 2023-11-07 10:40 | XR_ITS ---
WS: [id number] Exam: XR chest 1V portable [id number] Date/Time of Exam: 11/07/2023 10:50 AM Reason For Exam: sob Comparison 09/08/2023. The lungs are hyperinflated and clear. Chronic interstitial changes in the mid and lower lung zones. Heart size top limits normal. The mediastinum is normal in contour. Unremarkable bony structures. XR/XR chest 1V portable [id number] IMPRESSION: 1. Pulmonary hyperinflation which might indicate COPD. Chronic interstitial yuli nges. 2. No acute process.
--- NOTE | 2023-11-07 10:40 | ECG_ITS ---
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 Measurements Intervals [place] Rate: 50 P: 71 AK: 182 QRS: 92 QRSD: 146 T: 64 QT: 479 QTc: 439 Interpretive Statements SINUS BRADYCARDIA BORDERLINE RIGHT AXIS DEVIATION [QRS AXIS > 90] INTRAVENTRICULAR CONDUCTION DELAY [130+ ms QRS DURATION] Compared to ECG 09/08/2023 23:20:25 Intraventricular conduction delay now present Sinus rhythm no longer present Right bundle-branch block no longer present Electronically Signed On 11-08-2023 18:06:31 CDT by Padmaja Abdalla M.D. [id number]
--- NOTE | 2023-11-07 10:40 | ED_ITS ---
HPI - SOB/Dyspnea 2 General: Chief Complaint: Shortness of Breath/Dyspnea Stated Complaint: sob Time Seen by Provider: 11/07/23 10:37 Source: patient Mode of arrival: ambulatory Limitations: no limitations History of Present Illness: HPI Narrative: 83-year-old male who has a history of [place] PD states over the last week he has been having an increased wheezing along with shortness of breath states he has had a dry cough as well. Denies any fevers. Patient is not hypoxic. States he does wear oxygen at night he is not requiring any oxygen here. He denies any chest pain. Associated symptoms: Deny abdominal pain, chest pain, fever(s), nausea or vomiting Related Data Home Medications Medication Instructions Recorded Confirmed brimonidine 0.2 % eye drops 1 drop ophthalmic (eye) BID 03/16/19 11/07/23 latanoprost 0.005 % eye drops 1 drop ophthalmic (eye) QPM 03/16/19 11/07/23 simvastatin 10 mg tablet (Zocor) 5 mg PO QPM 03/16/19 11/07/23 finasteride 5 mg tablet 5 mg PO DAILY 07/18/21 11/07/23 fluoride (sodium) 1.1 % dental 1 applic dental DAILY 07/18/21 11/07/23 paste tamsulosin 0.4 mg capsule 0.4 mg PO QPM 07/18/21 11/07/23 cholecalciferol (vitamin D3) 50 50 mcg PO DAILY 12/09/22 11/07/23 mcg (2,000 unit) tablet (Vitamin D3) citalopram 40 mg tablet 20 mg PO DAILY 12/09/22 11/07/23 ropinirole 4 mg tablet 4 mg PO BID 12/09/22 11/07/23 Potassium Citrate Sa 1 tab PO DAILY 11/07/23 11/07/23 albuterol sulfate 90 mcg/actuation 2 puff inhalation Q4H PRN asthma 11/07/23 11/07/23 aerosol inhaler magnesium oxide 400 mg PO DAILY 11/07/23 11/07/23 rivaroxaban 10 mg tablet (Xarelto) 10 mg PO DAILY 11/07/23 11/07/23 tizanidine 4 mg tablet 4 mg PO BID PRN Muscle Spasm 11/07/23 11/07/23 Previous Rx's Medication Instructions Recorded nebulizers (Altera Nebulizer #1 ea 07/06/19 System) budesonide 160 mcg-glycopyr 9 2 inh inhalation BID #10.7 grams 04/25/21 mcg-formot 4.8 mcg/actuation HFA inhaler (Breztri Aerosphere) urea 40 % topical cream 1 applic topical TID #198 grams 10/17/23 prednisone 50 mg tablet 50 mg PO DAILY #5 tabs 11/07/23 Allergies Allergy/AdvReac Type Severity Reaction Status Date / Time No Known Allergies Allergy Verified 10/17/23 07:41 Review of Systems 2 Const: Denies: fever(s), chills, body aches or change in appetite ENMT: Denies: throat pain or dental pain Card: Denies: chest pain Resp: Reports: wheezing; Denies: dyspnea GI: Denies: abdominal pain, nausea, vomiting or diarrhea Musc: Denies: neck pain or back pain Skin/Breast: Denies: rash Neuro: Denies: headache(s) PFSH ED 2 PFSH: Medical History Laceration of forearm, complicated Hoarseness PVC (premature ventricular contraction) CKD (chronic kidney disease) stage 3, GFR 30-59 ml/min Symptomatic bradycardia Bradycardia Near syncope Anxiety disorder, unspecified Basal cell carcinoma of skin, unspecified Hyperlipidemia, unspecified Major depressive disorder, recurrent, mild Pain in left shoulder Pain in unspecified hip Personal history of pulmonary embolism Vitamin deficiency, unspecified Dyspnea COPD (chronic obstructive pulmonary disease) Leg fracture, right Surgical History H/O rotator cuff surgery Family History Father CAD (coronary artery disease) Mother CAD (coronary artery disease) Sister Cancer Lymphoma Social History Smoking and tobacco/nicotine status: former use of tobacco/nicotine Quit status (tobacco/nicotine): has quit using Year quit tobacco: 1986 - PD x 37 Years Second hand smoke exposure: No Alcohol intake: never Substance/Drug Use: never Lives independently: Yes Household members: spouse Marital status: service: Yes Current occupational status: retired Do you think of yourself as: Straight/Heterosexual Current gender identity: Male Physical Exam 2 Const: COMMON NORMALS: no acute distress, patient oriented x3 and healthy appearing HENMT: COMMON NORMALS: normocephalic and atraumatic HEAD & SCALP: n ormocephalic and atraumatic Eye: COMMON NORMALS: conjunctivae normal CONJUNCTIVA: Yes conjunctivae normal Neck/C-Spine: COMMON NORMALS: full ROM and supple Chest: COMMONS NORMALS: normal inspection of the chest Resp: COMMON NORMALS: normal respiratory effort, No retractions and No use of accessory muscles AUSCULTATION: wheezes Cardio: COMMON NORMALS: regular rate, regular rhythm and No murmurs present (Cardio) RATE: regular rate RHYTHM: regular rhythm Extremity: COMMON NORMALS: normal to inspection and full ROM Neuro: COMMON NORMALS: patient oriented x3, moves all extremities and no focal motor deficits Psych: COMMON NORMALS: mental status grossly normal, Normal thought process present and cooperative THOUGHT PROCESS: Normal thought process present Skin: COMMON NORMALS: no rashes or lesions noted and no wounds GENERAL SKIN EXAM: no rashes or lesions noted Course 2 Vital Signs: Vital signs: Vital Signs Temperature 98.1 F 11/07/23 10:39 Pulse Rate 49 L 11/07/23 11:36 Respiratory Rate 18 11/07/23 11:23 Blood Pressure 117/59 11/07/23 11:23 Pulse Oximetry 99 11/07/23 11:23 Oxygen Delivery Me thod Room Air 11/07/23 11:23 MDM - SOB/Dyspnea Medical Decision Making Patient presents here with shortness of breath likely COPD exacerbation he feels much improved here after breathing treatments and steroids will prescribe him prednisone for home he has no signs of pneumonia is not requiring oxygen here follow-up with PCP return if worsening. Medical Records I reviewed the patient's medical records. Lab Data I reviewed the patient's lab results. 11/07/23 11:02 11/07/23 11:02 Labs/Radiology: Radiology Impressions Chest X-Ray 11/07/23 10:40 IMPRESSION: 1. Pulmonary hyperinflation which might indicate COPD. Chronic interstitial changes. 2. No acute process. Laboratory Results WBC 6.62 10^3/uL (3.29-11.43) 11/07/23 11:02 RBC 4.16 10^6/uL (3.85-5.65) 11/07/23 11:02 Hgb 13.30 g/dL (11.27-16.99) 11/07/23 11:02 Hct 39.9 % (37-53) 11/07/23 11:02 MCV 95.9 fl (82-101) 11/07/23 11:02 MCH 32.0 pg (27-33) 11/07/23 11:02 MCHC 33.3 g/dL (30-55) 11/07/23 11:02 RDW 13.0 % (12.1-15.1) 11/07/23 11:02 Plt Count 186 10^3/cmm (157-399) 11/07/23 11:02 MPV 9.9 fL (7.4-10.4) 11/07/23 11:02 Neut % (Auto) 61.8 % 11/07/23 11:02 Lymph % (Auto) 23.4 % 11/07/23 11:02 [place] % (Auto) 8.3 % 11/07/23 11:02 Eos % (Auto) 5.7 % 11/07/23 11:02 Baso % (Auto) 0.5 % 11/07/23 11:02 Neut # (Auto) 4.09 10^3/uL (1.8-7.7) 11/07/23 11:02 Lymph # (Auto) 1.6 10^3/uL (0.8-4.8) 11/07/23 11:02 [place] # (Auto) 0.6 10^3/uL (0.2-0.9) 11/07/23 11:02 Eos # (Auto) 0.4 10^3/uL (0.0-0.8) 11/07/23 11:02 Baso # (Auto) 0.0 10^3/uL (0.0-0.1) 11/07/23 11:02 Nucleated RBC % (auto) 0 % 11/07/23 11:02 Nucleated RBCs # 0.0 /100WBC 11/07/23 11:02 Sodium 138 mmol/L (136-145) 11/07/23 11:02 Potassium 4.7 mmol/L (3.5-5.1) 11/07/23 11:02 Chloride 103 mmol/L (98-107) 11/07/23 11:02 Carbon Dioxide 24 mmol/L (22-29) 11/07/23 11:02 Anion Gap 15.7 (5-19) 11/07/23 11:02 BUN 24 mg/dL (8-23) H 11/07/23 11:02 Creatinine 1.5 mg/dL (0.7-1.2) H 11/07/23 11:02 GFR Calculation Not Reportable 11/07/23 11:02 Glucose 101 mg/dL (65-115) 11/07/23 11:02 Calculated Osmolality 290 mOsm/kg (285-295) 11/07/23 11:02 Calcium 8.6 mg/dL (8.5-10.5) 11/07/23 11:02 Total Bilirubin 0.6 mg/dL (0.15-1.2) 11/07/23 11:02 AST 17 U/L (0-40) 11/07/23 11:02 ALT 15 U/L (0-41) 11/07/23 11:02 Alkaline Phosphatase 50 U/L (40-130) 11/07/23 11:02 NT-Pro-B Natriuret Pep 923 pg/mL (0-450) H 11/07/23 11:02 Total Protein 6.1 g/dL (6.6-8.7) L 11/07/23 11:02 Albumin 3.9 g/dL (3.5-5.2) 11/07/23 11:02 Globulin 2.2 g/dL (1.3-4.6) 11/07/23 11:02 All radiology interpretation(s) finalized by discharge EKG Data EKG 1: I personally reviewed and interpreted this EKG as follows: EKG Interpretation Date: 11/07/23 EKG interpretation time: 10:50 Interpretation: sinus tucker hr [address] or t wave abnormalities qrs 146 qtc 453 Discharge Plan Discharge Patient Disposition: Home Clinical Impression: COPD exacerbation Condition: Stable Prescriptions: New prednisone 50 mg tablet 50 mg PO DAILY Qty: 5 0RF No Action simvastatin [Zocor] 10 mg tablet 5 mg PO QPM latanoprost 0.005 % drops 1 drop ophthalmic (eye) QPM Rx Instructions: (both eyes) brimonidine 0.2 % drops 1 drop ophthalmic (eye) BID Rx Instructions: both eyes (DME) Altera Nebulizer System Misc See Rx Instructions .ROUTE .MEDSUPPLY Qty: 1 0RF Rx Instructions: As directed fluoride (sodium) 1.1 % paste 1 applic dental DAILY tamsulosin 0.4 mg capsule 0.4 mg PO QPM finasteride 5 mg tablet 5 mg PO DAILY urea 40 % cream 1 applic topical TID Qty: 198 4RF Breztri Aerosphere 160-9-4.8 mcg/actuation HFA aerosol inhaler 2 inh inhalation BID Qty: 10.7 0RF citalopram 40 mg Tablet 20 mg PO DAILY ropinirole 4 mg Tablet 4 mg PO BID cholecalciferol (vitamin D3) [Vitamin D3] 50 mcg (2,000 unit) Tablet 50 mcg PO DAILY tizanidine 4 mg Tablet 4 mg PO BID PRN (Reason: Muscle Spasm) albuterol sulfate 90 mcg/actuation Hfa Aerosol Inhaler 2 puff INHALATION Q4H PRN (Reason: asthma) Xarelto 10 mg Tablet 10 mg PO DAILY Rx Instructions: for 35 days magnesium oxide 400 mg magnesium Tablet 400 mg PO DAILY Potassium Citrate Sa 1 tab PO DAILY Discharge Orders: Discharge ED (Routine); Ordered 11/07/23 Ordered By: Renetta Medina Referrals: Pilar Lake MD [Primary Care Provider] - 4-7 days Discharge Diet: Advance as tolerated Discharge Activity: Resume usual activity Patient Instructions: COPD (Chronic Obstructive Pulmonary Disease) (ED) Coding Level of Care Code ED Certified Registered Locks[employer] for [employer]yenne Brambila
--- NOTE | 2023-11-07 11:02 | PC.PHAR ---
[facility] 11/07/23 10:50am
[2023-11-07] MEDS: methylPREDNISolone sod succ 125 mg/2 mL INJ IV (11:15)
[2023-11-07 11:20] VITALS: PULSE 49; RESP 16; O2SAT 95
[2023-11-07] MEDS: albuterol 2.5 mg/3 mL Neb INHALATION (11:20)
[2023-11-07] MEDS: ipratropium-albuterol 3 mL Neb INHALATION (11:20)
[2023-11-07 11:23] VITALS: BP 117/59; PULSE 49; RESP 18; O2SAT 99
[2023-11-07 11:23] LABS: Basophils % 0.5 %; Eosinophils # 0.4 10^3/uL (0.0-0.8); Eosinophils % 5.7 %; Hematocrit 39.9 % (37-53); Lymphocytes # 1.6 10^3/uL (0.8-4.8); Lymphocytes % 23.4 %; Mean Corpuscular HGB Conc 33.3 g/dL (30-55); Mean Corpuscular Volume 95.9 fl (82-101); Mean Platelet Volume 9.9 fL (7.4-10.4); Monocytes # 0.6 10^3/uL (0.2-0.9); Monocytes % 8.3 %; Neutrophils # 4.09 10^3/uL (1.8-7.7); Neutrophils % 61.8 %; Nucleated Red Blood Cells % 0 %; Platelet Count 186 10^3/cmm (157-399); Red Blood Count 4.16 10^6/uL (3.85-5.65); White Blood Count 6.62 10^3/uL (3.29-11.43)
[2023-11-07 11:36] VITALS: PULSE 49
[2023-11-07 11:54] LABS: Alanine Aminotransferase 15 U/L (0-41); Albumin Level 3.9 g/dL (3.5-5.2); Alkaline Phosphatase 50 U/L (40-130); Anion Gap 15.7 (5-19); Aspartate Amino Transferase 17 U/L (0-40); Blood Urea Nitrogen 24 mg/dL (8-23); Calcium 8.6 mg/dL (8.5-10.5); Carbon Dioxide 24 mmol/L (22-29); Chloride 103 mmol/L (98-107); Globulin 2.2 g/dL (1.3-4.6); Glucose 101 mg/dL (65-115); NT Pro B Type Natriuretic Pept 923 pg/mL (0-450); Osmolality Calculated 290 mOsm/kg (285-295); Potassium 4.7 mmol/L (3.5-5.1); Sodium 138 mmol/L (136-145); Total Bilirubin 0.6 mg/dL (0.15-1.2); Total Protein 6.1 g/dL (6.6-8.7)
[2023-11-07 12:07] LABS: Creatinine Clr Calc Pharmacy 39.1124
[2023-11-07 12:40] VITALS: BP 115/70; PULSE 52; RESP 18; O2SAT 94
== END 2023-11-07 12:42 | disposition home or self-care (01) ==
PROVIDERS: Emergency Provider Emergency Medicine; PCP Family Medicine
DX: J44.1 Chronic obstructive pulmonary disease with (acute) exacerbation (principal); R00.1 Bradycardia, unspecified; Z87.891 Personal history of nicotine dependence; N18.30 Chronic kidney disease, stage 3 unspecified; E78.5 Hyperlipidemia, unspecified
CPT/HCPCS: 36415; 71045; 80053; 83880; 85025; 93005; 94640; 96374; 99285; J2919; J7613

== ENCOUNTER 2023-12-27 22:08 | Emergency (ER) | payer OTHER, MEDICARE, SELFPAY ==
--- NOTE | 2023-12-27 22:16 | ECG_ITS ---
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1940 Requested By: Mo Gurrola Order Number: [id number] Buzz MD: ANNAMARIE BRYANT Measurements Intervals [place] Rate: 69 P: 83 [place]: 174 QRS: 106 QRSD: 145 T: 32 QT: 422 QTc: 453 Interpretive Statements SINUS RHYTHM RIGHT AXIS DEVIATION [QRS AXIS > 100] RIGHT BUNDLE BRANCH BLOCK [120+ ms QRS DURATION, UPRIGHT V1, 40+ ms S IN I/aVL/V4/V5/V6] Compared to ECG 11/07/2023 10:50:05 Right bundle-branch block now present Sinus bradycardia no longer present Intraventricular conduction delay no longer present Electronically Signed On 12-28-2023 18:08:27 CDT by ANNAMARIE BRYANT [id number]
[2023-12-27 22:23] VITALS: BP 124/83; PULSE 69; RESP 28; TEMP 36.7; O2SAT 94
--- NOTE | 2023-12-27 22:37 | XRR_ITS ---
PROCEDURE INFORMATION: Exam: XR Chest Exam date and time: 12/27/2023 10:53 PM Age: 83 years old Clinical indication: Shortness of breath; Patient HX: C/O SOB. History of copd. ; Additional info: GUDELIA, HX copd TECHNIQUE: Imaging protocol: Radiologic exam of the chest. Views: 1 view. COMPARISON: CR XR chest 1V portable [id number] 11/07/2023 10:51 AM FINDINGS: Lungs: Similar hyperinflated lungs. Increased multifocal patchy ground-glass opacities, predominantly at the lung bases. Pleural spaces: No pleural effusion. No pneumothorax. Heart/Mediastinum: Stable cardiac contours. Bones/joints: No acute findings. XR/XR chest 1V [id number] IMPRESSION: Background of emphysema/COPD with increased opacities at the bilateral lower lobe concerning for aspiration or infection.
[2023-12-27 22:58] LABS: Basophils % 0.4 %; Eosinophils # 0.6 10^3/uL (0.0-0.8); Eosinophils % 6.8 %; Hematocrit 41.9 % (37-53); Lymphocytes # 1.7 10^3/uL (0.8-4.8); Lymphocytes % 18.6 %; Mean Corpuscular HGB Conc 32.7 g/dL (30-55); Mean Corpuscular Hemoglobin 31.7 pg (27-33); Mean Platelet Volume 9.5 fL (7.4-10.4); Monocytes # 0.9 10^3/uL (0.2-0.9); Monocytes % 10.3 %; Neutrophils # 5.74 10^3/uL (1.8-7.7); Neutrophils % 63.6 %; Nucleated Red Blood Cells % 0 %; Platelet Count 208 10^3/cmm (157-399); Red Blood Count 4.32 10^6/uL (3.85-5.65); White Blood Count 9.03 10^3/uL (3.29-11.43)
[2023-12-27 23:01] VITALS: BP 128/64; PULSE 68; RESP 21; O2SAT 96
[2023-12-27 23:16] LABS: Troponin(5th) Baseline 22 ng/L (0-15)
--- NOTE | 2023-12-27 23:23 | W.ED.SOB ---
Documented by User: MIGUEL ANGEL Singh 12/28/23 01:46 HPI - SOB/Dyspnea General: Chief Complaint: Shortness of Breath/Dyspnea Stated Complaint: Sob Time Seen by Provider: 12/27/23 22:34 Source: patient and family Mode of arrival: ambulatory Limitations: no limitations History of Present Illness: HPI Narrative: Patient presents emergency department today companied by his for evaluation treatment of approximately 3 days of acute worsening shortness of breath and pain right under his left axillary region-worse with deep breathing. Patient has a history of COPD and has been using his breathing treatments at home. He is on oxygen at night-typically 3 L but, admits he has been turning it up to 5 at night to try and sleep. However, he states anytime he tries to lay back he feels like he is being suffocated and cannot breathe. Therefore, has not been sleeping. Also states that he has not been eating much because he feels so out of breath when he tries to eat. Has not been running fever. Denies nasal congestion or sore throat. has not been ill. Patient denies any musculoskeletal injury or contusion to the left lateral rib area underneath his left axilla but, states he has had to take some Tylenol because of how uncomfortable it is. Confirms pain is worse with deep breathing. Patient was seen and evaluated for a COPD exacerbation just a couple of months ago. Patient has a history of PE but is currently on Xarelto. Related Data Home Medications Medication Instructions Recorded Confirmed brimonidine 0.2 % eye drops 1 drop ophthalmic (eye) BID 03/16/19 11/07/23 latanoprost 0.005 % eye drops 1 drop ophthalmic (eye) QPM 03/16/19 11/07/23 simvastatin 10 mg tablet (Zocor) 5 mg PO QPM 03/16/19 11/07/23 finasteride 5 mg tablet 5 mg PO DAILY 07/18/21 11/07/23 fluoride (sodium) 1.1 % dental 1 applic dental DAILY 07/18/21 11/07/23 paste tamsulosin 0.4 mg capsule 0.4 mg PO QPM 07/18/21 11/07/23 cholecalciferol (vitamin D3) 50 50 mcg PO DAILY 12/09/22 11/07/23 mcg (2,000 unit) tablet (Vitamin D3) citalopram 40 mg tablet 20 mg PO DAILY 12/09/22 11/07/23 ropinirole 4 mg tablet 4 mg PO BID 12/09/22 11/07/23 Potassium Citrate Sa 1 tab PO DAILY 11/07/23 11/07/23 albuterol sulfate 90 mcg/actuation 2 puff inhalation Q4H PRN asthma 11/07/23 11/07/23 aerosol inhaler magnesium oxide 400 mg PO DAILY 11/07/23 11/07/23 rivaroxaban 10 mg tablet (Xarelto) 10 mg PO DAILY 11/07/23 11/07/23 tizanidine 4 mg tablet 4 mg PO BID PRN Muscle Spasm 11/07/23 11/07/23 Previous Rx's Medication Instructions Recorded nebulizers (Altera Nebulizer #1 ea 07/06/19 System) budesonide 160 mcg-glycopyr 9 2 inh inhalation BID #10.7 grams 04/25/21 mcg-formot 4.8 mcg/actuation HFA inhaler (Breztri Aerosphere) urea 40 % topical cream 1 applic topical TID #198 grams 10/17/23 prednisone 50 mg tablet 50 mg PO DAILY #5 tabs 11/07/23 doxycycline hyclate 100 mg capsule 100 mg PO BID 10 days #20 caps 12/28/23 prednisone 50 mg tablet 50 mg PO DAILY 7 days #7 tabs 12/28/23 Allergies Allergy/AdvReac Type Severity Reaction Status Date / Time No Known Allergies Allergy Verified 12/27/23 22:27 Review of Systems General: Reports: 10 or more systems reviewed and unremarkable except in HPI and below PFSH ED PFSH: Medical History Laceration of forearm, complicated Hoarseness PVC (premature ventricular contraction) CKD (chronic kidney disease) stage 3, GFR 30-59 ml/min Symptomatic bradycardia Bradycardia Near syncope Anxiety disorder, unspecified Basal cell carcinoma of skin, unspecified Hyperlipidemia, unspecified Major depressive disorder, recurrent, mild Pain in left shoulder Pain in unspecified hip Personal history of pulmonary embolism Vitamin deficiency, unspecified Dyspnea COPD (chronic obstructive pulmonary disease) Leg fracture, right Surgical History H/O rotator cuff surgery Family History Father CAD (coronary artery disease) Mother CAD (coronary artery disease) Sister Cancer Lymphoma Social History Smoking and tobacco/nicotine status: former use of tobacco/nicotine Quit status (tobacco/nicotine): has quit using Year quit tobacco: 1986 - 2PPD x 37 Years Second hand smoke exposure: No Alcohol intake: never Substance/Drug Use: never Lives independently: Yes Household members: spouse Marital status: service: Yes Current occupational status: retired Do you think of yourself as: Straight/Heterosexual Current gender identity: Male Physical Exam Const: COMMON NORMALS: no acute distress, patient oriented x3 and alert Eye: COMMON NORMALS: Equal, round and reactive pupils present, EOMs intact bilaterally and conjunctivae normal CONJUNCTIVA: Yes conjunctivae normal PUPIL: Yes Equal, round and reactive pupils present Neck/C-Spine: COMMON NORMALS: no JVD Lymph: LYMPHATIC: no lymphadenopathy noted Resp: OTHER: Diminished lung sounds throughout with very little air movement auscultated. No wheezing, no stridor, no crackles. Patient is using his abdomen to breathe and does have noticeable increased effort of respiration. However, patient's oxygen saturation is approximately 96 to 97% on room air currently. Cardio: COMMON NORMALS: no JVD and regular rate RATE: regular rate : COMMON NORMALS: Yes no CVA tenderness BLADDER/KIDNEY EXAM: Yes no CVA tenderness Back/Pelvis: COMMON NORMALS: no CVA tenderness, thoracic and lumbar spine normal to inspection and thoraco-lumbar ROM normal Extremity: COMMON NORMALS: normal to inspection, full ROM and no pedal edema Neuro: COMMON NORMALS: patient oriented x3 SENSORIUM/ORIENTATION: Yes alert Skin: COMMON NORMALS: no rashes or lesions noted and turgor normal GENERAL SKIN EXAM: no rashes or lesions noted and turgor normal Course Vital Signs: Vital signs: Vital Signs Temperature 98.0 F 12/27/23 22:23 Pulse Rate 74 12/28/23 02:05 Respiratory Rate 17 12/28/23 02:05 Blood Pressure 126/56 12/28/23 02:05 Pulse Oximetry 91 12/28/23 02:05 Oxygen Delivery Me thod Room Air 12/28/23 01:35 MDM - SOB/Dyspnea Medical Decision Making Patient presents to the emergency department today for acute worsening of shortness of breath and cough over the last 3 days. Patient typically uses 3 L at night to sleep but, has been increasing it to 5. He states he is still not able to sleep as he cannot catch his breath when he lays back. He typically has a minimally productive cough but, notes an increase in his sputum which he reports is green and yellow in color. Patient did present with abdominal breathing but his O2 saturation was approximately 96 to 97% on room air. Patient was treated with 3 DuoNebs and IV Solu-Medrol. Patient had noticeable improvement in his effort of respiration. Cardiac evaluation was negative and patient's labs are unremarkable and at his typical baseline. Chest x-ray however indicates that there are some opacities in the bilateral lower lobes concerning for infection. Because of this we did start him on IV antibiotics. Discussed with the family that I would like to watch him a bit longer to see how he responds to his breathing treatments and steroids. At this time, transfer of care to Dr. Alcala at 0145 for continued monitoring of the patient's respirations and oxygen. Differential Diagnosis Likely acute exacerbation of chronic obstructive airways disease and community acquired pneumonia; Unlikely congestive heart failure or asthma with exacerbation Lab Data 12/27/23 22:51 12/27/23 22:51 Labs/Radiology: Radiology Impressions Chest X-Ray 12/27/23 22:37 IMPRESSION: Background of emphysema/COPD with increased opacities at the bilateral lower lobe concerning for aspiration or infection. Laboratory Results WBC 9.03 10^3/uL (3.29-11.43) 12/27/23 22:51 RBC 4.32 10^6/uL (3.85-5.65) 12/27/23 22:51 Hgb 13.70 g/dL (11.27-16.99) 12/27/23 22:51 Hct 41.9 % (37-53) 12/27/23 22:51 MCV 97.0 fl (82-101) 12/27/23 22:51 MCH 31.7 pg (27-33) 12/27/23 22:51 MCHC 32.7 g/dL (30-55) 12/27/23 22:51 RDW 13.0 % (12.1-15.1) 12/27/23 22:51 Plt Count 208 10^3/cmm (157-399) 12/27/23 22:51 MPV 9.5 fL (7.4-10.4) 12/27/23 22:51 Neut % (Auto) 63.6 % 12/27/23 22:51 Lymph % (Auto) 18.6 % 12/27/23 22:51 Isabella % (Auto) 10.3 % 12/27/23 22:51 Eos % (Auto) 6.8 % 12/27/23 22:51 Baso % (Auto) 0.4 % 12/27/23 22:51 Neut # (Auto) 5.74 10^3/uL (1.8-7.7) 12/27/23 22:51 Lymph # (Auto) 1.7 10^3/uL (0.8-4.8) 12/27/23 22:51 Isabella # (Auto) 0.9 10^3/uL (0.2-0.9) 12/27/23 22:51 Eos # (Auto) 0.6 10^3/uL (0.0-0.8) 12/27/23 22:51 Baso # (Auto) 0.0 10^3/uL (0.0-0.1) 12/27/23 22:51 Nucleated RBC % (auto) 0 % 12/27/23 22:51 Nucleated RBCs # 0.0 /100WBC 12/27/23 22:51 Sodium 136 mmol/L (136-145) 12/27/23 22:51 Potassium 4.5 mmol/L (3.5-5.1) 12/27/23 22:51 Chloride 100 mmol/L (98-107) 12/27/23 22:51 Carbon Dioxide 23 mmol/L (22-29) 12/27/23 22:51 Anion Gap 17.5 (5-19) 12/27/23 22:51 BUN 30 mg/dL (8-23) H 12/27/23 22:51 Creatinine 1.6 mg/dL (0.7-1.2) H 12/27/23 22:51 GFR Calculation Not Reportable 12/27/23 22:51 Glucose 100 mg/dL (65-115) 12/27/23 22:51 Calculated Osmolality 288 mOsm/kg (285-295) 12/27/23 22:51 Calcium 8.8 mg/dL (8.5-10.5) 12/27/23 22:51 Total Bilirubin 0.5 mg/dL (0.15-1.2) 12/27/23 22:51 AST 22 U/L (0-40) 12/27/23 22:51 ALT 18 U/L (0-41) 12/27/23 22:51 Alkaline Phosphatase 57 U/L (40-130) 12/27/23 22:51 Troponin T Baseline 22 ng/L (0-15) H 12/27/23 22:51 Troponin T 120 Minute 20.97 ng/L (0-15) H 12/28/23 00:47 Delta Troponin T -1.03 ABS# (0-10) L 12/28/23 00:47 NT-Pro-B Natriuret Pep 290 pg/mL (0-450) 12/27/23 22:51 Total Protein 6.3 g/dL (6.6-8.7) L 12/27/23 22:51 Albumin 4.3 g/dL (3.5-5.2) 12/27/23 22:51 Globulin 2.0 g/dL (1.3-4.6) 12/27/23 22:51 Coronavirus (PCR) Negative (Negative) 12/27/23 23:00 Influenza A (PCR) Negative (Negative) 12/27/23 23:00 Influenza Type B (PCR) Negative (Negative) 12/27/23 23:00 RSV (PCR) Negative (Negative) 12/27/23 23:00 All radiology interpretation(s) finalized by discharge Discharge Plan Discharge Patient Disposition: Home Clinical Impression: Bronchitis COPD (chronic obstructive pulmonary disease) Qualifiers: COPD type: chronic bronchitis Chronic bronchitis type: unspecified Qualified Code(s): J42 - Unspecified chronic bronchitis Condition: Stable Prescriptions: New prednisone 50 mg tablet 50 mg PO DAILY 7 Days Qty: 7 0RF doxycycline hyclate 100 mg capsule 100 mg PO BID 10 Days Qty: 20 0RF No Action simvastatin [Zocor] 10 mg tablet 5 mg PO QPM latanoprost 0.005 % drops 1 drop ophthalmic (eye) QPM Rx Instructions: (both eyes) brimonidine 0.2 % drops 1 drop ophthalmic (eye) BID Rx Instructions: both eyes (DME) Altera Nebulizer System Misc See Rx Instructions .ROUTE .MEDSUPPLY Qty: 1 0RF Rx Instructions: As directed fluoride (sodium) 1.1 % paste 1 applic dental DAILY tamsulosin 0.4 mg capsule 0.4 mg PO QPM finasteride 5 mg tablet 5 mg PO DAILY urea 40 % cream 1 applic topical TID Qty: 198 4RF Breztri Aerosphere 160-9-4.8 mcg/actuation HFA aerosol inhaler 2 inh inhalation BID Qty: 10.7 0RF citalopram 40 mg Tablet 20 mg PO DAILY ropinirole 4 mg Tablet 4 mg PO BID cholecalciferol (vitamin D3) [Vitamin D3] 50 mcg (2,000 unit) Tablet 50 mcg PO DAILY tizanidine 4 mg Tablet 4 mg PO BID PRN (Reason: Muscle Spasm) albuterol sulfate 90 mcg/actuation Hfa Aerosol Inhaler 2 puff INHALATION Q4H PRN (Reason: asthma) Xarelto 10 mg Tablet 10 mg PO DAILY Rx Instructions: for 35 days magnesium oxide 400 mg magnesium Tablet 400 mg PO DAILY Potassium Citrate Sa 1 tab PO DAILY prednisone 50 mg tablet 50 mg PO DAILY Qty: 5 0RF Discharge Orders: Discharge ED (Routine); Ordered 12/28/23 Ordered By: Iban Alcala Referrals: Pilar Lake MD [Primary Care Provider] - Patient Instructions: COPD Coding Level of Care Code ED Correctional Casework Specialist for Chg Fwd Documented by User: Iban Alcala MD 12/28/23 02:42 HPI - SOB/Dyspnea General: Chief Complaint: Shortness of Breath/Dyspnea Stated Complaint: Sob Time Seen by Provider: 12/27/23 22:34 Related Data Home Medications Medication Instructions Recorded Confirmed brimonidine 0.2 % eye drops 1 drop ophthalmic (eye) BID 03/16/19 11/07/23 latanoprost 0.005 % eye drops 1 drop ophthalmic (eye) QPM 03/16/19 11/07/23 simvastatin 10 mg tablet (Zocor) 5 mg PO QPM 03/16/19 11/07/23 finasteride 5 mg tablet 5 mg PO DAILY 07/18/21 11/07/23 fluoride (sodium) 1.1 % dental 1 applic dental DAILY 07/18/21 11/07/23 paste tamsulosin 0.4 mg capsule 0.4 mg PO QPM 07/18/21 11/07/23 cholecalciferol (vitamin D3) 50 50 mcg PO DAILY 12/09/22 11/07/23 mcg (2,000 unit) tablet (Vitamin D3) citalopram 40 mg tablet 20 mg PO DAILY 12/09/22 11/07/23 ropinirole 4 mg tablet 4 mg PO BID 12/09/22 11/07/23 Potassium Citrate Sa 1 tab PO DAILY 11/07/23 11/07/23 albuterol sulfate 90 mcg/actuation 2 puff inhalation Q4H PRN asthma 11/07/23 11/07/23 aerosol inhaler magnesium oxide 400 mg PO DAILY 11/07/23 11/07/23 rivaroxaban 10 mg tablet (Xarelto) 10 mg PO DAILY 11/07/23 11/07/23 tizanidine 4 mg tablet 4 mg PO BID PRN Muscle Spasm 11/07/23 11/07/23 Previous Rx's Medication Instructions Recorded nebulizers (Solaicxa Nebulizer #1 ea 07/06/19 System) budesonide 160 mcg-glycopyr 9 2 inh inhalation BID #10.7 grams 04/25/21 mcg-formot 4.8 mcg/actuation HFA inhaler (Breztri Aerosphere) urea 40 % topical cream 1 applic topical TID #198 grams 10/17/23 prednisone 50 mg tablet 50 mg PO DAILY #5 tabs 11/07/23 doxycycline hyclate 100 mg capsule 100 mg PO BID 10 days #20 caps 12/28/23 prednisone 50 mg tablet 50 mg PO DAILY 7 days #7 tabs 12/28/23 Allergies Allergy/AdvReac Type Severity Reaction Status Date / Time No Known Allergies Allergy Verified 12/27/23 22:27 [facility] ED PFSH: Medical History Laceration of forearm, complicated Hoarseness PVC (premature ventricular contraction) CKD (chronic kidney disease) stage 3, GFR 30-59 ml/min Symptomatic bradycardia Bradycardia Near syncope Anxiety disorder, unspecified Basal cell carcinoma of skin, unspecified Hyperlipidemia, unspecified Major depressive disorder, recurrent, mild Pain in left shoulder Pain in unspecified hip Personal history of pulmonary embolism Vitamin deficiency, unspecified Dyspnea COPD (chronic obstructive pulmonary disease) Leg fracture, right Surgical History H/O rotator cuff surgery Family History Father CAD (coronary artery disease) Mother CAD (coronary artery disease) Sister Cancer Lymphoma Social History Smoking and tobacco/nicotine status: former use of tobacco/nicotine Quit status (tobacco/nicotine): has quit using Year quit tobacco: 1986 - 2PPD x 37 Years Second hand smoke exposure: No Alcohol intake: never Substance/Drug Use: never Lives independently: Yes Household members: spouse Marital status: service: Yes Current occupational status: retired Do you think of yourself as: Straight/Heterosexual Current gender identity: Male Course Vital Signs: Vital signs: Vital Signs Temperature 98.0 F 12/27/23 22:23 Pulse Rate 74 12/28/23 02:05 Respiratory Rate 17 12/28/23 02:05 Blood Pressure 126/56 12/28/23 02:05 Pulse Oximetry 91 12/28/23 02:05 Oxygen Delivery Me thod Room Air 12/28/23 01:35 MDM - SOB/Dyspnea Medical Decision Making Patient presents to the emergency department today for acute worsening of shortness of breath and cough over the last 3 days. Patient typically uses 3 L at night to sleep but, has been increasing it to 5. He states he is still not able to sleep as he cannot catch his breath when he lays back. He typically has a minimally productive cough but, notes an increase in his sputum which he reports is green and yellow in color. Patient did present with abdominal breathing but his O2 saturation was approximately 96 to 97% on room air. Patient was treated with 3 DuoNebs and IV Solu-Medrol. Patient had noticeable improvement in his effort of respiration. Cardiac evaluation was negative and patient's labs are unremarkable and at his typical baseline. Chest x-ray however indicates that there are some opacities in the bilateral lower lobes concerning for infection. Because of this we did start him on IV antibiotics. Discussed with the family that I would like to watch him a bit longer to see how he responds to his breathing treatments and steroids. At this time, transfer of care to Dr. Alcala at 0145 for continued monitoring of the patient's respirations and oxygen. I assumed care of this patient at shift change. Patient is feeling significantly better after the DuoNeb treatments. He has also received antibiotics and steroids. He is satting 91% on room air. He does have home oxygen that he can use as needed. Patient would like to go home and he is stable for discharge. I did prescribe doxycycline and prednisone. Recommended he follow-up with his primary care physician next week for recheck. Lab Data 12/27/23 22:51 12/27/23 22:51 Labs/Radiology: Radiology Impressions Chest X-Ray 12/27/23 22:37 IMPRESSION: Background of emphysema/COPD with increased opacities at the bilateral lower lobe concerning for aspiration or infection. Laboratory Results WBC 9.03 10^3/uL (3.29-11.43) 12/27/23 22:51 RBC 4.32 10^6/uL (3.85-5.65) 12/27/23 22:51 Hgb 13.70 g/dL (11.27-16.99) 12/27/23 22:51 Hct 41.9 % (37-53) 12/27/23 22:51 MCV 97.0 fl (82-101) 12/27/23 22:51 MCH 31.7 pg (27-33) 12/27/23 22:51 MCHC 32.7 g/dL (30-55) 12/27/23 22:51 RDW 13.0 % (12.1-15.1) 12/27/23 22:51 Plt Count 208 10^3/cmm (157-399) 12/27/23 22:51 MPV 9.5 fL (7.4-10.4) 12/27/23 22:51 Neut % (Auto) 63.6 % 12/27/23 22:51 Lymph % (Auto) 18.6 % 12/27/23 22:51 Isabella % (Auto) 10.3 % 12/27/23 22:51 Eos % (Auto) 6.8 % 12/27/23 22:51 Baso % (Auto) 0.4 % 12/27/23 22:51 Neut # (Auto) 5.74 10^3/uL (1.8-7.7) 12/27/23 22:51 Lymph # (Auto) 1.7 10^3/uL (0.8-4.8) 12/27/23 22:51 Isabella # (Auto) 0.9 10^3/uL (0.2-0.9) 12/27/23 22:51 Eos # (Auto) 0.6 10^3/uL (0.0-0.8) 12/27/23 22:51 Baso # (Auto) 0.0 10^3/uL (0.0-0.1) 12/27/23 22:51 Nucleated RBC % (auto) 0 % 12/27/23 22:51 Nucleated RBCs # 0.0 /100WBC 12/27/23 22:51 Sodium 136 mmol/L (136-145) 12/27/23 22:51 Potassium 4.5 mmol/L (3.5-5.1) 12/27/23 22:51 Chloride 100 mmol/L (98-107) 12/27/23 22:51 Carbon Dioxide 23 mmol/L (22-29) 12/27/23 22:51 Anion Gap 17.5 (5-19) 12/27/23 22:51 BUN 30 mg/dL (8-23) H 12/27/23 22:51 Creatinine 1.6 mg/dL (0.7-1.2) H 12/27/23 22:51 GFR Calculation Not Reportable 12/27/23 22:51 Glucose 100 mg/dL (65-115) 12/27/23 22:51 Calculated Osmolality 288 mOsm/kg (285-295) 12/27/23 22:51 Calcium 8.8 mg/dL (8.5-10.5) 12/27/23 22:51 Total Bilirubin 0.5 mg/dL (0.15-1.2) 12/27/23 22:51 AST 22 U/L (0-40) 12/27/23 22:51 ALT 18 U/L (0-41) 12/27/23 22:51 Alkaline Phosphatase 57 U/L (40-130) 12/27/23 22:51 Troponin T Baseline 22 ng/L (0-15) H 12/27/23 22:51 Troponin T 120 Minute 20.97 ng/L (0-15) H 12/28/23 00:47 Delta Troponin T -1.03 ABS# (0-10) L 12/28/23 00:47 NT-Pro-B Natriuret Pep 290 pg/mL (0-450) 12/27/23 22:51 Total Protein 6.3 g/dL (6.6-8.7) L 12/27/23 22:51 Albumin 4.3 g/dL (3.5-5.2) 12/27/23 22:51 Globulin 2.0 g/dL (1.3-4.6) 12/27/23 22:51 Coronavirus (PCR) Negative (Negative) 12/27/23 23:00 Influenza A (PCR) Negative (Negative) 12/27/23 23:00 Influenza Type B (PCR) Negative (Negative) 12/27/23 23:00 RSV (PCR) Negative (Negative) 12/27/23 23:00 Discharge Plan Discharge Patient Disposition: Home Clinical Impression: Bronchitis COPD (chronic obstructive pulmonary disease) Qualifiers: COPD type: chronic bronchitis Chronic bronchitis type: unspecified Qualified Code(s): J42 - Unspecified chronic bronchitis Condition: Stable Prescriptions: New prednisone 50 mg tablet 50 mg PO DAILY 7 Days Qty: 7 0RF doxycycline hyclate 100 mg capsule 100 mg PO BID 10 Days Qty: 20 0RF No Action simvastatin [Zocor] 10 mg tablet 5 mg PO QPM latanoprost 0.005 % drops 1 drop ophthalmic (eye) QPM Rx Instructions: (both eyes) brimonidine 0.2 % drops 1 drop ophthalmic (eye) BID Rx Instructions: both eyes (DME) Altera Nebulizer System Misc See Rx Instructions .ROUTE .MEDSUPPLY Qty: 1 0RF Rx Instructions: As directed fluoride (sodium) 1.1 % paste 1 applic dental DAILY tamsulosin 0.4 mg capsule 0.4 mg PO QPM finasteride 5 mg tablet 5 mg PO DAILY urea 40 % cream 1 applic topical TID Qty: 198 4RF Breztri Aerosphere 160-9-4.8 mcg/actuation HFA aerosol inhaler 2 inh inhalation BID Qty: 10.7 0RF citalopram 40 mg Tablet 20 mg PO DAILY ropinirole 4 mg Tablet 4 mg PO BID cholecalciferol (vitamin D3) [Vitamin D3] 50 mcg (2,000 unit) Tablet 50 mcg PO DAILY tizanidine 4 mg Tablet 4 mg PO BID PRN (Reason: Muscle Spasm) albuterol sulfate 90 mcg/actuation Hfa Aerosol Inhaler 2 puff INHALATION Q4H PRN (Reason: asthma) Xarelto 10 mg Tablet 10 mg PO DAILY Rx Instructions: for 35 days magnesium oxide 400 mg magnesium Tablet 400 mg PO DAILY Potassium Citrate Sa 1 tab PO DAILY prednisone 50 mg tablet 50 mg PO DAILY Qty: 5 0RF Discharge Orders: Discharge ED (Routine); Ordered 12/28/23 Ordered By: Iban Alcala Referrals: Pilar Lake MD [Primary Care Provider] - Patient Instructions: COPD Coding Level of Care Code ED Correctional Casework Specialist for Cheyenne Brambila
[2023-12-27] MEDS: methylPREDNISolone sod succ 125 mg/2 mL INJ IVP (23:27)
[2023-12-27 23:32] LABS: Alanine Aminotransferase 18 U/L (0-41); Albumin Level 4.3 g/dL (3.5-5.2); Alkaline Phosphatase 57 U/L (40-130); Anion Gap 17.5 (5-19); Aspartate Amino Transferase 22 U/L (0-40); Blood Urea Nitrogen 30 mg/dL (8-23); Calcium 8.8 mg/dL (8.5-10.5); Carbon Dioxide 23 mmol/L (22-29); Chloride 100 mmol/L (98-107); Glucose 100 mg/dL (65-115); NT Pro B Type Natriuretic Pept 290 pg/mL (0-450); Osmolality Calculated 288 mOsm/kg (285-295); Potassium 4.5 mmol/L (3.5-5.1); Sodium 136 mmol/L (136-145); Total Bilirubin 0.5 mg/dL (0.15-1.2); Total Protein 6.3 g/dL (6.6-8.7)
[2023-12-27 23:36] LABS: Creatinine Clr Calc Pharmacy 36.2111
[2023-12-27 23:44] VITALS: BP 136/72; PULSE 68; RESP 28; O2SAT 95
[2023-12-27 23:45] VITALS: BP 136/72; PULSE 64; RESP 22; O2SAT 95
[2023-12-27 23:50] VITALS: BP 136/72; PULSE 65; RESP 19; O2SAT 96
[2023-12-27 23:55] VITALS: BP 136/72; PULSE 61; RESP 20; O2SAT 95
[2023-12-28] VITALS (35 sets, daily range): BP systolic 110–140; BP diastolic 47–79; PULSE 63–81; RESP 14–29; O2SAT 91–99
[2023-12-28 00:01] LABS: Covid PCR NEGATIVE (Negative); Influenza A NEGATIVE (Negative); Influenza B NEGATIVE (Negative); Respiratory Syncytial Virus Ce NEGATIVE (Negative)
[2023-12-28] MEDS: ipratropium-albuterol 3 mL Neb INHALATION ×3 (00:33→01:34)
[2023-12-28 01:09] LABS: Troponin 5 2HR 20.97 ng/L (0-15); Troponin 5 2HR Delta -1.03 ABS# (0-10)
[2023-12-28] MEDS: cefTRIAXone 1,000 mg SDV 1000 MG IVP (01:35)
== END 2023-12-28 02:54 | disposition home or self-care (01) ==
PROVIDERS: Emergency Provider Physician Assistant; PCP Family Medicine
DX: J42 Unspecified chronic bronchitis (principal); Z87.891 Personal history of nicotine dependence; N18.30 Chronic kidney disease, stage 3 unspecified; E78.5 Hyperlipidemia, unspecified; Z11.52 Encounter for screening for COVID-19
CPT/HCPCS: 0241U; 36415; 71045; 80053; 83880; 84484; 85025; 93005; 94640; 96374; 96375; 99285; J0696; J2919

== ENCOUNTER → 2024-06-09 08:29 | Outpatient (BNVA) | payer OTHER, SELFPAY | PROVIDERS: PCP Family Medicine; Visit Provider Internal Medicine Cardiovascular Disease | DX: R42 Dizziness and giddiness (principal); I49.1 Atrial premature depolarization; I47.20 Ventricular tachycardia, unspecified; I47.10 Supraventricular tachycardia, unspecified; R00.1 Bradycardia, unspecified | CPT/HCPCS: 93242 ==

== ENCOUNTER 2024-06-19 07:00 | Outpatient (CLI) | payer OTHER, SELFPAY ==
--- NOTE | 2024-06-19 07:04 | USCV_ITS ---
Rm Batista Age: 83 Gender: M : 1940 Exam Date: 06/19/2024 07:46 Ordering Phys: Pilar Lake MD Technologist: Raad Gordon Exam Location: [facility] [place] Indication: bradycardia BP: 88 / 58 HR: 45 Rhythm: Sinus Technical Quality: Adequate MEASUREMENTS (Male / Female) Normal Values 2D ECHO LV Diastolic Diameter PLAX 4.2 cm 4.2 - 5.9 / 3.9 - 5.3 cm IVS Diastolic Thickness 1.1 cm 0.6 - 1.0 / 0.6 - 0.9 cm IVS Systolic Thickness 1.3 cm LVPW Diastolic Thickness 1.4 cm 0.6 - 1.0 / 0.6 - 0.9 cm LVPW Systolic Thickness 2.0 cm LVOT Diameter 2.0 cm LV Ejection Fraction 2D Teich 66.8 % LV Ejection Fraction MOD 4C 65.3 % LV Ejection Fraction MOD 2C 69.6 % LV Ejection Fraction 2C AL 69.0 % LA Diameter 3.0 cm RA Systolic Volume 4C AL 30.6 ml RA Systolic Volume 4C MOD 30.0 ml LA Sys Volume AL 44.2 cm cubed LA Sys Volume Index AL 23.0 cm cubed/m squared Aorta at Sinotubular Diameter 2.6 cm IVC Diameter 1.9 cm M-MODE LA Ao Ratio MM 1.1 AV Cusp Separation MM 1.9 cm DOPPLER AV Peak Velocity 110.3 cm/s LVOT Peak Velocity 89.0 cm/s AV Area Cont Eq vti 2.2 cm squared AV Area Cont Eq pk 2.5 cm squared MV Peak Velocity 59.0 cm/s MV Area PHT 3.3 cm squared Mitral E to A Ratio 0.9 TV Peak Velocity 221.0 cm/s TR Peak Velocity 231.0 cm/s TR Peak Gradient 21.3 mmHg TR Mean Velocity 183.0 cm/s TR Mean Gradient 14.2 mmHg TR Velocity Time Integral 85.2 cm PV Peak Velocity 76.0 cm/s RV Ejection Time 0.3 s FINDINGS Left Ventricle Left ventricle is normal in size. LV systolic function is normal with EF of 60-65%. No regional wall motion abnormalities are seen. Right Ventricle Normal in size and function Right Atrium Normal in size Left Atrium Normal in size Mitral Valve Structurally normal mitral valve. Mild mitral regurgitation. Aortic Valve Aortic valve is thickened. No significant stenosis. Mild aortic regurgitation. Tricuspid Valve Mild tricuspid regurgitation. Pulmonary artery systolic pressure is normal Pulmonic Valve Mild pulmonic regurgitation. Pericardium Normal Aorta Normal in size IVC Apppears to be normal CONCLUSIONS LV systolic function is normal with EF of 60 to 65%. Mild mitral regurgitation. Mild aortic regurgitation. Mild tricuspid regurgitation Mild pulmonic regurgitation Compared to prior echocardiogram from 2021, no significant changes are seen. Vimal Wright MD (Electronically Signed) Final Date: 29 June 2024 10:51 S
== END 2024-06-19 07:01 | disposition home or self-care (01) ==
PROVIDERS: PCP Family Medicine; Visit Provider Family Medicine
DX: R00.1 Bradycardia, unspecified (principal); R42 Dizziness and giddiness; I34.0 Nonrheumatic mitral (valve) insufficiency; I35.8 Other nonrheumatic aortic valve disorders; I35.1 Nonrheumatic aortic (valve) insufficiency; I07.1 Rheumatic tricuspid insufficiency; I37.1 Nonrheumatic pulmonary valve insufficiency
CPT/HCPCS: 93306

== ENCOUNTER → 2024-07-28 14:58 | Outpatient (BNVA) | payer OTHER, SELFPAY | PROVIDERS: PCP Family Medicine; Visit Provider Internal Medicine | DX: R00.1 Bradycardia, unspecified (principal); I49.3 Ventricular premature depolarization; Z79.01 Long term (current) use of anticoagulants; Z86.711 Personal history of pulmonary embolism; Z86.718 Personal history of other venous thrombosis and embolism; Z87.891 Personal history of nicotine dependence; R07.9 Chest pain, unspecified; R06.02 Shortness of breath | CPT/HCPCS: 93005; 99204 ==

== ENCOUNTER 2024-08-13 07:15 | Outpatient (CLI) | payer OTHER, SELFPAY ==
--- NOTE | 2024-08-13 | ECG_ITS ---
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 Interpretive Statements EXERCISE STRESS TEST EXERCISE DATA: The patient was exercised by Jarad protocol. Baseline heart rate was 51 beats per minute. Baseline blood pressure was 134/82 millimeters of mercury. Maximal predicted heart rate was 138 beats per minute. Maximum heart rate achieved was 94 which was 68% of the maximum predicted heart rate. Maximum blood pressure was 160/69 millimeters of mercury. Total exercise time was 3 minutes. Maximum METs achieved was 4.6. The reason for ending the test was symptoms including shortness of breath. The patient complained of shortness of breath during the stress test, which then resolved at the end of the test. ELECTROCARDIOGRAM: BASELINE: Showed sinus bradycardia, incomplete right bundle branch block, no significant ST-T changes at the baseline noted. [] EXERCISE: At the peak exercise level, [] No significant ST-T changes suggestive of ischemia noted. [] RECOVERY: During the recovery period, heart rate dropped appropriately. No significant ST-T changes in the recovery suggestive of ischemia noted. [] CONCLUSION: 1. Exercise capacity is poor 2. Heart rate response was suboptimal 3. Blood pressure response was appropriate 4. Symptoms not suggestive of ischemia. 5. Stress test is indeterminate to rule out ischemia as patient could not reach target heart rate Electronically Signed On 08-21-2024 15:53:54 CDT by Vimal Wright M.D. [email or web address]
[2024-08-13 07:43] VITALS: BMI 22.6
[2024-08-13 09:40] VITALS: BP 133/70; PULSE 52
--- NOTE | 2024-08-13 09:42 | PC.NURSE ---
Pre stress test Pre exercise mibi heart rate 39-42 sinus tucker with incomplete RBBB. BP 134/82. Patient describes symptoms at home as lightheaded, dizziness and short of breath with exertion. Does not report these symptoms at time of test. Dr. Wright notified of patient history of symptoms and bradycardia. Verbal orders received to proceed with treadmill testing and assess for chronotropic incompetence. Received telephone orders to cancel test if patient unable to complete test due to symptoms. Unable to switch to Lexiscan due to bradycardia.
--- NOTE | 2024-08-13 09:46 | PC.NURSE ---
Stress test Ambulated patient on treadmill 2 min 30 seconds before having to stop to dyspnea and dizziness. Denies chest pain. Patient used rescue inhaler and applied his home oxygen 2L [place]. Max heart rate of 94 achieved. Assisted to bed and oxygen 95%, patient in tripod position . After 7 minutes patient recovered from exertional dyspnea. Layla dizziness, chest pain. Dr. Wright notified of results and received orders for patient to follow up with Dr. Wright in clinic within the month. Patient updated on plan . Heart care services notified of appointment needed. Patient discharged home in stable condition. HR 52 BP 133/70 and oxygen 95% on room air.
== END 2024-08-13 07:16 | disposition home or self-care (01) ==
PROVIDERS: PCP Family Medicine; Visit Provider Internal Medicine
DX: R07.9 Chest pain, unspecified (principal)
CPT/HCPCS: 36415; 93015

== ENCOUNTER → 2024-09-14 12:25 | Outpatient (BNVA) | payer OTHER, SELFPAY | PROVIDERS: PCP Family Medicine; Visit Provider Internal Medicine | DX: R00.1 Bradycardia, unspecified (principal); I49.3 Ventricular premature depolarization; Z86.711 Personal history of pulmonary embolism; Z79.01 Long term (current) use of anticoagulants; Z87.891 Personal history of nicotine dependence | CPT/HCPCS: 99214 ==

== ENCOUNTER 2024-09-25 11:58 | Emergency (ER) | payer OTHER, MEDICARE, SELFPAY ==
[2024-09-25] VITALS (9 sets, daily range): BP systolic 120–133; BP diastolic 68–85; PULSE 55–78; RESP 16–31; TEMP 36.4; O2SAT 92–98
--- OUTSIDE RECORDS SUMMARY | 2024-09-25 12:07 | XMS_ITS | Encounter Summary ---
Author Organization [facility] Address [address] [place] [address] Care Team Providers Care Estate Planner Name Role Phone Ramesh Aguilera MD Primary Care Provider [phone] Encounter Details Date Type Department Care Team (Latest Contact Info) Description 02/18/2006 Outpatient Historical [facility] Orthopedics- 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
--- OUTSIDE RECORDS SUMMARY | 2024-09-25 12:07 | XMS_ITS | Encounter Summary ---
Author Organization [facility] Address [address] [place] [address] Care Team Providers Care Solder Making Supervisor Name Role Phone Ramesh Aguilera MD Primary Care Provider [phone] Encounter Details Date Type Department Care Team (Latest Contact Info) Description 08/06/2006 Outpatient Historical [facility] Orthopedics- 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
--- OUTSIDE RECORDS SUMMARY | 2024-09-25 12:07 | XMS_ITS | Encounter Summary ---
Author Organization [facility] Address [address] [place] [address] Care Team Providers Care Workers Compensation Claims Supervisor Name Role Phone Ramesh Aguilera MD Primary Care Provider [phone] Encounter Details Date Type Department Care Team (Latest Contact Info) Description 12/13/2006 Outpatient Historical [facility] [address] [place] [phone] Elgin Lo MD NO ADDRESS ON FILE Pre-Operative Cardiovascular Examination (Primary Dx) Social History Tobacco Use Types Packs/Day Years Used Date Smoking Tobacco: Never Assessed Sex and Gender Information Value Date Recorded Sex Assigned at Not on file 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 Gender Identity Not on file Sexual Orientation Not on file documented as of this encounter Plan of Treatment Not on file documented as of this encounter Procedures Procedure Name Priority Date/Time Associated Diagnosis Comments CBC WITHOUT DIFFERENTIAL Routine 12/13/2006 10:38 AM CDT documented in this encounter Results * CBC WITHOUT DIFFERENTIAL (12/13/2006 10:38 AM CDT) WBC 6.6 4.8 - 10.8 K/ul INTERFACE SYSTEM RBC 5.09 4.60 - 6.20 Mil/ul INTERFACE SYSTEM HEMOGLOBIN 15.6 14.0 - 18.0 g/dL INTERFACE SYSTEM HEMATOCRIT 44.8 41.0 - 53.0 % INTERFACE SYSTEM MCV 88.0 84.0 - 103.0 Fl INTERFACE SYSTEM MCH 30.6 27.0 - 34.0 pg INTERFACE SYSTEM MCHC 34.8 30.0 - 35.0 g/dL INTERFACE SYSTEM RDW 13.2 11.0 - 14.5 % INTERFACE SYSTEM PLATELETS 186 140 - 440 K/ul INTERFACE SYSTEM MPV 10.3 8.9 - 12.8 Fl INTERFACE SYSTEM NEUTROPHILS 60.0 42.2 - 75.2 % INTERFACE SYSTEM LYMPHOCYTES 31.4 24.0 - 44.0 % INTERFACE SYSTEM MONOCYTES 6.7 2.0 - 10.0 % INTERFACE SYSTEM EOSINOPHILS 1.4 0.0 - 7.0 % INTERFACE SYSTEM BASOPHILS 0.5 0.0 - 1.0 % INTERFACE SYSTEM NEUTROPHIL ABSOLUTE 4.0 2.0 - 8.0 K/ul INTERFACE SYSTEM LYMPHOCYTE ABSOLUTE 2.1 1.2 - 4.0 K/ul INTERFACE SYSTEM MONOCYTE ABSOLUTE 0.4 0.1 - 0.6 K/ul INTERFACE SYSTEM EOSINOPHIL ABSOLUTE 0.1 0.0 - 0.7 K/ul INTERFACE SYSTEM BASOPHILS ABSOLUTE 0.0 0.0 - 0.2 K/ul INTERFACE SYSTEM 12/13/2006 10:3 8 AM CDT us Elgin Lo MD HEMATOLOGY ORDERABLES Edited INTERFACE SYSTEM Refer to clinic/hospital department documented in this encounter Visit Diagnoses Diagnosis Pre-operative cardiovascular examination- Primary documented in this encounter Care Teams Workers Compensation Claims Supervisor Relationship Specialty Start Date End Date Ramesh Aguilera MD [address] [facility] [address] [place] [phone] PCP - General 10/11/05 documented as of this encounter
--- OUTSIDE RECORDS SUMMARY | 2024-09-25 12:07 | XMS_ITS | Encounter Summary ---
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
--- OUTSIDE RECORDS SUMMARY | 2024-09-25 12:07 | XMS_ITS | Encounter Summary ---
Author Organization [facility] Address [address] [place] [address] Care Team Providers Care Intake Nurse Name Role Phone Ramesh Aguilera MD Primary Care Provider [phone] Encounter Details Date Type Department Care Team (Late st Contact Info) Description 05/06/2007 Outpatient Historical [facility] Orthopedics- 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 Rm Batista is having no pain. 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 He indicates a couple of weeks ago he had a brief twinge of pain, but that is all gone. He gets a little soreness over the medial aspect of the screw heads of the distal tibia. X-RAYS: AP and lateral x-rays of the right tibia taken in the clinic today shows the fracture to besolidly united. PLAN: I have advised the patient that overall I am very happy with his appearance, but also advisedhim that we cannot be 100 percent certain that there is true bone on bone healing. We have therefore set him up for another appointment to see us in three months. If he is having any pain whatsoever he should continue the appointment. If he goes through that time period and is having no pain at allhe can call and cancel the appointment and save him the drive all of the way to [place]. Elgin Lo M.D. [facility] Electronically Signed by Elgin Lo M.D. 05/09/2007 08:44 , P, 136 Job #: Document #: [id number] cc: NER MACHINE documented in this encounter Procedure Notes * Elgin Lo - 05/06/2007 12:00 AM CSTAssociated Order(s): IMAGING REPORT Date: 05/06/2007 Patient Name: Rm Batista : 1940 Requesting Physician: Elgin Lo M.D. X-RAYS: AP and lateral x-rays of the right tibia taken in the clinic today shows the fracture to besolidly united. Elgin Lo M.D. [facility] Electronically Signed by Elgin Lo M.D. 05/09/2007 08:44 , P 136 Job #: Document #: [id number] cc: (Not official until signed) NER MACHINE documented in this encounter Plan of Treatment Not on file documented as of this encounter Procedures Procedure Name Priority Date/Time Associated Diagnosis Comments IMAGING REPORT 05/09/2007 8:44 AM GRAINER MACHINE documented in this encounter Results * IMAGING REPORT (05/09/2007 8:44 AM GRAINER MACHINE) Narrative Transcriptions Elgin Lo - 05/06/2007 12:00 AM CST Date: 05/06/2007 Patient Name: Rm Batista : 1940 Requesting Physician: Elgin Lo M.D. X-RAYS: AP and lateral x-rays of the right tibia taken in the clinictoday shows the fracture to be solidly united. Elgin Lo M.D. [facility] Electronically Signed by Elgin Lo M.D. 05/09/2007 08:44 , P 136 Job #: Document #: [id number] cc: (Not official until signed) Elgin Lo MD DIAGNOSTIC IMAGING ORDERABLES Final Result documented in this encounter Visit Diagnoses Not on filedocumented in this encounter Care Teams Intake Nurse Relationship Specialty Start Date End Date Ramesh Aguilera MD [address] [facility] [address] [place] [phone] PCP - General 10/11/05 documented as of this encounter
--- OUTSIDE RECORDS SUMMARY | 2024-09-25 12:07 | XMS_ITS | Clinical Summary ---
Author Organization [facility] Address [address] 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 Gender Identity Not on file Sexual Orientation Not on file Plan of Treatment Health Maintenance Due Date Last Done Comments DTAP/TDAP/TD VACCINES (1 - Tdap) 1959 Traditional Medicare (ACO) Annual Wellness Visit 10/10 PNEUMOCOCCAL VACCINE 50+ YEARS (1 of 1 - PCV) 10/10/18 92 ZOSTER VACCINE (1 of 2) 10/11/1991 RSV VACCINE (60+ or ) (1 - 1-dose 75+ series) 2016 INFLUENZA VACCINE (#1) [address] [place] [address] MEDICARE PART A AND B [place] Care Teams Hardware Manager Relationship Specialty Start Date End Date Ramesh Aguilera MD [address] [facility] [address] [place] [address] PCP - General 10/11/05
--- OUTSIDE RECORDS SUMMARY | 2024-09-25 12:07 | XMS_ITS | Encounter Summary ---
Author Organization [facility] Address [address] [place] [address] Care Team Providers Care Welding Machine Operator Plasma Arc Name Role Phone Ramesh Aguilera MD Primary Care Provider [phone] Encounter Details Date Type Department Care Team (Latest Contact Info) Description 06/25/2006 Outpatient Historical [facility] Orthopedics- 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
--- OUTSIDE RECORDS SUMMARY | 2024-09-25 12:07 | XMS_ITS | Data Portability ---
Author Organization [place] [facility] [place] Address [address] [place] [address] Assessment Encounter Date Assessment Date Assessment LastModified by Organization Details LastModified Time 01/02/2024 01/02/2024 83-year-old male. malfaqih Not available 01/02/2024 15:43:38 Plan of Treatment Reminders Order Date Submit Date Provider Last Modified By Organization Details Last Modified Time Details Appointments None record ed. Lab None record ed. Referral None record ed. Procedures None record ed. Surgeries None record ed. Imaging None record ed. Medication Orders None record ed. Patient TargetsNo targets recorded. Patient Instructions Encounter Date Encounter Id Patient Instructions Last Modified By Organization Details Last Modified Time 01/02/2024 [id number] chronic obstructive pulmonary disease (COPD): care instructions [facility] Not available 01/02/2024 15:44:48 learning about copd and how to prevent lung infections malfaqi Not available 01/02/2024 15:44:48 Reason for Referral None Reported. Problems No Known Problems Medical Equipment None Reported. Allergies No known drug allergies Medications Name Sig Start Date Stop Date Status Note LastModified by Organization Details LastModified Time doxycycline hyclate 100 mg capsule take 1 capsule BY MOUTH TWICE DAILY FOR 10 DAYS active Not Available Not Available No t Available ketoconazole 2 % shampoo apply TO DRY SCALP AND let sit FOR 15-30 MINUTES; THEN RINSE; USE 1-3 times PER WEEK active Not Available Not Available No t Available triamcinolon e acetonide 0.1 % topical cream APPLY TO THE AFFECTED AREA(S) topically TWICE DAILY TO itchy TO RASH NEEDED active Not Available Not Available No t Available cephalexin 500 mg capsule TAKE 1 CAPLET THREE TIMES DAILY FOR 10 DAYS active Not Available Not Available No t Available prednisone 50 mg tablet TAKE 1 TABLET BY MOUTH EVERY DAY FOR SEVEN DAYS active Not Available Not Available N ot Available methylpredni solone 4 mg tablets in a dose pack TAKE BY MOUTH DIRECTED ON INSIDE OF PACKAGE active Not Available Not Available No t Available doxycycline hyclate 100 mg tablet TAKE ONE TABLET BY MOUTH TWICE DAILY DIRECTED FOR 10 DAYS active Not Available Not Available Not Available Ventolin HFA 90 mcg/actuatio n aerosol inhaler Inhale 2 puffs every 4 hours by inhalation route as needed for 30 days. 2023 active Not Available Not Available Not Avai lable albuterol 90 mcg-budesoni de 80 mcg/actuatio n HFA aerosol inhaler Inhale by inhalation route. active Not Available Not Available No t Available Vitals Date Recorded Body height Body mass index (BMI) Body weight Heart rate Oxygen saturation Oxygen saturation in Arterial blood by Pulse oximetry Systolic And Diastolic Provider Name and Address Organization Details Last Updated DateTime 4 177.8 cm 23.4 kg/m2 73129.5 6 g 63 /min 97 % 97 % 96/54 mm[Hg] Jorge Giron LPN [place] [facility] [place] 4 14:54:48 Social History None recorded. Functional Status None recorded. Mental Status None recorded. Family History Nothing Reported. Medical History No medical history recorded. Past Encounters Encounter ID Performer Location Encounter Start Date Encounter Closed Date Diagnosis/Indication Diagnosis SNOMED-CT Code Diagnosis ICD10 Code Diagnosis Note [id number] Scott Silverman MD [facility] [place] [address] [place] [address] 01/02/2024 14:19:21 01/02/2024 15:45:20 Chronic obstructive pulmonary disease 47755198 J44.9 Patient has shortness of breath on exertion, shortness of breath is currently at baseline. He has frequent COPD exacerbati ons. He does improve on antibiotic s with doxycyclin e and prednisone . If the patient continues to have frequent COPD exacerbati ons, I discussed with him starting him on azithromyc in 3 times a week, today he said that he wants to hold off on starting on azithromyc in. At this time I will continue Trelegy and albuterol. PFT will be ordered. Will order chest x-ray prior to next appointmen t. The plan is: 1. Ventolin inhaler 2 puffs every 4 hours as needed for shortness of breath. 2. Trelegy inhaler 1 puff daily. Patient told to rinse mouth after use. 3. PFT. 4. Chest x-ray. 5. Follow-up in 6 to 8 weeks, earlier if needed. Patient told to go to the emergency room if symptoms worsen. Health Concerns Section Related Observation LastModified by Organization Detai ls LastModified Time None Recorded Concern Status LastModified by Organization Details LastModified Time None Recorded Advance Directives Directive None Recorded Payers Insurance Date Sequence Insurance Name Policy Number Policy Rodrigues Covered Member ID Rodrigues Member ID Guarantor Name 03/07/[address] [facility] ([facility] Rm Batista [id number] Rm Kirby Grejosesito Notes Date Note Type Note Provider Name and Address Organization Details Recorded Time 01/02/2024 text/html 83-year-old male patient with a past medical history significant for COPD who presents for evaluation of shortness of breath. The patient mentioned that for the past 2 years, every few months he has symptoms of shortness of breath that is worse than his baseline, along with cough and sputum production. His symptoms improved with antibiotics and steroids. The last time he required antibiotics and steroids was #2023, he required doxycycline and prednisone which improved his symptoms. He does have shortness of breath on exertion at baseline. He has shortness of breath if he walks uphill or goes up a flight of stairs. The patient currently denies any cough, sputum production, fever, chills, rigors, night sweats, or hemoptysis. Patient is on albuterol inhaler as needed, and Trelegy inhaler daily. The patient quit smoking 1984, he smoked for a total of 25 years, 2 packs/day. 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 Scott Silverman MD [address] [facility], [place], [address], [facility] [place] 01/02/2024 15:44:51
--- OUTSIDE RECORDS SUMMARY | 2024-09-25 12:07 | XMS_ITS | Encounter Summary ---
Author Organization [facility] Address [address] [place] [address] Care Team Providers Care Platform Operations Director Name Role Phone Ramesh Aguilera MD Primary Care Provider [phone] Encounter Details Date Type Department Care Team (Latest Contact Info) Description 01/22/2006 Outpatient Historical [facility] Orthopedics- 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
--- OUTSIDE RECORDS SUMMARY | 2024-09-25 12:07 | XMS_ITS | Encounter Summary ---
Author Organization [facility] Address [address] [place] [address] Care Team Providers Care Slot Machine Key Person Name Role Phone Ramesh Aguilera MD Primary Care Provider [phone] Encounter Details Date Type Department Care Team (Late st Contact Info) Description 10/11/2005 Inpatient Historical [facility] IN BED Elgin Lo MD NO ADDRESS ON FILE Closed Fracture of Shaft of Fibula with Tibia (Primary Dx) Social History Tobacco Use Types Packs/Day Years Used Date Smoking Tobacco: Never Assessed Sex and Gender Information Value Date Recorded Sex Assigned at Not on file 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 Gender Identity Not on file Sexual Orientation Not on file documented as of this encounter Plan of Treatment Not on file documented as of this encounter Procedures Procedure Name Priority Date/Time Associated Diagnosis Comments CBC WITHOUT DIFFERENTIAL Routine 10/13/2005 6:54 AM CDT BASIC METABOLIC PANEL Routine 10/13/2005 6:54 AM CDT POC GLUCOSE Routine 10/12/2005 11:38 PM CDT POC GLUCOSE Routine 10/12/2005 5:24 PM CDT BASIC METABOLIC PANEL Routine 10/11/2005 9:07 PM CDT CBC WITH DIFFERENTIAL Routine 10/11/2005 9:06 PM CDT PT AND APTT Routine 10/11/2005 9:01 PM CDT XR TIBIA AND FIBULA 2 VW RIGHT Routine 10/11/2005 8:42 PM CDT documented in this encounter Results * (ABNORMAL) CBC WITHOUT DIFFERENTIAL (10/13/2005 6:54 AM CDT) WBC 8.9 4.8 - 10.8 K/ul INTERFACE SYSTEM RBC 4.01(L) 4.60 - 6.20 Mil/ul INTERFACE SYSTEM HEMOGLOBIN 12.5(L) 14.0 - 18.0 g/dL INTERFACE SYSTEM HEMATOCRIT 37.4(L) 41.0 - 53.0 % INTERFACE SYSTEM MCV 93.3 84.0 - 103.0 Fl INTERFACE SYSTEM MCH 31.2 27.0 - 34.0 pg INTERFACE SYSTEM MCHC 33.4 30.0 - 35.0 g/dL INTERFACE SYSTEM RDW 13.5 11.0 - 14.5 % INTERFACE SYSTEM PLATELETS 167 140 - 440 K/ul INTERFACE SYSTEM MPV 10.6 8.9 - 12.8 Fl INTERFACE SYSTEM NEUTROPHILS 65.8 42.2 - 75.2 % INTERFACE SYSTEM LYMPHOCYTES 21.9(L) 24.0 - 44.0 % INTERFACE SYSTEM MONOCYTES 10.9(H) 2.0 - 10.0 % INTERFACE SYSTEM EOSINOPHILS 1.2 0.0 - 7.0 % INTERFACE SYSTEM BASOPHILS 0.2 0.0 - 1.0 % INTERFACE SYSTEM NEUTROPHIL ABSOLUTE 5.8 2.0 - 8.0 K/uL INTERFACE SYSTEM LYMPHOCYTE ABSOLUTE 1.9 1.2 - 4.0 K/ul INTERFACE SYSTEM MONOCYTE ABSOLUTE 1.0(H) 0.1 - 0.6 K/ul INTERFACE SYSTEM EOSINOPHIL ABSOLUTE 0.1 0.0 - 0.7 K/ul INTERFACE SYSTEM BASOPHILS ABSOLUTE 0.0 0.0 - 0.2 K/ul INTERFACE SYSTEM 10/13/2005 6:54 AM CDT us Elgin Lo MD HEMATOLOGY ORDERABLES Final R esult INTERFACE SYSTEM Refer to clinic/hospital department * (ABNORMAL) BASIC METABOLIC PANEL (10/13/2005 6:54 AM CDT) GLUCOSE 106 70 - 110 mg/dL INTERFACE SYSTEM BUN 15 9 - 20 mg/dL INTERFACE SYSTEM CREATININE 1.3 0.7 - 1.5 mg/dL INTERFACE SYSTEM SODIUM 144 136 - 145 mEq/L INTERFACE SYSTEM POTASSIUM 3.8 3.5 - 5.0 mEq/L INTERFACE SYSTEM CHLORIDE 107 95 - 110 mEq/L INTERFACE SYSTEM CO2 28 22 - 32 mmol/l INTERFACE SYSTEM ANION GAP 13 9 - 20 mEq/L INTERFACE SYSTEM OSMOLALITY, CALCULATED 296(H) 275 - 295 mOsm/Kg INTERFACE SYSTEM CALCIUM 8.1(L) 8.4 - 10.5 mg/dL INTERFACE SYSTEM 10/13/2005 6:54 AM CDT Elgin Lo MD CHEMISTRY ORDERABLES Final Re sult Performing Organization Address [facility] Phone Number INTERFACE SYSTEM Refer to clinic/hospital department * (ABNORMAL) POC GLUCOSE (10/12/2005 11:38 PM CDT) GLUCOSE POC 103(H) 60 - 100 mg/dL INTERFACE SYSTEM 10/12/2005 11:3 8 PM CDT Elgin Lo MD POINT OF CARE TESTING Final R esult Performing Organization Address [facility] de Phone Number INTERFACE SYSTEM Refer to clinic/hospital department * (ABNORMAL) POC GLUCOSE (10/12/2005 5:24 PM CDT) GLUCOSE POC 121(H) 60 - 100 mg/dL INTERFACE SYSTEM 10/12/2005 5:24 PM CDT us Elgin Lo MD POINT OF CARE TESTING Final R esult Performing Organization Address [facility] de Phone Number INTERFACE SYSTEM Refer to clinic/hospital department * BASIC METABOLIC PANEL (10/11/2005 9:07 PM CDT) GLUCOSE 108 70 - 110 mg/dL INTERFACE SYSTEM BUN 15 9 - 20 mg/dL INTERFACE SYSTEM CREATININE 1.2 0.7 - 1.5 mg/dL INTERFACE SYSTEM SODIUM 140 136 - 145 mEq/L INTERFACE SYSTEM POTASSIUM 3.9 3.5 - 5.0 mEq/L INTERFACE SYSTEM CHLORIDE 108 95 - 110 mEq/L INTERFACE SYSTEM CO2 26 22 - 32 mmol/l INTERFACE SYSTEM ANION GAP 10 9 - 20 mEq/L INTERFACE SYSTEM OSMOLALITY, CALCULATED 289 275 - 295 mOsm/Kg INTERFACE SYSTEM CALCIUM 9.0 8.4 - 10.5 mg/dL INTERFACE SYSTEM 10/11/2005 9:07 PM CDT Maria Fernanda Hare MD CHEMISTRY ORDERABLES Final Resu lt INTERFACE SYSTEM Refer to clinic/hospital department * (ABNORMAL) CBC WITH DIFFERENTIAL (10/11/2005 9:06 PM CDT) WBC 11.3(H) 4.8 - 10.8 K/ul INTERFACE SYSTEM RBC 4.51(L) 4.60 - 6.20 Mil/ul INTERFACE SYSTEM HEMOGLOBIN 14.0 14.0 - 18.0 g/dL INTERFACE SYSTEM HEMATOCRIT 41.1 41.0 - 53.0 % INTERFACE SYSTEM MCV 91.1 84.0 - 103.0 Fl INTERFACE SYSTEM MCH 31.0 27.0 - 34.0 pg INTERFACE SYSTEM MCHC 34.1 30.0 - 35.0 g/dL INTERFACE SYSTEM RDW 13.5 11.0 - 14.5 % INTERFACE SYSTEM PLATELETS 187 140 - 440 K/ul INTERFACE SYSTEM MPV 10.1 8.9 - 12.8 Fl INTERFACE SYSTEM NEUTROPHILS 79.2(H) 42.2 - 75.2 % INTERFACE SYSTEM LYMPHOCYTES 12.8(L) 24.0 - 44.0 % INTERFACE SYSTEM MONOCYTES 7.5 2.0 - 10.0 % INTERFACE SYSTEM EOSINOPHILS 0.3 0.0 - 7.0 % INTERFACE SYSTEM BASOPHILS 0.2 0.0 - 1.0 % INTERFACE SYSTEM NEUTROPHIL ABSOLUTE 8.9(H) 2.0 - 8.0 K/uL INTERFACE SYSTEM LYMPHOCYTE ABSOLUTE 1.4 1.2 - 4.0 K/ul INTERFACE SYSTEM MONOCYTE ABSOLUTE 0.9(H) 0.1 - 0.6 K/ul INTERFACE SYSTEM EOSINOPHIL ABSOLUTE 0.0 0.0 - 0.7 K/ul INTERFACE SYSTEM BASOPHILS ABSOLUTE 0.0 0.0 - 0.2 K/ul INTERFACE SYSTEM 10/11/2005 9:06 PM CDT Maria Fernanda Hare MD HEMATOLOGY ORDERABLES Final Res ult Performing Organization Address [facility] de Phone Number INTERFACE SYSTEM Refer to clinic/hospital department * PT AND APTT (10/11/2005 9:01 PM CDT) PROTIME 14.6 12.6 - 14.9 Secs INTERFACE SYSTEM Comment: As of 04 note change in normal range. INR 1.1 INTERFACE SYSTEM Comment: Expected Values for INR: DVT/PE Goal INR 2.5; range 2.0 - 3.0 Valve Replacement Tissue Goal INR 2.5; range 2.0 - 3.0 Mechanical Goal INR 3.0; range 2.5 - 3.5 POST-DE Goal INR 2.5; range 2.0 - 3.0 or Goal 3.0; range 2.5 - 3.5 Atrial Fibrillation Goal INR 2.5; range 2.0 - 3.0 Ischemic Stroke Goal INR 2.5; range 2.0 - 3.0 For additional information see Guidelines for Anticoagulation available from the pharmacy [facility]. PTT 26.9 21.5 - 34.4 Secs INTERFACE SYSTEM Comment: Therapeutic Range: Hi-level PE/DVT heparin protocol 90.1 -110 sec Lo-level PE/DVT heparin protocol 75.1 - 95 sec Cardiac Heparin Protocol 85.1 - 100 sec Neuro Heparin Protocol 70.1 - 85 sec As of 04/04/05 note change in APTT Normal Range. 10/11/2005 9:01 PM CDT Maria Fernanda Hare MD HEMATOLOGY ORDERABLES Final Res ult Performing Organization Address [facility] de Phone Number INTERFACE SYSTEM Refer to clinic/hospital department * XR TIBIA AND FIBULA 2 VW RIGHT (10/11/2005 8:42 PM CDT) Anatomical Region Laterality Modality Lower Extremity Other 10/11/2005 8:42 PM CDT Narrative 12/02/2008 8:31 AM CDT AP AND LATERAL RIGHT TIBIA AND FIBULA DATED 10-11-05: HISTORY: Injury. There is a 50% laterally displaced comminuted spiral fracture in the distal tibial shaft. The articular surface appears intact. There is a small bony prominence on the lateral tibial spine. There is a small calcification adjacent to the medial femoral epicondyle. There is a spiral fracture in the proximal fibular shaft, and a nondisplaced probably oblique fracture in the distal fibular metaphysis. There is no osteolytic lesion, osteoblastic lesion, or abnormal foreign body. There are no degenerative changes. The proximal fibular fracture is about 75% medially displaced and mildly apex anteriorly angulated. IMPRESSION: Laterally displaced comminuted spiral fracture in the distal tibial shaft. Proximal fibular shaft spiral fracture with medial displacement. Nondisplaced distal fibular metaphyseal fracture. Pelligrini- Stieda calcification medial to the femur. [facility] ER D: 10-12-05 0559 Dictated By: Jonelle Coleman M.D. Electronically Signed By: Jonelle Coleman M.D. Date Signed: 10/12/05 Procedure Note Provider, Historical - 01/27/2009 AP AND LATERAL RIGHT TIBIA AND FIBULA DATED 10-11-05: HISTORY: Injury. There is a 50% laterally displaced comminuted spiral fracture in thedistal tibial shaft. The articular surface appears intact. There is a small bony prominence on the lateraltibial spine. There is a small calcification adjacent to the medial femoral epicondyle. There is aspiral fracture in the proximal fibular shaft, and a nondisplaced probably oblique fracture in the distalfibular metaphysis. There is no osteolytic lesion, osteoblastic lesion, or abnormal foreign body. Thereare no degenerative changes. The proximal fibular fracture is about 75% medially displaced and mildlyapex anteriorly angulated. IMPRESSION: Laterally displaced comminuted spiral fracture in the distal tibial shaft.Proximal fibular shaft spiral fracture with medial displacement. Nondisplaced distal fibularmetaphyseal fracture. Pelligrini- Stieda calcification medial to the femur. [facility] ER D: 10-12-05 0559 Dictated By: Jonelle Coleman M.D. Electronically Signed By: Jonelle Coleman M.D. Date Signed: 10/12/05 Maria Fernanda Hare MD DIAGNOSTIC IMAGING ORDERABLES F inal Result documented in this encounter Visit Diagnoses Diagnosis Closed fracture of shaft of fibula with tibia- Primary documented in this encounter Care Teams Slot Machine Key Person Relationship Specialty Start Date End Date Ramesh Aguilera MD [address] [facility] [address] [place] [phone] PCP - General 10/11/05 documented as of this encounter
--- OUTSIDE RECORDS SUMMARY | 2024-09-25 12:07 | XMS_ITS | Encounter Summary ---
Author Organization [facility] Address [address] [place] [address] Care Team Providers Care Pack Worker Supervisor Name Role Phone Ramesh Aguilera MD Primary Care Provider [phone] Encounter Details Date Type Department Care Team (Latest Contact Info) Description 11/27/2005 Outpatient Historical [facility] Physical Therapy [address] [place] [phone] Elgin Lo MD NO ADDRESS ON FILE Aftercare for Healing Traumatic Fracture of Lower Leg (Primary Dx) Social History Tobacco Use Types Packs/Day Years Used Date Smoking Tobacco: Never Assessed Sex and Gender Information Value Date Recorded Sex Assigned at Not on file 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
--- OUTSIDE RECORDS SUMMARY | 2024-09-25 12:07 | XMS_ITS | Encounter Summary ---
Author Organization [facility] Address [address] [place] [address] Care Team Providers Care Manager Civil Name Role Phone Ramesh Aguilera MD Primary Care Provider [phone] Encounter Details Date Type Department Care Team (Latest Contact Info) Description 12/25/2005 Outpatient Historical [facility] Orthopedics- [address] [place] 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
--- OUTSIDE RECORDS SUMMARY | 2024-09-25 12:07 | XMS_ITS | Encounter Summary ---
Author Organization [facility] Address [address] [place] [address] Care Team Providers Care Calendering Supervisor Name Role Phone Ramesh Aguilera MD Primary Care Provider [phone] Encounter Details Date Type Department Care Team (Latest Contact Info) Description 11/19/2006 Outpatient Historical [facility] Orthopedics- [address] [place] 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
--- OUTSIDE RECORDS SUMMARY | 2024-09-25 12:07 | XMS_ITS | Encounter Summary ---
Author Organization [facility] Address [address] [place] [address] Care Team Providers Care Genetic Physician Name Role Phone Ramesh Aguilera MD Primary Care Provider [phone] Encounter Details Date Type Department Care Team (Latest Contact Info) Description 01/14/2007 Outpatient Historical [facility] Orthopedics- [address] [place] 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
--- OUTSIDE RECORDS SUMMARY | 2024-09-25 12:07 | XMS_ITS | Encounter Summary ---
Author Organization [facility] Address [address] [place] [address] Care Team Providers Care Drop Board Man Name Role Phone Ramesh Aguilera MD Primary Care Provider [phone] Encounter Details Date Type Department Care Team (Late st Contact Info) Description 02/25/2007 Outpatient Historical [facility] Orthopedics- [address] [place] 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
--- OUTSIDE RECORDS SUMMARY | 2024-09-25 12:07 | XMS_ITS | Encounter Summary ---
Author Organization [facility] Address [address] [place] [address] Care Team Providers Care Blanket Weaver Name Role Phone Ramesh Aguilera MD Primary Care Provider [phone] Encounter Details Date Type Department Care Team (Latest Contact Info) Description 04/02/2006 Outpatient Historical [facility] Orthopedics- [address] [place] 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
--- OUTSIDE RECORDS SUMMARY | 2024-09-25 12:07 | XMS_ITS | Encounter Summary ---
Author Organization [facility] Address [address] [place] [address] Care Team Providers Care Infantry Senior Sergeant Name Role Phone Ramesh Aguilera MD Primary Care Provider [phone] Encounter Details Date Type Department Care Team (Latest Contact Info) Description 09/17/2006 Outpatient Historical [facility] Orthopedics- [address] [place] 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
--- OUTSIDE RECORDS SUMMARY | 2024-09-25 12:07 | XMS_ITS | Encounter Summary ---
Author Organization [facility] Address [address] [place] [address] Care Team Providers Care Lock Tender Chief Operator Name Role Phone Ramesh Aguilera MD Primary Care Provider [phone] Encounter Details Date Type Department Care Team (Late st Contact Info) Description 04/01/2007 Outpatient Historical [facility] Orthopedics- [address] [place] 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
--- OUTSIDE RECORDS SUMMARY | 2024-09-25 12:07 | XMS_ITS | Encounter Summary ---
Author Organization [facility] Address [address] [place] [address] Care Team Providers Care Rate Clerk Passenger Name Role Phone Ramesh Aguilera MD Primary Care Provider [phone] Encounter Details Date Type Department Care Team (Latest Contact Info) Description 05/14/2006 Outpatient Historical [facility] Orthopedics- [address] [place] 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
--- OUTSIDE RECORDS SUMMARY | 2024-09-25 12:07 | XMS_ITS | Encounter Summary ---
Author Organization [facility] Address [address] [place] [address] Care Team Providers Care Coordinator Volunteer Services Name Role Phone Ramesh Aguilera MD Primary Care Provider [phone] Encounter Details Date Type Department Care Team (Latest Contact Info) Description 10/11/2005 Outpatient Historical [facility] [address] [place] [address] AMBULANCE, 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
--- OUTSIDE RECORDS SUMMARY | 2024-09-25 12:07 | XMS_ITS | Encounter Summary ---
Author Organization [facility] Address [address] [place] [address] Care Team Providers Care Manager Support Name Role Phone Ramesh Aguilera MD Primary Care Provider [phone] Encounter Details Date Type Department Care Team (Latest Contact Info) Description 10/29/[address] [facility] Orthopedics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
--- OUTSIDE RECORDS SUMMARY | 2024-09-25 12:07 | XMS_ITS | Encounter Summary ---
Author Organization [facility] Address [address] [place] [address] Care Team Providers Care Radiographer Mammographer Name Role Phone Ramesh Aguilera MD Primary Care Provider [phone] Encounter Details Date Type Department Care Team (Latest Contact Info) Description 11/27/2005 Outpatient Historical [facility] Orthopedics- 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
--- OUTSIDE RECORDS SUMMARY | 2024-09-25 12:07 | XMS_ITS | Encounter Summary ---
Author Organization 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
--- OUTSIDE RECORDS SUMMARY | 2024-09-25 12:07 | XMS_ITS | Encounter Summary ---
Author Organization [facility] Address [address] [facility] [place] [address] Care Team Providers Care Hide Paster Name Role Phone Ramesh Aguilera MD Primary Care Provider [phone] Encounter Details Date Type Department Care Team (Late st Contact Info) Description 12/20/2006 Inpatient Historical [facility] Elgin Lo MD NO ADDRESS ON FILE Nonunion of Fracture (Primary Dx) Social History Tobacco Use Types Packs/Day Years Used Date Smoking Tobacco: Never Assessed Sex and Gender Information Value Date Recorded Sex Assigned at Not on file 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 Gender Identity Not on file Sexual Orientation Not on file documented as of this encounter Plan of Treatment Not on file documented as of this encounter Procedures Procedure Name Priority Date/Time Associated Diagnosis Comments POC GLUCOSE Routine 12/21/2006 4:53 PM CDT POC GLUCOSE Routine 12/21/2006 10:27 AM CDT CBC WITHOUT DIFFERENTIAL Routine 12/21/2006 6:33 AM CDT POC GLUCOSE Routine 12/21/2006 4:55 AM CDT POC GLUCOSE Routine 12/20/2006 8:12 PM CDT POC GLUCOSE Routine 12/20/2006 8:11 PM CDT POC GLUCOSE Routine 12/20/2006 3:32 PM CDT POC GLUCOSE Routine 12/20/2006 11:27 AM CDT documented in this encounter Results * (ABNORMAL) POC GLUCOSE (12/21/2006 4:53 PM CDT) GLUCOSE POC 109(H) 60 - 100 mg/dL INTERFACE SYSTEM 12/21/2006 4:53 PM CDT Elgin Lo MD POINT OF CARE TESTING Edited INTERFACE SYSTEM Refer to clinic/hospital department * POC GLUCOSE (12/21/2006 10:27 AM CDT) GLUCOSE POC 98 60 - 100 mg/dL INTERFACE SYSTEM 12/21/2006 10:2 7 AM CDT us Elgin Lo MD POINT OF CARE TESTING Edited Performing Organization Address City/[facility] Co de Phone Number INTERFACE SYSTEM Refer to clinic/hospital department * (ABNORMAL) CBC WITHOUT DIFFERENTIAL (12/21/2006 6:33 AM CDT) WBC 8.3 4.8 - 10.8 K/ul INTERFACE SYSTEM RBC 4.17(L) 4.60 - 6.20 Mil/ul INTERFACE SYSTEM HEMOGLOBIN 12.7(L) 14.0 - 18.0 g/dL INTERFACE SYSTEM HEMATOCRIT 37.8(L) 41.0 - 53.0 % INTERFACE SYSTEM MCV 90.6 84.0 - 103.0 Fl INTERFACE SYSTEM MCH 30.5 27.0 - 34.0 pg INTERFACE SYSTEM MCHC 33.6 30.0 - 35.0 g/dL INTERFACE SYSTEM RDW 13.6 11.0 - 14.5 % INTERFACE SYSTEM PLATELETS 172 140 - 440 K/ul INTERFACE SYSTEM MPV 10.1 8.9 - 12.8 Fl INTERFACE SYSTEM NEUTROPHILS 69.6 42.2 - 75.2 % INTERFACE SYSTEM LYMPHOCYTES 20.4(L) 24.0 - 44.0 % INTERFACE SYSTEM MONOCYTES 9.2 2.0 - 10.0 % INTERFACE SYSTEM EOSINOPHILS 0.7 0.0 - 7.0 % INTERFACE SYSTEM BASOPHILS 0.1 0.0 - 1.0 % INTERFACE SYSTEM NEUTROPHIL ABSOLUTE 5.8 2.0 - 8.0 K/ul INTERFACE SYSTEM LYMPHOCYTE ABSOLUTE 1.7 1.2 - 4.0 K/ul INTERFACE SYSTEM MONOCYTE ABSOLUTE 0.8(H) 0.1 - 0.6 K/ul INTERFACE SYSTEM EOSINOPHIL ABSOLUTE 0.1 0.0 - 0.7 K/ul INTERFACE SYSTEM BASOPHILS ABSOLUTE 0.0 0.0 - 0.2 K/ul INTERFACE SYSTEM 12/21/2006 6:33 AM CDT us Elgin Lo MD HEMATOLOGY ORDERABLES Edited Performing Organization Address City/[facility] Phone Number INTERFACE SYSTEM Refer to clinic/hospital department * (ABNORMAL) POC GLUCOSE (12/21/2006 4:55 AM CDT) GLUCOSE POC 101(H) 60 - 100 mg/dL INTERFACE SYSTEM 12/21/2006 4:55 AM CDT us Elgin Lo MD POINT OF CARE TESTING Edited Performing Organization Address [facility] Phone Number INTERFACE SYSTEM Refer to clinic/hospital department * (ABNORMAL) POC GLUCOSE (12/20/2006 8:12 PM CDT) GLUCOSE POC 181(H) 60 - 100 mg/dL INTERFACE SYSTEM 12/20/2006 8:12 PM CDT us Elgin Lo MD POINT OF CARE TESTING Edited Performing Organization Address [facility] Phone Number INTERFACE SYSTEM Refer to clinic/hospital department * (ABNORMAL) POC GLUCOSE (12/20/2006 8:11 PM CDT) GLUCOSE POC 208(H) 60 - 100 mg/dL INTERFACE SYSTEM 12/20/2006 8:11 PM CDT us Elgin Lo MD POINT OF CARE TESTING Edited Performing Organization Address City/[facility] de Phone Number INTERFACE SYSTEM Refer to clinic/hospital department * (ABNORMAL) POC GLUCOSE (12/20/2006 3:32 PM CDT) GLUCOSE POC 133(H) 60 - 100 mg/dL INTERFACE SYSTEM 12/20/2006 3:32 PM CDT Elgin Lo MD POINT OF CARE TESTING Edited Performing Organization Address City/[facility] Co de Phone Number INTERFACE SYSTEM Refer to clinic/hospital department * (ABNORMAL) POC GLUCOSE (12/20/2006 11:27 AM CDT) GLUCOSE POC 114(H) 60 - 100 mg/dL INTERFACE SYSTEM 12/20/2006 11:2 7 AM CDT us Elgin Lo MD POINT OF CARE TESTING Edited Performing Organization Address [facility] de Phone Number INTERFACE SYSTEM Refer to clinic/hospital department documented in this encounter Visit Diagnoses Diagnosis Nonunion of fracture- Primary documented in this encounter Care Teams Hide Paster Relationship Specialty Start Date End Date Ramesh Aguilera MD [address] [facility] [address] [place] [phone] PCP - General 10/11/05 documented as of this encounter
--- NOTE | 2024-09-25 12:23 | XR_ITS ---
WS: [id number] XR chest 1V portable [id number] REASON FOR EXAM: sob FINDINGS: Chest is essentially unchanged compared to 12/27/2023. Heart and the mediastinum are within normal limits. Hyperexpansion of both lungs. Ill-defined areas of lucency in the upper lung crouch. Prominent central pulmonary arteries with rapid tapering. Chronic interstitial lung opacities in both lower lung crouch. Calcified granulomatous disease bilaterally. XR/XR chest 1V portable [id number] IMPRESSION: Obstructive lung disease possibly with pulmonary artery hypertension. No acute chest abnormality identified.
--- NOTE | 2024-09-25 12:23 | ECG_ITS ---
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 Measurements Intervals [place] Rate: 66 P: 257 VT: 105 QRS: 96 QRSD: 144 T: 34 QT: 428 QTc: 450 Interpretive Statements Normal Sinus Rhythm RIGHT BUNDLE BRANCH BLOCK [120+ ms QRS DURATION, UPRIGHT V1, 40+ ms S IN I/aVL/V4/V5/V6] Compared to ECG 07/28/2024 15:03:54 Junctional rhythm now present Right bundle-branch block now present Sinus bradycardia no longer present Intraventricular conduction delay no longer present Electronically Signed On 09-26-2024 14:10:11 CDT by Padmaja Abdalla M.D. [email or web address]
[2024-09-25 12:31] LABS: Hematocrit 44.1 % (37-53); Hemoglobin 14.90 g/dL (11.27-16.99); Mean Corpuscular HGB Conc 33.8 g/dL (30-55); Mean Corpuscular Hemoglobin 32.3 pg (27-33); Mean Corpuscular Volume 95.5 fl (82-101); Nucleated Red Blood Cells % 0 %; Platelet Count 182 10^3/cmm (157-399); Red Blood Count 4.62 10^6/uL (3.85-5.65); White Blood Count 6.23 10^3/uL (3.29-11.43)
[2024-09-25] MEDS: magnesium sulfate premix 2 GM/50 ML PIGGYBACK IV (12:37)
[2024-09-25] MEDS: methylPREDNISolone sod succ 125 mg/2 mL INJ IV (12:42)
[2024-09-25 12:50] LABS: Lactic Sepsis W/Reflex 1.2 mmol/L (0.5-2.2); Troponin(5th) Baseline 20 ng/L (0-15)
[2024-09-25 13:01] LABS: Alanine Aminotransferase 18 U/L (0-41); Albumin Level 4.4 g/dL (3.5-5.2); Alkaline Phosphatase 60 U/L (40-130); Anion Gap 17.7 (5-19); Aspartate Amino Transferase 26 U/L (0-40); Blood Urea Nitrogen 19 mg/dL (8-23); Calcium 9.4 mg/dL (8.5-10.5); Carbon Dioxide 27 mmol/L (22-29); Chloride 102 mmol/L (98-107); Globulin 2.4 g/dL (1.3-4.6); Glucose 94 mg/dL (65-115); Magnesium 2.1 mg/dL (1.7-2.3); NT Pro B Type Natriuretic Pept 436 pg/mL (0-450); Osmolality Calculated 296 mOsm/kg (285-295); Potassium 4.7 mmol/L (3.5-5.1); Sodium 142 mmol/L (136-145); Total Protein 6.8 g/dL (6.6-8.7)
[2024-09-25 13:10] LABS: Base Excess VBG -0.6 mmol/L (-3.0-3.0); Blood Gas LPM 2.0 %; Blood Gas Operator Identificat CAK; Blood Gas Sample Site Not specified; Blood Gas Sample Type Venous; HCO3 VBG 24.0 mmol/L (24-28); PCO2 VBG 38.3 mmHg (41-51); PO2 VBG 49.9 mmHg (25-40); Venous Blood Gas Hematocrit 45.0 % (42-52); pH VBG 7.40 (7.32-7.42)
--- NOTE | 2024-09-25 13:31 | PC.PHAR ---
[facility] 09/25/24 1:15pm
--- NOTE | 2024-09-25 14:30 | W.ED.SOB ---
HPI - SOB/Dyspnea General: Chief Complaint: Shortness of Breath/Dyspnea Stated Complaint: SOB Time Seen by Provider: 09/25/24 12:18 History of Present Illness: HPI Narrative: Patient is an 83yo male who presents to the ED with complaints of progressive shortness of breath over the past 10 days, with significant worsening over the last 2-3 days. He reports using his home nebulizer and rescue inhaler without improvement. He has been using supplemental oxygen at home while sleeping for the past couple of months, but experienced a particularly difficult night prior to presentation. The patient denies chest pain, reports minimal productive cough, and is unsure about fever. He has a history of COPD and reports having been to the emergency room approximately four times previously for similar symptoms, requiring BiPAP treatment on those occasions. Patient quit smoking in 1984 but acknowledges it wasn't soon enough to prevent lung damage. He denies any history of heart attacks or other cardiac problems, though mentions having a 'real slow heart.' Associated symptoms: Deny diaphoresis Related Data Home Medications ?Medication ?Instructions ?Recorded ?Confirmed latanoprost 0.005 % eye drops 1 drop ophthalmic (eye) QPM 03/16/19 09/14/24 simvastatin 10 mg tablet (Zocor) 5 mg PO QPM 03/16/19 09/14/24 finasteride 5 mg tablet 5 mg PO DAILY 07/18/21 09/14/24 fluoride (sodium) 1.1 % dental 1 applic dental DAILY 07/18/21 07/28/24 paste tamsulosin 0.4 mg capsule 0.4 mg PO QPM 07/18/21 09/14/24 cholecalciferol (vitamin D3) 50 50 mcg PO DAILY 12/09/22 09/14/24 mcg (2,000 unit) tablet (Vitamin D3) citalopram 40 mg tablet 20 mg PO DAILY 12/09/22 09/14/24 ropinirole 4 mg tablet 4 mg PO BID 12/09/22 09/14/24 Potassium Citrate Sa 1 tab PO DAILY 11/07/23 09/14/24 albuterol sulfate 90 mcg/actuation 2 puff inhalation Q4H PRN asthma 11/07/23 09/14/24 aerosol inhaler magnesium oxide 400 mg PO DAILY 11/07/23 09/14/24 rivaroxaban 10 mg tablet (Xarelto) 10 mg PO DAILY 11/07/23 09/14/24 tizanidine 4 mg tablet 4 mg PO BID PRN Muscle Spasm 11/07/23 09/14/24 Previous Rx's ?Medication ?Instructions ?Recorded nebulizers (Altera Nebulizer #1 ea 07/06/19 System) budesonide 160 mcg-glycopyr 9 2 inh inhalation BID #10.7 grams 04/25/21 mcg-formot 4.8 mcg/actuation HFA inhaler (Breztri Aerosphere) urea 40 % topical cream 1 applic topical TID #198 grams 10/17/23 albuterol sulfate 90 mcg/actuation 2 inh inhalation Q6H PRN shortness 09/25/24 aerosol inhaler (Ventolin HFA) of breath or wheezing #6.7 grams azithromycin 250 mg tablet See Rx Instructions PO .COMPLEX #6 09/25/24 tabs prednisone 20 mg tablet 20 mg PO BID 5 days #10 tabs 09/25/24 Allergies Allergy/AdvReac Type Severity Reaction Status Date / Time No Known Allergies Allergy Verified 09/14/24 12:48 Review of Systems Const: Denies: diaphoresis [facility] ED PFSH: Medical History (Updated 09/25/24 @ 14:34 by Crsiti Arce MD) Laceration of forearm, complicated Hoarseness PVC (premature ventricular contraction) CKD (chronic kidney disease) stage 3, GFR 30-59 ml/min Symptomatic bradycardia Bradycardia Near syncope Anxiety disorder, unspecified Basal cell carcinoma of skin, unspecified Hyperlipidemia, unspecified Major depressive disorder, recurrent, mild Pain in left shoulder Pain in unspecified hip Personal history of pulmonary embolism Vitamin deficiency, unspecified Dyspnea COPD (chronic obstructive pulmonary disease) Leg fracture, right Surgical History H/O rotator cuff surgery Family History Father CAD (coronary artery disease) Mother CAD (coronary artery disease) Sister Cancer Lymphoma Social History Smoking and tobacco/nicotine status: former use of tobacco/nicotine Quit status (tobacco/nicotine): has quit using Year quit tobacco: 1986 - PD x 37 Years Second hand smoke exposure: No Alcohol intake: never Substance/Drug Use: never Lives independently: Yes Household members: spouse Marital status: service: Yes Current occupational status: retired Do you think of yourself as: Straight/Heterosexual Current gender identity: Male Physical Exam Const: COMMON NORMALS: average body habitus, alert and well nourished GENERAL APPEARANCE: cooperative ORIENTATION/CONSCIOUSNESS: Yes awake HENMT: COMMON NORMALS: normocephalic and atraumatic HEAD & SCALP: normocephalic and atraumatic Eye: COMMON NORMALS: conjunctivae normal CONJUNCTIVA: Yes conjunctivae normal Neck/C-Spine: GENERAL: Yes normal visual inspection Resp: OTHER: Tachypnea noted with moderate increased work of breathing diffuse breath sounds bilaterally with some wheezes Cardio: COMMON NORMALS: regular rhythm and Peripheral pulses 2+ throughout RHYTHM: regular rhythm PERIPHERAL PULSES: Peripheral pulses 2+ throughout GI: COMMON NORMALS: Soft to palpation and non-tender PALPATION: Yes Soft to palpation Extremity: COMMON NORMALS: full ROM and no pedal edema Neuro: COMMON NORMALS: no focal motor deficits SENSORIUM/ORIENTATION: Yes alert Skin: COMMON NORMALS: no rashes or lesions noted GENERAL SKIN EXAM: no rashes or lesions noted Course Vital Signs: Vital signs: Vital Signs Temperature 97.5 F L 09/25/24 12:10 Pulse Rate 55 L 09/25/24 14:09 Respiratory Rate 22 H 09/25/24 12:55 Blood Pressure 120/68 09/25/24 14:09 Pulse Oximetry 92 09/25/24 14:09 Oxygen Delivery Me thod Nasal Cannula 09/25/24 12:55 Oxygen Flow Rate 2 09/25/24 12:55 MDM - SOB/Dyspnea Medical Decision Making ROS: Constitutional: No reported fever. Respiratory: Positive for shortness of breath and minimal productive cough. Denies hemoptysis. Cardiovascular: Denies chest pain. No history of heart attacks. All other systems: Deferred or unremarkable based on available information. MEDICATIONS AND ALLERGIES: Medications: - Breo (fluticasone/vilanterol) - Albuterol rescue inhaler - Home oxygen (used intermittently) Allergies: No known drug allergies PAST HISTORICAL DATA: PMH: COPD/Emphysema, possible pulmonary artery hypertension PSH: Not specified Social History: Former smoker, quit in 1984 Family History: Not specified VITAL SIGNS: No specific vital signs were verbalized, though patient was noted to be in moderate to severe respiratory distress with tachypnea on initial assessment. PHYSICAL EXAM: General: Patient in moderate to severe respiratory distress with tachypnea on initial presentation. HEENT: Head normocephalic and atraumatic. Mucous membranes moist. Neck: Supple. Respiratory: Diminished breath sounds throughout with expiratory wheezes. Increased work of breathing noted initially. Cardiac: Junctional rhythm with right bundle branch block initially noted, later reassessed as sinus rhythm. Regular rate and rhythm, 2+ pulses in all extremities. Abdomen: Soft, non-distended, no rebound or guarding. Neuro: Cranial nerves grossly intact, no focal motor or sensory deficits noted. INITIAL IMPRESSION AND PLAN: Given the history and presentation, the primary working diagnosis is acute exacerbation of COPD. Additional considerations include pneumonia, heart failure, and pulmonary embolism. Based on this initial impression I will order CBC, chemistry panel, troponin, BNP, chest x-ray, and EKG. Treatment will include IV steroids (Solu-Medrol), IV magnesium, albuterol nebulizer treatments, and supplemental oxygen as needed. Will consider BiPAP if respiratory status does not improve with initial interventions. TEST INTERPRETATIONS: CBC: Normal Chemistry panel: Unremarkable except for creatinine of 1.7 Troponin: Normal BNP: 436 (elevated) Chest X-ray: Shows emphysema changes, obstructive lung disease, possible pulmonary artery hypertension. No acute chest abnormality identified. EKG: Initially read as junctional rhythm with right bundle branch block, later reassessed as sinus rhythm without ischemic ST elevation or depressions. PROCEDURES: No high-risk procedures were performed during this encounter. CONSIDERED BUT NOT PERFORMED: Hospital admission CONSIDERED but NOT DONE due to significant clinical improvement after ED interventions, patient's preference for discharge, and ability to continue treatment as an outpatient with appropriate follow-up. BiPAP CONSIDERED but NOT DONE due to adequate response to medical therapy with nebulizer treatments, IV steroids, and IV magnesium. FINAL IMPRESSION: Based on all the above, my clinical impression is most compatible with acute exacerbation of COPD. The clinical picture is not currently suggestive of acute coronary syndrome, pneumonia, or pulmonary embolism. Although other conditions were also considered, they were deemed unlikely based on the clinical information available. CLINICAL DISPOSITION: The patient's current condition is stable in my estimation and the most appropriate and indicated disposition at this time is discharge home with medications and outpatient follow-up. DISCHARGE RATIONALE: The patient is appropriate for discharge as he has demonstrated significant clinical improvement following ED interventions. He is now resting comfortably on room air without respiratory distress. His vital signs have stabilized, and he is able to maintain adequate oxygenation without supplemental oxygen. The patient has a clear understanding of his condition, medication regimen, and follow-up instructions. He has appropriate support at home and access to his medications. The patient has been prescribed a course of oral steroids and has his rescue inhaler for breakthrough symptoms. He has been instructed on when to return to the ED if symptoms worsen. RISK STRATIFICATION AND CLINICAL DECISION RULES APPLIED: No formal clinical decision rules were applied in this case. Clinical decision-making was based on the patient's presentation, response to treatment, and overall clinical improvement during the ED stay. CASE SUMMARY: Elderly male with history of COPD presented with progressive shortness of breath over 10 days, worsening in the last 2-3 days despite home nebulizer use. Initial assessment revealed moderate to severe respiratory distress with diminished breath sounds and expiratory wheezes. Diagnostic workup showed normal CBC, elevated creatinine (1.7), normal troponin, elevated BNP (436), and chest x-ray consistent with emphysema and obstructive lung disease. EKG showed sinus rhythm without ischemic changes. Patient received 125mg IV Solu-Medrol, 2g IV magnesium, and multiple albuterol nebulizer treatments with significant clinical improvement. He was transitioned from respiratory distress to comfortable breathing on room air. Given his marked improvement and preference for home management, patient was discharged with a 5-day course of prednisone 40mg daily, albuterol inhaler refill, and instructions to follow up with his PCP for recheck. Lab Data I reviewed the patient's lab results. 09/25/24 12:24 09/25/24 12:24 Labs/Radiology: Radiology Impressions Chest X-Ray 09/25/24 12:23 IMPRESSION: Obstructive lung disease possibly with pulmonary artery hypertension. No acute chest abnormality identified. Laboratory Results WBC 6.23 10^3/uL (3.29-11.43) 09/25/24 12:24 RBC 4.62 10^6/uL (3.85-5.65) 09/25/24 12:24 Hgb 14.90 g/dL (11.27-16.99) 09/25/24 12:24 Hct 44.1 % (37-53) 09/25/24 12:24 MCV 95.5 fl (82-101) 09/25/24 12:24 MCH 32.3 pg (27-33) 09/25/24 12:24 MCHC 33.8 g/dL (30-55) 09/25/24 12:24 RDW 13.2 % (12.1-15.1) 09/25/24 12:24 Plt Count 182 10^3/cmm (157-399) 09/25/24 12:24 MPV 9.8 fL (7.4-10.4) 09/25/24 12:24 Neut % (Auto) 59.8 % 09/25/24 12:24 Lymph % (Auto) 25.8 % 09/25/24 12:24 George % (Auto) 8.5 % 09/25/24 12:24 Eos % (Auto) 5.1 % 09/25/24 12:24 Baso % (Auto) 0.6 % 09/25/24 12:24 Neut # (Auto) 3.72 10^3/uL (1.8-7.7) 09/25/24 12:24 Lymph # (Auto) 1.6 10^3/uL (0.8-4.8) 09/25/24 12:24 George # (Auto) 0.5 10^3/uL (0.2-0.9) 09/25/24 12:24 Eos # (Auto) 0.3 10^3/uL (0.0-0.8) 09/25/24 12:24 Baso # (Auto) 0.0 10^3/uL (0.0-0.1) 09/25/24 12:24 Nucleated RBC % (auto) 0 % 09/25/24 12:24 Nucleated RBCs # 0.0 /100WBC 09/25/24 12:24 Specimen Type Venous 09/25/24 12:57 Sample Site Not specified 09/25/24 12:57 [place]racho Test N/a 09/25/24 12:57 VBG pH 7.40 (7.32-7.42) 09/25/24 12:57 VBG pCO2 38.3 mmHg (41-51) L 09/25/24 12:57 VBG pO2 49.9 mmHg (25-40) H 09/25/24 12:57 VBG HCO3 24.0 mmol/L (24-28) 09/25/24 12:57 VBG Base Excess -0.6 mmol/L (-3.0-3.0) 09/25/24 12:57 VBG Hematocrit 45.0 % (42-52) 09/25/24 12:57 O2 Delivery Device Nc 09/25/24 12:57 O2 Liters/Min 2.0 % 09/25/24 12:57 Treatment Specialist ID Cak 09/25/24 12:57 Sodium 142 mmol/L (136-145) 09/25/24 12:24 Potassium 4.7 mmol/L (3.5-5.1) 09/25/24 12:24 Chloride 102 mmol/L (98-107) 09/25/24 12:24 Carbon Dioxide 27 mmol/L (22-29) 09/25/24 12:24 Anion Gap 17.7 (5-19) 09/25/24 12:24 BUN 19 mg/dL (8-23) 09/25/24 12:24 Creatinine 1.7 mg/dL (0.7-1.2) H 09/25/24 12:24 GFR Calculation Not Reportable 09/25/24 12:24 Glucose 94 mg/dL (65-115) 09/25/24 12:24 Calculated Osmolality 296 mOsm/kg (285-295) H 09/25/24 12:24 Lactic Acid 1.2 mmol/L (0.5-2.2) 09/25/24 12:24 Calcium 9.4 mg/dL (8.5-10.5) 09/25/24 12:24 Magnesium 2.1 mg/dL (1.7-2.3) 09/25/24 12:24 Total Bilirubin 0.6 mg/dL (0.15-1.2) 09/25/24 12:24 AST 26 U/L (0-40) 09/25/24 12:24 ALT 18 U/L (0-41) 09/25/24 12:24 Alkaline Phosphatase 60 U/L (40-130) 09/25/24 12:24 Troponin T Baseline 20 ng/L (0-15) H 09/25/24 12:24 NT-Pro-B Natriuret Pep 436 pg/mL (0-450) 09/25/24 12:24 Total Protein 6.8 g/dL (6.6-8.7) 09/25/24 12:24 Albumin 4.4 g/dL (3.5-5.2) 09/25/24 12:24 Globulin 2.4 g/dL (1.3-4.6) 09/25/24 12:24 All radiology interpretation(s) finalized by discharge Discharge Plan Discharge Patient Disposition: Home Clinical Impression: Acute exacerbation of chronic obstructive pulmonary disease Condition: Stable Prescriptions: New albuterol sulfate [Ventolin HFA] 90 mcg/actuation HFA aerosol inhaler 2 inh inhalation Q6H PRN (Reason: shortness of breath or wheezing) Qty: 6.7 0RF azithromycin 250 mg tablet See Rx Instructions .ROUTE .COMPLEX Qty: 6 0RF Rx Instructions: For 250 mg dose pack: take 500 mg today (day 1), then 250 mg for 4 days (days 2-5) prednisone 20 mg tablet 20 mg PO BID 5 Days Qty: 10 0RF No Action simvastatin [Zocor] 10 mg tablet 5 mg PO QPM latanoprost 0.005 % drops 1 drop ophthalmic (eye) QPM Rx Instructions: (both eyes) (DME) Altera Nebulizer System Misc See Rx Instructions .ROUTE .MEDSUPPLY Qty: 1 0RF Rx Instructions: As directed fluoride (sodium) 1.1 % paste 1 applic dental DAILY tamsulosin 0.4 mg capsule 0.4 mg PO QPM finasteride 5 mg tablet 5 mg PO DAILY urea 40 % cream 1 applic topical TID Qty: 198 4RF Breztri Aerosphere 160-9-4.8 mcg/actuation HFA aerosol inhaler 2 inh inhalation BID Qty: 10.7 0RF citalopram 40 mg Tablet 20 mg PO DAILY ropinirole 4 mg Tablet 4 mg PO BID cholecalciferol (vitamin D3) [Vitamin D3] 50 mcg (2,000 unit) Tablet 50 mcg PO DAILY tizanidine 4 mg Tablet 4 mg PO BID PRN (Reason: Muscle Spasm) albuterol sulfate 90 mcg/actuation Hfa Aerosol Inhaler 2 puff INHALATION Q4H PRN (Reason: asthma) Xarelto 10 mg Tablet 10 mg PO DAILY Rx Instructions: for 35 days magnesium oxide 400 mg magnesium Tablet 400 mg PO DAILY Potassium Citrate Sa 1 tab PO DAILY Discharge Orders: Discharge ED (Routine); Ordered 09/25/24 Ordered By: Cristi Arce Referrals: Pilar Lake MD [Primary Care Provider, Family Practice] Patient Instructions: COPD (Chronic Obstructive Pulmonary Disease) (ED), Opioid Safety, Pain Management, Patient Portal & Nichole Instructions Activity Restrictions/Additional Instructions: DISCHARGE INSTRUCTIONS: DIAGNOSIS: Acute exacerbation of COPD MEDICATIONS: 1. Prednisone 40mg daily for 5 days 2. Continue your regular COPD medications (Breo) 3. Use your albuterol inhaler as needed for shortness of breath ACTIVITY: Rest as needed. Gradually increase activity as tolerated. Avoid exposure to respiratory irritants such as smoke, strong fumes, or extreme temperatures. FOLLOW-UP: Schedule an appointment with your primary care provider within 1 week for follow-up. RETURN TO THE EMERGENCY DEPARTMENT IF: - Your breathing becomes significantly worse - You develop chest pain - You have a fever over 101?F - You are unable to eat or drink - Your medications are not controlling your symptoms - You develop blue discoloration of your lips or fingernails - You become confused or extremely drowsy ADDITIONAL INSTRUCTIONS: - Use your home oxygen as prescribed if needed - Keep all your medications in an easily accessible location - Consider using a spacer with your inhaler for better medication delivery - Stay well-hydrated unless instructed otherwise by your doctor Print Language: Irish Coding Level of Care Code ED Computer Support Analyst for Cheyenne Brambila
[2024-09-25 14:53] LABS: Troponin 5 2HR 18.60 ng/L (0-15)
[2024-09-25 14:55] LABS: Troponin 5 2HR Delta -1.40 ABS# (0-10)
== END 2024-09-25 15:06 | disposition home or self-care (01) ==
PROVIDERS: Emergency Provider Student in an Organized Health Care Education/Training Program; PCP Family Medicine
DX: J44.1 Chronic obstructive pulmonary disease with (acute) exacerbation (principal); Z87.891 Personal history of nicotine dependence; N18.9 Chronic kidney disease, unspecified; J44.9 Chronic obstructive pulmonary disease, unspecified; E78.5 Hyperlipidemia, unspecified; Z85.828 Personal history of other malignant neoplasm of skin
CPT/HCPCS: 36415; 71045; 80053; 82803; 83605; 83735; 83880; 84484; 85025; 87040; 93005; 94640; 96365; 96375; 99285; J2919; J3475; J9999

== ENCOUNTER 2025-01-25 11:36 | Outpatient (CLI) | payer OTHER, SELFPAY ==
--- NOTE | 2025-01-25 11:43 | MR_ITS ---
WS: [id number] MRI LEFT HIP WITHOUT CONTRAST. COMPARISON: CT pelvis 02/06/2023 Multiplanar, multisequence imaging is performed without contrast. Moderate symmetric narrowing of each hip joint. No acute fractures or marrow edema. No significant joint effusions. No fluid in the trochanteric bursa. LEFT hip cortex is intact. There is mild acetabular and femoral head-neck ridging. Mild diffuse cartilaginous irregularity surrounding the LEFT femoral head. No obvious labral tear is identified. No muscle atrophy or edema. There is a small amount of free fluid in the pelvis along certain etiology. MR/MR hip LT wo con* [id number] IMPRESSION: 1. 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 2. No joint effusion. No marrow edema or fracture. 3. No intra-articular bodies identified. 4. Small amount of free fluid in the pelvis of uncertain etiology.
== END 2025-01-25 11:37 | disposition home or self-care (01) ==
PROVIDERS: PCP Nurse Practitioner Family; Visit Provider Nurse Practitioner Family
DX: M21.41 Flat foot [pes planus] (acquired), right foot (principal); M21.42 Flat foot [pes planus] (acquired), left foot
CPT/HCPCS: 73721; 99213

== ENCOUNTER 2025-01-26 11:05 | Outpatient (RCR) | payer OTHER, SELFPAY | END 2025-02-07 23:59 | disposition home or self-care (01) | LOC: TST 11:05 | PROVIDERS: PCP Nurse Practitioner Family; Visit Provider Nurse Practitioner Family | DX: R13.10 Dysphagia, unspecified (principal) | CPT/HCPCS: 92610 ==

== ENCOUNTER → 2025-02-16 08:51 | Outpatient (BNVA) | payer OTHER, SELFPAY | PROVIDERS: PCP Nurse Practitioner Family; Visit Provider Nurse Practitioner Family | DX: J44.9 Chronic obstructive pulmonary disease, unspecified (principal); Z86.711 Personal history of pulmonary embolism; Z79.01 Long term (current) use of anticoagulants; Z87.891 Personal history of nicotine dependence | CPT/HCPCS: 99214 ==